=== PATIENT | female | born 1940 | race Caucasian/White ===

== ENCOUNTER 2018-10-25 12:57 | Outpatient (CLI) | payer MEDICARE, SELFPAY ==
--- NOTE | 2018-11-08 12:13 | HOLTER_ITS ---
DATE OF DICTATION: November 07, 2018 REFERRING PHYSICIAN: Yareli Santa M.D. INDICATION: Bradycardia. DATE OF RECORDING: October 25, 2018 DATE OF ANALYSIS: October 27, 2018 FINDINGS: 1. Baseline sinus rhythm, 47-94 bpm, average 62 bpm. 2. Rare PVC's, 0.9%, few couplets (42) and triplets (2), no VT. 3. Rare PAC, 0.9%, 9 SVT runs, maximally 7 beats, maximally 137 bpm, no atrial fibrillation. 4. No significant pauses, one brief episode of nocturnal bradycardia. Minimally 42 bpm. 5. Symptoms: dizziness x3 with sinus rhythm 52-69 bpm, one episode with single PVC.
== END 2018-10-25 13:17 ==
PROVIDERS: PCP Family Medicine; Visit Provider Internal Medicine
DX: R00.1 Bradycardia, unspecified (principal); I49.3 Ventricular premature depolarization; I47.1 Supraventricular tachycardia
CPT/HCPCS: 93225

== ENCOUNTER 2018-10-26 01:46 | Outpatient (CLI) | payer MEDICARE, SELFPAY ==
[2018-10-26 13:07] LABS: Abs Immature Grans 0.01 k/cumm (0.0-0.09); Absolute Basophil Count 0.03 k/cumm (0.0-0.2); Absolute Lymphocyte Count 1.22 k/cumm (1.2-3.4); Absolute Monocyte Count 0.49 k/cumm (0.11-0.7); Absolute Neutrophil Count 3.24 k/cumm (1.2-6.7); Basophils % 0.6; HCT 40.4 % (36.0-46.0); HGB 13.5 g/dL (12.0-15.5); Immature Grans % 0.2; Mean Corp. HGB Concentration 33.4 g/dL (32.0-36.0); Mean Corpuscular Hemoglobin 31.2 pg (27.0-33.0); Mean Corpuscular Volume 93.3 fL (80-95); Mean Platelet Volume 9.7 fL (8.0-11.0); Monocytes % 9.6; Neutrophils % 63.6; Platelet Count 194 x1000/uL (130-400); RBC 4.33 m/cumm (4.00-5.20); RBC Distribution Width 12.6 % (11.7-14.6); White Blood Cell Count 5.09 k/cumm (4.4-10.8)
[2018-10-26 13:14] LABS: ALT 23 U/L (12-78); AST 19 U/L (15-37); Alkaline Phosphatase 69 U/L (46-116); Anion Gap 9.8 mmol/L (3-11); BUN 24 mg/dL (7-18); Bilirubin, Total 0.6 mg/dL (0.2-1.0); CO2 29.2 mmol/L (21.0-32.0); CREATININE 0.84 mg/dL (0.55-1.02); Calcium 8.1 mg/dL (8.5-10.1); Chloride 101 mmol/L (98-107); Glucose 83 mg/dL (70-100); Potassium 4.3 mmol/L (3.5-5.1); Sodium 140 mmol/L (136-145); TSH (W/Ref FT4) 2.66 uIU/mL (0.358-3.74); Total Protein 6.8 g/dL (6.4-8.2)
[2018-10-26 14:26] LABS: Calculated LDL 106; Cholesterol 179 mg/dL (50-200); HDL Cholesterol 59 mg/dL (40-60); Triglyceride 73 mg/dL (30-150)
[2018-10-28 05:22] LABS: Vitamin D 25 Total 62.1 ng/ml (30-100)
== END 2018-10-26 02:06 ==
PROVIDERS: PCP Family Medicine; Visit Provider Internal Medicine
DX: R00.1 Bradycardia, unspecified (principal); R42 Dizziness and giddiness; E03.9 Hypothyroidism, unspecified; E83.51 Hypocalcemia
CPT/HCPCS: 36415; 80053; 80061; 82306; 83721; 84443; 85025

== ENCOUNTER 2018-10-27 00:53 | Outpatient (CLI) | payer MEDICARE, SELFPAY ==
--- NOTE | 2018-10-27 07:29 | DI.COMBO_ITS ---
SYMPTOMS/DIAGNOSIS: RIGHT BREAST LUMP, N63.10 MAMMOGRAM WITH ADDITIONAL MAMMOGRAPHIC VIEWS, RIGHT BREAST, AND RIGHT BREAST ULTRASOUND: Mammograms were interpreted according to the usual protocol including computer analysis with CAD system, tomosynthesis and C view imaging. Additional images are interpreted according to the usual protocol including tomosynthesis and 2D imaging. Today's mammogram is interpreted in conjunction with additional mammographic views of the right breast and right breast ultrasound. The breasts are of moderate density with fairly symmetrical distribution of fibroglandular tissue. Comparison with previous examinations including October 2015 shows a new, approximately 12-13 mm in diameter right breast mass in the lower outer quadrant/lateral portion of the breast in approximately the 8 o'clock position about 4 cm from the nipple. This has poorly defined borders. Additional compression views of this area confirm a mass with somewhat irregular borders, three or four nonspecific microcalcifications are present mammographically in the mass. No additional mass identified in either breast. Breast ultrasound shows a heterogeneous solid mass with mildly increased vascular flow and poorly defined posterior borders with mild posterior acoustic shadowing. The findings are suspicious for malignancy. Biopsy recommended, which may be accomplished as ultrasound-guided biopsy. CONCLUSION: Biopsy recommended for suspicious right breast mass. Category 4, breast density category B. MQSA ASSESSMENT OF FINDINGS: Suspicious. Biopsy should be considered. Category 4. Patient will receive a letter notifying them of these results. BI-RADS category B. There are scattered areas of fibroglandular density.
== END 2018-10-27 01:13 ==
PROVIDERS: PCP Family Medicine; Visit Provider Internal Medicine
DX: N63.13 Unspecified lump in the right breast, lower outer quadrant (principal); Z12.31 Encounter for screening mammogram for malignant neoplasm of breast; R92.8 Other abnormal and inconclusive findings on diagnostic imaging of breast; R00.1 Bradycardia, unspecified; I49.3 Ventricular premature depolarization; I47.1 Supraventricular tachycardia
CPT/HCPCS: 76642; 77062; 77066; 93226; G0279

== ENCOUNTER 2018-10-27 18:41 | Outpatient (CLI) | payer MEDICARE, SELFPAY | END 2018-10-27 19:01 | PROVIDERS: PCP Family Medicine; Visit Provider Family Medicine | DX: R00.1 Bradycardia, unspecified (principal); I49.3 Ventricular premature depolarization; I47.1 Supraventricular tachycardia | CPT/HCPCS: 93226 ==

== ENCOUNTER 2018-11-05 09:52 | Emergency (ER) | payer MEDICARE, SELFPAY ==
[2018-11-05] VITALS (53 sets, daily range): BP systolic 119–160; BP diastolic 52–102; PULSE 48–54; RESP 8–30; O2SAT 94–99
--- NOTE | 2018-11-05 10:05 | ED.GENADUL_ITS ---
Discharge Plan Disposition Patient Disposition: [facility] Discharge Details Chief Complaint: Dizzy/Sync Clinical Impression: Symptomatic bradycardia Primary Care Provider: Maine Trinidad ED Provider: Bryce Glaser Home Meds and New Rx's Prescriptions: No Action levothyroxine 75 mcg tablet 75 mcg PO DAILY Qty: 90 RF: 3 PreserVision AREDS-2 [id number] rk-bfvz-og-mg capsule 2 tab PO ONCE RF: 0 aspirin [Aspirin Low-Strength] 81 MG tablet,chewable 81 mg PO DAILY RF: 0 CENTRUM SILVER TABLET 1 EACH tablet 1 tab PO DAILY RF: 0 calcium carbonate-vitamin D3 [Caltrate with Vitamin D3] 600 mg(1,500mg) -800 unit tablet 2 tab PO DAILY RF: 0 meclizine 25 mg tablet 25 mg PO TID PRN (Reason: dizziness) Qty: 20 RF: 0 Discharge Data Discharge Date/Time-TO BE ENTERED AT DEPARTURE: 11/05/18 14:10 Medical Decision Making 10:10 --78-year-old female with history of hypothyroidism, on levothyroxine, here with symptomatic bradycardia. Patient is having intermittent episodes with heart rate in the 30s to 40s and becomes quite symptomatic with feelings of presyncope, nausea and diaphoresis during episodes. Patient is not on beta-nadine or calcium channel nadine. Consider hypothyroidism versus more likely sick sinus syndrome. Plan to obtain screening electrolytes and will check TSH and free T4. Pacer pads have been placed on the patient. Initial ECG reviewed and interpreted by me: Sinus bradycardia 53 bpm, right bundle branch block with left axis deviation, no STEMI, nondiagnostic. ECG monitor was reviewed and interpreted by me during episode of presyncope and patient notably had bradycardia in the 30s with no definitive P waves. Episode was brief lasting a few minutes and she returned to sinus bradycardia. 11:05 -- Labs reviewed and nondiagnostic. [place] [facility] [place] Awaiting physician callback. 11:15 -- I spoke with Dr. Rodriguez -I discussed ED presentation and course. Dr. Peck to accept transfer, awaiting bed call. HPI General Mode of arrival: ambulatory . Date/Time Provider Initiated Documentation: 11/05/18 10:06 . Limitations to Documentation: no limitations . Information obtained by: patient . History of Present Illness Quality is described as sharp, HPI Narrative: 78-year-old female here with chief complaint of dizziness. Patient notes she is had intermittent dizziness occurring every 1 to 2 days for the past 2 weeks. This morning she notes that she stood up out of a chair to answer the phone and felt dizzy and like she was going to pass out. Symptoms were severe. She has associated nausea and diaphoresis. No modifiers. No associated chest pain or SOB. EMS arrived at home and found the patient asymptomatic with a heart rate in the 70s to 80s. En route to [facility], EMS note that she had intermittent episodes of bradycardia to the 30s and 40s with recurrent symptoms. Of note, patient recently had a Holter monitor that was returned. Related Data Home Medications Medication Instructions Recorded Confirmed Centrum Silver Tablet 1 tab PO DAILY 09/16/12 11/10/18 aspirin [Aspirin Low-Strength] 81 mg PO DAILY tab-cap 09/16/12 11/10/18 vit C 250 mg-E 200 unit-zinc 40 2 tab PO ONCE cap 07/27/18 11/10/18 mg-copper 1 my-klpxvj-qaewqc capsule calcium carbonate-vitamin D3 600 2 tab PO DAILY tab 10/25/18 11/10/18 mg (1,500 mg)-800 unit tablet levothyroxine 75 mcg tablet 75 mcg PO DAILY #90 tab-cap 10/25/18 11/10/18 meclizine 25 mg PO TID PRN #20 tab 11/10/18 Previous Rx's Medication Instructions Recorded levothyroxine 75 mcg tablet 75 mcg PO DAILY #90 tab-cap 10/25/18 meclizine 25 mg PO TID PRN #20 tab 11/10/18 Allergies Allergy/AdvReac Type Severity Reaction Status Date / Time No Known Allergies Allergy Unverified 11/10/18 10:59 General Stated Complaint: Dizzy/Sync HAKEEM: 2 Review of Systems Review of Systems All systems reviewed & are unremarkable except as noted in HPI and below Cardiovascular Denies chest pain, Reports lightheadedness and Denies dyspnea Respiratory Denies dyspnea PFSH Surgical History Colonoscopy - MAC (03/25/16) Vaginal hysterectomy Family History Father Skin cancer Heart disease Mother Dementia Sister Dementia Heart disease Brother No problems noted. Maternal Grandfather No problems noted. Paternal Grandfather Cancer Maternal Grandmother No problems noted. Paternal Grandmother No problems noted. Daughter Diabetes S/P vascular surgery Daughter No problems noted. Social History Smoking/Tobacco Use Status: Former Tobacco Use Quit Date: 03/04/98 Second Hand Exposure: Yes Alcohol Intake: never Drug use: Never Substance use type: does not use Caregiver/Support person: No Household members: spouse Housing: house Do you need help understanding health information?: Never Pets and animals: No Sexually active: No Do you think of yourself as: straight/heterosexual Current gender identity: female What is your relationship status?: How often do you talk on the phone with friends or family?: three or more times per week How often do you get together with friends or relatives?: once per week How often do you attend pentecostal or temple services?: 4 or more times per year Do you belong to any clubs or organized social groups?: no Panel score (0-1 are the most socially isolated patients): 3 What type of physical activity do you participate in: walking Duration: 30-45 minutes/day Frequency: 1-2 times per week Cristela/Yarsani: Pentecostal Special cristela needs: No Seatbelt use: always Helmet use: No 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 Do you feel safe at home: Yes Do you feel safe in your relationship?: Yes Exam Const General: cooperative and no acute distress HENNJ Head: normocephalic Mouth: moist mucous membranes Eyes Conjunctivae: normal conjunctivae Sclera: normal sclerae Neck Neck: trachea midline and supple Thyroid: thyroid normal Resp Auscultation: clear to auscultation bilaterally, no rales, no rhonchi and no wheezes Cardio Jugular venous pressure: no JVD Rate: bradycardic Rhythm: regular rhythm GI Palpation: soft, not firm, no guarding, no masses, not rigid and nontender Skin General skin exam: no rashes or lesions noted Neuro General: alert, awake, oriented x3 and tone normal Extrem General: no calf tenderness bilaterally and no edema Psych Appearance: grossly normal Course Vital Signs Pulse 52 L 11/05/18 09:52 Respiratory Rate 14 11/05/18 09:52 Pulse 54 L 11/05/18 09:57 Respiratory Rate 14 11/05/18 09:57 Respiratory Effort Non-Labored 11/05/18 10:00 Blood Pressure 133/94 H 11/05/18 09:57 Blood Pressure Position Supine 11/05/18 09:52 Pulse Oximetry 98 11/05/18 09:57 Oxygen Delivery Method Room Air 11/05/18 09:57 Oxygen Flow Rate 0 11/05/18 09:57
[2018-11-05 10:17] LABS: Abs Immature Grans 0.01 k/cumm (0.0-0.09); Absolute Basophil Count 0.03 k/cumm (0.0-0.2); Absolute Eosinophil Count 0.04 k/cumm (0.0-0.7); Absolute Lymphocyte Count 0.81 k/cumm (1.2-3.4); Absolute Monocyte Count 0.31 k/cumm (0.11-0.7); Absolute Neutrophil Count 3.85 k/cumm (1.2-6.7); Basophils % 0.6; Eosinophils % 0.8; HGB 13.5 g/dL (12.0-15.5); Immature Grans % 0.2; Mean Corp. HGB Concentration 34.6 g/dL (32.0-36.0); Mean Corpuscular Hemoglobin 31.9 pg (27.0-33.0); Mean Corpuscular Volume 92.2 fL (80-95); Mean Platelet Volume 9.6 fL (8.0-11.0); Monocytes % 6.1; Neutrophils % 76.3; Platelet Count 175 x1000/uL (130-400); RBC 4.23 m/cumm (4.00-5.20); RBC Distribution Width 12.6 % (11.7-14.6); White Blood Cell Count 5.05 k/cumm (4.4-10.8)
[2018-11-05 10:39] LABS: ALT 19 U/L (12-78); AST 15 U/L (15-37); Albumin 3.7 g/dL (3.4-5.0); Alkaline Phosphatase 62 U/L (46-116); Anion Gap 9.1 mmol/L (3-11); BUN 27 mg/dL (7-18); Bilirubin, Total 0.7 mg/dL (0.2-1.0); CO2 25.9 mmol/L (21.0-32.0); CREATININE 0.88 mg/dL (0.55-1.02); Calcium 9.3 mg/dL (8.5-10.1); Chloride 104 mmol/L (98-107); Glucose 107 mg/dL (70-100); Magnesium 1.8 mg/dL (1.8-2.4); Potassium 4.2 mmol/L (3.5-5.1); Sodium 139 mmol/L (136-145); TSH (W/Ref FT4) 7.71 uIU/mL (0.358-3.74); Total Protein 6.9 g/dL (6.4-8.2)
[2018-11-05 10:41] LABS: Troponin I < 0.05 ng/mL (0.00-0.06)
[2018-11-05 10:58] LABS: FREE T4 1.31 ng/dL (0.76-1.46)
--- NOTE | 2018-11-05 12:06 | NUR.NOTE ---
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
--- NOTE | 2018-11-05 12:52 | NUR.NOTE ---
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
== END 2018-11-05 14:10 | disposition short-term general hospital (02) ==
PROVIDERS: Emergency Provider Student in an Organized Health Care Education/Training Program; PCP Family Medicine
DX: R00.1 Bradycardia, unspecified (principal); I45.10 Unspecified right bundle-branch block
CPT/HCPCS: 36415; 80053; 93005; 99285; 83735; 84439; 84443; 84484; 85025; 93010; 99284

== ENCOUNTER 2018-11-07 00:38 | Outpatient (CLI) | payer MEDICARE, SELFPAY | END 2018-11-07 00:58 | PROVIDERS: PCP Family Medicine; Referring Provider Family Medicine; Visit Provider Internal Medicine Cardiovascular Disease | DX: R00.1 Bradycardia, unspecified (principal); I49.3 Ventricular premature depolarization; I47.1 Supraventricular tachycardia | CPT/HCPCS: 93227 ==

== ENCOUNTER 2018-11-10 10:51 | Emergency (ER) | payer MEDICARE, SELFPAY ==
[2018-11-10] VITALS (14 sets, daily range): BP systolic 118–166; BP diastolic 65–86; PULSE 58–85; RESP 9–24; TEMP 36.4–36.9; O2SAT 94–100
[2018-11-10 11:18] LABS: Abs Immature Grans 0.01 k/cumm (0.0-0.09); Absolute Basophil Count 0.02 k/cumm (0.0-0.2); Absolute Lymphocyte Count 0.97 k/cumm (1.2-3.4); Absolute Monocyte Count 0.44 k/cumm (0.11-0.7); Absolute Neutrophil Count 4.49 k/cumm (1.2-6.7); Basophils % 0.3; Eosinophils % 1.7; HCT 43.3 % (36.0-46.0); HGB 15.3 g/dL (12.0-15.5); Immature Grans % 0.2; Lymphocytes % 16.1; Mean Corp. HGB Concentration 35.3 g/dL (32.0-36.0); Mean Corpuscular Hemoglobin 32.1 pg (27.0-33.0); Mean Corpuscular Volume 90.8 fL (80-95); Mean Platelet Volume 9.5 fL (8.0-11.0); Monocytes % 7.3; Neutrophils % 74.4; Platelet Count 174 x1000/uL (130-400); RBC 4.77 m/cumm (4.00-5.20); RBC Distribution Width 12.6 % (11.7-14.6); White Blood Cell Count 6.03 k/cumm (4.4-10.8)
--- NOTE | 2018-11-10 11:18 | ED.GENADUL_ITS ---
Discharge Plan Disposition Patient Disposition: HOME Condition: Stable Discharge Details Chief Complaint: Dizzy/Sync Clinical Impression: Dizziness Primary Care Provider: Maine Trinidad ED Provider: Parminder Buckley Home Meds and New Rx's Prescriptions: New meclizine 25 mg tablet 25 mg PO TID PRN (Reason: dizziness) Qty: 20 RF: 0 Continued levothyroxine 75 mcg tablet 75 mcg PO DAILY Qty: 90 RF: 3 PreserVision AREDS-2 [id number] fe-xspl-sh-mg capsule 2 tab PO ONCE RF: 0 aspirin [Aspirin Low-Strength] 81 MG tablet,chewable 81 mg PO DAILY RF: 0 CENTRUM SILVER TABLET 1 EACH tablet 1 tab PO DAILY RF: 0 calcium carbonate-vitamin D3 [Caltrate with Vitamin D3] 600 mg(1,500mg) -800 unit tablet 2 tab PO DAILY RF: 0 Discharge Instructions Instructions: Dizziness (ED) Additional Instructions: you have an appointment with your primary care provider on 11/22, please keep this appointment if you feel more ill, have new symptoms such as chest pain/pressure or difficulty breathing return to the emergency department Medical Decision Making 78 yo female who [place] pac[place] [facility] [place]/c'd yesterday comes in with feeling lightheaded since this AM. Denies loc and no chest pain, sob, fevers. Has a mild headache, no neck pain. Has no warmth or redness around the incision site of the pacemaker. She has an NIH of 0 so doubt cva and has no reported speech problems, vision changes or weakness to suggest tia. No chest pain or sob and no evidence of dvt so doubt acs or PE. She did become emotional during my exam about a lost close person in her life and states this is making her anxious. Unclear if this is the cause of her symptoms or possible dehydration, will check for anemia and electrolyte abnormalities and given mild headache will obtain ct head and cxr to evaluate pacer leads. Tele is normal with these symptoms so doubt pacer failure or arrythmia pts labs and imaging shows no acute findings and remains stable. She is feeling better and ambulating under her own gait with continued normal neuro exam. Will d/c and have her f/u with her pcp, return precautions given Differential Diagnosis anemia, dehydration, pna, vertigo Medical Records Medical records reviewed: Yes I reviewed the patient's medical records. Imaging Data Radiologic Study: Attestation: I personally reviewed and interpreted this imaging study as follows: Imaging: CT Scan Radiologist's impression: no acute pathology per Dr. Vinson Radiologic Study #2: Attestation: I personally reviewed and interpreted this imaging study as follows: Imaging: X-Ray My impression: no acute findings Lab Data Lab results reviewed: Yes I reviewed the patient's lab results. ECG Data Attestation: I personally reviewed and interpreted this ECG (s) as follows: Prior ECG tracings: not available for review Interpretation: paced rhythm, qtc 295, no acute st t wave ischemic findings HPI General Mode of arrival: EMS . Date/Time Provider Initiated Documentation: 11/10/18 10:51 . Limitations to Documentation: no limitations . Information obtained by: patient . History of Present Illness 78 year old F presents to the emergency department with the chief complaint of dizzy, described as moderate, Patient reports no radiation. Patient started experiencing this hour(s) (4) and it has been constant. No relieving factors improve symptom(s), No exacerbating factors reported . Patient did receive the following treatments prior to arrival, none Related Data Home Medications Medication Instructions Recorded Confirmed Centrum Silver Tablet 1 tab PO DAILY 09/16/12 11/10/18 aspirin [Aspirin Low-Strength] 81 mg PO DAILY tab-cap 09/16/12 11/10/18 vit C 250 mg-E 200 unit-zinc 40 2 tab PO ONCE cap 07/27/18 11/10/18 mg-copper 1 gs-veaaqr-qwfliw capsule calcium carbonate-vitamin D3 600 2 tab PO DAILY tab 10/25/18 11/10/18 mg (1,500 mg)-800 unit tablet levothyroxine 75 mcg tablet 75 mcg PO DAILY #90 tab-cap 10/25/18 11/10/18 meclizine 25 mg PO TID PRN #20 tab 11/10/18 Previous Rx's Medication Instructions Recorded levothyroxine 75 mcg tablet 75 mcg PO DAILY #90 tab-cap 10/25/18 meclizine 25 mg PO TID PRN #20 tab 11/10/18 Allergies Allergy/AdvReac Type Severity Reaction Status Date / Time No Known Allergies Allergy Unverified 11/10/18 10:59 General Stated Complaint: Dizzy/Sync HAKEEM: 3 Review of Systems Review of Systems All systems reviewed & are unremarkable except as noted in HPI and below Constitutional Denies chills, Denies fever(s) and Denies weakness Cardiovascular Denies chest pain and Denies dyspnea Respiratory Denies cough and Denies dyspnea Gastrointestinal Denies abdominal pain, Denies nausea and Denies vomiting Musculoskeletal Denies joint swelling Neurologic Denies weakness [facility] Social History Smoking/Tobacco Use Status: Former Tobacco Use Quit Date: 03/04/98 Second Hand Exposure: Yes Alcohol Intake: never Drug use: Never Substance use type: does not use Caregiver/Support person: No Household members: spouse Housing: house Do you need help understanding health information?: Never Pets and animals: No Sexually active: No Do you think of yourself as: straight/heterosexual Current gender identity: female What is your relationship status?: How often do you talk on the phone with friends or family?: three or more times per week How often do you get together with friends or relatives?: once per week How often do you attend synagogue or pentecostalism services?: 4 or more times per year Do you belong to any clubs or organized social groups?: no Panel score (0-1 are the most socially isolated patients): 3 What type of physical activity do you participate in: walking Duration: 30-45 minutes/day Frequency: 1-2 times per week Cristela/Catholic: Temple Special cristela needs: No Seatbelt use: always Helmet use: No Drive intox or ride w/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 Do you feel safe at home: Yes Do you feel safe in your relationship?: Yes Exam Const General: no acute distress Orientation: alert HENMT Head: normal to inspection Ears: external ears normal General nose exam: external nose normal Mouth: moist mucous membranes Eyes General: appearance normal, both eyes and all related structures Neck Neck: normal visual inspection Resp Effort & Inspection: normal respiratory effort and able to speak in complete sentences Cardio Rate: regular rate Skin General skin exam: no rashes or lesions noted Neuro General: alert and oriented x3 Extrem General: normal to inspection Psych Mental Status: mental status grossly normal Course Vital Signs Temperature 36.9 C 11/10/18 10:57 Pulse 69 11/10/18 10:57 Respiratory Rate 20 11/10/18 10:57 Blood Pressure 148/70 H 11/10/18 10:57 Pulse Oximetry 99 11/10/18 10:57 Temperature 36.9 C 11/10/18 10:57 Temperature Source Temporal Artery Scan 11/10/18 10:57 Pulse 69 11/10/18 10:57 Respiratory Rate 20 11/10/18 11:00 Respiratory Effort Non-Labored 11/10/18 11:00 Respiratory Depth Normal 11/10/18 11:00 Respiratory Pattern Normal 11/10/18 11:00 Blood Pressure 148/70 H 11/10/18 10:57 Blood Pressure Position Sitting 11/10/18 10:57 Pulse Oximetry 99 11/10/18 10:57 Oxygen Delivery Method Room Air 11/10/18 10:57 Oxygen Flow Rate 0 11/10/18 10:57 Pain Level 0 11/10/18 10:57
[2018-11-10 11:32] LABS: PTT Activated 24.4 sec (21.0-31.4); Prothrombin Time 9.8 sec (9.3-11.0)
[2018-11-10] MEDS: Normal Saline 1,000 ML 1000 ML IV (11:32)
[2018-11-10] MEDS: Normal Saline Flush 10 ML SYR IVP (11:33)
[2018-11-10 11:35] LABS: Bilirubin Negative (Negative); Blood Negative (Negative); Clarity Clear (Clear); Glucose Negative (Negative); Ketones Negative (Negative); Leukocyte Esterase Negative (Negative); Nitrite Negative (Negative); Specific Gravity 1.015 (1.005-1.025); Urobilinogen 0.2 EU/dL (Up TO 0.2); pH 8.5 (5-8)
[2018-11-10 11:43] LABS: NT-proBNP 138 pg/mL
[2018-11-10 11:48] LABS: ALT 22 U/L (12-78); AST 16 U/L (15-37); Albumin 4.1 g/dL (3.4-5.0); Alkaline Phosphatase 70 U/L (46-116); Anion Gap 10.3 mmol/L (3-11); BUN 20 mg/dL (7-18); Bilirubin, Total 0.8 mg/dL (0.2-1.0); CO2 24.7 mmol/L (21.0-32.0); CREATININE 0.92 mg/dL (0.55-1.02); Calcium 9.9 mg/dL (8.5-10.1); Chloride 105 mmol/L (98-107); Estimated GFR 59.04 (mL/min/1.73m2); Glucose 97 mg/dL (70-100); Magnesium 1.9 mg/dL (1.8-2.4); Sodium 140 mmol/L (136-145); Total Protein 7.5 g/dL (6.4-8.2)
--- NOTE | 2018-11-10 11:51 | DI.CT_ITS ---
SYMPTOMS/DIAGNOSIS: VERTIGO CRANIAL CT: Noncontrast cranial CT was performed. There is mild generalized cerebral atrophy. 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 No evidence of acute intracranial hemorrhage, mass effect or midline shift. The orbital and temporal bone structures appear intact. Paranasal sinuses appear well aerated as visualized. CONCLUSION: No evidence of acute intracranial process.
[2018-11-10 11:54] LABS: Troponin I < 0.05 ng/mL (0.00-0.06)
--- NOTE | 2018-11-10 12:02 | DI.RAD_ITS ---
SYMPTOMS/DIAGNOSIS: RECENT PACEMAKER PLACEMENT, PAIN AP AND LATERAL CHEST: There is a transvenous cardiac pacemaker in position. Cardiac size is within normal limits. Mild scarring noted at the lung bases. No focal consolidation seen. No pleural effusion seen. CONCLUSION: No evidence of acute disease.
[2018-11-10] MEDS: Meclizine 25 MG TAB PO (12:03)
--- NOTE | 2018-11-10 12:38 | NUR.NOTE ---
pt states that she is not dizzy now, she ambulated out to the turpin and back. she has voided on the commode . she did admit to some discomfort at the pace maker site . tylenol given Nursing Note:
== END 2018-11-10 12:57 | disposition home or self-care (01) ==
LOC: ER 13:02
PROVIDERS: Emergency Provider Emergency Medicine; PCP Family Medicine
DX: R42 Dizziness and giddiness (principal); R51 Headache; Z95.0 Presence of cardiac pacemaker
CPT/HCPCS: 36415; 36416; 80053; 82962; 93005; 96360; 99285; 70450; 71046; 81003; 83735; 83880; 84484; 85025; 85610; 85730; 93010

== ENCOUNTER 2019-02-28 09:40 | Outpatient (CLI) | payer MEDICARE, SELFPAY ==
[2019-02-28 10:57] LABS: Abs Immature Grans 0.01 k/cumm (0.0-0.09); Absolute Basophil Count 0.04 k/cumm (0.0-0.2); Absolute Eosinophil Count 0.09 k/cumm (0.0-0.7); Absolute Lymphocyte Count 0.79 k/cumm (1.2-3.4); Absolute Monocyte Count 0.67 k/cumm (0.11-0.7); Absolute Neutrophil Count 4.92 k/cumm (1.2-6.7); Basophils % 0.6; Eosinophils % 1.4; HGB 13.1 g/dL (12.0-15.5); Immature Grans % 0.2; Lymphocytes % 12.1; Mean Corp. HGB Concentration 33.6 g/dL (32.0-36.0); Mean Corpuscular Hemoglobin 31.3 pg (27.0-33.0); Mean Corpuscular Volume 93.1 fL (80-95); Mean Platelet Volume 9.4 fL (8.0-11.0); Monocytes % 10.3; Neutrophils % 75.4; Platelet Count 203 x1000/uL (130-400); RBC 4.19 m/cumm (4.00-5.20); RBC Distribution Width 12.1 % (11.7-14.6); White Blood Cell Count 6.52 k/cumm (4.4-10.8)
[2019-02-28 11:25] LABS: ALT 46 U/L (14-59); AST 28 U/L (15-37); Albumin 3.7 g/dL (3.4-5.0); Alkaline Phosphatase 108 U/L (46-116); Anion Gap 5.4 mmol/L (3-11); BUN 20 mg/dL (7-18); Bilirubin, Total 0.7 mg/dL (0.2-1.0); CO2 30.6 mmol/L (21.0-32.0); CREATININE 0.78 mg/dL (0.55-1.02); Calcium 9.5 mg/dL (8.5-10.1); Chloride 103 mmol/L (98-107); Glucose 90 mg/dL (70-100); Potassium 4.3 mmol/L (3.5-5.1); Sodium 139 mmol/L (136-145); TSH (W/Ref FT4) 1.49 uIU/mL (0.36-3.74); Total Protein 6.8 g/dL (6.4-8.2)
[2019-02-28 11:38] LABS: Vitamin D 25 Total 46.1 ng/ml (30-100)
== END 2019-02-28 10:00 ==
PROVIDERS: PCP Family Medicine; Visit Provider Internal Medicine
DX: E83.51 Hypocalcemia (principal); R50.9 Fever, unspecified; E03.9 Hypothyroidism, unspecified; C50.919 Malignant neoplasm of unspecified site of unspecified female breast
CPT/HCPCS: 36415; 80053; 82306; 84443; 85025

== ENCOUNTER → 2019-11-16 10:22 | Outpatient (BNVA) | payer MEDICARE, SELFPAY | PROVIDERS: PCP Nurse Practitioner; Referring Provider Internal Medicine; Visit Provider Physician Assistant | DX: R00.1 Bradycardia, unspecified (principal); Z45.018 Encounter for adjustment and management of other part of cardiac pacemaker | CPT/HCPCS: 93280; 99211 ==

== ENCOUNTER 2020-01-06 12:46 | Outpatient (REF) | payer MEDICARE, SELFPAY ==
[2020-01-06 13:40] LABS: TSH 0.85 uIU/mL (0.36-3.74)
== END 2020-01-06 13:06 ==
LOC: LBN 12:46
PROVIDERS: PCP Nurse Practitioner; Visit Provider Nurse Practitioner
DX: E03.9 Hypothyroidism, unspecified (principal)
CPT/HCPCS: 84443

== ENCOUNTER 2020-03-28 15:45 | Outpatient (REF) | payer MEDICARE, SELFPAY ==
[2020-03-30 11:05] LABS: Campylobacter PCR Negative (Negative); Salmonella PCR Negative (Negative); Shiga Toxin PCR Negative (Negative); Shigella/Enteroinvasive Ecoli Negative (Negative)
== END 2020-03-28 16:05 ==
LOC: LBN 15:45
PROVIDERS: PCP Nurse Practitioner; Visit Provider Nurse Practitioner Family
DX: R19.7 Diarrhea, unspecified (principal)
CPT/HCPCS: 87505; 87177

== ENCOUNTER → 2020-04-02 10:01 | Outpatient (BNVA) | payer MEDICARE, SELFPAY | PROVIDERS: PCP Nurse Practitioner; Referring Provider Nurse Practitioner; Visit Provider Nurse Practitioner Adult Health | DX: G56.02 Carpal tunnel syndrome, left upper limb (principal); G56.22 Lesion of ulnar nerve, left upper limb | CPT/HCPCS: 95908; 99203; 99214 ==

== ENCOUNTER 2020-04-03 02:05 | Outpatient (CLI) | payer MEDICARE, SELFPAY ==
[2020-04-05 17:33] LABS: Patient Race White; SARS-CoV-2 RNA Undetected (Undetected); SARS-CoV-2 Specimen Source Nasal
== END 2020-04-03 02:25 ==
PROVIDERS: PCP Nurse Practitioner; Visit Provider Nurse Practitioner
DX: Z11.59 Encounter for screening for other viral diseases (principal)
CPT/HCPCS: U0003

== ENCOUNTER → 2020-07-12 09:55 | Outpatient (BNVA) | payer MEDICARE, SELFPAY | PROVIDERS: PCP Nurse Practitioner; Referring Provider Nurse Practitioner; Visit Provider Physical Therapy Assistant | DX: R19.7 Diarrhea, unspecified (principal); Z86.010 Personal history of colon polyps; R63.4 Abnormal weight loss | CPT/HCPCS: 99213 ==

== ENCOUNTER → 2020-07-18 13:24 | Outpatient (BNVA) | payer MEDICARE, SELFPAY | PROVIDERS: PCP Nurse Practitioner; Referring Provider Nurse Practitioner; Visit Provider Physician Assistant | DX: I49.5 Sick sinus syndrome (principal); Z45.018 Encounter for adjustment and management of other part of cardiac pacemaker | CPT/HCPCS: 93280 ==

== ENCOUNTER 2020-07-20 03:09 | Outpatient (CLI) | payer MEDICARE, SELFPAY ==
[2020-07-20 11:18] LABS: Source Nasal/Nares
[2020-07-20 17:06] LABS: COVID-19 PCR Negative (Negative)
== END 2020-07-20 03:10 | disposition home or self-care (01) ==
LOC: LBO 03:09
PROVIDERS: PCP Nurse Practitioner; Visit Provider Surgery
DX: Z20.822 Contact with and (suspected) exposure to COVID-19 (principal); Z01.818 Encounter for other preprocedural examination
CPT/HCPCS: 87635

== ENCOUNTER 2020-07-22 21:17 | Observation (INO) | payer MEDICARE, SELFPAY ==
[2020-07-22] VITALS (18 sets, daily range): BP systolic 109–128; BP diastolic 60–94; PULSE 60–86; RESP 13–32; TEMP 36.8; O2SAT 96–100
--- NOTE | 2020-07-22 21:00 | RT.EKG_ITS ---
APPROVED REPORT Exam: Resting ECG Patient Location: E HR:70 bpm ECG Measurements Heart Rate 70 AXIS IA 171 P [id number] QRSd 106 QRS -76 QT 470 T 41 QTc 506 Conclusion Atrial-paced complexes...other complexes also detected Inferior infarct, old...Q >35mS, II III aVF Prolonged QT interval...QTc >500mS
--- NOTE | 2020-07-22 21:11 | W.ED.GENAD ---
Discharge Plan Disposition Patient Disposition: [facility] INPATIENT Condition: Stable Discharge Details Clinical Impression: Nausea & vomiting, Headache, Flank pain, Hypokalemia, Hypomagnesemia, Elevated troponin Primary Care Provider: Katy Guevara ED Provider: Parminder Buckley Home Meds and New Rx's Prescriptions: No Action exemestane 25 mg tablet 25 mg PO DAILY RF: 0 artificial tears(hypromellose) 0.3 % drops 1 drp OP BID RF: 0 aspirin [Aspirin Low-Strength] 81 MG tablet,chewable 81 mg PO DAILY RF: 0 levothyroxine 100 mcg capsule 100 mcg PO DAILY Qty: 90 RF: 3 fluoxetine 20 mg capsule 20 mg PO DAILY Qty: 14 RF: 0 Medical Decision Making 79-year-old right-handed woman with a history of bradycardia status post pacemaker, hypothyroidism, memory impairment, breast cancer, who started polyethylene glycol and dulcolax for planned outpatient colonoscopy comes in tonight with ems with persistent n/v throughout the night. She denies chest pain, fevers, chills, dyspnea. She arrives hemodynamically stable speaking in full sentences. She has a mild headache and mild upper abdominal discomfort mainly when she does vomit. She has no focal neuro deficits on exam. She has mild tenderness to the mid abdomen without guarding or rebound and also notes she has had some left sided flank pain intermittently. Suspect medication side effect but given the persistent vomit and abdominal discomfort will image the head to evaluate for possible sdh, no severe pain or thunderclap etiology on description so doubt sah, and will also obtain renal colic ct to evaluate for possible kidney stone. She has no chest pain/pressure or dyspnea so doubt acs as a cause of her symptoms and no tearing back pain to suggest dissection labs show sodium of 129, magnesium 1.6, K of 3.1 and troponin of over 0.4. She continues to deny chest pain and states she feels better but still has mild general fatigue. She states her symptoms started a few hours after taking her colonoscopy prep meds so suspect n/v secondary to medication side effects and likely cause type 2 ND. Will discuss with hospitalist for admission for observation Differential Diagnosis Differential Diagnosis: medication side effects, pancreatitis, sbo, sdh Medical Records Medical records reviewed: Yes I reviewed the patient's medical records. Imaging Data Radiologic Study: Attestation: I personally reviewed and interpreted this imaging study as follows: Imaging: CT Scan Radiologist's impression: no acute findings renal colic ct Radiologic Study #2: Attestation: I personally reviewed and interpreted this imaging study as follows: Imaging: CT Scan Radiologist's impression: IMPRESSION: No acute intracranial abnormality. Radiologic Study #3: Attestation: I personally reviewed and interpreted this imaging study as follows: Imaging: X-Ray Radiologist's impression: no acute findings on cxr Lab Data Lab results reviewed: Yes I reviewed the patient's lab results. ECG Data Attestation: I personally reviewed and interpreted this ECG (s) as follows: Prior ECG tracings: not available for review Interpretation: atrial paced, heart rate of 70, pr 171, qtc 506 2nd ekg atrial paced rhythm, rate of 64, qtc 492 no acute changes from first ekg HPI General Mode of arrival: EMS. Date/Time Provider Initiated Documentation: 07/22/20 21:22. Limitations to Documentation: no limitations. Information obtained by: patient. History of Present Illness 79 year old F presents to the emergency department with the chief complaint of n/v, described as moderate, and it has been constant. No relieving factors improve symptom(s), No exacerbating factors reported . Patient did receive the following treatments prior to arrival, none Related Data Home Medications Medication Instructions Recorded Confirmed aspirin [Aspirin Low-Strength] 81 mg PO DAILY tab-cap 09/16/12 07/22/20 levothyroxine 100 mcg capsule 100 mcg PO DAILY #90 cap 10/18/19 07/22/20 artificial tears(hypromellose) 0.3 1 drp OP BID ml 01/06/20 07/22/20 % eye drops exemestane 25 mg tablet 25 mg PO DAILY 01/06/20 07/22/20 fluoxetine 20 mg capsule 20 mg PO DAILY #14 cap 07/17/20 07/22/20 Previous Rx's Medication Instructions Recorded levothyroxine 100 mcg capsule 100 mcg PO DAILY #90 cap 10/18/19 fluoxetine 20 mg capsule 20 mg PO DAILY #14 cap 07/17/20 Allergies Allergy/AdvReac Type Severity Reaction Status Date / Time No Known Allergies Allergy Verified 07/22/20 21:30 General HAKEEM: 3 Review of Systems All systems reviewed & are unremarkable except as noted in HPI and below Constitutional Constitutional: Denies chills, Denies fever(s) and Denies weakness Cardiovascular Cardiovascular: Denies chest pain and Denies dyspnea Respiratory Respiratory: Denies cough and Denies dyspnea Musculoskeletal Musculoskeletal: Denies joint swelling Neurologic Neurologic: Denies weakness Psychiatric Psychiatric: Denies depression [facility] Medical History Cubital tunnel syndrome on left Left carpal tunnel syndrome Mass of breast, right Awaiting biopsy result. Skin lesion of neck Sent photo to Dr. Terrell. He said benign seborrheic keratosis. No treatment. Will let her know later. Surgical History Colonoscopy - MAC (03/25/16) Vaginal hysterectomy Family History Father , 84 Skin cancer Heart disease Mother , 94 Dementia Sister , 81 Dementia Heart disease Brother No problems noted. Maternal Grandfather , 79 No problems noted. Paternal Grandfather , 59 Cancer Maternal Grandmother , 58 No problems noted. Paternal Grandmother , 86 No problems noted. Daughter Diabetes S/P vascular surgery Daughter No problems noted. Social History Smoking/Tobacco Use Status: Former Tobacco Use Quit Date: 03/04/98 Second Hand Exposure: Yes Smoking risk assessment performed?: Yes Alcohol Intake: never Drug use: Never Substance use type: does not use Caregiver/Support person: No Household members: spouse Housing: house Do you need help understanding health information?: Never Pets and animals: No Sexually active: No Do you think of yourself as: straight/heterosexual Current gender identity: female What is your relationship status?: How often do you talk on the phone with friends or family?: three or more times per week How often do you get together with friends or relatives?: once per week How often do you attend alevism or restorationist services?: 4 or more times per year Do you belong to any clubs or organized social groups?: no Panel score (0-1 are the most socially isolated patients): 3 What type of physical activity do you participate in: walking Duration: 30-45 minutes/day Frequency: 1-2 times per week Cristela/Episcopalian: Mu-Ism Special cristela needs: No Seatbelt use: always Helmet use: No Drive intox or ride w/intox driver trainee: No Do you feel safe at home: Yes Do you feel safe in your relationship?: Yes Exam Const General: no acute distress Orientation: alert HENMT Head: normal to inspection Ears: external ears normal General nose exam: external nose normal Mouth: moist mucous membranes Eyes General: appearance normal, both eyes and all related structures Neck Neck: normal visual inspection Resp Effort & Inspection: normal respiratory effort and able to speak in complete sentences Cardio Rate: regular rate GI Palpation: soft, not firm, no guarding and tender Skin General skin exam: no rashes or lesions noted Neuro General: patient alert and patient oriented x3 Extrem General: normal to inspection Psych Mental Status: mental status grossly normal
--- NOTE | 2020-07-22 21:27 | NUR.NOTE ---
Nursing Note: Pt reports supposed to have colonoscopy tomorrow. Reports hx breast cancer.
--- NOTE | 2020-07-22 21:30 | DI.CT_ITS ---
EXAM: CT HEAD WO CLINICAL HISTORY: n/v headache. TECHNIQUE: Imaging Protocol: Axial computed tomography images with coronal and sagittal reformatted images were created and reviewed COMPARISON: CT CT HEAD WO from 11/10/2018 FINDINGS: There are no skull fractures nor fluid in the visualized paranasal sinuses. There is no evidence of intracranial hemorrhage, mass effect, or shift of midline structures. There are no extra-axial fluid collections. The ventricles are not enlarged or shifted and there is no blo od within the ventricular system nor within the basal cisterns. Nonhemorrhagic cysts lacunar infarct noted in the lateral left basal ganglia, unchanged. Another non hemorrhagic lacunar infarct is again noted adjacent to the frontal horn of the right lateral ventricl e in the anterior limb of the right internal capsule, also previously present. No evidence of new te rritorial infarctions. IMPRESSION: Bilateral lacunar infarcts, previously present on CT scan 11/10/2018. No evidence of a new territorial infarction. No evidence of intracranial hemorrhage. RADIATION DOSE DELIVERED: 771.86mGy.cm Total DLP DATA REPOSITORY: All CT scans at this facility are submitted to the National Radiology Data Registry (NRDR) Dose Index Registry (DIR) with the [employer] (ACR). RADIATION OPTIMIZATION: All CT scans at this facility use at least one of these dose optimization te chniques: automated exposure control; mA and/or kV adjustment per patient size (includes targeted exa ms where dose is matched to clinical indication); or iterative reconstruction.
--- NOTE | 2020-07-22 21:30 | DI.CT_ITS ---
EXAM: CT RENAL COLIC WO CLINICAL HISTORY: n/v, flank pain. TECHNIQUE: Imaging Protocol: Axial computed tomography images with coronal and sagittal reformatted images were created and reviewed CONTRAST MATERIAL: Intravenous: none Oral: None COMPARISON: No exams were available for comparison FINDINGS: VISUALIZED LUNG BASES: No nodules nor pleural effusions evident. ABDOMEN: There is no ascites. LIVER: There are no obvious focal hepatic lesions evident of this noninfused study. GALLBLADDER/BILIARY: No obvious gallbladder pathology. CBD is not dilated. PANCREAS: No evidence of pancreatic mass nor dilatation of the pancreatic duct. SPLEEN: Spleen is not enlarged. No obvious intrasplenic lesions. ADRENALS: There are no significant adrenal masses. KIDNEYS:No cysts evident. No solid renal masses. No calculi nor hydronephrosis. . ABDOMINAL AORTA: Peripherally calcified. Maximum external diameter 2.4 cm. LYMPH NODES: There is no retroperitoneal nor paraaortic adenopathy. ABDOMINAL WALL/GI: No evidence of significant anterior abdominal wall hernia. No bowel obstruction. PELVIS: LYMPH NODES: There is no intrapelvic nor inguinal adenopathy. GI: No evidence of appendicitis.No evidence of sigmoid diverticulitis. URINARY BLADDER: No calculi nor obvious masses evident REPRODUCTIVE: Uterus is surgically absent. There are no abnormal adnexal masses. OSSEOUS: No significant osseous lesions. IMPRESSION: 1. No acute findings in the abdomen pelvis on this noninfused study. 2. No renal calculi nor hydronephrosis. 3. Uterus is surgically absent. There are no abnormal adnexal masses. RADIATION DOSE DELIVERED: 633.74mGy.cm Total DLP DATA REPOSITORY: All CT scans at this facility are submitted to the National Radiology Data Registry (NRDR) Dose Index Registry (DIR) with the [employer] (ACR). RADIATION OPTIMIZATION: All CT scans at this facility use at least one of these dose optimization te chniques: automated exposure control; mA and/or kV adjustment per patient size (includes targeted exa ms where dose is matched to clinical indication); or iterative reconstruction.
[2020-07-22] MEDS: Ondansetron 4 MG/2 ML VIAL IVP (21:43)
[2020-07-22 21:54] LABS: Bilirubin Negative (Negative); Blood Trace-intact (Negative); Clarity Clear (Clear); Glucose Negative (Negative); Ketones 40 mg/dL (Negative); Leukocyte Esterase Negative (Negative); Nitrite Negative (Negative); Urobilinogen 0.2 EU/dL (Up TO 0.2)
[2020-07-22 21:54] LABS: Abs Immature Grans 0.03 10^3/uL (0.0-0.06); Absolute Basophil Count 0.02 10^3/uL (0.0-0.2); Absolute Eosinophil Count 0.02 10^3/uL (0.0-0.7); Absolute Lymphocyte Count 0.42 10^3/uL (1.2-3.4); Absolute Monocyte Count 0.47 10^3/uL (0.1-0.8); Absolute Neutrophil Count 7.93 10^3/uL (1.2-6.7); Basophils % 0.2; Eosinophils % 0.2; HCT 39.8 % (36.0-46.0); HGB 14.1 g/dL (11.2-15.7); Immature Grans % 0.3; Lymphocytes % 4.7; MCH 32.9 pg (27.0-33.0); MCHC 35.4 % (32.0-36.0); MCV 92.8 fL (80-95); MPV 9.2 fL (8.0-11.0); Monocytes % 5.3; Neutrophils % 89.3; Nucleated RBC 0 %; Platelet Count 199 10^3/uL (130-400); RBC 4.29 10^6/uL (3.93-5.22); RDW 12.7 % (11.7-14.6); RDW-SD 43.5 fL; WBC 8.89 10^3/uL (4.4-10.8)
[2020-07-22] MEDS: Normal Saline 1,000 ML 1000 ML IV (22:10)
[2020-07-22 22:13] LABS: Troponin I 0.42 ng/mL (<0.06)
[2020-07-22 22:14] LABS: Bacteria Negative HPF (Negative); C & S Indicated? No; Casts Negative LPF (Negative); Crystals Negative HPF (Negative); Epithelial Cells Negative HPF (Negative); Mucus Negative (Negative); Other Cells Negative (Negative); RBC 0-2 HPF (0-2); WBC 0-2 HPF (0-5)
--- NOTE | 2020-07-22 22:15 | DI.RAD_ITS ---
EXAM: XR PORTABLE CHEST AP CLINICAL HISTORY: n/v, elevated troponin. TECHNIQUE: 2D digital imaging was performed. COMPARISON: Chest x-ray performed 11/10/2018 FINDINGS: Heart size is normal. Bipolar pacemaker again noted lead tips in are in RV, unchanged. The mediasti num is not widened. Lungs are clear. No infiltrates nor obvious pleural effusions. No pulmonary edema. IMPRESSION: No acute pulmonary findings on this single AP portable view of the chest.Cardiac pacemaker again note d. DATA REPOSITORY: RADIATION DOSE DELIVERED:
[2020-07-22 22:17] LABS: ALT 28 U/L (14-59); AST 21 U/L (15-37); Albumin 4.1 g/dL (3.4-5.0); Alkaline Phosphatase 76 U/L (46-116); Anion Gap 14.2 mmol/L (3-11); BUN 20 mg/dL (7-18); Bilirubin, Direct 0.5 mg/dL (0.0-0.2); Bilirubin, Total 1.7 mg/dL (0.2-1.0); CO2 23.8 mmol/L (21.0-32.0); CREATININE 0.9 mg/dL (0.55-1.02); Calcium 9.2 mg/dL (8.5-10.1); Chloride 91 mmol/L (98-107); Glucose 162 mg/dL (74-106); Lipase 100 U/L (73-393); Magnesium 1.6 mg/dL (1.8-2.4); Potassium 3.1 mmol/L (3.5-5.1); Sodium 129 mmol/L (136-145); Total Protein 7.2 g/dL (6.4-8.2)
--- NOTE | 2020-07-22 22:23 | DI.VRAD_ITS ---
PROCEDURE INFORMATION: Exam: CT Abdomen And Pelvis Without Contrast Exam date and time: 07/22/2020 10:02 PM Age: 79 years old Clinical indication: Nausea and vomiting TECHNIQUE: Imaging protocol: Computed tomography of the abdomen and pelvis without contrast. COMPARISON: No relevant prior studies available. FINDINGS: Liver: Normal. No mass. Gallbladder and bile ducts: Normal. No calcified stones. No ductal dilation. Pancreas: Normal. No ductal dilation. Spleen: Normal. No splenomegaly. Adrenal glands: Normal. No mass. Kidneys and ureters: Normal. No hydronephrosis. Stomach and bowel: Unremarkable. No obstruction. No mucosal thickening. Appendix: No evidence of appendicitis. Intraperitoneal space: Unremarkable. No free air. No significant fluid collection. Vasculature: Unremarkable. No abdominal aortic aneurysm. Lymph nodes: Unremarkable. No enlarged lymph nodes. Urinary bladder: Unremarkable as visualized. Reproductive: Correct status post hysterectomy. Bones/joints: Unremarkable. No acute fracture. Soft tissues: Unremarkable. IMPRESSION: No acute findings. Dictated and Authenticated by: Parminder Alvarado MD. Ordering:VALE Zurita MD
--- NOTE | 2020-07-22 22:26 | DI.VRAD_ITS ---
PROCEDURE INFORMATION: Exam: CT Head Without Contrast Exam date and time: 07/22/2020 9:31 PM Age: 79 years old Clinical indication: Other: Headache n/v TECHNIQUE: Imaging protocol: Computed tomography of the head without contrast. COMPARISON: CT HEAD WO 11/10/2018 11:45 AM FINDINGS: Brain: Normal. No hemorrhage. Unremarkable white matter. No mass effect. Cerebral ventricles: No ventriculomegaly. Bones/joints: Unremarkable. No acute fracture. Paranasal sinuses: Visualized sinuses are unremarkable. No fluid levels. Mastoid air cells: Visualized mastoid air cells are well aerated. Soft tissues: Unremarkable. IMPRESSION: No acute intracranial abnormality. Dictated and Authenticated by: Franklin Anguiano MD. Ordering:VALE Zurita MD
[2020-07-22] MEDS: POTASSIUM CHLORIDE 10 MEQ/100 ML BAG 100 MEQ IVPB (22:40)
[2020-07-22] MEDS: Aspirin 81 MG CHEW 324 MG CH (22:40)
--- NOTE | 2020-07-22 22:40 | DI.VRAD_ITS ---
PROCEDURE INFORMATION: Exam: XR Chest Exam date and time: 07/22/2020 10:34 PM Age: 79 years old Clinical indication: Abnormal findings; Prior surgery; Surgery date: 6+ months; Surgery type: Pacemaker in 2019; Patient HX: N/v, elevated troponin TECHNIQUE: Imaging protocol: XR of the chest Views: 1 view. COMPARISON: CR XR CHEST 2V PA LATERAL 11/10/2018 11:56 AM FINDINGS: Tubes, catheters and devices: Left chest wall pacing device. Lungs: Unremarkable. No consolidation. Pleural spaces: Unremarkable. No pleural effusion. No pneumothorax. Heart/Mediastinum: Unremarkable. No cardiomegaly. Bones/joints: Unremarkable. IMPRESSION: No acute finding. Dictated and Authenticated by: Parminder Alvarado MD. Ordering:VALE Zurita MD
--- NOTE | 2020-07-22 23:03 | NUR.NOTE ---
Nursing Note: Pt's phone Number [phone]
[2020-07-22 23:37] LABS: COVID-19 PCR Negative (Negative)
[2020-07-22] MEDS: MAGNESIUM SULFATE 2 GM/50 ML BAG IVPB (23:42)
[2020-07-23] VITALS (76 sets, daily range): BP systolic 99–130; BP diastolic 53–69; PULSE 59–79; RESP 12–37; TEMP 35.8–36.7; O2SAT 86–99
--- NOTE | 2020-07-23 | DI.US_ITS ---
APPROVED REPORT EXAM: Comprehensive 2D, Doppler, and color-flow Echocardiogram Patient Location: In-Patient Room/Bed: [id number] Custom Protection Officer: Yara Parker RDCS (AE) Indications: NSTEMI Other Information Study Quality: Adequate Conclusion Left Ventricle : The left ventricle is normal size. There is normal left ventricular wall thickness. Left ventricular systolic function is low normal. Regional wall motion is normal. The left ventricula r diastolic function is normal. There is no ventricular septal defect visualized. LVEF is 50%. Right Ventricle : The right ventricle is not well visualized. Right ventricular systolic function is grossly normal. The RVSP is 38.9mmHg. Pacemaker lead is present in the right ventricle. This struct ure is not well visualized and lead vegetation cannot be ruled out. Atria : The left atrium size is normal. The right atrium size is normal. Aortic Valve : The aortic valve is normal in structure. Aortic valve is trileaflet. No aortic regurgi tation is present. There is no aortic valvular stenosis. Tricuspid Valve : The tricuspid valve is normal in structure. Mild to moderate tricuspid regurgitatio n. There is no tricuspid valve stenosis. Great Vessels : The aortic root is normal in size. The ascending aorta is mildly dilated. Aortic arch is normal in caliber. The IVC collapses <50% with inspiration. There is no prior study available for comparison. Wall motion Left Ventricle The left ventricle is normal size. Left ventricular systolic function is low normal. There is normal left ventricular wall thickness. Regional wall motion is normal. The left ventricular diastolic funct ion is normal. There is no ventricular septal defect visualized. LVEF is 50%. Right Ventricle The right ventricle is not well visualized. Right ventricular systolic function is grossly normal. Th e RVSP is 38.9mmHg. Pacemaker lead is present in the right ventricle. This structure is not well visu alized and lead vegetation cannot be ruled out. Atria The left atrium size is normal. The right atrium size is normal. The interatrial septum is intact wit h no evidence for an atrial septal defect. Aortic Valve The aortic valve is normal in structure. Aortic valve is trileaflet. There is no aortic valvular sten osis. No aortic regurgitation is present. Mitral Valve The mitral valve is normal in structure. No evidence of mitral valve stenosis. Mild mitral regurgitat ion. Tricuspid Valve The tricuspid valve is normal in structure. There is no tricuspid valve stenosis. Mild to moderate tr icuspid regurgitation. Pulmonic Valve The pulmonary valve is normal in structure. There is no pulmonic valvular stenosis. Mild pulmonic reg urgitation. Great Vessels The aortic root is normal in size. The ascending aorta is mildly dilated. Aortic arch is normal in ca liber. The IVC collapses <50% with inspiration. Pericardium There is no pericardial effusion. 2D Dimensions IVSD d PLAX 0.96 cm F: 0.6-1.0 LV Vol A2C d MOD 107.6 mL LVPW d PLAX 0.96 cm F: 0.6 - 1.0 LV Vol A4C d MOD 89.7 mL LVID d PLAX 4.81 cm F: 3.8 - 5.2 LA vol/ BSA A2C s A-L 32.9 mL/m2 LVDs 3.55 cm F: 2.2 - 3.5 LA vol/ BSA A4C s A-L 32.5 mL/m2 Ao Root d 2.72 cm F: 2.7 - 3.3 LA Vol/ BSA Biplane s A-L 33.6 mL/m2 RA Area A4C 19.11 cm2 LA Area A4C s MOD 19.99 cm2 RA Vol/ BSA A4C s A-L 34.7 mL/m2 LA Area A2C s MOD 19.57 cm2 Ao Asc Diam d 3.24 cm F: 2.3 - 3.1 LV EF A4C MOD 49.2 % LV EF Teichholz 50.9 % LV EF A2C MOD 50.9 % LVEF (Joseph's) 50.10 % F: 54 - 74 LV EF Biplane MOD 50.1 % LV Volume 77.17 mL F: 46 - 106 SV 49.72 mL LV Volume Index 42.87 mL/m2 F: 29 - 61 SV Index 27.60 mL/m2 LV Vol Biplane MOD 99.2 mL FS 25.95 % LV Diastology MV E' medial 0.119 (>0.07 m/s) E/A Ratio 0.7 LV E/e MED 5.55 (<14) MV E Vmax 0.66 (0.4-1.3 m/s) MV E' lateral 0.095 (>0.1 m/s) MV A Vmax 0.90 (0.4-1.3 m/s) LV E/e LAT 7.00 (<14) MV E/A Ratio 0.70 MV E/E' medial 5.58 MV E/E' lateral 7.02 Aortic Valve LVOT Area 3.01 cm2 AoV Area Vmax 2.24 cm2 LVOT Vmax 1.06 m/s AoV Area/ BSA (Vmax) 1.24 cm2/m2 LVOT Mean Dany. 0.64 m/s LONDON Mean Dany. 1.88 cm2 LVOT Peak Grad 4.5 mmHg [place] Mean Dany. Index 1.04 cm2/m2 LVOT Mean Grad 2.0 mmHg LVOT VTI 0.271 m LVOT Diam s 1.95 cm AoV Vmax 1.43 m/s Velocity Ratio 0.74 AoV Mean Dany. 1.03 m/s AoV Peak Grad 8.2 mmHg LVOT SV 81.56 mL AoV Mean Grad 4.7 mmHg AoV VTI 0.342 m AoV Area VTI 2.39 cm2 AoV Area/ BSA (VTI) 1.32 cm/m2 Mitral Valve MV DT 216 (160-240 msec) MR Vmax 4.33 m/s MV PHT 63 msec MR VTI 1.676 m MV Area PHT 3.51 cm2 MR Peak Grad 75.2 mmHg MV VTI 0.347 m MR Mean Grad 58.7 mmHg MV VTI Annulus 0.343 m MR PISA Radius 0.38 cm MV Area VTI 2.32 (4.0-6.0 cm2) MR EROA 0.07 cm2 MR Aliasing Velocity 0.35 m/s MR PISA 0.89 cm2 Pulmonary Valve PV Vmax 0.87 (0.5-1.5 m/s) RVOT Peak Gr. 1.52 mmHg PV Peak Grad 3.0 mmHg RVOT Mean Gr. 0.85 mmHg PV Mean Grad 1.6 mmHg RVOT VTI 0.137 m PV VTI 0.193 m RVOT Vmax 0.62 m/s Tricuspid Valve TR Peak Grad 30.9 mmHg TR Vmax 2.78 m/s RA Pressure 8.00 mmHg RVSP (TR) 38.9 mmHg
--- NOTE | 2020-07-23 00:01 | HPE_ITS ---
Date of service: 07/23/20 Time of Service: 00:01 Assessment and Plan Assessment and plan (1) Nausea & vomiting: Status: Acute Assessment and plan: Probably reaction to bowel prep, but elevated trop raises possibility of coincidental NSTEMI, though I think demand ischemia probably more likely. Will continue fluid and electrolyte replacement, and trend out troponins. Absent more specific evidence NSTEMI I don't think we need to add DAPT or heparin at present. History of Present Illness History of Present Illness Chief Complaint: vomiting Narrative: 79 female with chronic diarrhea, colonoscopy planned for AM, started prep this afternoon, started feeling nauseous about four hours later. Multiple episodes vomiting (along with expected loosening of bowels). Has noted some chest discomfort during or after bouts of vomiting, none now. In ER w/u of note for Na 129, K 3.1, Mg 1.6 -- and troponin 0.42. EKG shows atrial pacing, no acute STTW changes. Has received ASA, Zofran, K and Mg with NS. Is admitted for further eval and management. States she feels fine at present other than a bit tired. Review of Systems All systems reviewed & are unremarkable except as noted in HPI and below PFSH Medical History Cubital tunnel syndrome on left Left carpal tunnel syndrome Mass of breast, right Awaiting biopsy result. Skin lesion of neck Sent photo to Dr. Terrell. He said benign seborrheic keratosis. No treatment. Will let her know later. Surgical History Colonoscopy - MAC (03/25/16) Vaginal hysterectomy Family History Father , 84 Skin cancer Heart disease Mother , 94 Dementia Sister , 81 Dementia Heart disease Brother No problems noted. Maternal Grandfather , 79 No problems noted. Paternal Grandfather , 59 Cancer Maternal Grandmother , 58 No problems noted. Paternal Grandmother , 86 No problems noted. Daughter Diabetes S/P vascular surgery Daughter No problems noted. Social History Smoking/Tobacco Use Status: Former Tobacco Use Quit Date: 03/04/98 Second Hand Exposure: Yes Smoking risk assessment performed?: Yes Alcohol Intake: never Drug use: Never Substance use type: does not use Caregiver/Support person: No Household members: spouse Housing: house Do you need help understanding health information?: Never Pets and animals: No Sexually active: No Do you think of yourself as: straight/heterosexual Current gender identity: female What is your relationship status?: How often do you talk on the phone with friends or family?: three or more times per week How often do you get together with friends or relatives?: once per week How often do you attend worship or yazidi services?: 4 or more times per year Do you belong to any clubs or organized social groups?: no Panel score (0-1 are the most socially isolated patients): 3 What type of physical activity do you participate in: walking Duration: 30-45 minutes/day Frequency: 1-2 times per week Cristela/Congregation: Rastafari Special cristela needs: No Seatbelt use: always Helmet use: No Drive intox or ride w/intox otr flatbed company truck driver: No Do you feel safe at home: Yes Do you feel safe in your relationship?: Yes Meds Home Medications and Allergies Allergies Allergy/AdvReac Type Severity Reaction Status Date / Time No Known Allergies Allergy Verified 07/22/20 21:30 Home Medications Medication Instructions Recorded Confirmed Type aspirin [Aspirin Low-Strength] 81 mg PO DAILY tab-cap 09/16/12 07/22/20 History levothyroxine 100 mcg capsule 100 mcg PO DAILY #90 cap 10/18/19 07/22/20 Rx artificial tears(hypromellose) 0.3 1 drp OP BID ml 01/06/20 07/22/20 History % eye drops exemestane 25 mg tablet 25 mg PO DAILY 01/06/20 07/22/20 History fluoxetine 20 mg capsule 20 mg PO DAILY #14 cap 07/17/20 07/22/20 Rx Exam Narrative Exam Narrative: 120/60, 60, 36.8, 19, 97% RA. HEENT atraumatic; neck supple; lungs clear; occ ectopic, otherwise RRR; abdomen soft and NT; extremities w/o edema; neuro Ox3, moves all 4s. Results Labs Result diagrams: 07/22/20 21:35 07/22/20 21:35 Labs: Laboratory Results - last 24 hr 07/22/20 07/22/2021 21:35 21:35 21:35 WBC 8.89 RBC 4.29 Hgb 14.1 Hct 39.8 MCV 92.8 MCH 32.9 MCHC 35.4 RDW 12.7 Plt Count 199 MPV 9.2 Immature Gran % 0.3 Neutrophils % 89.3 Lymphocytes % 4.7 Monocytes % 5.3 Eosinophils % 0.2 Basophils % 0.2 Nucleated RBC % 0 Absolute Neutrophils 7.93 H Absolute Lymphocytes 0.42 L Absolute Monocytes 0.47 Absolute Eosinophils 0.02 Absolute Basophils 0.02 Sodium 129 L Potassium 3.1 L Chloride 91 L Carbon Dioxide 23.8 Anion Gap 14.2 H BUN 20 H Creatinine 0.9 Estimated GFR/1.73 m2 >= 60.00 Glucose 162 H Calcium 9.2 Magnesium 1.6 L Total Bilirubin 1.7 H Conjugated Bilirubin 0.5 H AST 21 ALT 28 Alkaline Phosphatase 76 Troponin I 0.42 H* Total Protein 7.2 Albumin 4.1 Lipase 100 Urine Color Urine Clarity Urine pH Ur Specific [place] Urine Protein Urine Ketones Urine Blood Urine Nitrite Urine Bilirubin Urine Urobilinogen Ur Leukocyte Esterase Urine RBC Urine WBC Ur Epithelial Cells Urine Crystals Urine Bacteria Urine Casts Urine Mucus Urine Other Ur Culture Indicated? Urine Glucose COVID-19 Source SARS-CoV-2 (PCR) 07/22/20 07/22/20 21:40 22:40 WBC RBC Hgb Hct MCV MCH MCHC RDW Plt Count MPV Immature Gran % Neutrophils % Lymphocytes % Monocytes % Eosinophils % Basophils % Nucleated RBC % Absolute Neutrophils Absolute Lymphocytes Absolute Monocytes Absolute Eosinophils Absolute Basophils Sodium Potassium Chloride Carbon Dioxide Anion Gap BUN Creatinine Estimated GFR/1.73 m2 Glucose Calcium Magnesium Total Bilirubin Conjugated Bilirubin AST ALT Alkaline Phosphatase Troponin I Total Protein Albumin Lipase Urine Color Yellow Urine Clarity Clear Urine pH 7.0 Ur Specific [place] 1.020 Urine Protein Negative Urine Ketones 40 H Urine Blood Trace-intact H Urine Nitrite Negative Urine Bilirubin Negative Urine Urobilinogen 0.2 Ur Leukocyte Esterase Negative Urine RBC 0-2 Urine WBC 0-2 Ur Epithelial Cells Negative Urine Crystals Negative Urine Bacteria Negative Urine Casts Negative Urine Mucus Negative Urine Other Negative Ur Culture Indicated? No Urine Glucose Negative COVID-19 Source Nasopharyx SARS-CoV-2 (PCR) Negative Last Vital Signs Temp 36.8 C 07/22/20 21:17 Pulse 60 07/22/20 23:31 Resp 19 07/22/20 23:31 BP 126/60 07/22/20 23:31 Pulse Ox 97 07/22/20 23:31 COVID-19 Screening Have you, or household traveled for leisure in last 14 days?: No Had IN PERSON contact w/suspected or confirmed C-19 person: No
[2020-07-23 00:31] LABS: Troponin I 1.03 ng/mL (<0.06)
--- NOTE | 2020-07-23 01:00 | RT.EKG_ITS ---
APPROVED REPORT Exam: Resting ECG Patient Location: E HR:64 bpm ECG Measurements Heart Rate 64 AXIS VT 155 P [id number] QRSd 107 QRS -76 QT 475 T 10 QTc 492 Conclusion Atrial-paced rhythm Inferior infarct, old...Q >35mS, II III aVF
[2020-07-23] MEDS: Clopidogrel 300 MG TAB PO (01:29)
[2020-07-23] MEDS: Normal Saline Flush 10 ML SYR IVP ×2 (01:47→10:16)
[2020-07-23 02:18] LABS: PTT Activated 24.4 sec (21.0-27.5)
[2020-07-23] MEDS: POTASSIUM CHLORIDE/0.9% NACL 1,000 ML 100 MEQ IV ×2 (02:25→11:47)
[2020-07-23] MEDS: Levothyroxine 50 MCG TAB 100 MCG PO (05:24)
[2020-07-23 07:20] LABS: Anion Gap 9.3 mmol/L (3-11); BUN 15 mg/dL (7-18); CO2 24.7 mmol/L (21.0-32.0); CREATININE 0.6 mg/dL (0.55-1.02); Calcium 8.3 mg/dL (8.5-10.1); Chloride 97 mmol/L (98-107); Glucose 114 mg/dL (74-106); Magnesium 2.2 mg/dL (1.8-2.4); Potassium 3.6 mmol/L (3.5-5.1); Sodium 131 mmol/L (136-145)
[2020-07-23 07:24] LABS: Troponin I 1.04 ng/mL (<0.06)
--- NOTE | 2020-07-23 08:15 | RT.EKG_ITS ---
APPROVED REPORT Exam: Resting ECG Patient Location: I HR:64 bpm ECG Measurements Heart Rate 64 AXIS NE 219 P [id number] QRSd 105 QRS -75 QT 455 T -23 QTc 469 Conclusion Atrial-paced complexes...other complexes also detected Borderline prolonged NE interval...NE >212, V-rate 50- 90 Inferior infarct, old...Q >35mS, II III aVF TW flattening laterally
[2020-07-23 08:37] LABS: Abs Immature Grans 0.02 10^3/uL (0.0-0.06); Absolute Basophil Count 0.01 10^3/uL (0.0-0.2); Absolute Eosinophil Count 0.03 10^3/uL (0.0-0.7); Absolute Lymphocyte Count 0.76 10^3/uL (1.2-3.4); Absolute Monocyte Count 0.63 10^3/uL (0.1-0.8); Absolute Neutrophil Count 6.38 10^3/uL (1.2-6.7); Basophils % 0.1; Eosinophils % 0.4; HCT 36.8 % (36.0-46.0); Immature Grans % 0.3; Lymphocytes % 9.7; MCH 33.1 pg (27.0-33.0); MCHC 35.3 % (32.0-36.0); MCV 93.6 fL (80-95); MPV 9.3 fL (8.0-11.0); Neutrophils % 81.5; Nucleated RBC 0 %; Platelet Count 181 10^3/uL (130-400); RBC 3.93 10^6/uL (3.93-5.22); RDW 12.8 % (11.7-14.6); RDW-SD 44.2 fL; WBC 7.83 10^3/uL (4.4-10.8)
[2020-07-23 08:58] LABS: PTT Activated 62.2 sec (21.0-27.5)
[2020-07-23 09:29] LABS: D-Dimer 576 ng/mlFEU (<500)
[2020-07-23 09:39] LABS: NT-proBNP 1022 pg/mL (<300)
[2020-07-23] MEDS: Aspirin 81 MG CHEW PO (10:15)
[2020-07-23] MEDS: Pantoprazole 40 MG VIAL IVP (10:15)
[2020-07-23] MEDS: FLUoxetine 20 MG CAP PO (10:15)
[2020-07-23] MEDS: Potassium Chloride 20 MEQ TABCR 40 MEQ PO (10:23)
--- NOTE | 2020-07-23 10:49 | INITIAL_ITS ---
- If Service Date Differs Date of service: 07/23/20 Time of Service: 10:51 Care Management Initial Assess REASON FOR HOSPITALIZATION:: Vomiting, Elevated Triponin PAST MEDICAL HISTORY/PAST SURGICAL HISTORY:: Medical History. Cubital tunnel syndrome on left. Left carpal tunnel syndrome. Mass of breast, right. Awaiting biopsy result. Skin lesion of neck. Sent photo to Dr. Terrell. He said benign seborrheic keratosis. No treatment. Will let her know later. Surgical History. Colonoscopy - MAC (03/25/16). Vaginal hysterectomy PREVIOUS FUNCTIONAL STATUS/SOCIAL/FAMILY SUPPORTS:: Melvina lives in [place] with her , Toni. They have a supportive daughter, Concha, who lives in [place]. Melvina is independent at baseline. CURRENT FUNCTIONAL STATUS:: Melvina was lying in bed when CM met with her. She reported that she had just talked to the MD about being transferred to [facility], which she is agreeable to. The MD was on the phone with her , updating him. Melvina did not have further questions or concerns at this time. ADVANCE DIRECTIVES:: On file, Toni () listed as agent. Concha (daughter) listed as alternate agent. Has patient been provided with info about the portal/API?: Yes Did the patient sign up for the portal?: No CODE STATUS:: Full Code INSURANCE COVERAGE / FINANCIAL ISSUES:: [facility]/ [employer] CURRENT HOME/COMMUNITY SERVICES/EQUIPMENT:: No current services or equipment known. PRIMARY CARE PHYSICIAN:: Katy Guevara POTENTIAL DISCHARGE NEEDS:: Melvina requires a higher level of care, therefore she will be transferred to [facility] pending bed availability. PATIENT/FAMILY EDUCATION NEEDS:: Review discharge instructions and expectations for transfer to tertiary care. ANTICIPATED BARRIERS TO DISCHARGE:: Pending bed availability at [facility] TRANSPORTATION:: ambulance transport, [place] PLAN:: Melvina will be transferred to [facility] for a higher level of care, once a bed becomes available. She will be transported via ambulance. She will follow up with her PCP and discharge plan of care. Her husbad was informed, and she is agreeable to transfer.
--- NOTE | 2020-07-23 11:29 | W.PM.DS.N ---
Date of service: 07/23/20 Time of Service: 11:30 DS: Diagnosis Discharge Diagnosis (1) NSTEMI (non-ST elevated myocardial infarction): Status: Acute (2) Nausea & vomiting: Status: Ruled-out (3) Hypokalemia: Status: Acute (4) Hypomagnesemia: Status: Resolved (5) Breast cancer: Status: Chronic (6) COVID-19 ruled out by laboratory testing: Status: Ruled-out Discharge Plan Disposition Patient Disposition: [facility] Condition: Serious Discharge Details Reason For Visit: VOMITING, ELEVATED TROPONIN Admit Date/Time: 07/23/20 00:13 Admit Provider: Pauline Barrera Attending Provider: Pauline Barrera [facility] Hospital Course: MS Nolasco is a 78 year old female with PMHx of breast cancer s/p XRT on exemestane, as well as h/o pacemaker placement, hypothyroidism, chronic diarrhea, and likely mild dementia, who presented to [facility] ED on 07/22/20 and was admitted to [facility] hospitalist service on 07/23/20 with an NSTEMI. The patient was undergoing a bowel prep at home in anticipation of a routine colonoscopy (originally planned for today) for chronic diarrhea when she had developed nausea, vomiting, epigastric pain and flank pain, bringing her to the ED. The patient never had chest pain. Here, her original troponin was 0.42, believed to be due to strain. However, it went up to 1.03 with lateral T wave flattening on EKG. She was admitted with aspirin and plavix loads and was initiated on heparin gtt. She did get transferred to the ICU for closer monitoring. She has remained hemodynamically stable. Her pacemaker appears to be functioning properly. The patient will benefit from a transfer to a tertiary care facility for an evaluation for a cardiac catheterization, unavailable at our facility. The patient is agreeable with the transfer, and her is also in agreement. Dr Damico is the accepting licensed massage therapist. Total Critical Care Time spent on care for patient, transfer plan, and documentation is 90 minutes. Please, look for MAR for current list of inpatient medications. The list below reflects the patient's outpatient medications. Home Meds and New Rx's Prescriptions: No Action exemestane 25 mg tablet 25 mg PO DAILY RF: 0 artificial tears(hypromellose) 0.3 % drops 1 drp OP BID RF: 0 aspirin [Aspirin Low-Strength] 81 MG tablet,chewable 81 mg PO DAILY RF: 0 levothyroxine 100 mcg capsule 100 mcg PO DAILY Qty: 90 RF: 3 fluoxetine 20 mg capsule 20 mg PO DAILY Qty: 14 RF: 0 Discharge Instructions Activity:: bedrest with BRP Equipment/Supplies:: cardiac monitoring Diet:: NPO Discharge Orders Discharge Orders: Discharge Order (Routine); Ordered 07/23/20 Ordered By: Pauline Barrera DS: Summary Time Spent with Patient providing and/or coordinating discharge services: Greater than 30 minutes Status at Discharge Functional status at discharge: independent ambulation Overall status at discharge: patient is not back to baseline Mental Status: mental status grossly normal Speech and Movement: speech and movement normal Mood: congruent mood Affect: normal affect Exam Narrative Exam Narrative: General: Pleasant elderly female, hard of hearing, does not look ill, A&Ox3 HEENT: EOMI, MMM Heart: RRR, no m/r/g Lungs:CTAB Abdomen: soft, nontender, nondistended Extremities: no edema BLEs Psych Mental Status: mental status grossly normal Speech and Movement: speech and movement normal Mood: congruent mood Affect: normal affect DS: Data Vitals/I&O Vitals and I&O: Vital Signs Temperature 36.7 C 07/23/20 09:00 Temperature Source Temporal Artery Scan 07/23/20 09:00 Pulse 59 L 07/23/20 10:01 Pulse 67 07/23/20 10:01 Respiratory Rate 19 07/23/20 10:01 Respiratory Effort Non-Labored 07/23/20 09:00 Respiratory Depth Normal 07/23/20 09:00 Respiratory Pattern Normal 07/23/20 09:00 Blood Pressure 102/69 07/23/20 10:01 Blood Pressure Mean 73 07/23/20 10:01 Blood Pressure Position Supine 07/23/20 01:50 Pulse Oximetry 97 07/23/20 10:01 Oxygen Delivery Method Room Air 07/23/20 09:00 Oxygen Flow Rate 0 07/23/20 09:00 Pain Level 0 07/23/20 09:00 Intake & Output 07/22/20 07/22/20 07/23/20 11:59 23:59 11:59 Intake Total 100 / 100 1396.267 / 1396.267 Output Total 725 / 725 Balance 100 / 100 671.267 / 671.267 Weight 71.214 kg 66.6 kg Intake: IV 100 / 100 1126.267 / 1126.267 Oral 270 / 270 Output: Urine 725 / 725 Other: Urine Color Yellow Urine Appearance Clear Urine Odor Normal Comment No void at this time. Voiding Methods Bedside Commode Data Completed and Pending Completed studies during hospitalization [Text1]: CT head: Bilateral lacunar infarcts, previously present on CT scan 11/10/2018. No evidence of a new territorial infarction. No evidence of intracranial hemorrhage. CT abdomen/pelvis: 1. No acute findings in the abdomen pelvis on this noninfused study. 2. No renal calculi nor hydronephrosis. 3. Uterus is surgically absent. There are no abnormal adnexal masses. CXR: No acute pulmonary findings on this single AP portable view of the chest.Cardiac pacemaker again noted. Echo: read pending. Labs on day of discharge: Labs from last 24 hours 07/23/20 07/23/20 07/23/20 12:00 08:20 08:20 WBC RBC Hgb Hct MCV MCH MCHC RDW Plt Count MPV Immature Gran % Neutrophils % Lymphocytes % Monocytes % Eosinophils % Basophils % Nucleated RBC % Absolute Neutrophils Absolute Lymphocytes Absolute Monocytes Absolute Eosinophils Absolute Basophils APTT 62.2 H D D-Dimer 576 H Sodium Potassium Chloride Carbon Dioxide Anion Gap BUN Creatinine Estimated GFR/1.73 m2 Glucose Calcium Magnesium Total Bilirubin Conjugated Bilirubin AST ALT Alkaline Phosphatase Troponin I Pending NT-Pro-B Natriuret Pep Total Protein Albumin Lipase Urine Color Urine Clarity Urine pH Ur Specific [place] Urine Protein Urine Ketones Urine Blood Urine Nitrite Urine Bilirubin Urine Urobilinogen Ur Leukocyte Esterase Urine RBC Urine WBC Ur Epithelial Cells Urine Crystals Urine Bacteria Urine Casts Urine Mucus Urine Other Ur Culture Indicated? Urine Glucose COVID-19 Source SARS-CoV-2 (PCR) 07/23/20 07/23/20 07/23/20 06:30 06:30 03:15 WBC 7.83 RBC 3.93 Hgb 13.0 Hct 36.8 MCV 93.6 MCH 33.1 H MCHC 35.3 RDW 12.8 Plt Count 181 MPV 9.3 Immature Gran % 0.3 Neutrophils % 81.5 Lymphocytes % 9.7 Monocytes % 8.0 Eosinophils % 0.4 Basophils % 0.1 Nucleated RBC % 0 Absolute Neutrophils 6.38 Absolute Lymphocytes 0.76 L Absolute Monocytes 0.63 Absolute Eosinophils 0.03 Absolute Basophils 0.01 APTT D-Dimer Sodium 131 L Potassium 3.6 Chloride 97 L Carbon Dioxide 24.7 Anion Gap 9.3 BUN 15 Creatinine 0.6 D Estimated GFR/1.73 m2 >= 60.00 Glucose 114 H Calcium 8.3 L Magnesium 2.2 Total Bilirubin Conjugated Bilirubin AST ALT Alkaline Phosphatase Troponin I 1.04 H* Cancelled NT-Pro-B Natriuret Pep 1022 H Total Protein Albumin Lipase Urine Color Urine Clarity Urine pH Ur Specific [place] Urine Protein Urine Ketones Urine Blood Urine Nitrite Urine Bilirubin Urine Urobilinogen Ur Leukocyte Esterase Urine RBC Urine WBC Ur Epithelial Cells Urine Crystals Urine Bacteria Urine Casts Urine Mucus Urine Other Ur Culture Indicated? Urine Glucose COVID-19 Source SARS-CoV-2 (PCR) 07/23/20 07/23/20 07/22/20 01:51 00:02 22:40 WBC RBC Hgb Hct MCV MCH MCHC RDW Plt Count MPV Immature Gran % Neutrophils % Lymphocytes % Monocytes % Eosinophils % Basophils % Nucleated RBC % Absolute Neutrophils Absolute Lymphocytes Absolute Monocytes Absolute Eosinophils Absolute Basophils APTT 24.4 D-Dimer Sodium Potassium Chloride Carbon Dioxide Anion Gap BUN Creatinine Estimated GFR/1.73 m2 Glucose Calcium Magnesium Total Bilirubin Conjugated Bilirubin AST ALT Alkaline Phosphatase Troponin I 1.03 H* NT-Pro-B Natriuret Pep Total Protein Albumin Lipase Urine Color Urine Clarity Urine pH Ur Specific [place] Urine Protein Urine Ketones Urine Blood Urine Nitrite Urine Bilirubin Urine Urobilinogen Ur Leukocyte Esterase Urine RBC Urine WBC Ur Epithelial Cells Urine Crystals Urine Bacteria Urine Casts Urine Mucus Urine Other Ur Culture Indicated? Urine Glucose COVID-19 Source Nasopharyx SARS-CoV-2 (PCR) Negative 07/22/20 07/22/20 07/22/20 21:40 21:35 21:35 WBC 8.89 RBC 4.29 Hgb 14.1 Hct 39.8 MCV 92.8 MCH 32.9 MCHC 35.4 RDW 12.7 Plt Count 199 MPV 9.2 Immature Gran % 0.3 Neutrophils % 89.3 Lymphocytes % 4.7 Monocytes % 5.3 Eosinophils % 0.2 Basophils % 0.2 Nucleated RBC % 0 Absolute Neutrophils 7.93 H Absolute Lymphocytes 0.42 L Absolute Monocytes 0.47 Absolute Eosinophils 0.02 Absolute Basophils 0.02 APTT D-Dimer Sodium Potassium Chloride Carbon Dioxide Anion Gap BUN Creatinine Estimated GFR/1.73 m2 Glucose Calcium Magnesium Total Bilirubin Conjugated Bilirubin AST ALT Alkaline Phosphatase Troponin I 0.42 H* NT-Pro-B Natriuret Pep Total Protein Albumin Lipase Urine Color Yellow Urine Clarity Clear Urine pH 7.0 Ur Specific [place] 1.020 Urine Protein Negative Urine Ketones 40 H Urine Blood Trace-intact H Urine Nitrite Negative Urine Bilirubin Negative Urine Urobilinogen 0.2 Ur Leukocyte Esterase Negative Urine RBC 0-2 Urine WBC 0-2 Ur Epithelial Cells Negative Urine Crystals Negative Urine Bacteria Negative Urine Casts Negative Urine Mucus Negative Urine Other Negative Ur Culture Indicated? No Urine Glucose Negative COVID-19 Source SARS-CoV-2 (PCR) 07/22/20 21:35 WBC RBC Hgb Hct MCV MCH MCHC RDW Plt Count MPV Immature Gran % Neutrophils % Lymphocytes % Monocytes % Eosinophils % Basophils % Nucleated RBC % Absolute Neutrophils Absolute Lymphocytes Absolute Monocytes Absolute Eosinophils Absolute Basophils APTT D-Dimer Sodium 129 L Potassium 3.1 L Chloride 91 L Carbon Dioxide 23.8 Anion Gap 14.2 H BUN 20 H Creatinine 0.9 Estimated GFR/1.73 m2 >= 60.00 Glucose 162 H Calcium 9.2 Magnesium 1.6 L Total Bilirubin 1.7 H Conjugated Bilirubin 0.5 H AST 21 ALT 28 Alkaline Phosphatase 76 Troponin I NT-Pro-B Natriuret Pep Total Protein 7.2 Albumin 4.1 Lipase 100 Urine Color Urine Clarity Urine pH Ur Specific [place] Urine Protein Urine Ketones Urine Blood Urine Nitrite Urine Bilirubin Urine Urobilinogen Ur Leukocyte Esterase Urine RBC Urine WBC Ur Epithelial Cells Urine Crystals Urine Bacteria Urine Casts Urine Mucus Urine Other Ur Culture Indicated? Urine Glucose COVID-19 Source SARS-CoV-2 (PCR) [facility] Medical History Breast cancer 2020: care [place] [facility], chemo not recommended, Armidex Cardiac pacemaker Dual lead Medtronic pacemaker [place] XT MRI [id number] 11/08/2018 Chronic diarrhea Cubital tunnel syndrome on left Hypothyroidism (01/25/14) Left carpal tunnel syndrome Memory changes She does not want investigation now. She may have early dementia. Her other problems are more pressing especially the breast mass. Skin lesion of neck Sent photo to Dr. Terrell. He said benign seborrheic keratosis. No treatment. Will let her know later. Surgical History (Updated 07/23/20 @ 11:32 by Pauline Barrera MD) Colonoscopy - MAC (03/25/16) S/P placement of cardiac pacemaker Vaginal hysterectomy Family History Father , 84 Skin cancer Heart disease Mother , 94 Dementia Sister , 81 Dementia Heart disease Brother No problems noted. Maternal Grandfather , 79 No problems noted. Paternal Grandfather , 59 Cancer Maternal Grandmother , 58 No problems noted. Paternal Grandmother , 86 No problems noted. Daughter Diabetes S/P vascular surgery Daughter No problems noted. Social History Smoking/Tobacco Use Status: Former Tobacco Use Quit Date: 03/04/98 Second Hand Exposure: Yes Smoking risk assessment performed?: Yes Alcohol Intake: never Drug use: Never Substance use type: does not use Caregiver/Support person: No Household members: spouse Housing: house Do you need help understanding health information?: Never Pets and animals: No Sexually active: No Do you think of yourself as: straight/heterosexual Current gender identity: female What is your relationship status?: How often do you talk on the phone with friends or family?: three or more times per week How often do you get together with friends or relatives?: once per week How often do you attend yazidi or latter-day services?: 4 or more times per year Do you belong to any clubs or organized social groups?: no Panel score (0-1 are the most socially isolated patients): 3 What type of physical activity do you participate in: walking Duration: 30-45 minutes/day Frequency: 1-2 times per week Cristela/Sikhism: Hinduism Special cristela needs: No Seatbelt use: always Helmet use: No 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
[2020-07-23 12:55] LABS: Troponin I 0.79 ng/mL (<0.06)
== END 2020-07-23 13:00 | disposition short-term general hospital (02) ==
LOC: ER 07-23 00:51 → ICU 07-23 01:40
PROVIDERS: General Practice; Admitting Provider Internal Medicine; Emergency Provider Emergency Medicine; PCP Nurse Practitioner; Visit Provider Internal Medicine
DX: I21.4 Non-ST elevation (NSTEMI) myocardial infarction (principal); E87.6 Hypokalemia; R11.2 Nausea with vomiting, unspecified; E83.42 Hypomagnesemia; Z20.822 Contact with and (suspected) exposure to COVID-19; Z95.0 Presence of cardiac pacemaker; E03.9 Hypothyroidism, unspecified; K52.9 Noninfective gastroenteritis and colitis, unspecified; N63.10 Unspecified lump in the right breast, unspecified quadrant
CPT/HCPCS: 36415; 80048; 80053; 83690; 87635; 93005; 93306; 96361; 96365; 96366; 96367; 96375; 99222; 99285; 99291; 70450; 71045; 74176; 81003; 81015; 82248; 83735; 83880; 84484; 85025; 85379; 85730; 93010; 99219; G0378; J2405; J3480

== ENCOUNTER 2020-07-26 11:06 | Observation (INO) | payer MEDICARE, SELFPAY ==
[2020-07-26] VITALS (52 sets, daily range): BP systolic 111–143; BP diastolic 61–89; PULSE 59–88; RESP 12–24; TEMP 36.3–36.4; O2SAT 94–100
--- NOTE | 2020-07-26 11:00 | RT.EKG_ITS ---
APPROVED REPORT Exam: Resting ECG Patient Location: E HR:72 bpm ECG Measurements Heart Rate 72 AXIS ND 142 P [id number] QRSd 91 QRS -82 QT 399 T -67 QTc 437 Conclusion Atrial-paced complexes...other complexes also detected Inferior infarct, age indeterminate...Q>35mS, T neg, II III aVF Nonspecific T abnormalities, lateral leads...T <-0.10mV, I aVL V5 V6 atrially paced rhythm at 72, left axis, nonspecific T wave changes inferiorly and low lateral leads, no STEMI, nondiagnostic EKG
--- NOTE | 2020-07-26 11:15 | DI.RAD_ITS ---
EXAM: XR PORTABLE CHEST AP CLINICAL HISTORY: chest pain. TECHNIQUE: 2D digital imaging was performed. COMPARISON: CR,XR XR PORTABLE CHEST AP from 07/22/2020 FINDINGS: Heart size is normal. 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 Mediastinum is not widened. Lungs remain clear. No infiltrates nor pleural effusions. No pulmonary edema. There is no pneumothorax. IMPRESSION: No acute pulmonary findings on this single AP portable view of the chest.Cardiac pacemaker again note d. No pulmonary edema. DATA REPOSITORY: RADIATION DOSE DELIVERED: All CT scans at this facility use at least one of these dose optimization techniques: automated exposure control; mA and/or kV adjustment per patient size (includes targeted e xams where dose is matched to clinical indication); or iterative reconstruction.
[2020-07-26 11:36] LABS: Abs Immature Grans 0.02 10^3/uL (0.0-0.06); Absolute Basophil Count 0.02 10^3/uL (0.0-0.2); Absolute Eosinophil Count 0.03 10^3/uL (0.0-0.7); Absolute Lymphocyte Count 0.65 10^3/uL (1.2-3.4); Absolute Monocyte Count 0.54 10^3/uL (0.1-0.8); Absolute Neutrophil Count 4.94 10^3/uL (1.2-6.7); Basophils % 0.3; Eosinophils % 0.5; HCT 45.4 % (36.0-46.0); HGB 16.5 g/dL (11.2-15.7); Immature Grans % 0.3; Lymphocytes % 10.5; MCHC 36.3 % (32.0-36.0); MCV 90.8 fL (80-95); MPV 9.2 fL (8.0-11.0); Monocytes % 8.7; Neutrophils % 79.7; Nucleated RBC 0 %; Platelet Count 225 10^3/uL (130-400); RDW 12.5 % (11.7-14.6); RDW-SD 41.7 fL
[2020-07-26 11:55] LABS: ALT 43 U/L (14-59); AST 39 U/L (15-37); Albumin 4.4 g/dL (3.4-5.0); Alkaline Phosphatase 86 U/L (46-116); Anion Gap 14.6 mmol/L (3-11); BUN 16 mg/dL (7-18); Bilirubin, Total 1.8 mg/dL (0.2-1.0); CO2 23.4 mmol/L (21.0-32.0); Calcium 10.3 mg/dL (8.5-10.1); Chloride 97 mmol/L (98-107); Estimated GFR 53.35 (mL/min/1.73m2); Glucose 84 mg/dL (74-106); Magnesium 1.9 mg/dL (1.8-2.4); NT-proBNP 1762 pg/mL (<300); Potassium 3.4 mmol/L (3.5-5.1); Sodium 135 mmol/L (136-145); Troponin I 0.05 ng/mL (<0.06)
--- NOTE | 2020-07-26 12:01 | NUR.NOTE ---
Nursing Note: Juaquin and friend Gosia [phone] in car in parking lot.
[2020-07-26 12:09] LABS: D-Dimer 729 ng/mlFEU (<500)
--- NOTE | 2020-07-26 13:45 | DI.US_ITS ---
EXAM: US EXTREMITY VENOUS BI CLINICAL HISTORY: elevated d-dimer/CP, SOB TECHNIQUE: Grayscale, color, and doppler imaging of the deep venous system of both lower extremities was performed. COMPARISON: US US ECHOCARDIOGRAM from 07/23/2020 FINDINGS: There is no evidence of intraluminal thrombus and there is normal compression and augmentation demons trated within the common femoral veins, femoral veins, and popliteal veins of both lower extremities. In the calves the interrogated veins also exhibit normal compression/ augmentation properties. The greater saphenous veins also appear patent as do the saphenofemoral junctions bilaterally.. There are dilated varicose veins noted in both calves but these demonstrate normal compression augmen tation. IMPRESSION: 1. No ultrasound evidence of DVT in either lower extremity. 2. Varicose veins but no evidence of superficial thrombophlebitis. DATA REPOSITORY:
--- NOTE | 2020-07-26 13:45 | DI.US_ITS ---
EXAM: US UPPER EXTREMITY VENOUS RT CLINICAL HISTORY: CP/SOB, cardiac cath right arm yesterday TECHNIQUE: GRAYSCALE, COLOR, DOPPLER IMAGING OF THE VENOUS SYSTEM OF THE UPPER EXTREMITY-BILATERAL COMPARISON: US US EXTREMITY VENOUS BI from 07/26/2020 FINDINGS: Basilic vein: Patent. Normal color-flow and normal compression and augmentation properties. Brachial vein(s):Patent. Normal color flow. Normal compression and augmentation properties. Cephalic vein:Patent. Normal color flow. Normal compression and augmentation properties. Axillary vein: Patent. Normal color flow. Normal compression and augmentation properties. Visualized subclavian vein: Patent. No obvious intraluminal thrombus. IMPRESSION: 1. No evidence of venous thrombosis in the right upper extremity. DATA REPOSITORY:
--- NOTE | 2020-07-26 14:12 | ED.GENADUL_ITS ---
Discharge Plan Disposition Condition: Good Discharge Details Chief Complaint: Chest Pain Admit Date/Time: 07/26/20 17:32 Admit Provider: Tye Oseguera Attending Provider: Tye Oseguera Primary Care Provider: Katy Guevara ED Provider: Bryce Glaser Discharge Instructions Activity:: Activity as Tolerated Equipment/Supplies:: cardiac event recorder Diet:: heart healthy Discharge Orders Discharge Orders: Discharge Order (Routine); Ordered 07/27/20 Ordered By: Pauline Barrera Discharge Data Discharge Date/Time-TO BE ENTERED AT DEPARTURE: 07/26/20 18:27 Medical Decision Making <Caro Glaser MD - Last Filed: 07/26/20 20:20> Melvina Nolasco is an 80 y/o woman who presented to the emergency department with chest pain and SOB this am, resolved after BM, currently asymptomatic. On exam Pt is somewhat frail appearing but non-toxic. Benign cardiopulmonary and abdominal exam. Neurologically non-focal. Concern for ACS, pulmonary embolism, PNA/COVID, lyte derangement, other. Exam/hx at this time not c/w acute emergent intra-abdominal process, acute aortic pathology, sepsis. EKG with non-specific TW changes. Plan for CXR, screening labs, telemetry. CXR neg. Trop negative. D-dimer elevated but negative when age-adjusted. Pt with posterior calf TTP that she states is chronic and attributes pain to varicose veins. I discussed Pt with Dr. Tolentino of radiology re: concern for dye load of CT PE study in setting of recent cardiac cath; he states concern for kidney injury is significant, recommends DVT studies including RUE given radial catheterization. Pt signed out to Dr. Glaser at time of shift change with trial ambulation, RUE DVT study pending. LE DVT studies neg per radiology. Medical Records Medical records reviewed: Yes I reviewed the patient's medical records. Imaging Data Radiologic Study: Attestation: I personally reviewed and interpreted this imaging study as follows: Radiologist's impression: EXAM: XR PORTABLE CHEST AP CLINICAL HISTORY: chest pain. TECHNIQUE: 2D digital imaging was performed. COMPARISON: CR,XR XR PORTABLE CHEST AP from 07/22/2020 FINDINGS: Heart size is normal. 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 Mediastinum is not widened. Lungs remain clear. No infiltrates nor pleural effusions. No pulmonary edema. There is no pneumothorax. IMPRESSION: No acute pulmonary findings on this single AP portable view of the chest.Cardiac pacemaker again noted. No pulmonary edema. Lab Data Lab results reviewed: Yes I reviewed the patient's lab results. Labs: Laboratory Tests Range/Units 07/26/20 07/26/20 07/26/20 11:14 11:14 11:14 WBC (4.4-10.8) 10^3/uL 6.20 RBC (3.93-5.22) 10^6/uL 5.00 Hgb (11.2-15.7) g/dL 16.5 H Hct (36.0-46.0) % 45.4 MCV (80-95) fL 90.8 MCH (27.0-33.0) pg 33.0 MCHC (32.0-36.0) % 36.3 H RDW (11.7-14.6) % 12.5 Plt Count (130-400) 10^3/uL 225 MPV (8.0-11.0) fL 9.2 Immature Gran % 0.3 Neutrophils % 79.7 Lymphocytes % 10.5 Monocytes % 8.7 Eosinophils % 0.5 Basophils % 0.3 Nucleated RBC % % 0 Absolute Neutrophils (1.2-6.7) 10^3/uL 4.94 Absolute Lymphocytes (1.2-3.4) 10^3/uL 0.65 L Absolute Monocytes (0.1-0.8) 10^3/uL 0.54 Absolute Eosinophils (0.0-0.7) 10^3/uL 0.03 Absolute Basophils (0.0-0.2) 10^3/uL 0.02 D-Dimer (<500) ng/mlFEU 729 H Sodium (136-145) mmol/L 135 L Potassium (3.5-5.1) mmol/L 3.4 L Chloride (98-107) mmol/L 97 L Carbon Dioxide (21.0-32.0) mmol/L 23.4 Anion Gap (3-11) mmol/L 14.6 H BUN (7-18) mg/dL 16 Creatinine (0.55-1.02) mg/dL 1.0 Estimated GFR/1.73 m2 (mL/min/1.73m2) 53.35 Glucose (74-106) mg/dL 84 Calcium (8.5-10.1) mg/dL 10.3 H Magnesium (1.8-2.4) mg/dL 1.9 Total Bilirubin (0.2-1.0) mg/dL 1.8 H AST (15-37) U/L 39 H ALT (14-59) U/L 43 Alkaline Phosphatase (46-116) U/L 86 Troponin I (<0.06) ng/mL 0.05 NT-Pro-B Natriuret Pep (<300) pg/mL 1762 H Total Protein (6.4-8.2) g/dL 8.0 Albumin (3.4-5.0) g/dL 4.4 TSH (0.36-3.74) uIU/mL Range/Units 07/26/20 14:20 WBC (4.4-10.8) 10^3/uL RBC (3.93-5.22) 10^6/uL Hgb (11.2-15.7) g/dL Hct (36.0-46.0) % MCV (80-95) fL MCH (27.0-33.0) pg MCHC (32.0-36.0) % RDW (11.7-14.6) % Plt Count (130-400) 10^3/uL MPV (8.0-11.0) fL Immature Gran % Neutrophils % Lymphocytes % Monocytes % Eosinophils % Basophils % Nucleated RBC % % Absolute Neutrophils (1.2-6.7) 10^3/uL Absolute Lymphocytes (1.2-3.4) 10^3/uL Absolute Monocytes (0.1-0.8) 10^3/uL Absolute Eosinophils (0.0-0.7) 10^3/uL Absolute Basophils (0.0-0.2) 10^3/uL D-Dimer (<500) ng/mlFEU Sodium (136-145) mmol/L Potassium (3.5-5.1) mmol/L Chloride (98-107) mmol/L Carbon Dioxide (21.0-32.0) mmol/L Anion Gap (3-11) mmol/L BUN (7-18) mg/dL Creatinine (0.55-1.02) mg/dL Estimated GFR/1.73 m2 (mL/min/1.73m2) Glucose (74-106) mg/dL Calcium (8.5-10.1) mg/dL Magnesium (1.8-2.4) mg/dL Total Bilirubin (0.2-1.0) mg/dL AST (15-37) U/L ALT (14-59) U/L Alkaline Phosphatase (46-116) U/L Troponin I (<0.06) ng/mL 0.06 NT-Pro-B Natriuret Pep (<300) pg/mL Total Protein (6.4-8.2) g/dL Albumin (3.4-5.0) g/dL TSH (0.36-3.74) uIU/mL 2.48 ECG Data Attestation: I personally reviewed and interpreted this ECG (s) as follows: Interpretation: EKG shows atrially paced rhythm at 72, left axis, nonspecific T wave changes inferiorly and low lateral leads, no STEMI, nondiagnostic EKG <Bryce Glaser MD - Last Filed: 08/10/20 17:03> 1919 -- Care was signed out by Dr. Caro Glaser with plan to follow-up on ultrasound as well as assess patient for ambulatory dysfunction. Ultrasound of the upper extremity and bilateral lower extremities negative per radiology. Attempted to ambulate the patient and she had significant difficulty, she felt unsteady on her feet dizzy and could not walk more than a few feet with nursing assistance. Patient will require admission for ambulatory dysfunction, plan to continue hydration and cardiac monitoring. HPI <Caro Glaser MD - Last Filed: 07/26/20 20:20> General Mode of arrival: EMS . Date/Time Provider Initiated Documentation: 07/26/20 11:21 . Limitations to Documentation: no limitations . Information obtained by: patient, family, RN notes reviewed and old records reviewed . HPI Narrative: Melvina Nolasco is an 80 y/o woman with h/o CAD presenting to the emergency department with episode of epigastric pain, SOB, lightheadedness this am. History provided by Pt and also her who I spoke to separately 2/2 COVID visitor policy. Pt reports that she has had diarrhea for 4 months. Was supposed to have colonoscopy, but during prep she developed n/v and presented to the emergency department. Pt was found to have NSTEMI, and underwent cardiac catheterization at [facility], no stents placed. Pt found to have non-stentable disease, <30% stenosis multiple vessels per record review. Pt was discharged from [facility] yesterday. Pt reports that this morning she developed anterior chest pain, SOB, and lightheadedness. Pt reports that she felt very anxious during this episode. She then had a bowel movement and began to feel gradually better, but had already called EMS at that time. Pt reports that she currently has no chest pain or any other pain, SOB has resolved. Pt states that she currently feels at baseline. Pt's reports that she has had multiple similar episodes over the past few months that he associates with her diarrhea. He also states that she has been very generally weak over the past few months, and has had weight loss that he attributes to lack of appetite and decreased PO intake. Pt denies any current pain, SOB, fever, vomiting, numbness, focal weakness. Related Data Home Medications Medication Instructions Recorded Confirmed aspirin [Aspirin Low-Strength] 81 mg PO DAILY tab-cap 09/16/12 08/02/20 levothyroxine 100 mcg capsule 100 mcg PO DAILY #90 cap 10/18/19 08/02/20 artificial tears(hypromellose) 0.3 1 drp OP BID ml 01/06/20 08/02/20 % eye drops exemestane 25 mg tablet 25 mg PO DAILY 01/06/20 08/02/20 fluoxetine 20 mg capsule 20 mg PO DAILY #14 cap 07/17/20 08/02/20 atorvastatin 40 mg PO QPM 07/26/20 08/02/20 clopidogrel 75 mg PO DAILY 07/26/20 08/02/20 metoprolol succinate 50 mg PO DAILY 07/26/20 08/02/20 nitroglycerin 0.4 mg SUBLINGUAL PRN PRN 07/26/20 08/02/20 loperamide 2 mg PO DAILY #30 cap 07/27/20 loperamide 2 mg PO QID PRN #30 cap 07/27/20 Previous Rx's Medication Instructions Recorded levothyroxine 100 mcg capsule 100 mcg PO DAILY #90 cap 10/18/19 fluoxetine 20 mg capsule 20 mg PO DAILY #14 cap 07/17/20 loperamide 2 mg PO DAILY #30 cap 07/27/20 loperamide 2 mg PO QID PRN #30 cap 07/27/20 Allergies Allergy/AdvReac Type Severity Reaction Status Date / Time No Known Allergies Allergy Verified 08/02/20 13:50 General Stated Complaint: Chest Pain HAKEEM: 2 Review of Systems <Caro Glaser MD - Last Filed: 07/26/20 20:20> Narrative: Constitutional: denies fevers Eyes: denies eye pain ENT: denies ear pain, dental pain, sore throat Cardiovascular: denies edema, reports hest pain as per HPI Respiratory: denies cough, reports SOB as per HPI GI: denies abdominal pain, vomiting, reports chronic diarrhea : denies flank pain MSK: denies back pain, neck pain, arthralgias, reports chronic myalgias b/l LEs Skin: denies rash Neuro: denies headaches, numbness, weakness PFSH <Caro Glaser MD - Last Filed: 07/26/20 20:20> Medical History (Updated 08/02/20 @ 13:45 by Katy Guevara NP) Breast cancer 2020: care at [facility]- radiation completed, chemo not recommended, Armidex Cardiac pacemaker Dual lead Medtronic pacemaker Yesika XT DR MRI [id number] 11/08/2018 Chronic diarrhea COVID-19 ruled out by laboratory testing Cubital tunnel syndrome on left Hypothyroidism (01/25/14) Left carpal tunnel syndrome Memory changes She does not want investigation now. She may have early dementia. Her other problems are more pressing especially the breast mass. Skin lesion of neck Sent photo to Dr. Terrlel. He said benign seborrheic keratosis. No treatment. Will let her know later. Surgical History Colonoscopy - MAC (03/25/16) S/P placement of cardiac pacemaker Vaginal hysterectomy Family History Father , 84 Skin cancer Heart disease Mother , 94 Dementia Sister , 81 Dementia Heart disease Brother No problems noted. Maternal Grandfather , 79 No problems noted. Paternal Grandfather , 59 Cancer Maternal Grandmother , 58 No problems noted. Paternal Grandmother , 86 No problems noted. Daughter Diabetes S/P vascular surgery Daughter No problems noted. Social History Smoking/Tobacco Use Status: Former Tobacco Use Quit Date: 03/04/98 Second Hand Exposure: Yes Smoking risk assessment performed?: Yes Alcohol Intake: never Drug use: Never Substance use type: does not use Caregiver/Support person: No Household members: spouse Housing: house Do you need help understanding health information?: Never Pets and animals: No Sexually active: No Do you think of yourself as: straight/heterosexual Current gender identity: female What is your relationship status?: How often do you talk on the phone with friends or family?: three or more times per week How often do you get together with friends or relatives?: once per week How often do you attend jew or nondenominational services?: 4 or more times per year Do you belong to any clubs or organized social groups?: no Panel score (0-1 are the most socially isolated patients): 3 What type of physical activity do you participate in: walking Duration: 30-45 minutes/day Frequency: 1-2 times per week Cristela/Congregational: Mu-Ism Special cristela needs: No Seatbelt use: always Helmet use: No Drive intox or ride w/intox special needs bus driver: No Do you feel safe at home: Yes Do you feel safe in your relationship?: Yes Exam <Caro Glaser MD - Last Filed: 07/26/20 20:20> Narrative Exam Narrative: Constitutional: somewhat frail, [id number], pleasant, conversing normally HENT: head atraumatic/normocephalic/normal inspection, mucous membranes moist Eyes: conjunctiva normal, sclera normal, pupils 3mm b/l Neck: no stridor, normal ROM, trachea midline Chest: normal inspection Resp: normal work of breathing, LCTAB Cardio: normal rate, normal rhythm, no murmur appreciated GI: abdomen soft, non-tender, non-distended Back: normal inspection, no rash Skin: warm, dry, normal color, no rash Neuro: alert, not altered, grossly non-focal, normal tone Ext: + varicose veins to b/l lower legs, + b/l posterior calf TTP, no overlying skin changes Psych: normal mood, normal affect, normal behavior Course <Caro Glaser MD - Last Filed: 07/26/20 20:20> Vital Signs Vital signs: Vital Signs Pulse Oximetry 100 07/26/20 11:09 Temperature 36.3 C L 07/26/20 11:10 Temperature Source Temporal Artery Scan 07/26/20 11:10 Pulse 59 L 07/26/20 13:15 Pulse Rhythm Regular 07/26/20 12:31 Pulse 64 07/26/20 13:20 Respiratory Rate 22 07/26/20 13:20 Respiratory Effort 07/26/20 12:31 Respiratory Depth Normal 07/26/20 12:31 Respiratory Pattern Normal 07/26/20 12:31 Blood Pressure 127/61 07/26/20 13:15 Blood Pressure Mean 76 07/26/20 13:15 Blood Pressure Position Supine 07/26/20 11:10 Pulse Oximetry 98 07/26/20 13:20 Oxygen Delivery Method Room Air 07/26/20 11:10 Oxygen Flow Rate 0 07/26/20 11:10 Pain Level 0 07/26/20 13:24 Lab/Test Results Lab/Test Results: Laboratory Tests Range/Units 07/26/20 07/26/20 07/26/20 11:14 11:14 11:14 WBC (4.4-10.8) 10^3/uL 6.20 RBC (3.93-5.22) 10^6/uL 5.00 Hgb (11.2-15.7) g/dL 16.5 H Hct (36.0-46.0) % 45.4 MCV (80-95) fL 90.8 MCH (27.0-33.0) pg 33.0 MCHC (32.0-36.0) % 36.3 H RDW (11.7-14.6) % 12.5 Plt Count (130-400) 10^3/uL 225 MPV (8.0-11.0) fL 9.2 Immature Gran % 0.3 Neutrophils % 79.7 Lymphocytes % 10.5 Monocytes % 8.7 Eosinophils % 0.5 Basophils % 0.3 Nucleated RBC % % 0 Absolute Neutrophils (1.2-6.7) 10^3/uL 4.94 Absolute Lymphocytes (1.2-3.4) 10^3/uL 0.65 L Absolute Monocytes (0.1-0.8) 10^3/uL 0.54 Absolute Eosinophils (0.0-0.7) 10^3/uL 0.03 Absolute Basophils (0.0-0.2) 10^3/uL 0.02 D-Dimer (<500) ng/mlFEU 729 H Sodium (136-145) mmol/L 135 L Potassium (3.5-5.1) mmol/L 3.4 L Chloride (98-107) mmol/L 97 L Carbon Dioxide (21.0-32.0) mmol/L 23.4 Anion Gap (3-11) mmol/L 14.6 H BUN (7-18) mg/dL 16 Creatinine (0.55-1.02) mg/dL 1.0 Estimated GFR/1.73 m2 (mL/min/1.73m2) 53.35 Glucose (74-106) mg/dL 84 Calcium (8.5-10.1) mg/dL 10.3 H Magnesium (1.8-2.4) mg/dL 1.9 Total Bilirubin (0.2-1.0) mg/dL 1.8 H AST (15-37) U/L 39 H ALT (14-59) U/L 43 Alkaline Phosphatase (46-116) U/L 86 Troponin I (<0.06) ng/mL 0.05 NT-Pro-B Natriuret Pep (<300) pg/mL 1762 H Total Protein (6.4-8.2) g/dL 8.0 Albumin (3.4-5.0) g/dL 4.4 Sign Out <Caro Glaser MD - Last Filed: 07/26/20 20:20> Sign Out Data: Sign Out Comment: Patient signed out to Dr. Glaser at time of discharge with right arm ultrasound, trial ambulation pending. Last updated by Caro Glaser MD at 07/26/20 16:08
[2020-07-26 14:46] LABS: Troponin I 0.06 ng/mL (<0.06)
--- NOTE | 2020-07-26 17:18 | NUR.NOTE ---
Nursing Note: Juaquin [phone]
[2020-07-26 17:44] LABS: Source Nasal/Nares
[2020-07-26 19:17] LABS: TSH 2.48 uIU/mL (0.36-3.74)
--- NOTE | 2020-07-26 19:35 | HPE_ITS ---
Date of service: 07/26/20 Time of Service: 19:36 Assessment and Plan Assessment and plan (1) Hypothyroidism: Status: Acute Assessment and plan: Cont replacement tx. TSH ordered. Qualifiers: Hypothyroidism type: acquired Qualified Code(s): E03.9 - Hypothyroidism, unspecified (2) NSTEMI (non-ST elevated myocardial infarction): Status: Acute Assessment and plan: Recent transfer from [facility] (07/23/2020) to [facility] for further eval and interventions. Cardiac catheterization performed; no disease to intervene on with any procedures. Cont ASA, Plavix, Metoprolol, Atorvastatin 3rd troponin pending. (3) Hypokalemia: Status: Acute Assessment and plan: Mild with a K+ of 3.4 oral replacement with 20meq K+. Monitor. Likely d/t subacute diarrhea. (4) Diarrhea: Status: Acute Assessment and plan: Has had w/u, including stool studies that were negative. Placed on fluoxetine for anxiety that may have been contributing. Now weaning off fluoxetine; was not helping. History of Present Illness History of Present Illness Chief Complaint: Chest pain, weakness Narrative: This is an 80 yo female with a h/o recent NSTEMI, pacemaker, memory changes, hypothyroidism, diarrhea and weight loss. She presented with c/o chest pressure, SOA and generalized weakness. She was admitted to [facility] on 07/23/20 and transferred on that day to [facility] after being dxd with an NSTEMI. Cardiac cath showed no disease that required intervention other than medical. She was discharged from [facility] the day prior to this admission. In the ED her EKG showed an atrially paced rhythm, no STEMI. BNBP 1762, Troponin 0.05 > 0.06, Mg 1.9, Creatinine 1.0, Na 135, K+ 3.4, WBC count 6.2, Hgb 16.5. CXR w/o acute findings. She also c/o pain in the RUE, s/p cardiac catheterization; Venous US was negative. She mentioned both her feet felt numb and were tingling like they we re falling asleep; Venous US of BLEs negative for thrombus. Admitted for further cardiac work-up. At the time of admission she had no c/o chest pain or SOA while lying in bed. + appetite. No F/C, cough/sputum, abd pain/N/V. No numbness/tingling of an extremity. Review of Systems All systems reviewed & are unremarkable except as noted in HPI and below PFSH Medical History Breast cancer 2020: care at [facility]- radiation completed, chemo not recommended, Armidex Cardiac pacemaker Dual lead Medtronic pacemaker Yesika XT DR MRI [id number] 11/08/2018 Chronic diarrhea Cubital tunnel syndrome on left Hypothyroidism (01/25/14) Left carpal tunnel syndrome Memory changes She does not want investigation now. She may have early dementia. Her other problems are more pressing especially the breast mass. Skin lesion of neck Sent photo to Dr. Terrell. He said benign seborrheic keratosis. No treatment. Will let her know later. Surgical History Colonoscopy - MAC (03/25/16) S/P placement of cardiac pacemaker Vaginal hysterectomy Family History Father , 84 Skin cancer Heart disease Mother , 94 Dementia Sister , 81 Dementia Heart disease Brother No problems noted. Maternal Grandfather , 79 No problems noted. Paternal Grandfather , 59 Cancer Maternal Grandmother , 58 No problems noted. Paternal Grandmother , 86 No problems noted. Daughter Diabetes S/P vascular surgery Daughter No problems noted. Social History Smoking/Tobacco Use Status: Former Tobacco Use Quit Date: 03/04/98 Second Hand Exposure: Yes Smoking risk assessment performed?: Yes Alcohol Intake: never Drug use: Never Substance use type: does not use Caregiver/Support person: No Household members: spouse Housing: house Do you need help understanding health information?: Never Pets and animals: No Sexually active: No Do you think of yourself as: straight/heterosexual Current gender identity: female What is your relationship status?: How often do you talk on the phone with friends or family?: three or more times per week How often do you get together with friends or relatives?: once per week How often do you attend restorationist or muslim services?: 4 or more times per year Do you belong to any clubs or organized social groups?: no Panel score (0-1 are the most socially isolated patients): 3 What type of physical activity do you participate in: walking Duration: 30-45 minutes/day Frequency: 1-2 times per week Cristela/Jewish: Pentecostal Special cristela needs: No Seatbelt use: always Helmet use: No Drive intox or ride w/intox mobile lounge driver: No Do you feel safe at home: Yes Do you feel safe in your relationship?: Yes Meds Home Medications and Allergies Allergies Allergy/AdvReac Type Severity Reaction Status Date / Time No Known Allergies Allergy Verified 07/26/20 11:18 Home Medications Medication Instructions Recorded Confirmed Type aspirin [Aspirin Low-Strength] 81 mg PO DAILY tab-cap 09/16/12 07/26/20 History levothyroxine 100 mcg capsule 100 mcg PO DAILY #90 cap 10/18/19 07/26/20 Rx artificial tears(hypromellose) 0.3 1 drp OP BID ml 01/06/20 07/26/20 History % eye drops exemestane 25 mg tablet 25 mg PO DAILY 01/06/20 07/26/20 History fluoxetine 20 mg capsule 20 mg PO DAILY #14 cap 07/17/20 07/26/20 Rx atorvastatin 40 mg PO QPM 07/26/20 07/26/20 History clopidogrel 75 mg PO DAILY 07/26/20 07/26/20 History metoprolol succinate 50 mg PO DAILY 07/26/20 07/26/20 History nitroglycerin 0.4 mg SUBLINGUAL PRN PRN 07/26/20 07/26/20 History Results Labs Result diagrams: 07/26/20 11:14 07/26/20 11:14 Labs: Laboratory Results - last 24 hr 07/26/20 07/26/20 07/26/20 11:14 11:14 11:14 WBC 6.20 RBC 5.00 Hgb 16.5 H Hct 45.4 MCV 90.8 MCH 33.0 MCHC 36.3 H RDW 12.5 Plt Count 225 MPV 9.2 Immature Gran % 0.3 Neutrophils % 79.7 Lymphocytes % 10.5 Monocytes % 8.7 Eosinophils % 0.5 Basophils % 0.3 Nucleated RBC % 0 Absolute Neutrophils 4.94 Absolute Lymphocytes 0.65 L Absolute Monocytes 0.54 Absolute Eosinophils 0.03 Absolute Basophils 0.02 D-Dimer 729 H Sodium 135 L Potassium 3.4 L Chloride 97 L Carbon Dioxide 23.4 Anion Gap 14.6 H BUN 16 Creatinine 1.0 Estimated GFR/1.73 m2 53.35 Glucose 84 Calcium 10.3 H Magnesium 1.9 Total Bilirubin 1.8 H AST 39 H ALT 43 Alkaline Phosphatase 86 Troponin I 0.05 NT-Pro-B Natriuret Pep 1762 H Total Protein 8.0 Albumin 4.4 TSH COVID-19 Source 07/26/20 07/26/20 14:20 17:35 WBC RBC Hgb Hct MCV MCH MCHC RDW Plt Count MPV Immature Gran % Neutrophils % Lymphocytes % Monocytes % Eosinophils % Basophils % Nucleated RBC % Absolute Neutrophils Absolute Lymphocytes Absolute Monocytes Absolute Eosinophils Absolute Basophils D-Dimer Sodium Potassium Chloride Carbon Dioxide Anion Gap BUN Creatinine Estimated GFR/1.73 m2 Glucose Calcium Magnesium Total Bilirubin AST ALT Alkaline Phosphatase Troponin I 0.06 NT-Pro-B Natriuret Pep Total Protein Albumin TSH 2.48 COVID-19 Source Nasal/nares Last Vital Signs Temp 36.4 C L 07/26/20 18:52 Pulse 62 07/26/20 19:12 Resp 18 07/26/20 18:52 BP 143/83 H 07/26/20 18:52 Pulse Ox 98 07/26/20 18:52 COVID-19 Screening Have you, or household traveled for leisure in last 14 days?: Yes Had IN PERSON contact w/suspected or confirmed C-19 person: No
[2020-07-26] MEDS: Refresh PLUS Eye Drops 0.4ml 1 EACH OP (19:50)
[2020-07-26] MEDS: Atorvastatin 40 MG TAB PO (19:50)
[2020-07-26] MEDS: Potassium Chloride 20 MEQ TABCR PO (19:55)
[2020-07-26 19:58] LABS: COVID-19 PCR Negative (Negative)
[2020-07-26 20:47] LABS: Troponin I 0.05 ng/mL (<0.06)
--- NOTE | 2020-07-27 | DI.US_ITS ---
EXAM: US ABDOMEN LIMITED CLINICAL HISTORY: hyperbilirubinemia TECHNIQUE: Ultrasound performed using standard protocol. COMPARISON: US US UPPER EXTREMITY VENOUS RT from 07/26/2020 FINDINGS: The visualized liver parenchyma is normal in appearance. There is no evidence of cholelithiasis. Th ere do appear to be multiple small gallbladder polyps largest measuring about 3 millimeters in diamet er. Gallbladder wall is otherwise unremarkable. Negative sonographic Cabral sign noted. There is no evidence of biliary dilatation. Right kidney is normal in appearance with no hydronephrosis or nephrolithiasis. Abdominal aorta nonvisualized. Pancreas grossly intact but not ideally seen. IVC of normal diameter . IMPRESSION: No evidence of cholelithiasis or biliary dilatation. Incidental gallbladder polyps noted. DATA REPOSITORY:
[2020-07-27] MEDS: Calcium Carbonate *TUMS* 500 MG CHEW PO (02:43)
[2020-07-27 03:55] VITALS: BP 119/79; PULSE 61; RESP 18; TEMP 36.2; O2SAT 96
[2020-07-27] MEDS: Levothyroxine 100 MCG TAB PO (05:46)
[2020-07-27 07:02] VITALS: PULSE 61
[2020-07-27 07:13] LABS: ALT 37 U/L (14-59); AST 26 U/L (15-37); Albumin 3.8 g/dL (3.4-5.0); Alkaline Phosphatase 76 U/L (46-116); Anion Gap 13.6 mmol/L (3-11); BUN 18 mg/dL (7-18); Bilirubin, Total 1.5 mg/dL (0.2-1.0); CO2 23.4 mmol/L (21.0-32.0); CREATININE 0.8 mg/dL (0.55-1.02); Calcium 10.1 mg/dL (8.5-10.1); Chloride 99 mmol/L (98-107); Glucose 81 mg/dL (74-106); Potassium 3.4 mmol/L (3.5-5.1); Sodium 136 mmol/L (136-145)
[2020-07-27 07:42] VITALS: BP 131/79; PULSE 64; RESP 18; TEMP 36.6; O2SAT 98
[2020-07-27] MEDS: Refresh PLUS Eye Drops 0.4ml 1 EACH OP (08:16)
[2020-07-27] MEDS: Clopidogrel 75 MG TAB PO (08:16)
[2020-07-27] MEDS: FLUoxetine 20 MG CAP PO (08:16)
[2020-07-27] MEDS: Aspirin 81 MG CHEW PO (08:16)
[2020-07-27] MEDS: Metoprolol CR 50 MG TABCR PO (08:16)
--- NOTE | 2020-07-27 08:39 | INITIAL_ITS ---
- If Service Date Differs Date of service: 07/27/20 Time of Service: 08:39 Care Management Initial Assess REASON FOR HOSPITALIZATION:: Hypothyroidism. CAD Weakness PAST MEDICAL HISTORY/PAST SURGICAL HISTORY:: Medical History . Breast cancer. 2020: care at [facility] [place] completed, chemo not recommended, Armidex. Cardiac pacemaker. Dual lead Medtronic pacemaker Yesika XT DR MRI [id number] 11/08/2018. Chronic diarrhea. Cubital tunnel syndrome on left. Hypothyroidism (01/25/14). Left carpal tunnel syndrome. Memory changes. She does not want investigation now. She may have early dementia. Her other problems are more pressing especially the breast mass. Skin lesion of neck. Sent photo to Dr. Terrell. He said benign seborrheic keratosis. No treatment. Will let her know later. Surgical History . Colonoscopy - MAC (03/25/16). S/P placement of cardiac pacemaker. Vaginal hysterectomy PREVIOUS FUNCTIONAL STATUS/SOCIAL/FAMILY SUPPORTS:: Melvina lives in [facility] with her Juaquin in a single family home. They have 2 daughters; one lives in [place] and the other daughter is in an [facility] home in [place].Melvina reports that both she and Juaquin have mild dementia and take care of each other. They currently receive no services, however Juaquin has a large family that live in [facility] and are supportive. CURRENT FUNCTIONAL STATUS:: Melvina was sitting up in a chair when CM met with her. She appeared pale and tired. She stated that it felt good to be up and sititng in a chair. Melvina described the course of her illness which began with diarrhea 4 months ago. She has been scheduled for a colonoscopy twice but cancelled once and got sick during the prep and was hospitalized the second leo e, so has never been diagnosed with a specific cause. Melvina had a PT consult this morning and ambulated well with a walker. She normally does not use an assistive device but in her weakened condition it is helpful at this time. ADVANCE DIRECTIVES:: On file. Toni HERNANDEZ Has patient been provided with info about the portal/API?: Yes Did the patient sign up for the portal?: No CODE STATUS:: Full Code INSURANCE COVERAGE / FINANCIAL ISSUES:: Medicare. AARP CURRENT HOME/COMMUNITY SERVICES/EQUIPMENT:: none PRIMARY CARE PHYSICIAN:: Katy Guevara POTENTIAL DISCHARGE NEEDS:: Follow up with PCP and discharge plan of care PATIENT/FAMILY EDUCATION NEEDS:: Discharge plan, limitations, follow up, Ask Me Three TRANSPORTATION:: via [employer] vehicle with family PLAN:: Melvina will be discharged home with new services for PT and PSYCHOLOGY CLINICIAN. She will follow up with her community providers and transport with family. Her and [id number] will provide transport.
[2020-07-27] MEDS: Potassium Chloride 20 MEQ TABCR 40 MEQ PO (10:19)
[2020-07-27] MEDS: Loperamide 2 MG CAP PO (10:19)
--- NOTE | 2020-07-27 10:56 | IN_ITS ---
Date of service: 07/27/20 Time of Service: 10:56 PT Notes Visit Reasons: CAD, GENERALIZED WEAKNESS Physical Therapy Inpatient Initial Evaluation Date: 07/26/2020 Referring Doctor: Caro Glaser MD PT Orders: PT CONSULT: Eval/.Treat. Precautions: Fall. Standard. Activity as tolerated. Patient Profile/Admitting Diagnosis: Melvina is an 80-year-old female who presented to the ED on 07/26/2020 with chest pain, shortness of breath, and generalized weakness. Patient is diagnosed with hypothyroidism, and NSTEMI, hypokalemia and diarrhea. PMHX: Medical History Breast cancer 2020: care at [facility] [place]- radiation completed, chemo not recommended, Armidex Cardiac pacemaker Dual lead Medtronic pacemaker Yesika XT DR BOYCE [id number] 11/08/2018 Chronic diarrhea Cubital tunnel syndrome on left Hypothyroidism (01/25/14) Left carpal tunnel syndrome Memory changes She does not want investigation now. She may have early dementia. Her other problems are more pressing especially the breast mass. Skin lesion of neck Sent photo to Dr. Terrell. He said benign seborrheic keratosis. No treatment. Will let her know later. Surgical History Colonoscopy - MAC (03/25/16) S/P placement of cardiac pacemaker Vaginal hysterectomy Social History/Home Situation: Lives with in a private home with 3 steps to enter without rails. She has a flight of steps down her basement where the laundry area is. has a beginning dementia. Equipment Owned/DME: None Subjective: Patient states that her has beginning dementia and is worried about how he is going to help her out when she comes back home. Wondering whether getting a third person into the house to help out with everything will help both of them at home. Expressed her concern about becoming dizzy again when she stands up. Was more confident about trying out walking when given the front wheeled walker. Objective: General Observation: Seated on chair. Mental Status: Alert. Step commands. Responses appropriate. Pain: None reported ROM: Right Upper Extremity: Shoulder Flexion WFL. Shoulder abduction WFL. Elbow flexion WFL. Wrist flexion WFL. Opening and closing of hand WFL. Left Upper Extremity: Shoulder Flexion WFL. Shoulder abduction WFL. Elbow flexion WFL. Wrist flexion WFL. Opening and closing of hand WFL. Right Lower Extremity: Hip flexion WFL. Hip abduction WFL. Knee flexion WFL. Ankle dorsiflexion WFL. Ankle plantarflexion WFL. Left Lower Extremity: Hip flexion WFL. Hip abduction WFL. Knee flexion WFL. Ankle dorsiflexion WFL. Ankle plantarflexion WFL. Strength: Right Upper Extremity: Shoulder flexors 4/5. Shoulder abductors 4/5. Elbow flexors 4/5. Elbow extensors 4/5. Supervisor Hanging And Trimming strong. Left Upper Extremity: Shoulder flexors 4/5. Shoulder abductors 4/5. Elbow flexors 4/5. Elbow extensors 4/5. Supervisor Hanging And Trimming strong. Right Lower Extremity: Hip flexors 4-/5. Hip abductors 4/5. Knee flexors 4/5. Knee extensors 4-/5. Ankle dorsiflexors 4-/5. Ankle plantarflexors 4-/5. Left Lower Extremity: Hip flexors 4-/5. Hip abductors 4/5. Knee flexors 4/5. Knee extensors 4-/5. Ankle dorsiflexors 4-/5. Ankle plantarflexors 4-/5. Sensation: Intact as to pain and pressure on bilateral lower extremities. Bed Mobility/Transfers: Rolling standby assist Supine to sit standby assist Sit to supine standby assist Sit to stand standby assist Stand to sit standby assist Bed to chair standby assist Chair to bed standby assist Gait: Level surface ambulation feet using front wheeled walker with full weightbearing requiring standby assist. Gait pattern unremarkable. Initially felt weak but did not need to sit down as she has the front wheeled walker. Balance: Static Sitting: Normal Dynamic Sitting: Normal Static Standing: Good Dynamic Standing: Fair Special Tests: Mobility Limitations Standardized Measure [facility] 6 clicks Basic Mobility Inpatient Short Form: Raw Score: 23 CMS Score: 11% deficit Informed Consent/Education: Patient instructed in purpose of PT consult and plan of care. Assessment: Patient demonstrates functional mobility decline requiring the use of a front wheeled walker to maximize independence and reduce fall risk due to report of dizziness and generalized weakness. Patient presents with clinical signs and symptoms consistent with current/admitting diagnoses that have resulted to mobility limitations, gait instability, generalized weakness, and impairment of motor control as demonstrated by the following impairment level findings: 1. Decreased strength to BUE/LE major muscle groups 2. Impaired sitting/standing balance 3. Impaired activity tolerance Impairments are contributing to the following functional limitations: 1. Dependent bed mobility skills 2. Increased dependence with transfers 3. Inability to safely ambulate without assistive device and physical assistance 4. Increase completion time for mobility ADL performance 5. Increased fall risk 6. Inability to negotiate steps alone safely Patient is assessed as a 08252 moderate complexity based on the following: History: 80-year-old female with impairment level findings, functional limitations, and past medical history as indicated above Examination: Demonstrable impairment in strength, balance, and mobility level with underlying impairments and functional limitations as documented above Presentation: Evolving Decision Makin moderate complexity Goals: Goals X1 week 1. Supine-Sit independent 2. Sit-Supine independent 3. Sit-Stand independent 4. Stand-Sit independent 5. Bed-Chair independent 6. Chair-Bed independent 7. Independent gait on level surface with use of least restrictive device for at least 300 feet without report of pain nor dyspnea 8. Independent stair negotiation while holding onto bilateral rails for at least 10 steps without report of pain nor dyspnea 9. Independent with home exercise program 10. Good static and dynamic standing balance/tolerance Plan of Care/Treatment Plan: 1-2x/day, 7 days/week x 1 week. Plan of care has been reviewed with the LATIN DANCE INSTRUCTOR providing the service under Physical Therapy direction. Initiate Physical Therapy intervention for strengthening, bed mobility, transfers, gait, stairs, balance training, use of assistive device. DISCHARGE RECOMMENDATIONS: Patient will benefit from home health PT services in order to progress mobility level using least restrictive assistive ambulatory device, assess home safety, identify additional equipment needs, and establish a functional maintenance program that will increase ability of patient to remain at home. May benefit from the use of a front wheel walker at home. TREATMENT CODE/TIME: 26834 x 25 minutes, 39092 50s x 13 minutes beginning at 10:56 AM. Thank you for the opportunity to participate in the care of this patient. Marylou Lewis PT, DPT, CLT [facility] [place], [place]
[2020-07-27 12:17] LABS: Bilirubin Small (Negative); Blood Negative (Negative); Clarity Clear (Clear); Glucose Negative (Negative); Ketones 15 mg/dL (Negative); Leukocyte Esterase Negative (Negative); Nitrite Negative (Negative); pH 6.5 (5-8)
[2020-07-27 13:07] LABS: C Diff PCR Negative (Negative)
[2020-07-27 15:00] VITALS: PULSE 65
--- NOTE | 2020-07-27 15:01 | PT.INTREAT ---
Date of service: 07/27/20 Time of Service: 13:00 PT Notes Visit Reasons: CAD, GENERALIZED WEAKNESS Inpatient Physical Therapy Treatment Note [facility] Date: 07/27/2020 PRECAUTIONS: Fall, Enteric SUBJECTIVE: Melvina is pleasant and agreeable to participating in PT. She reports that she occasionally gets dizzy when she stands, although indicates that she was without dizziness throughout session this afternoon. OBJECTIVE: PAIN: No c/o pain BED MOBILITY/TRANSFERS Sit-supine: I Sit-stand: S Stand-sit: S Bed-Chair: S Chair-bed: S GAIT Assistive Device: No AD Weight bearing: Full Assist: SBA-S Distance: 300' THEREX: Patient was instructed in a LE and UE strengthening program, completed in a seated position, as per flow sheet. STAIRS: Up/down 3x4 and 2x6 utilizing step over pattern with supervision ASSESSMENT: Patient tolerated a progression in gait distance without use of assistive device, as well as the addition of stair training without use of handrail support, well without LOB or complaint of dizziness. PLAN: Possible discharge to home later today, per MD TREATMENT CODE/TIME: 30 minutes; [id number] (13:00)
--- NOTE | 2020-07-27 15:20 | DSE_ITS ---
Date of service: 07/27/20 Time of Service: 15:30 DS: Diagnosis Discharge Diagnosis (1) Dizziness: Status: Acute (2) Hypokalemia: Status: Acute (3) Diarrhea: Status: Chronic (4) Hyperbilirubinemia: Status: Chronic (5) Gallbladder polyp: Status: Chronic (6) COVID-19 ruled out by laboratory testing: Status: Ruled-out Discharge Plan Disposition Patient Disposition: HOME W/HOME HEALTH SERVICE Condition: Good Discharge Details Reason For Visit: CAD, GENERALIZED WEAKNESS Admit Date/Time: 07/26/20 17:32 Admit Provider: Tye Oseguera Attending Provider: Tye Oseguera [facility] Hospital Course: Ms Nolasco is an 80 year old female with PMHx of nonobstructive ASCVD w/ NSTEMI s/ p cardiac [place] [facility] [place] w/o stent placement, pacemaker for symptomatic bradycardiac/Sinus node dysfunction, breast cancer s/p XRT, and dementia, who was discharged home from [facility] on 07/25/20 and represented to [facility] ED on 07/26/20 after an episode of dizziness, palpitations, shortness of breath +/- chest pain at home (the patient's story changed several times). The patient's had stated to the ED provider that he could not tow picker the patient off the floor, but denied a fall. The patient had an unremarkable evaluation in our ED, but hospitalist service was asked to admit the patient for further management as well as to determine appropriate disposition. The patient had no arrhythmic events on telemetry and ruled out for ACS by troponins. She did not have any recurrences of dizziness or chest pain. Unfortunately, we were not able to interrogate her pacemaker today, and an arrhythmic event does seem very likely, so we are sending her home with extended cardiac monitoring and a referral to our cardiology clinic for pacemaker interrogation. Her diarrhea is her chronic. She had stool studies as outpatient and we ruled out C. Diff on this admission. Celiac panel was ordered and should be followed up by PCP. While the patient will need a colonoscopy in the future, it is felt that now is not the right time for this as she had just had her cardiac event and will need to be re-attempted again as outpatient. As the patient has diarrhea daily, we think it would be a good idea for her to take loperamide every morning as well as prn. As far as her ability to ambulate, the patient was able to ambulate with physical therapy without an assistive device, but is felt to benefit form home health PT. Finally, we think it would be helpful to have home health MOTORCYCLE REPAIR SHOP SUPERVISOR. The patient is medically stable for discharge home today with home health PT, MOTORCYCLE REPAIR SHOP SUPERVISOR, and with follow up with PCP in 1-2 weeks, cardiology in 1-2 weeks. She should also follow up with general surgery to reschedule her colonoscopy and to follow up on her incidentally found gallbladder polyps (seen on US obtained for hyperbilirubinemia). BMP in 1 week to assess potassium - results to PCP. Home Meds and New Rx's Prescriptions: New loperamide 2 mg capsule 2 mg PO DAILY Qty: 30 RF: 0 loperamide 2 mg capsule 2 mg PO QID PRNQty: 30 RF: 0 Continued exemestane 25 mg tablet 25 mg PO DAILY RF: 0 artificial tears(hypromellose) 0.3 % drops 1 drp OP BID RF: 0 aspirin [Aspirin Low-Strength] 81 MG tablet,chewable 81 mg PO DAILY RF: 0 levothyroxine 100 mcg capsule 100 mcg PO DAILY Qty: 90 RF: 3 fluoxetine 20 mg capsule 20 mg PO DAILY Qty: 14 RF: 0 atorvastatin 40 mg tablet 40 mg PO QPM RF: 0 metoprolol succinate 50 mg tablet extended release 24 hr 50 mg PO DAILY RF: 0 clopidogrel 75 mg tablet 75 mg PO DAILY RF: 0 nitroglycerin 0.4 mg tablet, sublingual 0.4 mg sublingual PRN PRNRF: 0 Discharge Instructions Instructions: Loperamide (By mouth), Dizziness (ED) Additional Instructions: Return to the hospital with any dizziness, chest pain, shortness of breath, or bleeding. Follow up with your PCP in 1-2 weeks. Follow up with Cardiology in 1-2 weeks. Follow up with general surgery to reschedule your colonoscopy in 3-4 weeks. Bloodwork on 08/02/20 - results to your PCP. Care Plan Goals: Home with home health PT, MOTORCYCLE REPAIR SHOP SUPERVISOR. Stand Alone Forms: Nursing Discharge Form Referrals: Katy Guevara NP [Primary Care Provider] - Aydin Howard MD [ CONSULTING PHYSICIAN] - Stephanie Eason DO [OSTEOPATHIC DOCTOR] - Activity:: Activity as Tolerated Equipment/Supplies:: cardiac event recorder Diet:: heart healthy Discharge Orders Discharge Orders: Discharge Order (Routine); Ordered 07/27/20 Ordered By: Pauline Barrera Other Ambulatory Orders: Basic Metabolic Panel (Routine) Timeframe: [id number] Facility: [facility] - Location: Laboratory Outpatient Ordered By: Pauline Barrera Cardiac Event Recorder (Routine) Timeframe: 1 Day Facility: [facility] - Location: Respiratory Therapy Ordered By: Pauline Barrera DS: Summary Time Spent with Patient providing and/or coordinating discharge services: Greater than 30 minutes Status at Discharge Functional status at discharge: independent ambulation Overall status at discharge: patient is progressing back to baseline Mental Status: mental status grossly normal Speech and Movement: speech and movement normal Mood: congruent mood Affect: normal affect Exam Narrative Exam Narrative: General: pleasant elderly female who does not remember me, A&Ox2, forgetful HEENT: EOMI, MMM Heart: RRR, no m/r/g Lungs: CTAB Abdomen: soft, nontender, nondistended Extremities: no edema BLE's Psych Mental Status: mental status grossly normal Speech and Movement: speech and movement normal Mood: congruent mood Affect: normal affect DS: Data Vitals/I&O Vitals and I&O: Vital Signs Temperature 36.6 C 07/27/20 07:42 Temperature Source Tympanic 07/27/20 07:42 Pulse 64 07/27/20 07:42 Pulse Rhythm Regular 07/27/20 08:15 Pulse 64 07/26/20 15:00 Respiratory Rate 18 07/27/20 07:42 Respiratory Effort Non-Labored 07/27/20 08:15 Respiratory Depth Normal 07/27/20 08:15 Respiratory Pattern Normal 07/27/20 08:15 Blood Pressure 131/79 07/27/20 07:42 Blood Pressure Mean 74 07/26/20 15:00 Blood Pressure Position Supine 07/26/20 11:10 Pulse Oximetry 98 07/27/20 07:42 Oxygen Delivery Method Room Air 07/27/20 07:42 Oxygen Flow Rate 0 07/27/20 07:42 Pain Level 0 07/27/20 07:42 Intake & Output 07/26/20 07/27/20 07/27/20 23:59 11:59 23:59 Intake Total 240 / 240 Output Total 525 / 525 Balance -285 / -285 Weight 65.9 kg 66.5 kg Intake: Oral 240 / 240 Output: Urine 525 / 525 Other: Urine Color Yellow Straw Urine Appearance Clear Clear Urine Odor Strong Comment Urine mixed with bm Stool Size Moderate Moderate Small Stool Characteristics Soft Soft Soft Liquid Voiding Methods Bedside Commode Toilet # Bowel Movements 1 Data Completed and Pending Completed studies during hospitalization [Text1]: CXR: No acute pulmonary findings on this single AP portable view of the chest.Cardiac pacemaker again noted. No pulmonary edema. US venous RUE: 1. No evidence of venous thrombosis in the right upper extremity. US venous BLE's: 1. No ultrasound evidence of DVT in either lower extremity. 2. Varicose veins but no evidence of superficial thrombophlebitis. US RUQ: No evidence of cholelithiasis or biliary dilatation. Incidental gallbladder polyps noted. Labs on day of discharge: Labs from last 24 hours 07/27/20 07/27/20 07/27/20 12:05 12:00 06:15 Sodium Potassium Chloride Carbon Dioxide Anion Gap BUN Creatinine Estimated GFR/1.73 m2 Glucose Calcium Total Bilirubin AST ALT Alkaline Phosphatase Troponin I Total Protein Albumin TSH Urine Color Yellow Urine Clarity Clear Urine pH 6.5 Ur Specific [place] 1.020 Urine Protein Negative Urine Ketones 15 H Urine Blood Negative Urine Nitrite Negative Urine Bilirubin Small H Urine Urobilinogen 1.0 H Ur Leukocyte Esterase Negative Urine Glucose Negative Stl C.difficile Tox PCR Negative Tiss Transglutamin IgG Pending Tiss Transglutamin IgA Pending COVID-19 Source SARS-CoV-2 (PCR) 07/27/20 07/26/20 07/26/20 06:15 19:43 17:35 Sodium 136 Potassium 3.4 L Chloride 99 Carbon Dioxide 23.4 Anion Gap 13.6 H BUN 18 Creatinine 0.8 Estimated GFR/1.73 m2 >= 60.00 Glucose 81 Calcium 10.1 Total Bilirubin 1.5 H AST 26 ALT 37 Alkaline Phosphatase 76 Troponin I 0.05 Total Protein 7.0 Albumin 3.8 TSH Urine Color Urine Clarity Urine pH Ur Specific [place] Urine Protein Urine Ketones Urine Blood Urine Nitrite Urine Bilirubin Urine Urobilinogen Ur Leukocyte Esterase Urine Glucose Stl C.difficile Tox PCR Tiss Transglutamin IgG Tiss Transglutamin IgA COVID-19 Source Nasal/nares SARS-CoV-2 (PCR) Negative 07/26/20 14:20 Sodium Potassium Chloride Carbon Dioxide Anion Gap BUN Creatinine Estimated GFR/1.73 m2 Glucose Calcium Total Bilirubin AST ALT Alkaline Phosphatase Troponin I 0.06 Total Protein Albumin TSH 2.48 Urine Color Urine Clarity Urine pH Ur Specific [place] Urine Protein Urine Ketones Urine Blood Urine Nitrite Urine Bilirubin Urine Urobilinogen Ur Leukocyte Esterase Urine Glucose Stl C.difficile Tox PCR Tiss Transglutamin IgG Tiss Transglutamin IgA COVID-19 Source SARS-CoV-2 (PCR) [facility] Medical History Breast cancer 2020: care at [facility] radiation completed, chemo not recommended, Armidex Cardiac pacemaker Dual lead Medtronic pacemaker Leal XT DR BOYCE [id number] 11/08/2018 Chronic diarrhea Cubital tunnel syndrome on left Hypothyroidism (01/25/14) Left carpal tunnel syndrome Memory changes She does not want investigation now. She may have early dementia. Her other problems are more pressing especially the breast mass. Skin lesion of neck Sent photo to Dr. Terrell. He said benign seborrheic keratosis. No treatment. Will let her know later. Surgical History Colonoscopy - MAC (03/25/16) S/P placement of cardiac pacemaker Vaginal hysterectomy Family History Father , 84 Skin cancer Heart disease Mother , 94 Dementia Sister , 81 Dementia Heart disease Brother No problems noted. Maternal Grandfather , 79 No problems noted. Paternal Grandfather , 59 Cancer Maternal Grandmother , 58 No problems noted. Paternal Grandmother , 86 No problems noted. Daughter Diabetes S/P vascular surgery Daughter No problems noted. Social History Smoking/Tobacco Use Status: Former Tobacco Use Quit Date: 03/04/98 Second Hand Exposure: Yes Smoking risk assessment performed?: Yes Alcohol Intake: never Drug use: Never Substance use type: does not use Caregiver/Support person: No Household members: spouse Housing: house Do you need help understanding health information?: Never Pets and animals: No Sexually active: No Do you think of yourself as: straight/heterosexual Current gender identity: female What is your relationship status?: How often do you talk on the phone with friends or family?: three or more times per week How often do you get together with friends or relatives?: once per week How often do you attend temple or hindu services?: 4 or more times per year Do you belong to any clubs or organized social groups?: no Panel score (0-1 are the most socially isolated patients): 3 What type of physical activity do you participate in: walking Duration: 30-45 minutes/day Frequency: 1-2 times per week Cristela/Christianity: Worship Special cristela needs: No Seatbelt use: always Helmet use: No 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
[2020-07-27 15:27] VITALS: BP 117/72; PULSE 63; RESP 18; TEMP 36.6; O2SAT 96
--- NOTE | 2020-07-27 15:29 | PDOC.HHF2F_ITS ---
Home Health Certification Home Health Certification: 1. Encounter Date and Reason I certify that KIRT HOLBROOK was seen by Pauline Barrera on 07/27/20 and that I had a [id number] encounter with this patient that meets the physician face to face encounter requirements. 2. Clinical Findings Supporting Skilled Need and Homebound Status I certify that home health services are medically necessary, include either intermittent shelter and/or physical/speech therapy, and that this patient is homebound in that absences from the home require considerable and taxing effort and are infrequent or of short duration, or are attributable to the need to receive medical care. [X] (a) Attached documentation from encounter provides clinical findings supporting skilled need and homebound status (including what assistance patient requires to leave the home). The encounter with the patient was in whole, or in part, for the following medical condition, which is the primary reason for home health care: CAD, GENERALIZED WEAKNESS Physical Therapy: eval and treat MUSIC SOUND LIGHT TECHNICIAN: assess for resources in the community Homebound: unable to leave home without assistance 3. Certification and Authentication I certify that I composed the above information based on my clinical judgement relating to this patient's medical condition and, if applicable, clinical findings communicated to me by the NPP or inpatient physician who performed the Home Health Referral. All further orders will be obtained through _Katy_Paola (Community Based Physician - PCP)
--- NOTE | 2020-07-27 17:31 | RESPIRATORY ---
RT spoke with patient concerning cellular service at her home in concerns to a Cardiac Event Recorder. Patient stated the service is very unreliable and she feels this device will not be dependable to keep track of her symptoms. Dr notified and was contacted to see if this was the case at home. confirmed there is some cellular service but nothing dependable in order to download symptoms. Dr agreed to not do device and patient is able to be D/C home.
--- NOTE | 2020-07-27 19:10 | INDS_ITS ---
Date of service: 08/01/20 Time of Service: 10:56 PT Notes Visit Reasons: CAD, GENERALIZED WEAKNESS Physical Therapy Inpatient Discharge Summary Date: 07/27/2020 Dates of service: 07/27/2020 only This is a clinical summary of care provided on the duration of dates listed above. No charge was made in the completion of this documentation. Referring Doctor: Caro Glaser MD PT Orders: PT CONSULT: Eval/.Treat. Precautions: Fall. Standard. Activity as tolerated. Patient Profile/Admitting Diagnosis: Melvina is an 80-year-old female who presented to the ED on 07/26/2020 with chest pain, shortness of breath, and generalized weakness. Patient is diagnosed with hypothyroidism, and NSTEMI, hypokalemia and diarrhea. PMHX: Medical History Breast cancer 2020: care at [facility] [place]- radiation completed, chemo not recommended, Armidex Cardiac pacemaker Dual lead Medtronic pacemaker [place] XT DR MRI [id number] 11/08/2018 Chronic diarrhea Cubital tunnel syndrome on left Hypothyroidism (01/25/14) Left carpal tunnel syndrome Memory changes She does not want investigation now. She may have early dementia. Her other problems are more pressing especially the breast mass. Skin lesion of neck Sent photo to Dr. Terrell. He said benign seborrheic keratosis. No treatment. Will let her know later. Surgical History Colonoscopy - MAC (03/25/16) S/P placement of cardiac pacemaker Vaginal hysterectomy Social History/Home Situation: Lives with in a private home with 3 steps to enter without rails. She has a flight of steps down her basement where the laundry area is. has a beginning dementia. Equipment Owned/DME: None Subjective: NT. See most recent PLUMBER HELPER notes. Objective: General Observation: NT. See most recent PLUMBER HELPER notes. Mental Status: NT. See most recent PLUMBER HELPER notes. Pain: NT. See most recent PLUMBER HELPER notes. ROM: Right Upper Extremity: Shoulder Flexion WFL. Shoulder abduction WFL. Elbow flexion WFL. Wrist flexion WFL. Opening and closing of hand WFL. Left Upper Extremity: Shoulder Flexion WFL. Shoulder abduction WFL. Elbow flexion WFL. Wrist flexion WFL. Opening and closing of hand WFL. Right Lower Extremity: Hip flexion WFL. Hip abduction WFL. Knee flexion WFL. Ankle dorsiflexion WFL. Ankle plantarflexion WFL. Left Lower Extremity: Hip flexion WFL. Hip abduction WFL. Knee flexion WFL. Ankle dorsiflexion WFL. Ankle plantarflexion WFL. Strength: Right Upper Extremity: Shoulder flexors 4/5. Shoulder abductors 4/5. Elbow flexors 4/5. Elbow extensors 4/5. Billiard Table Repairer strong. Left Upper Extremity: Shoulder flexors 4/5. Shoulder abductors 4/5. Elbow flexors 4/5. Elbow extensors 4/5. Billiard Table Repairer strong. Right Lower Extremity: Hip flexors 4-/5. Hip abductors 4/5. Knee flexors 4/5. Knee extensors 4-/5. Ankle dorsiflexors 4-/5. Ankle plantarflexors 4-/5. Left Lower Extremity: Hip flexors 4-/5. Hip abductors 4/5. Knee flexors 4/5. Knee extensors 4-/5. Ankle dorsiflexors 4-/5. Ankle plantarflexors 4-/5. Sensation: Intact as to pain and pressure on bilateral lower extremities. Bed Mobility/Transfers: Rolling independent Supine to sit independent Sit to supine independent Sit to stand supervision Stand to sit supervision Bed to chair supervision Chair to bed supervision Gait: Level surface ambulation 300feet using no assisted assistive device with full weight bearing requiring supervision. Gait pattern unremarkable. Initially felt weak but did not need to sit down as she has the front wheeled walker. Stairs: Down three 4 inch steps and two 6 inch steps without holding onto rails using step over step pattern requiring supervision. Balance: Static Sitting: Normal Dynamic Sitting: Normal Static Standing: Good Dynamic Standing: Fair Assessment: Patient will benefit from home health PT services in order to progress mobility level using least restrictive assistive ambulatory device, assess home safety, identify additional equipment needs, and establish a functional maintenance program that will increase ability of patient to remain at home. Patient continues to present with clinical signs and symptoms consistent with current/admitting diagnoses that have resulted to mobility limitations, gait instability, generalized weakness, and impairment of motor control as demonstrated by the following impairment level findings: 1. Decreased strength to BUE/LE major muscle groups 2. Impaired sitting/standing balance 3. Impaired activity tolerance Impairments are continuing to contribute to the following functional limitations: 1. Increased dependence with transfers 2. Inability to safely ambulate without assistive device and physical assistance 3. Increase completion time for mobility ADL performance 4. Increased fall risk 5. Inability to negotiate steps alone safely Goals: Goals X1 week 1. Supine-Sit independent MET 2. Sit-Supine independent MET 3. Sit-Stand independent NOT MET 4. Stand-Sit independent NOT MET 5. Bed-Chair independent NOT MET 6. Chair-Bed independent NOT MET 7. Independent gait on level surface with use of least restrictive device for at least 300 feet without report of pain nor dyspnea NOT MET 8. Independent stair negotiation while holding onto bilateral rails for at least 10 steps without report of pain nor dyspnea NOT MET 9. Independent with home exercise program NOT MET 10. Good static and dynamic standing balance/tolerance NOT MET DISCHARGE RECOMMENDATIONS: Patient will benefit from home health PT services in order to progress mobility level using least restrictive assistive ambulatory device, assess home safety, identify additional equipment needs, and establish a functional maintenance program that will increase ability of patient to remain at home. May benefit from the use of a front wheel walker at home. TREATMENT CODE/TIME: WA Thank you for the opportunity to participate in the care of this patient. Marylou Lewis PT, DPT, CLT [facility] [place], [place]
[2020-07-30 13:25] LABS: Tissue Transglutaminase Ab IgA <1.2 U/mL; Tissue Transglutaminase Ab IgG 1.8 U/mL
== END 2020-07-27 17:48 | disposition home health service (06) ==
LOC: ER 16:43 → MS 18:31
PROVIDERS: Internal Medicine; Student in an Organized Health Care Education/Training Program; Admitting Provider Family Medicine; Emergency Provider Student in an Organized Health Care Education/Training Program; PCP Nurse Practitioner; Visit Provider Family Medicine
DX: R42 Dizziness and giddiness (principal); I21.4 Non-ST elevation (NSTEMI) myocardial infarction; R53.1 Weakness; E87.6 Hypokalemia; K52.9 Noninfective gastroenteritis and colitis, unspecified; Z20.822 Contact with and (suspected) exposure to COVID-19; I25.10 Atherosclerotic heart disease of native coronary artery without angina pectoris; E80.6 Other disorders of bilirubin metabolism; Z95.5 Presence of coronary angioplasty implant and graft; Z95.0 Presence of cardiac pacemaker; Z85.3 Personal history of malignant neoplasm of breast; F03.90 Unspecified dementia, unspecified severity, without behavioral disturbance, psychotic disturbance, mood disturbance, and anxiety; K82.4 Cholesterolosis of gallbladder
CPT/HCPCS: 36415; 80053; 87493; 87635; 93005; 94618; 97110; 97162; 97530; 99217; 99219; 99285; 71045; 76705; 81003; 83516; 83735; 83880; 84443; 84484; 85025; 85379; 93010; 93970; 93971; G0378

== ENCOUNTER → 2020-08-20 09:49 | Outpatient (BNVA) | payer MEDICARE, SELFPAY | PROVIDERS: PCP Nurse Practitioner; Referring Provider Nurse Practitioner; Visit Provider Student in an Organized Health Care Education/Training Program | DX: G56.22 Lesion of ulnar nerve, left upper limb (principal); G56.02 Carpal tunnel syndrome, left upper limb | CPT/HCPCS: 99213; 99214 ==

== ENCOUNTER → 2020-08-20 12:26 | Outpatient (BNVA) | payer MEDICARE, SELFPAY | PROVIDERS: PCP Nurse Practitioner; Referring Provider Nurse Practitioner; Visit Provider Internal Medicine Cardiovascular Disease | DX: I21.4 Non-ST elevation (NSTEMI) myocardial infarction (principal); Z95.0 Presence of cardiac pacemaker; R63.4 Abnormal weight loss; R19.7 Diarrhea, unspecified | CPT/HCPCS: 99203; 99214 ==

== ENCOUNTER 2020-10-14 13:44 | Emergency (ER) | payer MEDICARE, SELFPAY ==
[2020-10-14 13:51] VITALS: BP 121/59; PULSE 80; RESP 18; TEMP 36.3; O2SAT 100
--- NOTE | 2020-10-14 14:03 | W.ED.GENAD ---
Discharge Plan Disposition Patient Disposition: HOME Condition: Good Discharge Details Clinical Impression: Abrasion Primary Care Provider: Katy Guevara ED Provider: Gabby De La Torre Home Meds and New Rx's Prescriptions: Continued exemestane 25 mg tablet 25 mg PO DAILY RF: 0 artificial tears(hypromellose) 0.3 % drops 1 drp OP BID RF: 0 aspirin [Aspirin Low-Strength] 81 MG tablet,chewable 81 mg PO DAILY RF: 0 levothyroxine 100 mcg capsule 100 mcg PO DAILY Qty: 90 RF: 3 atorvastatin 40 mg tablet 40 mg PO QPM RF: 0 metoprolol succinate 50 mg tablet extended release 24 hr 50 mg PO DAILY RF: 0 clopidogrel 75 mg tablet 75 mg PO DAILY RF: 0 nitroglycerin 0.4 mg tablet, sublingual 0.4 mg sublingual PRN PRNRF: 0 loperamide 2 mg capsule 2 mg PO QID PRNQty: 30 RF: 0 Discharge Instructions Instructions: Abrasion (ED) Additional Instructions: Wound today appears to be a small abrasion needed from a bug bite or small trauma. The thing brought in does not look like a tick. May cover the area with a Neosporin or bacitracin. Please monitor for signs infection including redness, warmth, drainage, increased pain, fever/chills. If you develop these or other new/worsening symptoms please seek care urgently once again. Please follow-up with primary care as needed Referrals: Katy Guevara, AIRPLANE GAS TANK LINER ASSEMBLER [Primary Care Provider] - Discharge Data Discharge Date/Time-TO BE ENTERED AT DEPARTURE: 10/14/20 14:18 Medical Decision Making Jose Cruz is a pleasant 80 year old female presenting today with c/c of tick bite to E. She sates that her removed the tick prior tot coming in and has it in a napkin. No fevers/chills. Rerpots sh eis feeling otherwise well. Patient does not go outside, unclear how long this has been on. Object in napkin appears more consistent with scab, no tick identified. This is what was removed by . Antibiotic prophylaxis not warranted. She has other small bug bites, likely this is a scratched bug bite. No evidence of infection, healing well. return precautions discussed. She will f/u with PCP. All quesitons and concerns were addressed, she is ken greement with this plan. HPI General Mode of arrival: ambulatory. Date/Time Provider Initiated Documentation: 10/14/20 13:57. Limitations to Documentation: no limitations. Information obtained by: patient and RN notes reviewed. History of Present Illness 80 year old F presents to the emergency department with the chief complaint of tick bite right anterior lower extremity, described as mild, Quality is described as other (denies pain at htis time), and is localized to the right and lower extremity. Patient reports no radiation. Patient started experiencing this minute(s) and it has been now resolved. No relieving factors improve symptom(s), No exacerbating factors reported . Patient notes no other symptoms.. Patient did receive the following treatments prior to arrival, none Related Data Home Medications Medication Instructions Recorded Confirmed aspirin [Aspirin Low-Strength] 81 mg PO DAILY tab-cap 09/16/12 10/14/20 levothyroxine 100 mcg capsule 100 mcg PO DAILY #90 cap 10/18/19 10/14/20 artificial tears(hypromellose) 0.3 1 drp OP BID ml 01/06/20 10/14/20 % eye drops exemestane 25 mg tablet 25 mg PO DAILY 01/06/20 10/14/20 atorvastatin 40 mg PO QPM 07/26/20 10/14/20 clopidogrel 75 mg PO DAILY 07/26/20 10/14/20 metoprolol succinate 50 mg PO DAILY 07/26/20 10/14/20 nitroglycerin 0.4 mg SUBLINGUAL PRN PRN 07/26/20 10/14/20 loperamide 2 mg PO QID PRN #30 cap 07/27/20 10/14/20 Previous Rx's Medication Instructions Recorded levothyroxine 100 mcg capsule 100 mcg PO DAILY #90 cap 10/18/19 loperamide 2 mg PO QID PRN #30 cap 07/27/20 Allergies Allergy/AdvReac Type Severity Reaction Status Date / Time No Known Allergies Allergy Verified 10/14/20 13:53 General Stated Complaint: Cellulitis HAKEEM: 4 Review of Systems Constitutional Constitutional: Reports as per HPI, Denies chills and Denies fever(s) Musculoskeletal Musculoskeletal: Reports as per HPI Integumentary/Breasts Skin/Breast: Reports as per HPI Neurologic Neurologic: Reports as per HPI, Denies sensory deficit and Denies paresthesias [facility] Medical History Breast cancer 2020: care at [facility]- radiation completed, chemo not recommended, Armidex Cardiac pacemaker Dual lead Medtronic pacemaker [place] XT DR BOYCE [id number] 11/08/2018 Chronic diarrhea COVID-19 ruled out by laboratory testing Cubital tunnel syndrome on left Hypothyroidism (01/25/14) Left carpal tunnel syndrome Memory changes She does not want investigation now. She may have early dementia. Her other problems are more pressing especially the breast mass. Skin lesion of neck Sent photo to Dr. Terrell. He said benign seborrheic keratosis. No treatment. Will let her know later. Surgical History Colonoscopy - MAC (03/25/16) S/P placement of cardiac pacemaker Vaginal hysterectomy Family History Father , 84 Skin cancer Heart disease Mother , 94 Dementia Sister , 81 Dementia Heart disease Brother No problems noted. Maternal Grandfather , 79 No problems noted. Paternal Grandfather , 59 Cancer Maternal Grandmother , 58 No problems noted. Paternal Grandmother , 86 No problems noted. Daughter Diabetes S/P vascular surgery Daughter No problems noted. Social History Smoking/Tobacco Use Status: Former Tobacco Use Quit Date: 03/04/98 Second Hand Exposure: Yes Smoking risk assessment performed?: Yes Alcohol Intake: never Drug use: Never Substance use type: does not use Caregiver/Support person: No Household members: spouse Housing: house Do you need help understanding health information?: Never Pets and animals: No Sexually active: No Do you think of yourself as: straight/heterosexual Current gender identity: female What is your relationship status?: How often do you talk on the phone with friends or family?: three or more times per week How often do you get together with friends or relatives?: once per week How often do you attend oriental orthodox or taoist services?: 4 or more times per year Do you belong to any clubs or organized social groups?: no Panel score (0-1 are the most socially isolated patients): 3 What type of physical activity do you participate in: walking Duration: 30-45 minutes/day Frequency: 1-2 times per week Cristela/Evangelical: Scientology Special cristela needs: No Seatbelt use: always Helmet use: No Drive intox or ride w/intox train driver: No Do you feel safe at home: Yes Do you feel safe in your relationship?: Yes Exam Const General: cooperative, healthy appearing, comfortable, no acute distress and well developed Nutritional Appearance: average body habitus and well nourished Orientation: alert and awake Resp Effort & Inspection: normal respiratory effort, able to speak in complete sentences and no respiratory distress Cardio Rate: regular rate Rhythm: regular rhythm Skin Trauma: abrasion (small break in the skin, no surrounding erythema, warmth, pain) Neuro General: patient alert and patient awake Cognition: normal cognition Speech: speech normal Gait: normal gait Sensory Exam: no sensory deficits noted Extrem Upper/lower leg/hip images: 1. Very small opening in the skin that is scabbed over. No surrounding erythema, warmth, drainage. No pain with palpation. No active bleeding. Calf is soft and nontender. Paitent has diffuse varicose veins comparable to contralateral side Psych Appearance: grossly normal and well kempt Mental Status: mental status grossly normal Speech and Movement: speech and movement normal Course Vital Signs Vital signs: Vital Signs Temperature 36.3 C L 10/14/20 13:51 Pulse 80 10/14/20 13:51 Respiratory Rate 18 10/14/20 13:51 Blood Pressure 121/59 L 10/14/20 13:51 Pulse Oximetry 100 10/14/20 13:51 Temperature 36.3 C L 10/14/20 13:51 Temperature Source Skin 10/14/20 13:51 Pulse 80 10/14/20 13:51 Respiratory Rate 18 10/14/20 13:51 Respiratory Effort Non-Labored 10/14/20 13:56 Blood Pressure 121/59 L 10/14/20 13:51 Blood Pressure Position Sitting 10/14/20 13:51 Pulse Oximetry 100 10/14/20 13:51 Oxygen Delivery Method Room Air 10/14/20 13:51 Oxygen Flow Rate 0 10/14/20 13:51
== END 2020-10-14 14:18 | disposition home or self-care (01) ==
PROVIDERS: Emergency Provider Physician Assistant; PCP Nurse Practitioner
DX: S80.811A Abrasion, right lower leg, initial encounter (principal); X58.XXXA Exposure to other specified factors, initial encounter
CPT/HCPCS: 99281

== ENCOUNTER → 2020-11-19 10:26 | Outpatient (BNVA) | payer MEDICARE, SELFPAY | PROVIDERS: PCP Nurse Practitioner; Referring Provider Nurse Practitioner; Visit Provider Internal Medicine Cardiovascular Disease | DX: I25.2 Old myocardial infarction (principal); Z95.0 Presence of cardiac pacemaker | CPT/HCPCS: 99213 ==

== ENCOUNTER → 2021-01-16 10:36 | Outpatient (BNVA) | payer MEDICARE, SELFPAY | PROVIDERS: PCP Nurse Practitioner; Referring Provider Nurse Practitioner; Visit Provider Physician Assistant | DX: I49.5 Sick sinus syndrome (principal); Z45.018 Encounter for adjustment and management of other part of cardiac pacemaker | CPT/HCPCS: 93280; 99211 ==

== ENCOUNTER → 2021-02-21 08:38 | Outpatient (BNVA) | payer MEDICARE, SELFPAY | PROVIDERS: PCP Nurse Practitioner; Referring Provider Nurse Practitioner; Visit Provider Student in an Organized Health Care Education/Training Program | DX: G56.22 Lesion of ulnar nerve, left upper limb (principal); G56.02 Carpal tunnel syndrome, left upper limb | CPT/HCPCS: 99213 ==

== ENCOUNTER 2021-04-01 02:10 | Outpatient (CLI) | payer MEDICARE, SELFPAY ==
[2021-04-01 11:01] LABS: Source Nasal/Nares
[2021-04-01 14:01] LABS: COVID-19 PCR Negative (Negative)
== END 2021-04-01 02:11 | disposition home or self-care (01) ==
LOC: LBO 02:11
PROVIDERS: PCP Nurse Practitioner; Visit Provider Student in an Organized Health Care Education/Training Program
DX: Z20.822 Contact with and (suspected) exposure to COVID-19 (principal)
CPT/HCPCS: 87635

== ENCOUNTER 2021-04-02 12:17 | Day surgery (SDC) | payer MEDICARE, SELFPAY ==
[2021-04-02 12:30] VITALS: BP 122/69; PULSE 89; RESP 17; TEMP 36.2; O2SAT 100
--- NOTE | 2021-04-02 12:50 | W.PM.DSUDISC ---
Discharge Plan Disposition Patient Disposition: HOME Condition: Good Discharge Details Reason For Visit: L ECTR Attending Provider: Garfield Celestin Primary Care Provider: Katy Guevara Home Meds and New Rx's Prescriptions: New acetaminophen 500 mg tablet 1,000 mg PO TID Qty: 90 RF: 0 ibuprofen 600 mg tablet 600 mg PO TID PRN (Reason: pain) Qty: 90 RF: 0 Continued Ensure Liquid See Rx Instructions PO DAILY RF: 0 exemestane 25 mg tablet 25 mg PO DAILY RF: 0 artificial tears(hypromellose) 0.3 % drops 1 drp OP BID RF: 0 aspirin [Aspirin Low-Strength] 81 MG tablet,chewable 81 mg PO DAILY RF: 0 levothyroxine 100 mcg capsule 100 mcg PO DAILY Qty: 90 RF: 3 atorvastatin 40 mg tablet 40 mg PO QPM RF: 0 metoprolol succinate 50 mg tablet extended release 24 hr 50 mg PO DAILY RF: 0 clopidogrel 75 mg tablet 75 mg PO DAILY RF: 0 nitroglycerin 0.4 mg tablet, sublingual 0.4 mg sublingual PRN PRNRF: 0 betamethasone, augmented 0.05 % Cream 1 applic TOPICAL DAILY RF: 0 Discharge Instructions Stand Alone Forms: Sabi Bourne Tunnel Release Referrals: Garfield Celestin MD [ [facility] STAFF PHYSICIAN] - Activity:: Activity as Tolerated Remove Dressings/Wound Care:: 48 hours Shower/Bathe:: 48 hours Diet:: As Tolerated Discharge Orders Discharge Orders: Discharge Order (Routine); Ordered 04/02/21 Ordered By: Duke Manzano DS: Diagnosis Discharge Diagnosis (1) Left carpal tunnel syndrome: Status: Acute
--- NOTE | 2021-04-02 12:51 | W.ANESPRE ---
General Info Date of Service Date Performed: 04/02/21 Height: 5 ft 8 in Weight: 71.7 kg Body Mass Index (BMI): 24.0 Surgical Procedure: Operation Date: 04/02/21 15:40 Proposed Procedures Side Surgeon p Wrist ECTR Left Garfield Celestin MD Meds Allergies and Home Medications Allergies Allergy/AdvReac Type Severity Reaction Status Date / Time No Known Allergies Allergy Verified 04/02/21 12:41 Home Medication Medication Instructions Recorded aspirin [Aspirin Low-Strength] 81 mg PO DAILY tab-cap 09/16/12 artificial tears(hypromellose) 0.3 1 drp OP BID ml 01/06/20 % eye drops exemestane 25 mg tablet 25 mg PO DAILY 01/06/20 atorvastatin 40 mg PO QPM 07/26/20 clopidogrel 75 mg PO DAILY 07/26/20 metoprolol succinate 50 mg PO DAILY 07/26/20 nitroglycerin 0.4 mg SUBLINGUAL PRN PRN 07/26/20 levothyroxine 100 mcg capsule 100 mcg PO DAILY #90 cap 10/16/20 food supplemt, lactose-reduced See Rx Instructions PO DAILY ml 01/22/21 acetaminophen 1,000 mg PO TID #90 tab 04/02/21 betamethasone, augmented 1 applic TOPICAL DAILY 04/02/21 ibuprofen 600 mg PO TID PRN #90 tab 04/02/21 Current Visit Medications: Current Medications Generic Name Dose Route Start Last Admin Trade Name Freq PRN Reason Stop Dose Admin Acetaminophen 650 mg 04/02/21 12:48 Acetaminophen 325 Mg Tab PO Q4H PRN PRN Ringer's Solution 1,000 mls @ 80 mls/hr 04/02/21 06:00 IV 05/01/21 23:59 INFUSION AMELIA Cefazolin Sodium/Dextrose 2 gm in 50 mls @ 100 mls/hr 04/02/21 06:00 Ancef Duplex IVPB 05/01/21 23:59 PREOP AMELIA IV Miscellaneous Supplies 1 each 04/02/21 06:00 Iv Access IV 05/01/21 23:59 DIRECTED AMELIA Sodium Chloride 0 ml 04/02/21 06:00 Normal Saline Flush 10 Ml Syr IV 05/01/21 23:59 PRN PRN Sodium Chloride 0 ml 04/02/21 06:00 Normal Saline 10 Ml Vial IJ 05/01/21 23:59 DIRECTED PRN Sterile Water 0 ml 04/02/21 06:00 Water,Injection,Sterile 10 Ml Vial IJ 05/01/21 23:59 DIRECTED PRN PFSH Active Problems Active Problems: Problem Status Onset Code Ceruminosis H61.20 Hyperbilirubinemia E80.6 Breast cancer C50.919 Cardiac pacemaker Z95.0 Hypothyroidism 01/25/14 E03.9 NSTEMI (non-ST elevated myocardial infarction) I21.4 Weight loss R63.4 Cubital tunnel syndrome on left G56.22 Left carpal tunnel syndrome G56.02 Tubular adenoma of colon 03/25/16 D12.6 Medical History Active Problem List (Updated 04/02/21 @ 12:50 by CASA Mark) Ceruminosis (Acute) Hyperbilirubinemia (Chronic) Breast cancer (Chronic) Cardiac pacemaker (Acute) Hypothyroidism (Acute 01/25/14) NSTEMI (non-ST elevated myocardial infarction) (Acute) Weight loss (Acute) Cubital tunnel syndrome on left (Acute) Left carpal tunnel syndrome (Acute) Tubular adenoma of colon (Acute 03/25/16) Medical History (Updated 04/02/21 @ 12:50 by CASA Mark) Chronic diarrhea COVID-19 ruled out by laboratory testing Gallbladder polyp Skin lesion of neck Sent photo to Dr. Terrell. He said benign seborrheic keratosis. No treatment. Will let her know later. Surgical History Surgical History (Updated 04/02/21 @ 12:50 by CASA Mark) Colonoscopy - MAC (03/25/16) S/P placement of cardiac pacemaker Vaginal hysterectomy Tobacco Smoking/Tobacco Use Status: Former Tobacco Use Passive smoking exposure: Yes Second hand exposure: Yes Alcohol Alcohol Intake: never Substance Use Substance use: Never Substance use type: does not use Vital Signs and Lab Results Vital Signs Most Recent Vital Signs in EMR: Most Recent Vital Signs Temp Pulse Resp BP Pulse Ox 36.2 C L 89 17 122/69 100 04/02/21 12:30 04/02/21 12:30 04/02/21 12:30 04/02/21 12:30 04/02/21 12:30 Lab Results Blood Type / Crossmatch: No Data to Display Complete Blood Count: No Data to Display Complete Metabolic Panel: No Data to Display Liver Function Panel: No Data to Display Coagulation Panel: No Data to Display Cardiac Panel: No Data to Display Arterial Blood Gas: No Data to Display Venous Blood Gas: No Data to Display Pancreas Panel: No Data to Display Thyroid Panel: No Data to Display Infectious Disease: Coronavirus (COVID-19)(PCR) Negative (Negative) 04/01/21 09:22 04/01/21 Coronavirus 2019 Source Nasal/Nares 04/01/21 09:22 04/01/21 Blood Cultures: No Data to Display Toxicology Panel: No Data to Display Imaging and Studies Imaging and Studies EKG Summary: Conclusion Atrial-paced complexes...other complexes also detected Inferior infarct, age indeterminate...Q>35mS, T neg, II III aVF Nonspecific T abnormalities, lateral leads...T <-0.10mV, I aVL V5 V6 atrially paced rhythm at 72, left axis, nonspecific T wave changes inferiorly and low lateral leads, no STEMI, nondiagnostic EKG Echocardiogram Summary: Conclusion Left Ventricle : The left ventricle is normal size. There is normal left ventricular wall thickness. Left ventricular systolic function is low normal. Regional wall motion is normal. The left ventricular diastolic function is normal. There is no ventricular septal defect visualized. LVEF is 50%. Right Ventricle : The right ventricle is not well visualized. Right ventricular systolic function is grossly normal. The RVSP is 38.9mmHg. Pacemaker lead is present in the right ventricle. This structure is not well visualized and lead vegetation cannot be ruled out. Atria : The left atrium size is normal. The right atrium size is normal. Aortic Valve : The aortic valve is normal in structure. Aortic valve is trileaflet. No aortic regurgitation is present. There is no aortic valvular stenosis. Tricuspid Valve : The tricuspid valve is normal in structure. Mild to moderate tricuspid regurgitation. There is no tricuspid valve stenosis. Great Vessels : The aortic root is normal in size. The ascending aorta is mildly dilated. Aortic arch is normal in caliber. The IVC collapses <50% with inspiration. There is no prior study available for comparison. Anesthesia Assessment and Plan Anesthesia History Personal History: No History of Anesthesia Complications Family History: No Family History of Anesthesia Complications Exercise Tolerance Exercise Tolerance: Metabolic Equivalents>4 Pertinent Negatives Pertinent Negatives: No Symptoms of GERD, No Major Cardiovascular Symptoms or Complaints, No Major Pulmonary Symptoms or Complaints and No History of CVA/TIA Cardiac & Pulmonary Exam Cardiac Exam: Normal S1/S2 Heart Sounds Pulmonary Exam: Clear Bilateral Breath Sounds Implantable Cardiac Device Does patient have a Pacemaker or an ICD?: Yes Device Degreasing Wheel Operator:: Dual Lead Medtronic Yesika XT DR BOYCE Reason for Placement:: Bradycardia Date of Last Device Interrogation:: 01/16/21 Airway Exam Known Difficult Airway: No Mallampati Class: 2 Mouth Opening: Normal (> 3cm) Thyromental Distance: Greater than 3 cm Neck Range of Motion: Full ROM Neck Circumference: Normal Teeth Condition: Normal Dentition ASA Classification ASA Score: ASA 3 Emergency Case?: No NPO Status NPO Status: NPO Clears >2 hours, Solids >8 hours Anesthesia Plan Resuscitation Status: Full Code Anesthesia Technique: General Anesthesia Airway Planned: Natural Airway Monitors Used: Standard Monitors
[2021-04-02 13:35] VITALS: BMI 24.0
[2021-04-02] MEDS: Lactated Ringers 1,000 ML 80 ML IV (13:36)
--- NOTE | 2021-04-02 14:07 | W.PREOPHP ---
Documented by User: CASA Mark 04/02/21 14:11 Date of service: 04/02/21 Assessment and Plan Assessment and plan (1) Left carpal tunnel syndrome: Status: Acute Assessment and plan: Left ECTR. Details of surgery were discussed with patient as well as risks and pertinent anatomy. All questions were answered. History of Present Illness History of Present Illness Chief Complaint: Left hand numbness and tingling Narrative: Melvina is an 80-year-old female who comes in today for a left ECTR for numbness and tingling that she has been experiencing for a number of months. She has had some success treating her symptoms with conservative treatment previously, however she recently has had persistent numbness and tingling despite conservative measures. She is here for a left ECTR. Review of Systems Constitutional Constitutional: Denies fever(s) ENT Ears, Nose, Mouth, and Throat: Denies dizziness and Denies sore throat Cardiovascular Cardiovascular: Denies chest pain, Denies palpitations and Denies dyspnea Respiratory Respiratory: Denies cough and Denies dyspnea Gastrointestinal Gastrointestinal: Denies abdominal pain, Denies melena, Denies hematochezia, Denies diarrhea, Denies nausea and Denies vomiting Genitourinary Genitourinary: Denies hematuria and Denies dysuria Neurologic Neurologic: Denies dizziness Endocrine Endocrine: Denies palpitations [facility] Active Problem List (Updated 04/02/21 @ 12:50 by CASA Mark) Ceruminosis (Acute) Hyperbilirubinemia (Chronic) Breast cancer (Chronic) Cardiac pacemaker (Acute) Hypothyroidism (Acute 01/25/14) NSTEMI (non-ST elevated myocardial infarction) (Acute) Weight loss (Acute) Cubital tunnel syndrome on left (Acute) Left carpal tunnel syndrome (Acute) Tubular adenoma of colon (Acute 03/25/16) Medical History (Updated 04/02/21 @ 12:50 by CASA Mark) Chronic diarrhea COVID-19 ruled out by laboratory testing Gallbladder polyp Skin lesion of neck Sent photo to Dr. Terrell. He said benign seborrheic keratosis. No treatment. Will let her know later. Surgical History (Updated 04/02/21 @ 12:50 by CASA Mark) Colonoscopy - MAC (03/25/16) S/P placement of cardiac pacemaker Vaginal hysterectomy Family History Father , 84 Skin cancer Heart disease Mother , 94 Dementia Sister , 81 Dementia Heart disease Brother No problems noted. Maternal Grandfather , 79 No problems noted. Paternal Grandfather , 59 Cancer Maternal Grandmother , 58 No problems noted. Paternal Grandmother , 86 No problems noted. Daughter Diabetes S/P vascular surgery Daughter No problems noted. Social History (Updated 01/22/21 @ 19:45 by Annemarie Feldman) Smoking/Tobacco Use Status: Former Tobacco Use Quit Date: 03/04/98 Second Hand Exposure: Yes Smoking risk assessment performed?: Yes Alcohol Intake: never Drug use: Never Substance use type: does not use Caregiver/Support person: No Household members: spouse Housing: house Communication Needs: Hard of Hearing Do you need help understanding health information?: Rarely Pets and animals: No Sexually active: No Do you think of yourself as: straight/heterosexual Current gender identity: female What is your relationship status?: How often do you talk on the phone with friends or family?: three or more times per week Do you belong to any clubs or organized social groups?: no Panel score (0-1 are the most socially isolated patients): 2 What type of physical activity do you participate in: walking Duration: 45-60 minutes/day Frequency: 3-4 times per week Special karyn needs: No Seatbelt use: always Helmet use: No Drive intox or ride w/intox 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 Do you feel safe at home: Yes Do you feel safe in your relationship?: Yes Meds Allergies and Home Medications Allergies Allergy/AdvReac Type Severity Reaction Status Date / Time No Known Allergies Allergy Verified 04/02/21 12:41 Home Medications Medication Instructions Recorded Confirmed Type aspirin [Aspirin Low-Strength] 81 mg PO DAILY tab-cap 09/16/12 04/02/21 History artificial tears(hypromellose) 0.3 1 drp OP BID ml 01/06/20 04/02/21 History % eye drops exemestane 25 mg tablet 25 mg PO DAILY 01/06/20 04/02/21 History atorvastatin 40 mg PO QPM 07/26/20 04/02/21 History clopidogrel 75 mg PO DAILY 07/26/20 04/02/21 History metoprolol succinate 50 mg PO DAILY 07/26/20 04/02/21 History nitroglycerin 0.4 mg SUBLINGUAL PRN PRN 07/26/20 04/02/21 History levothyroxine 100 mcg capsule 100 mcg PO DAILY #90 cap 10/16/20 04/02/21 Rx food supplemt, lactose-reduced See Rx Instructions PO DAILY ml 01/22/21 04/02/21 History acetaminophen 1,000 mg PO TID #90 tab 04/02/21 Rx betamethasone, augmented 1 applic TOPICAL DAILY 04/02/21 04/02/21 History ibuprofen 600 mg PO TID PRN #90 tab 04/02/21 Rx Exam Const General: cooperative and no acute distress Orientation: alert and awake HENMT Head: normocephalic and atraumatic Resp Effort & Inspection: normal respiratory effort Auscultation: clear to auscultation bilaterally and no wheezes Cardio Rate: regular rate Rhythm: regular rhythm Heart Sounds: S1 normal, S2 normal and no murmurs Results Last Vital Signs Temp 97.2 F L 04/02/21 12:30 Pulse 89 04/02/21 12:30 Resp 17 04/02/21 12:30 BP 122/69 04/02/21 12:30 Pulse Ox 100 04/02/21 12:30 Documented by User: Garfield Celestin MD 04/02/21 14:14 Assessment and Plan Assessment and plan (1) Left carpal tunnel syndrome: Status: Acute Assessment and plan: I interviewed and examined the patient with Duke Manzano PA-C. I agree with the documentation as above. The assessment and plan were formulated with my direct involvement. Once again, I discussed the technical details of carpal tunnel release and that I perform an endoscopic release, but would make a larger, open, incision if necessary for visualization. I discussed the risks of the procedure to include, but not limited to, bleeding, infection, palmar pain, stiffness, damage to nerves, damage to vessels, damage to tendons, weakness, recurrence, and incomplete release. Given these risks, Melvina desires to proceed. Garfield Celestin MD FAAOS FAAHKS [facility] Active Problem List (Updated 04/02/21 @ 12:50 by CASA Mark) Ceruminosis (Acute) Hyperbilirubinemia (Chronic) Breast cancer (Chronic) Cardiac pacemaker (Acute) Hypothyroidism (Acute 01/25/14) NSTEMI (non-ST elevated myocardial infarction) (Acute) Weight loss (Acute) Cubital tunnel syndrome on left (Acute) Left carpal tunnel syndrome (Acute) Tubular adenoma of colon (Acute 03/25/16) Medical History (Updated 04/02/21 @ 12:50 by CASA Mark) Chronic diarrhea COVID-19 ruled out by laboratory testing Gallbladder polyp Skin lesion of neck Sent photo to Dr. Terrell. He said benign seborrheic keratosis. No treatment. Will let her know later. Surgical History (Updated 04/02/21 @ 12:50 by CASA Mark) Colonoscopy - MAC (03/25/16) S/P placement of cardiac pacemaker Vaginal hysterectomy Family History Father , 84 Skin cancer Heart disease Mother , 94 Dementia Sister , 81 Dementia Heart disease Brother No problems noted. Maternal Grandfather , 79 No problems noted. Paternal Grandfather , 59 Cancer Maternal Grandmother , 58 No problems noted. Paternal Grandmother , 86 No problems noted. Daughter Diabetes S/P vascular surgery Daughter No problems noted. Social History (Updated 01/22/21 @ 19:45 by Annemarie Feldman) Smoking/Tobacco Use Status: Former Tobacco Use Quit Date: 03/04/98 Second Hand Exposure: Yes Smoking risk assessment performed?: Yes Alcohol Intake: never Drug use: Never Substance use type: does not use Caregiver/Support person: No Household members: spouse Housing: house Communication Needs: Hard of Hearing Do you need help understanding health information?: Rarely Pets and animals: No Sexually active: No Do you think of yourself as: straight/heterosexual Current gender identity: female What is your relationship status?: How often do you talk on the phone with friends or family?: three or more times per week Do you belong to any clubs or organized social groups?: no Panel score (0-1 are the most socially isolated patients): 2 What type of physical activity do you participate in: walking Duration: 45-60 minutes/day Frequency: 3-4 times per week Special karyn needs: No Seatbelt use: always Helmet use: No Drive intox or ride w/intox 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 Do you feel safe at home: Yes Do you feel safe in your relationship?: Yes Meds Allergies and Home Medications Allergies Allergy/AdvReac Type Severity Reaction Status Date / Time No Known Allergies Allergy Verified 04/02/21 12:41 Home Medications Medication Instructions Recorded Confirmed Type aspirin [Aspirin Low-Strength] 81 mg PO DAILY tab-cap 09/16/12 04/02/21 History artificial tears(hypromellose) 0.3 1 drp OP BID ml 01/06/20 04/02/21 History % eye drops exemestane 25 mg tablet 25 mg PO DAILY 01/06/20 04/02/21 History atorvastatin 40 mg PO QPM 07/26/20 04/02/21 History clopidogrel 75 mg PO DAILY 07/26/20 04/02/21 History metoprolol succinate 50 mg PO DAILY 07/26/20 04/02/21 History nitroglycerin 0.4 mg SUBLINGUAL PRN PRN 07/26/20 04/02/21 History levothyroxine 100 mcg capsule 100 mcg PO DAILY #90 cap 10/16/20 04/02/21 Rx food supplemt, lactose-reduced See Rx Instructions PO DAILY ml 01/22/21 04/02/21 History acetaminophen 1,000 mg PO TID #90 tab 04/02/21 Rx betamethasone, augmented 1 applic TOPICAL DAILY 04/02/21 04/02/21 History ibuprofen 600 mg PO TID PRN #90 tab 04/02/21 Rx
[2021-04-02 14:23] VITALS: BP 120/55; PULSE 62; RESP 16; TEMP 36.6; O2SAT 97
[2021-04-02] MEDS: ceFAZolin 2 GM/50 ML BAG IVPB (14:24)
[2021-04-02] MEDS: Sodium Bicarbonate 50 MEQ/50 ML VIAL (14:26)
[2021-04-02 15:08] VITALS: BP 134/63; PULSE 62; RESP 16; TEMP 36.4; O2SAT 99
--- NOTE | 2021-04-02 15:29 | W.ANESPOSTOP ---
Postoperative Evaluation Date, Time and Location Date Performed: 04/02/21 Time Performed: 15:30 Patient Location: Day Surgery Unit Vital Signs Most Recent Imported Vital Signs: Most Recent Vital Signs Temp Pulse Resp BP Pulse Ox 36.4 C L 62 16 134/63 99 04/02/21 15:08 04/02/21 15:08 04/02/21 15:08 04/02/21 15:08 04/02/21 15:08 Pain Score Most Recent Pain Score: Most Recent Pain Score Pain Level 0 04/02/21 15:08 Assessment Mental Status: Awake (Alert & Oriented to Patient Baseline) Airway and Respiratory Function: Patent airway with normal (patient baseline) respiratory exam Cardiovascular Function: Hemodynamically Stable Hydration Status: Adequately Hydrated Nausea & Vomiting: No Nausea or Vomiting Pain: Pt. Denies Any Pain Peripheral Nerve Block: Patient did not receive a nerve block
--- NOTE | 2021-04-02 16:37 | NUR.NOTE ---
Nursing Note: Pt could not get her wedding band off operative hand. Aydin Velez CRNA and Dr. Celestin both attempted to get her ring off. Pt requested to have ring removed by means of cutting it off. FRANCESCO Lawson from the ER brought the ring cutter and removed the ring and it was placed in a bag and given to the Pt to take home.HE
--- NOTE | 2021-04-02 19:41 | W.PM.OP ---
Date of service: 04/02/21 Time of Service: 14:13 Operative Note Operative Note DATE OF PROCEDURE: 04/02/21 PRE-OP DIAGNOSIS: Left Carpal Tunnel Syndrome POST-OP DIAGNOSIS: same PROCEDURE: Left Endoscopic Carpal Tunnel Release SURGEON: Garfield Celestin ANESTHESIA TYPE: General:No Airway Refer to Anesthesia Record ESTIMATED BLOOD LOSS: 0 PATHOLOGY: none sent TOURNIQUET TIME: 6 COMPLICATIONS: None Patient was transported to: same day Patient's condition: stable Indications: I have seen Melvina in clinic for symptoms of carpal tunnel syndrome. The numbness, tingling, and pain limited function. Clinical exam findings confirmed the diagnosis of carpal tunnel syndrome. Nonoperative measures such as bracing, time, activity modifications had been tried but disability and pain persisted. I discussed carpal tunnel release with the patient. I reviewed the risks of the procedure to include, but not limited to, bleeding, infection, pain, stiffness, incomplete release, damage to nerves or vessels, persistent numbness, recurrence. Despite these risks, the patient elected to proceed. Findings: There was tightened carpal tunnel. This was dilated and released successfully with the endoscopic with increased space within the tunnel. The antebrachial fascia was released proximally freeing the median nerve at the wrist. Procedure Description: Melvina was greeted in the preoperative holding area where the correct side was identified and marked. The consent was reviewed with the patient and signed. The history and physical was updated. All questions were answered. She was taken back to the operating room. The patient was placed into the supine position on the operating room table with the left arm on an arm board. A nonsterile tourniquet was placed high onto the arm. All bony prominences were well padded. Prophylactic antibiotics in the form of Cefazolin were administered. The left arm was then prepped with Chloraprep and draped in a standard fashion with stockinette and extremity drape. A timeout to confirm correct identity, side and site, procedure, allergies, anesthesia, and medical concerns was performed. The surgical site was marked in the volar wrist creases in line with the radial border of the fourth ray. This area was anesthetized with approximately 6cc of 1% Lidocaine. The limb was then exsanguinated with an Esmarch. The skin was incised with a 15 blade, approximately 1cm. The skin only was cut and the deeper tissue was dissected bluntly with a tenotomy scissor, avoiding passing nerve and venous structures. The fascia was penetrated and opened bluntly. A two-prong skin hook was placed under this proximal fascial edge. A series of hamate finders were used to identify and dilate the carpal tunnel. Synovial elevator was used to free synovial attachments to the underside of the transverse carpal ligament. My thumb was kept in the palm to todd the distal extent of the carpal tunnel and correctly position the hand. The [employer]aire endoscope was inserted without difficulty and without resistance. Excellent visualization showed horizontally running fibers of the transverse carpal ligament (TCL). The distal extent of the TCL was visualized and the end of the scope palpated with the thumb. The blade was elevated and withdrawn from distal to proximal. The TCL was split into two flaps. The endoscope was reinserted to confirm complete release and any remnant ligament was incised. The scope was withdrawn and the proximal aspect of the carpal tunnel was grossly inspected and appeared release with the median nerve visible. The antebrachial fascia at the level of the wrist was then freed from the overlying skin and then the underlying median nerve with blunt dissection. This was transected longitudinally for about 3cm proximal to the wrist incision. The wound was then irrigated with easy flow of irrigant distally and proximally. The incision was closed with a single 4-0 Nylon suture. The wound was dressed with Xeroform, Gauze, Kerlix and Vernon. The tourniquet was deflated with the initial dressing and held with some pressure. Blood flow returned easily to all digits with capillary refill less than 2 seconds. The patient tolerated the procedure well and was returned to the Same Day Surgery area in a stable condition suffering no known complication.
== END 2021-04-02 15:50 | disposition home or self-care (01) ==
PROVIDERS: PCP Nurse Practitioner; Visit Provider Student in an Organized Health Care Education/Training Program
PROC: 01N54ZZ Release Median Nerve, Percutaneous Endoscopic Approach (ICD-10-PCS; CPT 29848; principal; 2021-04-02 15:30)
DX: G56.02 Carpal tunnel syndrome, left upper limb (principal); E03.9 Hypothyroidism, unspecified; I25.2 Old myocardial infarction; Z95.0 Presence of cardiac pacemaker
CPT/HCPCS: 29848; J0690

== ENCOUNTER → 2021-04-11 08:54 | Outpatient (BNVA) | payer MEDICARE, SELFPAY | PROVIDERS: PCP Nurse Practitioner; Referring Provider Nurse Practitioner; Visit Provider Student in an Organized Health Care Education/Training Program | DX: Z47.89 Encounter for other orthopedic aftercare (principal); M79.642 Pain in left hand ==

== ENCOUNTER → 2021-05-09 09:47 | Outpatient (BNVA) | payer MEDICARE, SELFPAY | PROVIDERS: PCP Nurse Practitioner; Visit Provider Internal Medicine Cardiovascular Disease | DX: I21.4 Non-ST elevation (NSTEMI) myocardial infarction (principal); Z95.0 Presence of cardiac pacemaker; I25.2 Old myocardial infarction | CPT/HCPCS: 99214; 99213 ==

== ENCOUNTER → 2021-07-17 10:56 | Outpatient (BNVA) | payer MEDICARE, SELFPAY | PROVIDERS: PCP Nurse Practitioner; Visit Provider Physician Assistant | DX: I49.5 Sick sinus syndrome (principal); Z95.0 Presence of cardiac pacemaker | CPT/HCPCS: 93280 ==

== ENCOUNTER 2021-07-22 14:47 | Outpatient (REF) | payer MEDICARE, SELFPAY ==
[2021-07-24 12:02] LABS: COVID-19 RT-PCR UVMMC Result Negative (Negative)
== END 2021-07-22 14:48 | disposition home or self-care (01) ==
LOC: NCHCN 14:47
PROVIDERS: PCP Nurse Practitioner; Visit Provider Physician Assistant Medical
DX: Z20.822 Contact with and (suspected) exposure to COVID-19 (principal)
CPT/HCPCS: U0003

== ENCOUNTER 2021-08-20 01:50 | Outpatient (CLI) | payer MEDICARE, SELFPAY | END 2021-08-20 01:51 | disposition home or self-care (01) | LOC: LBO 01:51 | PROVIDERS: PCP Nurse Practitioner; Visit Provider Nurse Practitioner ==

== ENCOUNTER 2021-08-26 04:52 | Outpatient (CLI) | payer MEDICARE, SELFPAY ==
[2021-08-26 12:43] LABS: Calculated LDL 46 mg/dL (<100); Cholesterol 119 mg/dL (<200); HDL Cholesterol 67 mg/dL (40-60); Triglyceride 31 mg/dL (<150)
== END 2021-08-26 04:53 | disposition home or self-care (01) ==
LOC: LOS 04:52
PROVIDERS: PCP Nurse Practitioner; Visit Provider Nurse Practitioner
DX: E03.9 Hypothyroidism, unspecified (principal)
CPT/HCPCS: 36415; 80061

== ENCOUNTER → 2021-09-04 12:20 | Outpatient (BNVA) | payer MEDICARE, SELFPAY | PROVIDERS: PCP Nurse Practitioner; Referring Provider Nurse Practitioner; Visit Provider Nurse Practitioner Adult Health | DX: R41.3 Other amnesia (principal); I25.2 Old myocardial infarction | CPT/HCPCS: 99204; 99214 ==

== ENCOUNTER 2021-09-05 03:46 | Outpatient (CLI) | payer MEDICARE, SELFPAY ==
[2021-09-05 13:20] LABS: Vitamin B12 851 pg/mL (193-986)
== END 2021-09-05 03:47 | disposition home or self-care (01) ==
LOC: LOS 03:49
PROVIDERS: PCP Nurse Practitioner; Visit Provider Nurse Practitioner Adult Health
DX: R41.3 Other amnesia (principal)
CPT/HCPCS: 36415; 82607

== ENCOUNTER → 2021-09-26 09:56 | Outpatient (BNVA) | payer MEDICARE, SELFPAY | PROVIDERS: PCP Nurse Practitioner; Referring Provider Nurse Practitioner; Visit Provider Nurse Practitioner Adult Health | DX: G30.9 Alzheimer's disease, unspecified (principal); F02.80 Dementia in other diseases classified elsewhere, unspecified severity, without behavioral disturbance, psychotic disturbance, mood disturbance, and anxiety | CPT/HCPCS: 99213; 99214 ==

== ENCOUNTER 2021-10-28 03:30 | Outpatient (CLI) | payer MEDICARE, SELFPAY ==
[2021-10-28 13:03] LABS: TSH 0.75 uIU/mL (0.36-3.74)
== END 2021-10-28 03:31 | disposition home or self-care (01) ==
LOC: LOS 03:30
PROVIDERS: PCP Nurse Practitioner; Visit Provider Nurse Practitioner
DX: E03.9 Hypothyroidism, unspecified (principal)
CPT/HCPCS: 36415; 84443

== ENCOUNTER → 2021-11-07 09:53 | Outpatient (BNVA) | payer MEDICARE, SELFPAY | PROVIDERS: PCP Nurse Practitioner; Referring Provider Nurse Practitioner; Visit Provider Nurse Practitioner Adult Health | DX: G30.9 Alzheimer's disease, unspecified (principal); F02.80 Dementia in other diseases classified elsewhere, unspecified severity, without behavioral disturbance, psychotic disturbance, mood disturbance, and anxiety | CPT/HCPCS: 99212; 99214 ==

== ENCOUNTER → 2021-12-19 08:51 | Outpatient (BNVA) | payer MEDICARE, SELFPAY | PROVIDERS: PCP Nurse Practitioner; Referring Provider Nurse Practitioner; Visit Provider Nurse Practitioner Adult Health | DX: G30.9 Alzheimer's disease, unspecified (principal); F02.80 Dementia in other diseases classified elsewhere, unspecified severity, without behavioral disturbance, psychotic disturbance, mood disturbance, and anxiety; R42 Dizziness and giddiness | CPT/HCPCS: 99213 ==

== ENCOUNTER → 2022-01-22 10:48 | Outpatient (BNVA) | payer MEDICARE, SELFPAY | PROVIDERS: PCP Nurse Practitioner; Visit Provider Physician Assistant | DX: I45.9 Conduction disorder, unspecified (principal); Z95.0 Presence of cardiac pacemaker | CPT/HCPCS: 93280; 99212 ==

== ENCOUNTER → 2022-01-27 09:16 | Outpatient (BNVA) | payer MEDICARE, SELFPAY | PROVIDERS: PCP Nurse Practitioner; Referring Provider Nurse Practitioner; Visit Provider Nurse Practitioner Adult Health | DX: G30.9 Alzheimer's disease, unspecified (principal); F02.80 Dementia in other diseases classified elsewhere, unspecified severity, without behavioral disturbance, psychotic disturbance, mood disturbance, and anxiety | CPT/HCPCS: 99213; 99214 ==

== ENCOUNTER 2022-03-10 11:05 | Day surgery (SDC) | payer MEDICARE, SELFPAY ==
--- NOTE | 2022-03-10 11:06 | W.ANESPRE ---
General Info Date of Service Date Performed: 03/10/22 Height: 5 ft 8 in Weight: 73.5 kg Body Mass Index (BMI): 24.6 Surgical Procedure: Operation Date: 03/10/22 14:40 Proposed Procedure Side Surgeon p Cataract Extraction with IOL Implant Right Tye Gama MD Meds Allergies and Home Medications Allergies Allergy/AdvReac Type Severity Reaction Status Date / Time No Known Allergies Allergy Verified 03/10/22 11:31 Home Medication Medication Instructions Recorded aspirin 81 mg chewable tablet 81 mg PO DAILY 09/16/12 (Aspirin Low-Strength) exemestane 25 mg tablet 25 mg PO DAILY 01/06/20 food supplemt, lactose-reduced See Rx Instructions PO DAILY 01/22/21 (Ensure oral liquid) atorvastatin 40 mg tablet 40 mg PO QPM #90 tabs 07/04/21 nitroglycerin 0.4 mg sublingual 0.4 mg sublingual PRN PRN chest 08/01/21 tablet pain #60 tabs metoprolol succinate 50 mg 50 mg PO DAILY #90 tabs 08/20/21 tablet,extended release 24 hr artificial tears(hypromellose) 0.3 1 drp ophthalmic (eye) QID 11/07/21 % eye drops donepezil 5 mg tablet 5 mg PO QHS #90 tabs 12/19/21 memantine 5 mg tablet 5 mg PO BID #180 tabs 01/08/22 levothyroxine 100 mcg capsule 100 mcg PO DAILY #90 caps 01/16/22 Current Visit Medications: Current Medications Generic Name Dose Route Start Last Admin Trade Name Freq PRN Reason Stop Dose Admin Acetaminophen 1,000 mg 03/10/22 06:00 Acetaminophen 500 Mg Tab PO Q4H PRN PRN Miscellaneous Medication 0 ml 03/10/22 06:00 Prednisolone 1%, Moxifloxacin 0.5%, Nepafenac 0.1% 5ml Btl OD DIRECTED [facility] Miscellaneous Medication 0 ml 03/10/22 06:00 Tropicam./Phenyleph. (1/2.5%) 5 Ml Btl OD DIRECTED [facility] Tetracaine HCl 0 ml 03/10/22 06:00 Tetracaine 0.5% 4 Ml Btl OD DIRECTED [facility] PFSH Active Problems Active Problems: Problem Status Onset Code Hypothyroidism 01/25/14 E03.9 Tubular adenoma of colon 03/25/16 D12.6 Cardiac pacemaker Z95.0 Breast cancer C50.919 Left carpal tunnel syndrome G56.02 Cubital tunnel syndrome on left G56.22 Weight loss R63.4 NSTEMI (non-ST elevated myocardial infarction) I21.4 Hyperbilirubinemia E80.6 Thin nails L60.3 Alzheimer's dementia without behavioral disturbance G30.9, F02.80 Dizziness R42 Nuclear sclerotic cataract of right eye H25.11 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 Terrell. He said benign seborrheic keratosis. No treatment. Will let her know later. Surgical History Surgical History Colonoscopy - MAC (03/25/16) S/P placement of cardiac pacemaker Vaginal hysterectomy Tobacco Smoking/Tobacco Use Status: Former Tobacco Use Passive smoking exposure: Yes Second hand exposure: Yes Alcohol Alcohol Intake: never Substance Use Substance use: Never Substance use type: does not use Vital Signs and Lab Results Lab Results Blood Type / Crossmatch: No Data to Display Complete Blood Count: No Data to Display Complete Metabolic Panel: No Data to Display Liver Function Panel: No Data to Display Coagulation Panel: No Data to Display Cardiac Panel: No Data to Display Arterial Blood Gas: No Data to Display Venous Blood Gas: No Data to Display Pancreas Panel: No Data to Display Thyroid Panel: No Data to Display Infectious Disease: No Data to Display Blood Cultures: No Data to Display Toxicology Panel: No Data to Display Imaging and Studies Imaging and Studies Study information below may be from another EMR and interpreted by another provider. Please see original notes in EMR for more complete details. EKG Summary: Conclusion Atrial-paced complexes...other complexes also detected Inferior infarct, age indeterminate...Q>35mS, T neg, II III aVF Nonspecific T abnormalities, lateral leads...T <-0.10mV, I aVL V5 V6 atrially paced rhythm at 72, left axis, nonspecific T wave changes inferiorly and low lateral leads, no STEMI, nondiagnostic EKG Echocardiogram Summary: Conclusion Left Ventricle : The left ventricle is normal size. There is normal left ventricular wall thickness. Left ventricular systolic function is low normal. Regional wall motion is normal. The left ventricular diastolic function is normal. There is no ventricular septal defect visualized. LVEF is 50%. Right Ventricle : The right ventricle is not well visualized. Right ventricular systolic function is grossly normal. The RVSP is 38.9mmHg. Pacemaker lead is present in the right ventricle. This structure is not well visualized and lead vegetation cannot be ruled out. Atria : The left atrium size is normal. The right atrium size is normal. Aortic Valve : The aortic valve is normal in structure. Aortic valve is trileaflet. No aortic regurgitation is present. There is no aortic valvular stenosis. Tricuspid Valve : The tricuspid valve is normal in structure. Mild to moderate tricuspid regurgitation. There is no tricuspid valve stenosis. Great Vessels : The aortic root is normal in size. The ascending aorta is mildly dilated. Aortic arch is normal in caliber. The IVC collapses <50% with inspiration. There is no prior study available for comparison. Anesthesia Assessment and Plan Anesthesia History Personal History: No History of Anesthesia Complications Family History: No Family History of Anesthesia Complications Exercise Tolerance Exercise Tolerance: Metabolic Equivalents>4 Pertinent Negatives Pertinent Negatives: No Symptoms of GERD Cardiac & Pulmonary Exam Cardiac Exam: Normal S1/S2 Heart Sounds Pulmonary Exam: Clear Bilateral Breath Sounds Implantable Cardiac Device Does patient have a Pacemaker or an ICD?: Yes Device Cracker And Cookie Machine Operator:: Dual lead Medtronic pacemaker Yesika XT DR BOYCE [id number] Reason for Placement:: sinus node dysfunction Date of Last Device Interrogation:: 01/22/2022 Airway Exam Known Difficult Airway: No Mallampati Class: 2 Mouth Opening: Normal (> 3cm) Thyromental Distance: Greater than 3 cm Neck Range of Motion: Full ROM Neck Circumference: Normal Teeth Condition: Normal Dentition ASA Classification ASA Score: ASA 3 Emergency Case?: No NPO Status NPO Status: NPO Clears >2 hours, Solids >8 hours Anesthesia Plan Resuscitation Status: Full Code Anesthesia Technique: MAC Anesthesia Airway Planned: Natural Airway Monitors Used: Standard Monitors
[2022-03-10 11:38] VITALS: BP 141/89; PULSE 87; RESP 16; TEMP 35.5; O2SAT 99
[2022-03-10] MEDS: Tropicam./Phenyleph. (1/2.5%) 5 ML BTL OD ×3 (11:39→11:57)
[2022-03-10 11:49] VITALS: BMI 24.6
[2022-03-10] MEDS: Lidocaine 2% Jelly 6 ML SYR (12:22)
[2022-03-10] MEDS: Tetracaine 0.5% 4 ML BTL OD (12:22)
[2022-03-10] MEDS: Balanced Salt Soln.-PLUS 500 ML BAG (12:29)
[2022-03-10] MEDS: Duovisc Viscoelastic System EACH 1 EACH (12:30)
[2022-03-10] MEDS: Povidone-Iodine Ophth 30 ML BTL (12:32)
[2022-03-10 12:46] VITALS: BP 117/100; PULSE 61; RESP 17; TEMP 36.2; O2SAT 100
--- NOTE | 2022-03-10 12:46 | W.PM.DSUDISC ---
Date of service: 03/10/22 Time of Service: 12:46 Discharge Plan Disposition Patient Disposition: HOME Condition: Good Discharge Details Attending Provider: Tye Gama Primary Care Provider: Sami Zambrano Home Meds and New Rx's Prescriptions: No Action Ensure Liquid See Rx Instructions PO DAILY Rx Instructions: 8 oz PO daily; nitroglycerin 0.4 mg tablet, sublingual 0.4 mg sublingual PRN PRN (Reason: chest pain) Qty: 60 0RF exemestane 25 mg tablet 25 mg PO DAILY Label Comments: 01/06/20- patient states that she will be starting this on 01/27/20 for her breast cancer. aj Rx Instructions: must administer after a meal artificial tears(hypromellose) 0.3 % drops 1 drp OP QID donepezil 5 mg tablet 5 mg PO QHS Qty: 90 3RF aspirin [Aspirin Low-Strength] 81 MG tablet,chewable 81 mg PO DAILY atorvastatin 40 mg tablet 40 mg PO QPM Qty: 90 3RF metoprolol succinate 50 mg tablet extended release 24 hr 50 mg PO DAILY Qty: 90 3RF memantine 5 mg tablet 5 mg PO BID Qty: 180 3RF levothyroxine 100 mcg capsule 100 mcg PO DAILY Qty: 90 1RF Discharge Instructions Instructions: Nitroglycerin (By mouth), Nitroglycerin, Rapid Release (By mouth) Stand Alone Forms: Post-op Topical Cataract, Maurice Fongey (DSU) Discharge Orders Discharge Orders: Discharge Order (Routine); Ordered 03/10/22 Ordered By: Tye Gama DS: Diagnosis Discharge Diagnosis (1) Cortical cataract of right eye: Status: Resolved (2) Nuclear sclerotic cataract of right eye: Status: Resolved
--- NOTE | 2022-03-10 12:47 | ROE_ITS ---
Date of service: 03/10/22 Time of Service: 12:47 Operative Note Operative Note DATE OF PROCEDURE: 03/10/22 PRE-OP DIAGNOSIS: Nuclear/cortical cataract, right eye POST-OP DIAGNOSIS: same PROCEDURE: Cataract extraction using phacoemulsification with intraocular lens implant, right eye SURGEON: Tye Gama ANESTHESIA TYPE: Local By Surgeon and MAC Refer to Anesthesia Record ESTIMATED BLOOD LOSS: 0 PATHOLOGY: none sent COMPLICATIONS: None Patient was transported to: same day Patient's condition: stable Implants: & /SENIA Tecnis [id number] Indications: Progressive visual loss due to cataract, right eye Procedure Description: CATARACT SURGERY OPERATIVE REPORT PREOPERATIVE DIAGNOSIS: 1. Nuclear/cortical cataract, right eye POSTOPERATIVE DIAGNOSIS: Same OPERATION: 1. Cataract extraction using phacoemulsification with posterior chamber intraocular lens implant, right eye. IOL: IOL Warehouse Laborer/Model: & / SENIA Tecnis [id number] IOL Power: + 18.5 diopters IOL Serial Number: [id number] Optic Diameter: 6.0mm Haptic/Overall Diameter: 13.0mm PHACO INFO: Gu[employer] Vision System with OZil and Active Fluidics Cumulative Dispersed Energy (CDE): 10.97 seconds SURGEON: Tye Gama MD, BEBETO ANESTHESIA: Monitored Anesthesia Care (MAC), with local sub-tenon's anesthetic infiltration COMPLICATIONS: None SPECIMENS: None INDICATIONS FOR PROCEDURE: Patient is an 81-year-old lady with history of diminished visual acuity in both eyes secondary to the development of bilateral nuclear/cortical cataract. The option of cataract surgery was offered to the patient and she felt she was symptomatic enough that she wished to proceed. PROCEDURE: The correct surgical eye was identified and marked as the right eye and the pupil was dilated in the preoperative area using mydriatics and cycl oplegics. The dilated pupil size was 7.0 mm.. The patient elected to proceed without oral sedation. The patient was brought to the operating room where cardiopulmonary monitoring was instituted and surgical time-out was performed, confirming the correct operative eye and IOL power. Topical anesthesia was administered and ophthalmic povidone-iodine 5% was instilled into the conjunctival fornices. Lidocaine gel was applied to the cornea and the taylor-ocular area was prepped with Betadine 10% solution and draped in the usual sterile fashion for intraocular surgery, including an aperture drape. A Tegaderm transparent film dressing was cut in half and used to cover the lashes and lid margins. Care was taken to sequester the lashes and lid margins under the Tegaderm dressing. A lid speculum was placed between the lids of the operative eye and the Guicho Lux[employer] Revalia operating microscope was maneuvered into position. Gabriela scissors were then used to make a conjunctival buttonhole approximately 6mm posterior to the limbus in the inferonasal quadrant. Blunt dissection was carried out to expose bare sclera, and a blunt-tipped sub-tenon?s anesthesia cannula was introduced and passed posteriorly along the globe where non- preserved plain lidocaine was injected into posterior sub-Tenon?s space. A sideport knife was used to make a paracentesis port inferotemporally. . The anterior chamber was filled with viscoelastic. A keratome knife was used to construct a 2-plane near-clear corneal tunnel extending 2.0mm into clear cornea superiortemporally. A flap was raised on the anterior capsule and capsulorhexis forceps were used to complete a continuous curvilinear capsulorhexis of 5.0 mm. Balanced salt solution was then used to perform cortical cleaving hydrodissection and nuclear hydrodelineation until the lens could be freely rotated within the capsular bag. The lens nucleus was then disassembled and removed within the capsular bag and iris plane using phacoemulsification. Residual cortical material was removed using the I/A handpiece. The posterior capsule was carefully polished to remove as much residual lens epithelial cells as safely possible. The capsular bag was then inflated and the anterior chamber deepened with viscoelastic. The lens implant described above was inserted into the capsular bag using the SENIA [place] Injector. A Kuglen hook was used to dial the IOL into position. Residual viscoelastic was then removed first from posterior to the IOL, then from the anterior chamber using the I/A handpiece. The lens implant was noted to center nicely within the capsular bag. The incisions were stromally hydrated, and the anterior chamber was reformed using BSS. Then 0.5cc of moxifloxacin 1.0mg/ml were injected into the capsular bag and anterior chamber. The incisions were checked with a Weck spear and found to be secure. Several drops of ophthalmic povidone-iodine 5% were then applied to the eye followed by two drops of Imprimis combination prednisolone/moxifloxacin/nepafenac solution. The drapes were removed and a clear plastic protective eye shield was placed over the eye. The patient was then returned to [facility] Day Surgery in stable condition.
--- NOTE | 2022-03-10 13:34 | W.ANESPOSTOP ---
Postoperative Evaluation Date, Time and Location Date Performed: 03/10/22 Time Performed: 13:31 Patient Location: Day Surgery Unit Vital Signs Most Recent Imported Vital Signs: Most Recent Vital Signs Temp Pulse Resp BP Pulse Ox 36.2 C L 61 17 117/100 H 100 03/10/22 12:46 03/10/22 12:46 03/10/22 12:46 03/10/22 12:46 03/10/22 12:46 Pain Score Most Recent Pain Score: Most Recent Pain Score Pain Level 0 03/10/22 12:46 Assessment Mental Status: Awake (Alert & Oriented to Patient Baseline) Airway and Respiratory Function: Patent airway with normal (patient baseline) respiratory exam Cardiovascular Function: Hemodynamically Stable Hydration Status: Adequately Hydrated Nausea & Vomiting: No Nausea or Vomiting Pain: Pt. Denies Any Pain Peripheral Nerve Block: Patient did not receive a nerve block
[2022-03-10 13:35] VITALS: BP 121/74; PULSE 70; O2SAT 97
== END 2022-03-10 13:40 | disposition home or self-care (01) ==
PROVIDERS: PCP Nurse Practitioner Family; Visit Provider Ophthalmology
PROC: (CPT 66984; principal; 2022-03-10 14:30)
DX: H25.11 Age-related nuclear cataract, right eye (principal)
CPT/HCPCS: 66984; V2632

== ENCOUNTER → 2022-04-16 13:14 | Outpatient (BNVA) | payer MEDICARE, SELFPAY | PROVIDERS: PCP Nurse Practitioner Family; Referring Provider Nurse Practitioner Family; Visit Provider Nurse Practitioner Adult Health | DX: G30.9 Alzheimer's disease, unspecified (principal); F02.80 Dementia in other diseases classified elsewhere, unspecified severity, without behavioral disturbance, psychotic disturbance, mood disturbance, and anxiety | CPT/HCPCS: 99213 ==

== ENCOUNTER → 2022-05-08 09:42 | Outpatient (BNVA) | payer MEDICARE, SELFPAY | PROVIDERS: PCP Nurse Practitioner Family; Visit Provider Internal Medicine Cardiovascular Disease | DX: Z95.0 Presence of cardiac pacemaker (principal); I25.10 Atherosclerotic heart disease of native coronary artery without angina pectoris; I25.2 Old myocardial infarction | CPT/HCPCS: 99214; 99213 ==

== ENCOUNTER → 2022-10-15 10:42 | Outpatient (BNVA) | payer MEDICARE, SELFPAY | PROVIDERS: PCP Nurse Practitioner Family; Referring Provider Nurse Practitioner Family; Visit Provider Nurse Practitioner Adult Health | DX: G30.9 Alzheimer's disease, unspecified (principal); F02.80 Dementia in other diseases classified elsewhere, unspecified severity, without behavioral disturbance, psychotic disturbance, mood disturbance, and anxiety; R42 Dizziness and giddiness | CPT/HCPCS: 99213 ==

== ENCOUNTER 2022-12-02 03:11 | Outpatient (CLI) | payer MEDICARE, SELFPAY ==
[2022-12-02 09:56] LABS: ALT 23 U/L (14-59); AST 22 U/L (15-37); Alkaline Phosphatase 70 U/L (46-116); Anion Gap 4.9 mmol/L (3-11); BUN 30 mg/dL (7-18); Bilirubin, Total 1.3 mg/dL (0.2-1.0); CO2 31.1 mmol/L (21.0-32.0); CREATININE 0.9 mg/dL (0.55-1.02); Calcium 9.5 mg/dL (8.5-10.1); Calculated LDL 51 mg/dL (<100); Chloride 105 mmol/L (98-107); Cholesterol 122 mg/dL (<200); Estimated GFR 63.83 (mL/min/1.73m2); Glucose 92 mg/dL (74-106); HDL Cholesterol 66 mg/dL (40-60); Sodium 141 mmol/L (136-145); TSH (W/Ref FT4) 0.59 uIU/mL (0.36-3.74); Total Protein 6.9 g/dL (6.4-8.2); Triglyceride 28 mg/dL (<150)
== END 2022-12-02 03:12 | disposition home or self-care (01) ==
LOC: LOS 03:13
PROVIDERS: PCP Nurse Practitioner Family; Visit Provider Nurse Practitioner Family
DX: I25.10 Atherosclerotic heart disease of native coronary artery without angina pectoris (principal); E03.9 Hypothyroidism, unspecified
CPT/HCPCS: 36415; 80053; 80061; 84443

== ENCOUNTER 2023-01-21 08:07 | Outpatient (CLI) | payer MEDICARE, SELFPAY ==
--- NOTE | 2023-01-21 08:00 | RT.EKG_ITS ---
APPROVED REPORT Exam: Resting ECG Reason for Exam: CAD Patient Location: O HR:72 bpm ECG Measurements Heart Rate 72 AXIS NM 153 P [id number] QRSd 96 QRS -65 QT 382 T -18 QTc 419 Conclusion Atrial-paced complexes...other complexes also detected LAFB
== END 2023-01-21 08:08 | disposition home or self-care (01) ==
LOC: DI.CARD 08:08
PROVIDERS: PCP Nurse Practitioner Family; Visit Provider Physician Assistant
DX: I25.10 Atherosclerotic heart disease of native coronary artery without angina pectoris (principal); Z95.0 Presence of cardiac pacemaker
CPT/HCPCS: 93010

== ENCOUNTER → 2023-01-21 08:52 | Outpatient (BNVA) | payer MEDICARE, SELFPAY | PROVIDERS: PCP Nurse Practitioner Family; Visit Provider Physician Assistant | DX: Z45.010 Encounter for checking and testing of cardiac pacemaker pulse generator [battery] (principal); I49.5 Sick sinus syndrome | CPT/HCPCS: 93005; 93280 ==

== ENCOUNTER → 2023-05-07 09:47 | Outpatient (BNVA) | payer MEDICARE, SELFPAY | PROVIDERS: PCP Nurse Practitioner Family; Referring Provider Nurse Practitioner Family; Visit Provider Internal Medicine Interventional Cardiology | DX: I25.10 Atherosclerotic heart disease of native coronary artery without angina pectoris (principal); Z95.0 Presence of cardiac pacemaker | CPT/HCPCS: 99213 ==

== ENCOUNTER → 2023-08-17 11:04 | Outpatient (BNVA) | payer MEDICARE, SELFPAY | PROVIDERS: PCP Nurse Practitioner Family; Referring Provider Nurse Practitioner Family; Visit Provider Psychiatry & Neurology Neurology | DX: G30.9 Alzheimer's disease, unspecified (principal); F02.80 Dementia in other diseases classified elsewhere, unspecified severity, without behavioral disturbance, psychotic disturbance, mood disturbance, and anxiety | CPT/HCPCS: 99214 ==

== ENCOUNTER → 2023-10-21 10:50 | Outpatient (BNVA) | payer MEDICARE, SELFPAY | PROVIDERS: PCP Nurse Practitioner Family; Referring Provider Nurse Practitioner Family; Visit Provider Nurse Practitioner Adult Health | DX: G30.9 Alzheimer's disease, unspecified (principal); F02.80 Dementia in other diseases classified elsewhere, unspecified severity, without behavioral disturbance, psychotic disturbance, mood disturbance, and anxiety | CPT/HCPCS: 99214 ==

== ENCOUNTER 2023-11-19 09:25 | Outpatient (REF) | payer MEDICARE, SELFPAY ==
[2023-11-19 12:39] LABS: ALT 23 U/L (14-59); AST 16 U/L (15-37); Alkaline Phosphatase 68 U/L (46-116); Anion Gap 6.2 mmol/L (3-11); BUN 24 mg/dL (7-18); Bilirubin, Total 0.86 mg/dL (0.2-1.0); CO2 30.8 mmol/L (21.0-32.0); CREATININE 1.1 mg/dL (0.55-1.02); Calcium 9.6 mg/dL (8.5-10.1); Calculated LDL 51 mg/dL (<100); Chloride 104 mmol/L (98-107); Cholesterol 122 mg/dL (<200); Estimated GFR 49.86 (mL/min/1.73m2); Glucose 83 mg/dL (74-106); HDL Cholesterol 64 mg/dL (40-60); Potassium 4.2 mmol/L (3.5-5.1); Sodium 141 mmol/L (136-145); TSH (W/Ref FT4) 1.21 uIU/mL (0.36-3.74); Total Protein 6.5 g/dL (6.4-8.2); Triglyceride 38 mg/dL (<150)
== END 2023-11-19 09:26 | disposition home or self-care (01) ==
LOC: LBN 09:25
PROVIDERS: PCP Nurse Practitioner Family; Visit Provider Nurse Practitioner Family
DX: E03.9 Hypothyroidism, unspecified (principal); I21.4 Non-ST elevation (NSTEMI) myocardial infarction; Z00.00 Encounter for general adult medical examination without abnormal findings
CPT/HCPCS: 80053; 80061; 84443

== ENCOUNTER → 2024-01-20 08:53 | Outpatient (BNVA) | payer MEDICARE, SELFPAY | PROVIDERS: PCP Nurse Practitioner Family; Referring Provider Nurse Practitioner Family; Visit Provider Student in an Organized Health Care Education/Training Program | DX: Z95.810 Presence of automatic (implantable) cardiac defibrillator (principal); I25.10 Atherosclerotic heart disease of native coronary artery without angina pectoris | CPT/HCPCS: 93280 ==

== ENCOUNTER → 2024-04-20 10:34 | Outpatient (BNVA) | payer MEDICARE, SELFPAY | PROVIDERS: PCP Nurse Practitioner Family; Referring Provider Nurse Practitioner Family; Visit Provider Nurse Practitioner Adult Health | DX: G30.9 Alzheimer's disease, unspecified (principal); F02.80 Dementia in other diseases classified elsewhere, unspecified severity, without behavioral disturbance, psychotic disturbance, mood disturbance, and anxiety | CPT/HCPCS: 99214 ==

== ENCOUNTER 2024-05-05 08:10 | Outpatient (CLI) | payer MEDICARE, SELFPAY ==
--- NOTE | 2024-05-05 08:00 | RT.EKG_ITS ---
APPROVED REPORT Exam: Resting ECG Reason for Exam: CAD Patient Location: O HR:72 bpm ECG Measurements Heart Rate 72 AXIS OK 151 P [id number] QRSd 141 QRS -69 QT 391 T -15 QTc 428 Conclusion Atrial-paced rhythm Right bundle branch block...QRSd>120, terminal axis(90,270)
== END 2024-05-05 08:11 | disposition home or self-care (01) ==
LOC: DI.CARD 08:11
PROVIDERS: PCP Nurse Practitioner Family; Visit Provider Internal Medicine Cardiovascular Disease
DX: I25.10 Atherosclerotic heart disease of native coronary artery without angina pectoris; Z95.0 Presence of cardiac pacemaker
CPT/HCPCS: 93010

== ENCOUNTER → 2024-05-05 09:52 | Outpatient (BNVA) | payer MEDICARE, SELFPAY | PROVIDERS: PCP Nurse Practitioner Family; Visit Provider Internal Medicine Cardiovascular Disease | DX: I45.10 Unspecified right bundle-branch block (principal); I25.2 Old myocardial infarction; I25.10 Atherosclerotic heart disease of native coronary artery without angina pectoris; Z95.0 Presence of cardiac pacemaker | CPT/HCPCS: 93005; 99213 ==

== ENCOUNTER 2024-05-20 14:14 | Outpatient (REF) | payer MEDICARE, SELFPAY ==
[2024-05-20 14:34] LABS: TSH (W/Ref FT4) 2.14 uIU/mL (0.36-3.74)
== END 2024-05-20 14:15 | disposition home or self-care (01) ==
LOC: LBN 14:14
PROVIDERS: PCP Nurse Practitioner Family; Visit Provider Nurse Practitioner Family
DX: E03.9 Hypothyroidism, unspecified (principal); R63.4 Abnormal weight loss
CPT/HCPCS: 84443

== ENCOUNTER → 2024-06-21 10:50 | Outpatient (BNVA) | payer MEDICARE, SELFPAY | PROVIDERS: PCP Nurse Practitioner Family; Visit Provider Nurse Practitioner Adult Health | DX: G30.9 Alzheimer's disease, unspecified (principal); F02.80 Dementia in other diseases classified elsewhere, unspecified severity, without behavioral disturbance, psychotic disturbance, mood disturbance, and anxiety | CPT/HCPCS: 99215 ==

== ENCOUNTER 2024-07-08 19:11 | Inpatient (IN) | payer MEDICARE, SELFPAY ==
[2024-07-08] VITALS (54 sets, daily range): BP systolic 68–152; BP diastolic 36–94; PULSE 52–102; RESP 13–36; TEMP 36.6; O2SAT 90–100
--- NOTE | 2024-07-08 19:00 | RT.EKG_ITS ---
APPROVED REPORT Exam: Resting ECG Reason for Exam: WEAKNESS Patient Location: E HR:61 bpm ECG Measurements Heart Rate 61 AXIS SD 186 P 44 QRSd 152 QRS -73 QT 423 T -6 QTc 427 Conclusion Atrial-paced complexes...other complexes also detected Right bundle branch block...QRSd>120, terminal axis(90,270) Probable inferior infarct, age indeterminate...Q>35mS, T neg, II III aVF Physician: No Stemi, unchanged from prior ekg
--- NOTE | 2024-07-08 19:15 | DI.RAD_ITS ---
Exam(s) XR PORTABLE CHEST AP EXAM: XR PORTABLE CHEST AP CLINICAL HISTORY: Chest pain. TECHNIQUE: 2D digital imaging was performed. COMPARISON: CR XR PORTABLE CHEST AP from 07/26/2020 FINDINGS: Single AP portable view. Bipolar left subclavian pacemaker again noted with lead tips in RA and RV. Heart size is upper normal. The mediastinum is not widened. No infiltrates nor pleural effusions. No pulmonary edema. IMPRESSION: No acute pulmonary findings on this single AP portable view of the chest. DATA REPOSITORY: RADIATION DOSE DELIVERED:
--- NOTE | 2024-07-08 19:16 | ED.GENADUL_ITS ---
Discharge Plan Disposition Patient Disposition: Admit to [facility] Condition: Stable Discharge Details Clinical Impression: Weakness, Near syncope Primary Care Provider: Sami Zambrano ED Provider: Giselle Chance Home Meds and New Rx's Prescriptions: No Action benzonatate 100 mg capsule 100 mg PO TID PRN (Reason: cough) Qty: 14 0RF doxycycline hyclate 100 mg capsule 100 mg PO BID Qty: 14 0RF artificial tears(hypromellose) 0.3 % drops 1 drp OP QID lutein 20 mg capsule 20 mg PO DAILY Rx Instructions: give with meal/snack cholecalciferol (vitamin D3) 50 mcg (2,000 unit) capsule 50 mcg PO DAILY aspirin [Aspirin Low-Strength] 81 MG tablet,chewable 81 mg PO DAILY levothyroxine 100 mcg capsule 100 mcg PO DAILY Qty: 90 4RF atorvastatin 40 mg tablet 40 mg PO QPM Qty: 90 3RF exemestane 25 mg tablet 25 mg PO DAILY Rx Instructions: must administer after a meal metoprolol succinate 50 mg tablet extended release 24 hr 50 mg PO DAILY Qty: 90 3RF nitroglycerin 0.4 mg tablet, sublingual 0.4 mg sublingual PRN PRN (Reason: chest pain) Qty: 60 0RF donepezil 5 mg tablet 5 mg PO QHS Qty: 90 3RF memantine 10 mg tablet 10 mg PO BID Qty: 180 3RF HPI General Mode of arrival: EMS . Date/Time Provider Initiated Documentation: 07/08/24 19:14 . Limitations to Documentation: altered mental status . Information obtained by: patient, RN notes reviewed and old records reviewed . HPI Narrative: 83-year-old female presents to the ER with chief complaint of increased weakness. Altered mental status, Rales and cough noted. She did have a blood pressure of 80/50 per EMS prior to arrival. She denies any pain. She is satting 97% on room air. Reports increased weakness unable to get off the toilet. She does have a past medical history of high cholesterol, hypothyroidism, hypertension, Alzheimer's dementia, breast cancer, NSTEMI she does have a cardiac pacemaker history of hysterectomy. Related Data Home Medications ?Medication ?Instructions ?Recorded ?Confirmed aspirin 81 mg chewable tablet 81 mg PO DAILY 09/16/12 07/08/24 (Aspirin Low-Strength) artificial tears(hypromellose) 0.3 1 drp ophthalmic (eye) QID 11/07/21 07/08/24 % eye drops lutein 20 mg capsule 20 mg PO DAILY 10/24/22 07/08/24 levothyroxine 100 mcg capsule 100 mcg PO DAILY #90 caps 11/19/23 07/08/24 atorvastatin 40 mg tablet 40 mg PO QPM #90 tabs 11/23/23 07/08/24 exemestane 25 mg tablet 25 mg PO DAILY 12/08/23 07/08/24 metoprolol succinate 50 mg 50 mg PO DAILY #90 tabs 12/08/23 07/08/24 tablet,extended release 24 hr nitroglycerin 0.4 mg sublingual 0.4 mg sublingual PRN PRN chest 12/08/23 07/08/24 tablet pain #60 tabs donepezil 5 mg tablet 5 mg PO QHS #90 tabs 12/09/23 07/08/24 memantine 10 mg tablet 10 mg PO BID #180 tabs 12/09/23 07/08/24 cholecalciferol (vitamin D3) 50 50 mcg PO DAILY 02/23/24 07/08/24 mcg (2,000 unit) capsule benzonatate 100 mg capsule 100 mg PO TID PRN cough #14 caps 06/29/24 07/08/24 doxycycline hyclate 100 mg capsule 100 mg PO BID #14 caps 06/29/24 07/08/24 Previous Rx's ?Medication ?Instructions ?Recorded levothyroxine 100 mcg capsule 100 mcg PO DAILY #90 caps 11/19/23 atorvastatin 40 mg tablet 40 mg PO QPM #90 tabs 11/23/23 metoprolol succinate 50 mg 50 mg PO DAILY #90 tabs 12/08/23 tablet,extended release 24 hr nitroglycerin 0.4 mg sublingual 0.4 mg sublingual PRN PRN chest 12/08/23 tablet pain #60 tabs donepezil 5 mg tablet 5 mg PO QHS #90 tabs 12/09/23 memantine 10 mg tablet 10 mg PO BID #180 tabs 12/09/23 benzonatate 100 mg capsule 100 mg PO TID PRN cough #14 caps 06/29/24 doxycycline hyclate 100 mg capsule 100 mg PO BID #14 caps 06/29/24 Allergies Allergy/AdvReac Type Severity Reaction Status Date / Time No Known Allergies Allergy Verified 07/08/24 19:16 General Stated Complaint: RespSymp HAKEEM: 3 Review of Systems All systems reviewed & are unremarkable except as noted in HPI and below Constitutional Constitutional: Reports as per HPI, Reports fatigue, Reports fever(s), Reports poor appetite and Reports weakness Respiratory Respiratory: Reports chest congestion and Reports cough Neurologic Neurologic: Reports weakness Endocrine Endocrine: Reports fatigue Exam Narrative Exam Narrative: Constitutional: Alert and oriented x2. Appears stated age. Normal body habitus. Does not appear acutely ill, shivering. Head: Normocephalic, no trauma. Eyes: Pupils PERRL, Red reflex noted, EOM's intact. Eyelids symmetrical without lesions, discharge, or swelling. ENT: Bilateral TM's WNL, External ear normal to inspection, no mastoid TTP, swelling, or erythema, Nasal turbinates WNL, no nasal discharge. Normal dentition, Posterior pharynx WNL, no exudate. Chest: RRR, Normal S1, S2, distal pulses intact. Resp: Lungs bilateral Rales, diminished in the bases. Abdomen: Soft, non-distended, Normoactive bowel sounds all 4 quads. Musculoskeletal: Normal gait, Moves all 4 extremities without difficulty. Skin: No suspicious rashes or lesions. Capillary refill less than 2 sec. Neurologic: Cranial nerves II-XII intact. Alert and oriented x 3. Motor: No deficits noted. Sensory: Intact bilaterally all 4 extremities. Bilateral lower extremity weakness. Unable to raise legs off the bed. Watch Supervisor equal bilaterally in the upper extremities. No facial droop. Hematologic/Lymphatic: No ecchymosis, no lymphadenopathy. Course Vital Signs Vital signs: Vital Signs Temperature 36.6 C 07/08/24 19:07 Pulse 81 07/08/24 19:07 Respiratory Rate 29 H 07/08/24 19:07 Blood Pressure 127/79 07/08/24 19:07 Pulse Oximetry 98 07/08/24 19:07 Temperature 36.6 C 07/08/24 19:07 Temperature Source Oral 07/08/24 19:07 Pulse 81 07/08/24 19:07 Respiratory Rate 29 H 07/08/24 19:07 Blood Pressure 127/79 07/08/24 19:07 Pulse Oximetry 98 07/08/24 19:07 Oxygen Delivery Method Room Air 07/08/24 19:07 Oxygen Flow Rate 0 07/08/24 19:07 Lab/Test Results Lab/Test Results: 07/08/24 19:14 Blood Blood Culture - Pending 07/08/24 19:14 Blood Blood Culture - Pending Medical Decision Making 83-year-old female presents to the ER with chief complaint of increased weakness. Altered mental status, Rales and cough noted. She did have a blood pressure of 80/50 per EMS prior to arrival. She denies any pain. She is satting 97% on room air. Reports increased weakness unable to get off the toilet. She does have a past medical history of high cholesterol, hypothyroidism, hypertension, Alzheimer's dementia, breast cancer, NSTEMI she does have a cardiac pacemaker history of hysterectomy. Workup ordered including CBC CMP serial troponins, EKG VBG chest x-ray urinalysis proBNP and Fluvid swab. EKG was reviewed by myself and Dr. Glover ER attending, old EKG available for review. No significant change noted. Vital signs at this time as blood pressure 107/81 pulse 61 O2 sat 96% on room air respirate 23. Blood pressure is 89/42 LR 500 cc ordered. Blood pressure on repeat is 138/65 on her right arm. Patient is complaining of being cold and is shivering. Her is at bedside who reports that he believes that she finished the antibiotics. He reports that she has been feeling bad since the and has not been eating a lot lately. Today she was unable to get off the toilet. She is unable to raise her legs up off the bed. Informed by staff antisubmarine officer that they are unable to ambulate patient at this time. I did take 2 persons to sit her up on the side of the bed. She is going to CT for head imaging at this time. I do anticipate admission for increased weakness increased confusion and possible dehydration. She does have soft blood pressure., it ranges from 90 SBP/ 45 to 114/45. Spoke with Dr. Martin Hollins regarding patient case in details he agrees to accept patient for admission. At this time awaiting bed placement. Blood pressure is 108/55 heart rate 61. Discussed plan of care with patient and family verbalized understanding and are in agreement with the plan. This text was generated using [employer] system, please disregard any oddities of phrase or misspellings. Medical Records Medical records reviewed: Yes I reviewed the patient's medical records. Medical records narrative: On record review patient was seen by her PCP 4 days ago and was given a home health referral for medication management. She was recently diagnosed on 29 June with pneumonia and was given doxycycline and Augmentin. She is followed by neurology and palliative care for her dementia and Alzheimer's. Imaging Data Radiologic Study: Imaging: X-Ray Radiologist's impression: Exam: XR Chest Exam date and time: 07/08/2024 8:24 PM Age: 83 years old Clinical indication: Other: Chest pain TECHNIQUE: Imaging protocol: Radiologic exam of the chest. Views: 1 view. COMPARISON: CR XR PORTABLE CHEST AP 07/26/2020 11:50 AM FINDINGS: Tubes, catheters and devices: Dual lead pacemaker in the expected position. Lungs: Mild hyperinflation without airspace consolidation. Pleural spaces: No pleural effusion. No pneumothorax. Heart/Mediastinum: No cardiomegaly. Bones/joints: No acute fracture. IMPRESSION: Mild hyperinflation without airspace consolidation. Thank you for allowing us to participate in the care of your patient. Dictated and Authenticated by: Kristi You MD Radiologic Study #2: Imaging: CT Scan Radiologist's impression: COMPARISON: CT HEAD WO 07/22/2020 9:40 PM FINDINGS: Brain: Atrophy and chronic appearing white matter changes. Tiny chronic appearing left deep andrews matter lacunar infarct, similar to prior. Cerebral ventricles: Ex vacuo dilation of the ventricular system. Paranasal sinuses: Minor mucosal thickening in paranasal sinuses. Scattered air-fluid levels. Mastoid air cells: No mastoid effusion. Orb ital cavities: Right cataract repair. Bones: No acute fracture. Soft tissues: No suspicious lesions. IMPRESSION: 1. No acute intracranial findings. 2. Sinus disease Lab Data Lab results reviewed: Yes I reviewed the patient's lab results. Labs: 07/08/24 20:05 Blood Blood Culture - Pending 07/08/24 19:19 Blood Blood Culture - Pending Laboratory Tests Range/Units 07/08/24 07/08/24 07/08/24 19:19 20:19 22:14 WBC (4.4-10.8) 10^3/uL 9.78 RBC (3.93-5.22) 10^6/uL 4.65 Hgb (11.2-15.7) g/dL 15.0 Hct (36.0-46.0) % 43.9 MCV (80-95) fL 94 MCH (27.0-33.0) pg 32.3 MCHC (32.0-36.0) % 34.2 RDW (11.7-14.6) % 12.6 Plt Count (130-400) 10^3/uL 187 MPV (8.0-11.0) fL 9.9 Immature Gran % % 0.6 Neutrophils % % 77.0 Lymphocytes % % 10.0 Monocytes % % 11.3 Eosinophils % % 0.8 Basophils % % 0.3 Nucleated RBC % (0.0-0.3) % 0.0 Absolute Neutrophils (1.2-6.7) 10^3/uL 7.52 H Absolute Lymphocytes (1.2-3.4) 10^3/uL 0.98 L Absolute Monocytes (0.1-0.8) 10^3/uL 1.11 H Absolute Eosinophils (0.0-0.7) 10^3/uL 0.08 Absolute Basophils (0.0-0.2) 10^3/uL 0.03 VBG pH (7.31-7.41) 7.50 H VBG pCO2 (41-51) mmHg 40 L VBG pO2 mmHg 22 VBG HCO3 (23-28) mmol/L 31 H VBG Total CO2 (24-29) mmol/L 27 VBG O2 Saturation % 40 VBG Base Excess (-2-3) mmol/L 7 H VBG Lactate (<or=2.0) mmol/L 1.7 Sodium (136-145) mmol/L 142 Potassium (3.5-5.1) mmol/L 3.8 Chloride (98-107) mmol/L 104 Carbon Dioxide (21.0-32.0) mmol/L 30.5 Anion Gap (3-11) mmol/L 7.5 BUN (7-18) mg/dL 32 H Creatinine (0.55-1.02) mg/dL 0.9 Est GFR (CKD-EPI 2020) (mL/min/1.73m2) 63.43 Glucose (74-106) mg/dL 126 H Calcium (8.5-10.1) mg/dL 10.3 H Magnesium (1.8-2.4) mg/dL 1.9 Total Bilirubin (0.2-1.0) mg/dL 1.5 H AST (15-37) U/L 22 ALT (14-59) U/L 25 Alkaline Phosphatase (46-116) U/L 80 Troponin I (<or=51) ng/L 9 12 Cancelled NT-Pro-B Natriuret Pep (<300) pg/mL 461 H Total Protein (6.4-8.2) g/dL 6.8 Albumin (3.4-5.0) g/dL 3.2 L COVID-19 Source Nasopharynx SARS-CoV-2 (PCR) (Negative) Negative Influenza Type A (PCR) (Negative) Negative Influenza Type B (PCR) (Negative) Negative RSV (PCR) (Negative) Negative Quality:SDOH Health Related Social Needs: No Data to Display PFSH All Active Problems (Updated 07/08/24 @ 23:06 by Giselle Chance NP) Near syncope (Acute) Sinusitis, acute (Acute) Acute respiratory alkalosis (Acute) Hypotension (Acute) Weakness (Acute) Palliative care encounter (Acute) Advanced care planning/counseling discussion (Acute) History of breast cancer (Acute) 2020: care at [facility] [place]- radiation completed, chemo not recommended, Exemestane to be completed May 2024 Plantar wart (Acute) Coronary artery disease (Chronic) Dizziness (Acute) Alzheimer's dementia without behavioral disturbance (Chronic) Thin nails (Acute) Hyperbilirubinemia (Chronic) NSTEMI (non-ST elevated myocardial infarction) (Acute) 07/2019- will need colo at [facility] [place] due to this Weight loss (Acute) 01/2021- weight stable at 155 Cubital tunnel syndrome on left (Acute) Left carpal tunnel syndrome (Acute) S/P L ECTR: 04/02/2021 Cardiac pacemaker (Chronic) Dual lead [employer] pacemaker Yesika XT MRI [id number] 11/08/2018 Tubular adenoma of colon (Acute 03/25/16) Hypothyroidism (Chronic 01/25/14) Medical History Alzheimer's dementia Breast cancer 2020: care at [facility] [place]- radiation completed, chemo not recommended, Exemestane to be completed May 2024 Dementia Sinus node dysfunction Gallbladder polyp Chronic diarrhea Skin lesion of neck Sent photo to Dr. Terrell. He said benign seborrheic keratosis. No bel atment. Will let her know later. Surgical History S/P placement of cardiac pacemaker Vaginal hysterectomy Colonoscopy - MAC (03/25/16) Family History Father , 84 Skin cancer Heart disease Mother , 94 Dementia Sister , 81 Dementia Heart disease Brother No problems noted. Maternal Grandfather , 79 No problems noted. Paternal Grandfather , 59 Cancer Maternal Grandmother , 58 No problems noted. Paternal Grandmother , 86 No problems noted. Daughter Diabetes S/P vascular surgery Daughter No problems noted. Social History Smoking/Tobacco Use Status: Former Tobacco Use tobacco type: cigarettes Quit Date: 03/04/98 Second Hand Exposure: Yes Smoking risk assessment performed?: Yes Alcohol Intake: never Drug use: Never Substance use type: does not use Caregiver/Support person: No Household members: spouse Housing: house Communication Needs: Hard of Hearing Do you need help understanding health information?: Rarely Pets and animals: No Sexually active: No Do you think of yourself as: straight/heterosexual Current gender identity: female What is your relationship status?: How often do you talk on the phone with friends or family?: three or more times per week Do you belong to any clubs or organized social groups?: no Panel score (0-1 are the most socially isolated patients): 2 What type of physical activity do you participate in: walking Duration: 45-60 minutes/day Frequency: 3-4 times per week Special karyn needs: No Seatbelt use: always Helmet use: No Drive intox or ride w/intox services delivery driver: No Do you feel safe at home: Yes Do you feel safe in your relationship?: Yes
[2024-07-08 19:35] LABS: BE (Venous) 7 mmol/L (-2-3); HCO3 (Venous) 31 mmol/L (23-28); O2 Sat (Venous) 40 %; TCO2 (Venous) 27 mmol/L (24-29); pCO2 (Venous) 40 mmHg (41-51); pO2 (Venous) 22 mmHg
[2024-07-08] MEDS: Lactated Ringers 500 ML IV (19:35)
[2024-07-08 19:38] LABS: Abs Immature Grans 0.06 10^3/uL (0.0-0.06); Absolute Basophil Count 0.03 10^3/uL (0.0-0.2); Absolute Eosinophil Count 0.08 10^3/uL (0.0-0.7); Absolute Lymphocyte Count 0.98 10^3/uL (1.2-3.4); Absolute Monocyte Count 1.11 10^3/uL (0.1-0.8); Absolute Neutrophil Count 7.52 10^3/uL (1.2-6.7); Basophils % 0.3 %; Eosinophils % 0.8 %; HCT 43.9 % (36.0-46.0); Immature Grans % 0.6 %; Lactate 1.7 mmol/L (<or=2.0); MCH 32.3 pg (27.0-33.0); MCHC 34.2 % (32.0-36.0); MCV 94 fL (80-95); MPV 9.9 fL (8.0-11.0); Monocytes % 11.3 %; Platelet Count 187 10^3/uL (130-400); RBC 4.65 10^6/uL (3.93-5.22); RDW 12.6 % (11.7-14.6); RDW-SD 43.8 fL; WBC 9.78 10^3/uL (4.4-10.8)
[2024-07-08 20:11] LABS: ALT 25 U/L (14-59); AST 22 U/L (15-37); Albumin 3.2 g/dL (3.4-5.0); Alkaline Phosphatase 80 U/L (46-116); Anion Gap 7.5 mmol/L (3-11); BUN 32 mg/dL (7-18); Bilirubin, Total 1.5 mg/dL (0.2-1.0); CO2 30.5 mmol/L (21.0-32.0); CREATININE 0.9 mg/dL (0.55-1.02); Calcium 10.3 mg/dL (8.5-10.1); Chloride 104 mmol/L (98-107); Estimated GFR 63.43 (mL/min/1.73m2); Glucose 126 mg/dL (74-106); Magnesium 1.9 mg/dL (1.8-2.4); NT-proBNP 461 pg/mL (<300); Potassium 3.8 mmol/L (3.5-5.1); Sodium 142 mmol/L (136-145); Total Protein 6.8 g/dL (6.4-8.2); Troponin I 9 ng/L (<or=51)
[2024-07-08 20:13] LABS: COVID-19 PCR Negative (Negative); Influenza A PCR Negative (Negative); Influenza B PCR Negative (Negative); RSV PCR Negative (Negative)
[2024-07-08 20:18] LABS: Source Nasopharynx
[2024-07-08 20:45] LABS: Troponin I 12 ng/L (<or=51)
--- NOTE | 2024-07-08 20:59 | DI.VRAD_ITS ---
PROCEDURE INFORMATION: Exam: XR Chest Exam date and time: 07/08/2024 8:24 PM Age: 83 years old Clinical indication: Other: Chest pain TECHNIQUE: Imaging protocol: Radiologic exam of the chest. Views: 1 view. COMPARISON: CR XR PORTABLE CHEST AP 07/26/2020 11:50 AM FINDINGS: Tubes, catheters and devices: Dual lead pacemaker in the expected position. Lungs: Mild hyperinflation without airspace consolidation. Pleural spaces: No pleural effusion. No pneumothorax. Heart/Mediastinum: No cardiomegaly. Bones/joints: No acute fracture. IMPRESSION: Mild hyperinflation without airspace consolidation. Dictated and Authenticated by: Kristi You MD. Orderin Robson Desai MD
[2024-07-08 21:00] LABS: Bilirubin Negative (Negative); Blood Negative (Negative); Clarity Clear (Clear); Glucose Negative (Negative); Ketones Trace mg/dL (Negative); Leukocyte Esterase Negative (Negative); Nitrite Negative (Negative); pH 6.5 (5-8)
--- NOTE | 2024-07-08 21:00 | DI.CT_ITS ---
Exam(s) CT HEAD WO EXAM: CT HEAD WO CLINICAL HISTORY: Confusion, weakness. TECHNIQUE: Imaging Protocol: Axial computed tomography images with coronal and sagittal reformatted images were created and reviewed COMPARISON: CT CT HEAD WO from 07/22/2020 FINDINGS: There are no skull fractures. There is a fluid level noted in left maxillary sinus consistent with ac [place] sinusitis. There is also some fluid evident in the sphenoid sinuses. Mastoid air cells are bernard r, as are the ethmoidal air cells. Frontal sinuses are clear. There is no evidence of intracranial hemorrhage, mass effect, or shift of midline structures. There are no extra-axial fluid collections. The ventricles are not enlarged or shifted and there is no blo od within the ventricular system nor within the basal cisterns. Small lacunar infarcts noted in left basal ganglia. IMPRESSION: Small lacunar infarcts in the left basal ganglia, age indeterminate. No territorial infarct evident. No hemorrhage. RADIATION DOSE DELIVERED: 838.87mGy.cm Total DLP DATA REPOSITORY: All CT scans at this facility are submitted to the National Radiology Data Registry (NRDR) Dose Index Registry (DIR) with the [employer] (ACR). RADIATION OPTIMIZATION: All CT scans at this facility use at least one of these dose optimization te chniques: automated exposure control; mA and/or kV adjustment per patient size (includes targeted exa ms where dose is matched to clinical indication); or iterative reconstruction.
[2024-07-08 21:04] LABS: Bacteria Negative HPF (Negative); C & S Indicated? No; Casts Negative LPF (Negative); Crystals Negative HPF (Negative); Epithelial Cells Negative HPF (Negative); Mucus Negative (Negative); Other Cells Negative (Negative); RBC Negative HPF (0-2); WBC Negative HPF (0-5)
[2024-07-08 21:55] LABS: ESR 7 mm/hr (0-30)
--- NOTE | 2024-07-08 22:14 | DI.VRAD_ITS ---
PROCEDURE INFORMATION: Exam: CT Head Without Contrast Exam date and time: 07/08/2024 10:04 PM Age: 83 years old Clinical indication: Other: Confusion, weakness TECHNIQUE: Imaging protocol: Computed tomography of the head without contrast. COMPARISON: CT HEAD WO 07/22/2020 9:40 PM FINDINGS: Brain: Atrophy and chronic appearing white matter changes. Tiny chronic appearing left deep andrews matter lacunar infarct, similar to prior. Cerebral ventricles: Ex vacuo dilation of the ventricular system. Paranasal sinuses: Minor mucosal thickening in paranasal sinuses. Scattered air-fluid levels. Mastoid air cells: No mastoid effusion. Orbital cavities: Right cataract repair. Bones: No acute fracture. Soft tissues: No suspicious lesions. IMPRESSION: 1. No acute intracranial findings. 2. Sinus disease. Dictated and Authenticated by: Kristi You MD. Orderin Robson Desai MD
[2024-07-08] MEDS: Lactated Ringers 1,000 ML 100 ML IV (22:17)
[2024-07-08 22:19] LABS: Procalcitonin < 0.10 ng/mL
--- NOTE | 2024-07-08 22:45 | HPE_ITS ---
Date of service: 07/08/24 Time of Service: 22:45 Assessment and Plan Assessment and plan (1) Weakness: Start date: 07/08/24 Status: Acute Assessment and plan: This is an 83-year-old lady with onset of generalized weakness not having her to stand alone which is new for her. She has progressive Alzheimer's disease on dual therapy and she knows she is taking medicines for her memory. She does with her . She recently treated for possible pneumonia with no imaging at that time and presents with an elevated CRP, CT of the head which showed no acute processes except for his chronic sinus disease and chest x-ray negative for acute infiltrates. Her urine was also clear. She appears to be slightly sweaty on exam as if she is mounting a low-grade fever and this will be followed. She will be initiated on IV hydration he is slightly dehydrated with decreased intake over the last several days and continue on IV antibiotic therapy possible respiratory infection including occult pneumonia or sinusitis. Will be followed up clinically. He may be able to be converted to oral therapy if blood cultures are revealing or if she manifest source of infection. Viral screens were negative. She does expect to be returned home for her but may need increased services. She is a full code. (2) Hypotension: Start date: 07/08/24 Status: Acute Assessment and plan: Patient was slightly hypotensive on patient with probable decreased intake and on antihypertensives at home. She is responding to IV fluid resuscitation which will be continued with follow-up labs. PT evaluation will be performed to assess for safety at home. Her antihypertensive therapies will be held while hospitalized. (3) Acute respiratory alkalosis: Start date: 07/08/24 Status: Acute Assessment and plan: Patient appears to be hyperventilating by her VBG this may be associate with respiratory symptoms. Follow-up clinically. Follow-up chest x-ray PA and lateral in the morning. (4) Sinusitis, acute: Start date: 07/08/24 Status: Acute Assessment and plan: Patient may have chronic versus acute sinusitis by CT scan of her head and CRP was elevated. Augmentin was given as an outpatient for 7 days and patient will be continued on Rocephin with doxycycline to cover possible respiratory infection while hospitalized. She may have failed outpatient therapy. There is no obvious source of infection by imaging other than the sinuses having air- fluid levels and clinically with her cough. She is not hypoxic. (5) Cardiac pacemaker: Status: Chronic Assessment and plan: This appears to be working well. Follow-up cardiology as scheduled. (6) Alzheimer's dementia without behavioral disturbance: Status: Chronic Assessment and plan: Patient is having advanced disease and this may be contribute to her inability to take care of herself at home with her acute illness. She does live with her and may need more assistance at home. (7) Hypothyroidism: Status: Chronic Assessment and plan: TSH was elevated and free T4 pending. Compliance may be initiated. Follow-up clinically with PCP. History of Present Illness History of Present Illness Chief Complaint: Increased weakness with inability to stand after pneumonia treatment. Narrative: This is an 83-year-old female patient with a recent history of respiratory symptoms being seen by her PCP and started on doxycycline and Augmentin for a possible pneumonia. Her states that she has finished these antibiotics but reviewing outpatient medications these antibiotics were prescribed 06/29/2024 for 7 days and thinks that they were completed. She continues to have coarse cough but is very confused and unable to give accurate history. Her also seems to be confused about her medications. She was not able to stand up going to the bathroom and had to be assisted getting off the toilet seat. She was full assist in the ED and was found to have mild dehydration with an elevated CRP but negative urine and no elevation of WBC. She did feel slightly warm but did not have a fever. Imaging of her head because of her confusion did not reveal any acute processes but possible sinusitis which may be chronic the patient is not having symptoms of sinus or face pain. He also denies any nasal drainage. She is mildly dehydrated and with IV hydration her low blood pressure did somewhat improve. She does have a pacemaker for a bradycardic rhythm. She also has a history of breast cancer which is not recurrent and she is on oral medications for suppression. She is on medication for dementia and knows that she has loss of memory but cannot give details. At the time I saw the patient she was comfortable and unable to give further history or accurate history other than she had recently moved to a new home which was stressful for her and her . She was admitted for IV hydration and following up on labs as well as initiation of IV antibiotic therapy for possible respiratory infection including sinusitis with her elevated CRP and moist cough despite negative chest x-ray. Follow-up chest x-ray PA and lateral will be done in the morning. She is a full code. Review of Systems Narrative: 13 point review of systems otherwise unrevealing or unobtainable patient confused. [facility] All Active Problems (Updated 07/08/24 @ 23:06 by Giselle Chance NP) Near syncope (Acute) Sinusitis, acute (Acute) Acute respiratory alkalosis (Acute) Hypotension (Acute) Weakness (Acute) Palliative care encounter (Acute) Advanced care planning/counseling discussion (Acute) History of breast cancer (Acute) 2020: care at [facility]- radiation completed, chemo not recommended, Exemestane to be completed May 2024 Plantar wart (Acute) Coronary artery disease (Chronic) Dizziness (Acute) Alzheimer's dementia without behavioral disturbance (Chronic) Thin nails (Acute) Hyperbilirubinemia (Chronic) NSTEMI (non-ST elevated myocardial infarction) (Acute) 07/2019- will need colo at [facility] due to this Weight loss (Acute) 01/2021- weight stable at 155 Cubital tunnel syndrome on left (Acute) Left carpal tunnel syndrome (Acute) S/P L ECTR: 04/02/2021 Cardiac pacemaker (Chronic) Dual lead Medtronic pacemaker [place] XT DR BOYCE [id number] 11/08/2018 Tubular adenoma of colon (Acute 03/25/16) Hypothyroidism (Chronic 01/25/14) Medical History Alzheimer's dementia Breast cancer 2020: care at [facility]- radiation completed, chemo not recommended, Exemestane to be completed May 2024 Dementia Sinus node dysfunction Gallbladder polyp Chronic diarrhea Skin lesion of neck Sent photo to Dr. Terrell. He said benign seborrheic keratosis. No treatment. Will let her know later. Surgical History S/P placement of cardiac pacemaker Vaginal hysterectomy Colonoscopy - MAC (03/25/16) Family History Father , 84 Skin cancer Heart disease Mother , 94 Dementia Sister , 81 Dementia Heart disease Brother No problems noted. Maternal Grandfather , 79 No problems noted. Paternal Grandfather , 59 Cancer Maternal Grandmother , 58 No problems noted. Paternal Grandmother , 86 No problems noted. Daughter Diabetes S/P vascular surgery Daughter No problems noted. Social History Smoking/Tobacco Use Status: Former Tobacco Use tobacco type: cigarettes Quit Date: 03/04/98 Second Hand Exposure: Yes Smoking risk assessment performed?: Yes Alcohol Intake: never Drug use: Never Substance use type: does not use Caregiver/Support person: No Household members: spouse Housing: house Communication Needs: Hard of Hearing Do you need help understanding health information?: Rarely Pets and animals: No Sexually active: No Do you think of yourself as: straight/heterosexual Current gender identity: female What is your relationship status?: How often do you talk on the phone with friends or family?: three or more times per week Do you belong to any clubs or organized social groups?: no Panel score (0-1 are the most socially isolated patients): 2 What type of physical activity do you participate in: walking Duration: 45-60 minutes/day Frequency: 3-4 times per week Special karyn needs: No Seatbelt use: always Helmet use: No Drive 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 Do you feel safe at home: Yes Do you feel safe in your relationship?: Yes Meds Allergies and Home Medications Allergies Allergy/AdvReac Type Severity Reaction Status Date / Time No Known Allergies Allergy Verified 07/08/24 19:16 Home Medications ?Medication ?Instructions ?Recorded ?Confirmed ?Type aspirin 81 mg chewable tablet 81 mg PO DAILY 09/16/12 07/08/24 History (Aspirin Low-Strength) artificial tears(hypromellose) 0.3 1 drp ophthalmic (eye) QID 11/07/21 07/08/24 History % eye drops lutein 20 mg capsule 20 mg PO DAILY 10/24/22 07/08/24 History levothyroxine 100 mcg capsule 100 mcg PO DAILY #90 caps 11/19/23 07/08/24 Rx atorvastatin 40 mg tablet 40 mg PO QPM #90 tabs 11/23/23 07/08/24 Rx exemestane 25 mg tablet 25 mg PO DAILY 12/08/23 07/08/24 History metoprolol succinate 50 mg 50 mg PO DAILY #90 tabs 12/08/23 07/08/24 Rx tablet,extended release 24 hr nitroglycerin 0.4 mg sublingual 0.4 mg sublingual PRN PRN chest 12/08/23 07/08/24 Rx tablet pain #60 tabs donepezil 5 mg tablet 5 mg PO QHS #90 tabs 12/09/23 07/08/24 Rx memantine 10 mg tablet 10 mg PO BID #180 tabs 12/09/23 07/08/24 Rx cholecalciferol (vitamin D3) 50 50 mcg PO DAILY 02/23/24 07/08/24 History mcg (2,000 unit) capsule benzonatate 100 mg capsule 100 mg PO TID PRN cough #14 caps 06/29/24 07/08/24 Rx doxycycline hyclate 100 mg capsule 100 mg PO BID #14 caps 06/29/24 07/08/24 Rx Exam Narrative Exam Narrative: General: Patient is appropriate for age, obese and lying comfortably in bed with her head slightly elevated at 45 degrees. She is alert and oriented at least to person and place. She is in no acute distress. HEENT: Normocephalic, course and facial features, eyes with pupils equal and reactive light symmetrically, extraocular movement intact and sclera anicteric. Oropharynx with dry mucosa and fair dentition. Neck: Supple without JVD. Back: Kyphotic without CVA tenderness. Lungs: Bronchovesicular breath sound diffusely with no focalizing rales or rhonchi but coarse cough. Chest wall has a palpable subcutaneous pacemaker over the left upper chest. Breast: Exam deferred. Heart: Regular rate and rhythm with distant heart sounds no murmurs or gallops appreciated. Abdomen: Obese contour, soft and nontender to palpation with no palpable hepatosplenomegaly. Bowel sounds positive all quadrants. Genitalia/rectal: Exam deferred. Extremities: Without clubbing, cyanosis or grossly pitting edema the patient having obese lower extremities and nonpitting edema over ankles and feet. Fair capillary refill. Osteoarthritic changes of the large joints. Skin: Pale, warm and slightly moist there is over trunk. Not diaphoretic. Neuro: Cranial nerves II through XII gross intact, no focalizing motor deficits. No tremor. Psych: Flattened affect with depressed mood, slow monotonous tone to voice. No abnormal thought processes manifested. Remote memory intact with recent memory less intact. Results Imaging Imaging Studies: Exam: CT Head Without Contrast Exam date and time: 07/08/2024 10:04 PM Age: 83 years old Clinical indication: Other: Confusion, weakness TECHNIQUE: Imaging protocol: Computed tomography of the head without contrast. COMPARISON: CT HEAD WO 07/22/2020 9:40 PM FINDINGS: Brain: Atrophy and chronic appearing white matter changes. Tiny chronic appearing left deep andrews matter lacunar infarct, similar to prior. Cerebral ventricles: Ex vacuo dilation of the ventricular system. Paranasal sinuses: Minor mucosal thickening in paranasal sinuses. Scattered air-fluid levels. Mastoid air cells: No mastoid effusion. Orbital cavities: Right cataract repair. Bones: No acute fracture. Soft tissues: No suspicious lesions. IMPRESSION: 1. No acute intracranial findings. 2. Sinus disease. Exam: XR Chest Exam date and time: 07/08/2024 8:24 PM Age: 83 years old Clinical indication: Other: Chest pain TECHNIQUE: Imaging protocol: Radiologic exam of the chest. Views: 1 view. COMPARISON: CR XR PORTABLE CHEST AP 07/26/2020 11:50 AM FINDINGS: Tubes, catheters and devices: Dual lead pacemaker in the expected position. Lungs: Mild hyperinflation without airspace consolidation. Pleural spaces: No pleural effusion. No pneumothorax. Heart/Mediastinum: No cardiomegaly. Bones/joints: No acute fracture. IMPRESSION: Mild hyperinflation without airspace consolidation. Labs 07/08/24 19:19 07/08/24 19:19 Labs: Laboratory Results - last 24 hr 07/08/24 07/08/24 07/08/24 19:19 20:19 20:20 WBC 9.78 RBC 4.65 Hgb 15.0 Hct 43.9 MCV 94 MCH 32.3 MCHC 34.2 RDW 12.6 Plt Count 187 MPV 9.9 Immature Gran % 0.6 Neutrophils % 77.0 Lymphocytes % 10.0 Monocytes % 11.3 Eosinophils % 0.8 Basophils % 0.3 Nucleated RBC % 0.0 Absolute Neutrophils 7.52 H Absolute Lymphocytes 0.98 L Absolute Monocytes 1.11 H Absolute Eosinophils 0.08 Absolute Basophils 0.03 ESR 7 VBG pH 7.50 H VBG pCO2 40 L VBG pO2 22 VBG HCO3 31 H VBG Total CO2 27 VBG O2 Saturation 40 VBG Base Excess 7 H VBG Lactate 1.7 Sodium 142 Potassium 3.8 Chloride 104 Carbon Dioxide 30.5 Anion Gap 7.5 BUN 32 H Creatinine 0.9 Est GFR (CKD-EPI 2020) 63.43 Glucose 126 H Calcium 10.3 H Magnesium 1.9 Total Bilirubin 1.5 H AST 22 ALT 25 Alkaline Phosphatase 80 Troponin I 9 12 C-Reactive Protein 11.30 H NT-Pro-B Natriuret Pep 461 H Total Protein 6.8 Albumin 3.2 L Procalcitonin < 0.10 Urine Color Yellow Urine Clarity Clear Urine pH 6.5 Ur Specific [place] 1.020 Urine Protein 30 H Urine Ketones Trace H Urine Blood Negative Urine Nitrite Negative Urine Bilirubin Negative Urine Urobilinogen 1.0 H Ur Leukocyte Esterase Negative Urine RBC Negative Urine WBC Negative Ur Epithelial Cells Negative Urine Crystals Negative Urine Bacteria Negative Urine Casts Negative Urine Mucus Negative Urine Other Negative Ur Culture Indicated? No Urine Glucose Negative COVID-19 Source Nasopharynx SARS-CoV-2 (PCR) Negative Influenza Type A (PCR) Negative Influenza Type B (PCR) Negative RSV (PCR) Negative Add-On Test Request 07/08/24 07/08/24 21:10 22:14 WBC RBC Hgb Hct MCV MCH MCHC RDW Plt Count MPV Immature Gran % Neutrophils % Lymphocytes % Monocytes % Eosinophils % Basophils % Nucleated RBC % Absolute Neutrophils Absolute Lymphocytes Absolute Monocytes Absolute Eosinophils Absolute Basophils ESR VBG pH VBG pCO2 VBG pO2 VBG HCO3 VBG Total CO2 VBG O2 Saturation VBG Base Excess VBG Lactate Sodium Potassium Chloride Carbon Dioxide Anion Gap BUN Creatinine Est GFR (CKD-EPI 2020) Glucose Calcium Magnesium Total Bilirubin AST ALT Alkaline Phosphatase Troponin I Cancelled C-Reactive Protein NT-Pro-B Natriuret Pep Total Protein Albumin Procalcitonin Urine Color Urine Clarity Urine pH Ur Specific [place] Urine Protein Urine Ketones Urine Blood Urine Nitrite Urine Bilirubin Urine Urobilinogen Ur Leukocyte Esterase Urine RBC Urine WBC Ur Epithelial Cells Urine Crystals Urine Bacteria Urine Casts Urine Mucus Urine Other Ur Culture Indicated? Urine Glucose COVID-19 Source SARS-CoV-2 (PCR) Influenza Type A (PCR) Influenza Type B (PCR) RSV (PCR) Add-On Test Request Cancelled Last Vital Signs Temp 36.6 C 07/08/24 20:31 Pulse 60 07/08/24 22:16 Resp 30 H 07/08/24 22:16 BP 82/48 L 07/08/24 22:16 Pulse Ox 95 07/08/24 22:16 Time Spent Time spent with Patient: >75 minutes Time was spent: preparing to see the patient(eg.review tests), obtaining and/or reviewing separately otained hiistory, ordering medications,tests, procedures, indepentently interpreting results and care coordination
[2024-07-08 23:56] LABS: TSH (W/Ref FT4) 8.35 uIU/mL (0.36-3.74)
[2024-07-09] VITALS (172 sets, daily range): BP systolic 75–141; BP diastolic 29–95; PULSE 56–101; RESP 13–40; TEMP 36.3–37.4; O2SAT 87–100
--- NOTE | 2024-07-09 03:28 | NUR.NOTE ---
2 liters of oxygen applied for O2 sats 88-90. pt tolerated well, o2 sats increased
[2024-07-09] MEDS: DOXYCYCLINE 100 MG in Normal Saline 100 ML IVPB ×2 (04:43→16:30)
[2024-07-09] MEDS: cefTRIAXone 1 GM/50 ML BAG IVPB (05:06)
[2024-07-09 05:42] LABS: HCT 36.2 % (36.0-46.0); HGB 12.7 g/dL (11.2-15.7); MCH 33.2 pg (27.0-33.0); MCHC 35.1 % (32.0-36.0); MCV 95 fL (80-95); MPV 9.7 fL (8.0-11.0); Platelet Count 142 10^3/uL (130-400); RBC 3.83 10^6/uL (3.93-5.22); RDW 12.7 % (11.7-14.6); WBC 8.82 10^3/uL (4.4-10.8)
[2024-07-09 05:55] LABS: ALT 15 U/L (14-59); AST 19 U/L (15-37); Albumin 2.5 g/dL (3.4-5.0); Alkaline Phosphatase 65 U/L (46-116); Anion Gap 8.7 mmol/L (3-11); BUN 29 mg/dL (7-18); Bilirubin, Total 1.3 mg/dL (0.2-1.0); CO2 28.3 mmol/L (21.0-32.0); CREATININE 0.8 mg/dL (0.55-1.02); Calcium 8.8 mg/dL (8.5-10.1); Chloride 106 mmol/L (98-107); Estimated GFR 73.06 (mL/min/1.73m2); Glucose 106 mg/dL (74-106); Magnesium 1.7 mg/dL (1.8-2.4); Potassium 3.3 mmol/L (3.5-5.1); Sodium 143 mmol/L (136-145); Total Protein 5.4 g/dL (6.4-8.2)
[2024-07-09 06:03] LABS: TSH (W/Ref FT4) 7.16 uIU/mL (0.36-3.74)
[2024-07-09] MEDS: Levothyroxine 100 MCG TAB PO (06:07)
--- NOTE | 2024-07-09 08:14 | PDOC.CMIN ---
Date of service: 07/09/24 Time of Service: 08:15 Care Management Initial Assmt Initial Assessment Reason for Hospitalization: Weakness Functional Status/Living Situation Patient Presentation: Melvina was lying in bed, visiting with her JIMY Haydee when CM met with her. Prior to this she spent several hours in the ER, as an ED hold waiting for a bed to become available. She does not have her hearing aids and it makes conversation a bit challenging. Unfortunately, she thinks she may have lost them at home. Haydee provided reassurance that she will look for them when she leave. Melvina lives in a private mobile home park in [place] with her Toni. Their daughter Concha lives in [place], and will be in [place] tomorrow afternoon. Town [place] Residence: [place] Resides with: Spouse (Toni) Significant Other/Family: Out of area (Daughter/HCA is Concha Gonzales, lives in [place]) Caregiver/Guardian: Primary caregiver is her Toni Natural Supports: Family lives nearby and visits often Employment Status: Retired Instrumental Activities of Daily Living (ADLs): Independent Medications Medication Management: Issues/Barriers (Within the last 7 days PCP noted that her reports difficulty with Medication Management) Advance Directives Advance Directives: Do you have an Advance Directive: Y 11/26/20 11:13 AD On File at [facility]: Y 11/26/20 11:13 Date Asked 05/20/24 05/20/24 14:16 AD Date Reviewed 12/01/22 12/01/22 13:41 COLST On File at [facility] COLST Date Scanned Code Status Resuscitation Status Full Code Portal Pt does not currently have a portal and education provided: Yes Insurance Coverage/Financial Issues Insurance: AARP [facility] Supplemental Medicare Part A & B Care Team Visit Care Team Role Provider Type Sami Espinal NP Primary Care Provider NURSE PRACTITIONER InPatient Michi Eagle Other Providers OTHER Giselle Chance NP Emergency Provider NURSE PRACTITIONER Aydin Sears Admit Provider NON-[facility] STAFF PHYSICIAN Attending Provider Discharge Potential Discharge Needs: PT Evaluation Patient/Family Education Needs: Review discharge instructions, discuss Ask Me Three Transportation: Private vehicle Plan: PT recommends SNF for STR. Melvina wants to discuss with her Daughter Concha, before she makes a decision. CM will follow. Social Determinants of Health Screening Will the Patient Participate in the Screening?: Declined to provide PFSH All Active Problems (Updated 07/08/24 @ 23:06 by Giselle Chance NP) Near syncope (Acute) Sinusitis, acute (Acute) Acute respiratory alkalosis (Acute) Hypotension (Acute) Weakness (Acute) Palliative care encounter (Acute) Advanced care planning/counseling discussion (Acute) History of breast cancer (Acute) 2020: care at [facility]- radiation completed, chemo not recommended, Exemestane to be completed May 2024 Plantar wart (Acute) Coronary artery disease (Chronic) Dizziness (Acute) Alzheimer's dementia without behavioral disturbance (Chronic) Thin nails (Acute) Hyperbilirubinemia (Chronic) NSTEMI (non-ST elevated myocardial infarction) (Acute) 07/2019- will need colo at [facility] due to this Weight loss (Acute) 01/2021- weight stable at 155 Cubital tunnel syndrome on left (Acute) Left carpal tunnel syndrome (Acute) S/P L ECTR: 04/02/2021 Cardiac pacemaker (Chronic) Dual lead [employer]tr[employer] pacemaker [place] XT DR BOYCE [id number] 11/08/2018 Tubular adenoma of colon (Acute 03/25/16) Hypothyroidism (Chronic 01/25/14) Medical History Alzheimer's dementia Breast cancer 2020: care at [facility]- radiation completed, chemo not recommended, Exemestane to be completed May 2024 Dementia Sinus node dysfunction Gallbladder polyp Chronic diarrhea Skin lesion of neck Sent photo to Dr. Terrell. He said benign seborrheic keratosis. No treatment. Will let her know later. Surgical History S/P placement of cardiac pacemaker Vaginal hysterectomy Colonoscopy - MAC (03/25/16) Family History Father , 84 Skin cancer Heart disease Mother , 94 Dementia Sister , 81 Dementia Heart disease Brother No problems noted. Maternal Grandfather , 79 No problems noted. Paternal Grandfather , 59 Cancer Maternal Grandmother , 58 No problems noted. Paternal Grandmother , 86 No problems noted. Daughter Diabetes S/P vascular surgery Daughter No problems noted. Social History Smoking/Tobacco Use Status: Former Tobacco Use tobacco type: cigarettes Quit Date: 03/04/98 Second Hand Exposure: Yes Smoking risk assessment performed?: Yes Alcohol Intake: never Drug use: Never Substance use type: does not use Caregiver/Support person: No Household members: spouse Housing: house Communication Needs: Hard of Hearing Do you need help understanding health information?: Rarely Pets and animals: No Sexually active: No Do you think of yourself as: straight/heterosexual Current gender identity: female What is your relationship status?: How often do you talk on the phone with friends or family?: three or more times per week Do you belong to any clubs or organized social groups?: no Panel score (0-1 are the most socially isolated patients): 2 What type of physical activity do you participate in: walking Duration: 45-60 minutes/day Frequency: 3-4 times per week Special karyn needs: No Seatbelt use: always Helmet use: No Drive intox 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
[2024-07-09] MEDS: Enoxaparin 40 MG/0.4 ML SYR SC (08:56)
[2024-07-09] MEDS: Aspirin 81 MG CHEW PO (08:57)
[2024-07-09] MEDS: Cholecalciferol (Vitamin D3) 1,000 UNIT TAB 2000 UNITS PO (08:57)
[2024-07-09] MEDS: Potassium Chloride 20 MEQ TABCR PO ×2 (08:57→19:52)
[2024-07-09] MEDS: Memantine 5 MG TAB 10 MG PO ×2 (09:11→19:53)
[2024-07-09] MEDS: Refresh PLUS Eye Drops 0.4ml 1 EACH OP ×2 (09:11→19:53)
--- NOTE | 2024-07-09 10:28 | IN_ITS ---
PT Notes Visit Reasons: Weakness, Hypotension, Respiratory alkalosis,... Inpatient Physical Therapy Evaluation Date: 07/09/24 Referring Doctor: Aydin Sears PT Orders: PT CONSULT: d/c non-PT dependent Precautions: fall, standard Patient Profile/Admitting Diagnosis: Patient is an 83-year-old female seen as acute care patient on overflow in the ED, where she's being managed for generalized weakness following recent pneumonia. She has progressive Alzheimer's disease on dual therapy. Presented to ED last night with weakness, and admitted for medical management. Social History/Home Situation: Melvina is seen with her present. They are unable to provide substantial history, providing tangental responses to questions regarding home and baseline mobility. It sounds as though they reside in a private home. Melvina uses a walker at baseline, although she and her disagree about what type of walker this might be. Unclear if Melvina requires mobility support at baseline. Equipment Owned/DME: walker (FWW vs 4WW- patient and her unsure) Subjective: Melvina states that she is beginning to feel better. States that her legs are very sore and painful, referencing anterior knee. She is agreeable to PT consult. Objective: General Observation: Resting in bed, with IV in LUE, telemetry in place, BP cuff to RUE and pulse oximetry. Mental Status: Alert throughout. Understands that she's in the hospital. Pain: bilat knees Vital Signs: monitored throughout ROM: Right Upper Extremity: Shoulder flexion 100*. Elbow and wrist WFL. Left Upper Extremity: Shoulder flexion 100*. Elbow and wrist WFL. Right Lower Extremity: Hip flexion 90* or greater. Knees 0- 90* functionally, although pain with all PROM to knees. Left Lower Extremity: Hip flexion 90* or greater. Knees 0- 90* functionally, although pain with all PROM to knees. Strength: Right Upper Extremity: Shoulder flexion 3-/5. Biceps 3+/5. Triceps 3+/5. Left Upper Extremity:Shoulder flexion 3-/5. Biceps 3+/5. Triceps 3+/5. Right Lower Extremity: quads 3-/5, DF 3+/5 Left Lower Extremity: quads 3-/5, DF 3+/5 Sensation: intact distally Bed Mobility/Transfers: supine - sit: min A x 1 sit-stand: mod A x 2 static standing with FWW, CGA x 2, calling out in pain stand-sit: min A x 2 scooting up in bed: min A x 2, max cues, head of bed depressed Gait: unable. Attempts single step, calling out in pain and relying heavily on UE support to FWW Balance: Static Sitting: fair Dynamic Sitting: poor Static Standing: fair Dynamic Standing: poor Special Tests: Mobility Limitations Standardized Measure [facility] AM-PAC 6 clicks Basic Mobility Inpatient Short Form: Raw Score: 11 Standardized Score: 33.85 CMS Score: 73% impairment Informed Consent/Education: Patient instructed in purpose of PT consult and plan of care. Initial Evaluation (79616) Assessment: Patient is an 83 year old female referred to physical therapy services with the diagnosis of weakness. Patient presents with clinical signs and symptoms consistent with diagnosis, and was unable to ambulate with assist of 2 today due to pain and LE weakness. Unclear if knee pain is a new finding or exacerbation of baseline pain. Complicating factors include underlying dementia and unclear baseline level of function. Her AM-PAC scores currently support placement to SNF for rehab, however, will continue monitoring progress as she improves medically. She currently demonstrates the following impairment level findings: 1. bilat LE weakness 2. decreased ROM bilat knees 3. unable to ambulate 4. pain with WBing Impairments are contributing to the following functional limitations: 1. unable to ambulate 2. unable to independently perform bed mobility or transfers Patient is assessed as Moderate [id number] complexity based on the following: History: 83 year old female presenting with severe weakness, with recent pneumonia, underlying dementia, and unclear baseline level of function. Examination: functional limitations as noted above Presentation: evolving due to acute medical status Decision Making: moderate Goals: Goals X1 week 1. Supine-Sit : supervision 2. Sit-Supine : supervision 3. Sit-Stand : supervision 4. Stand-Sit : supervision 5. Bed-Chair : supervision with FWW 6. Chair-Bed : supervision with FWW 7. Gait : supervision with FWW x 25' 8. Stairs : : supervision with bilat rails, 2 steps Plan of Care/Treatment Plan: 1-2x/day, 7 days/week x 1 week. Plan of care has been reviewed with the POLICY CANCELLATION CLERK providing the service under Physical Therapy direction. Initiate Physical Therapy intervention for strengthening, bed mobility, transfers, gait, stairs, balance training, use of assistive device. DISCHARGE RECOMMENDATIONS: SNF for continued rehabilitation vs Home with HHPT, based on progress as patient improves medically TREATMENT CODE/TIME: 9540-6641 ([id number]) Anjelica Corbett, PT, DPT [facility] All Active Problems (Updated 07/08/24 @ 23:06 by Giselle Chance NP) Near syncope (Acute) Sinusitis, acute (Acute) Acute respiratory alkalosis (Acute) Hypotension (Acute) Weakness (Acute) Palliative care encounter (Acute) Advanced care planning/counseling discussion (Acute) History of breast cancer (Acute) [place] [facility] [place], chemo not recommended, Exemestane to be completed May 2024 Plantar wart (Acute) Coronary artery disease (Chronic) Dizziness (Acute) Alzheimer's dementia without behavioral disturbance (Chronic) Thin nails (Acute) Hyperbilirubinemia (Chronic) NSTEMI (non-ST elevated myocardial infarction) (Acute) 07/2019- [place] [facility] [place] Weight loss (Acute) 01/2021- weight stable at 155 Cubital tunnel syndrome on left (Acute) Left carpal tunnel syndrome (Acute) S/P L ECTR: 04/02/2021 Cardiac pacemaker (Chronic) Dual lead [employer] pacemaker [place] XT DR MRI [id number] 11/08/2018 Tubular adenoma of colon (Acute 03/25/16) Hypothyroidism (Chronic 01/25/14) Medical History Alzheimer's dementia Breast cancer 2020: [place] [facility] [place], chemo not recommended, Exemestane to be completed May 2024 Dementia Sinus node dysfunction Gallbladder polyp Chronic diarrhea Skin lesion of neck Sent photo to Dr. Terrell. He said benign seborrheic keratosis. No treatment. Will let her know later. Surgical History S/P placement of cardiac pacemaker Vaginal hysterectomy Colonoscopy - MAC (03/25/16)
--- NOTE | 2024-07-09 11:17 | PHACLINREV_ITS ---
Pharmacy Admission Review Admission Clinical Review Admission Pharmacy Review: Near syncope (Acute) Sinusitis, acute (Acute) Acute respiratory alkalosis (Acute) Hypotension (Acute) Weakness (Acute) No Known Allergies Allergy (Verified 07/08/24 19:16) Resuscitation Status Full Code Height 5 ft 4 in Weight 64.3 kg Pharmacy Admission Review Renal Dosing Renal Dosing: BUN 29 mg/dL (7-18) H 07/09/24 05:32 Creatinine 0.8 mg/dL (0.55-1.02) 07/09/24 05:32 Medications needing adjustments: Reviewed (CrCl 43.27 mL/min, BUN decreased from 32) List of meds needing interventions: Current medications are okay Anticoagulation Anticoagulation: Hgb 12.7 g/dL (11.2-15.7) D 07/09/24 05:32 Hct 36.2 % (36.0-46.0) 07/09/24 05:32 Plt Count 142 10^3/uL (130-400) 07/09/24 05:32 Creatinine 0.8 mg/dL (0.55-1.02) 07/09/24 05:32 DVT Prophylaxis: Reviewed Medications: Enoxaparin (40mg daily) Relevant Labs Relevant Labs: ESR 7 mm/hr (0-30) 07/08/24 19:19 Sodium 143 mmol/L (136-145) 07/09/24 05:32 Potassium 3.3 mmol/L (3.5-5.1) L 07/09/24 05:32 Chloride 106 mmol/L (98-107) 07/09/24 05:32 Magnesium 1.7 mg/dL (1.8-2.4) L 07/09/24 05:32 C-Reactive Protein 11.30 mg/dL (<or=0.5) H 07/08/24 19:19 Electrolytes, C-Reactive P, ESR: Reviewed (K 3.3 - has order for PO 20mEq BID, Mg 1.7 - has order for PO 64mg CR BID) Cardiac Review Cardiac Review: Troponin I Cancelled 07/08/24 22:14 NT-Pro-B Natriuret Pep 461 pg/mL (<300) H 07/08/24 19:19 Blood Pressure 116/51 1015 Blood Pressure 116/45 1000 Blood Pressure 108/37 0946 Blood Pressure 110/45 0931 Blood Pressure 107/47 0916 Blood Pressure 122/46 0905 Blood Pressure 110/51 0856 Blood Pressure 84/61 0847 Blood Pressure 96/50 0831 Blood Pressure 112/29 0818 Blood Pressure 106/84 0802 BP, HR, EF%: Reviewed (HR WNL) QTc Review QTc: Reviewed (427 from 07/08/24) IV to PO Switch IV Medications: Reviewed (ceftriaxone, doxycycline and ondansetron) Home Meds Home Med List reviewed: Intervened Relevent Home Meds Not ordered & why?: metoprolol (on hold per H+P) Changed 2 orders to patients own meds (non-formulary) - exemestane and lutein. Called nurse to see if these could be brought in. Per nurse patients will bring in tomorrow. Current Meds Current Medication Order Review: Intervened Comments: Added 2nd PRN to albuterol, benzonatate and ondansetron orders per pharmacy protocol Pharmacy Antibiotic Review Relevant Labs: Relevant Labs 07/08/24 19:19 C-Reactive Protein 11.30 H Procalcitonin < 0.10 WBC 8.82 10^3/uL (4.4-10.8) 07/09/24 05:32 Procalcitonin < 0.10 ng/mL 07/08/24 19:19 Temperature 36.3 C Pharmacy Antibiotic Activity: C/S review and Reviewed, no change Comments: Patient is on ceftriaxone and doxycycline, day 1, for possible re spiratory infection. Blood cultures pending.
--- NOTE | 2024-07-09 14:50 | PGE_ITS ---
Date of Service Date of service: 07/09/24 Time of Service: 14:50 Assessment and Plan Assessment and plan (1) Weakness: Start date: 07/08/24 Status: Acute Assessment and plan: This is an 83-year-old lady with onset of generalized weakness not having her to stand alone which is new for her. She has progressive Alzheimer's disease on dual therapy and she knows she is taking medicines for her memory. She does with her . She recently treated for possible pneumonia with no imaging at that time and presents with an elevated CRP, CT of the head which showed no acute processes except for his chronic sinus disease and chest x-ray negative for acute infiltrates. Her urine was also clear. She appears to be slightly sweaty on exam as if she is mounting a low-grade fever and this will be followed. She will be initiated on IV hydration he is slightly dehydrated with decreased intake over the last several days and continue on IV antibiotic therapy possible respiratory infection including occult pneumonia or sinusitis. Will be followed up clinically. He may be able to be converted to oral therapy if blood cultures are revealing or if she manifest source of infection. Viral screens were negative. She does expect to be returned home for her but may need increased services. She is a full code. (2) Hypotension: Start date: 07/08/24 Status: Acute Assessment and plan: Patient was slightly hypotensive on patient with probable decreased intake and on antihypertensives at home. She is responding to IV fluid resuscitation which will be continued with follow-up labs. PT evaluation will be performed to assess for safety at home. Her antihypertensive therapies will be held while hospitalized. (3) Acute respiratory alkalosis: Start date: 07/08/24 Status: Acute Assessment and plan: Patient appears to be hyperventilating by her VBG this may be associate with respiratory symptoms. Follow-up clinically. Follow-up chest x-ray PA and lateral in the morning. (4) Sinusitis, acute: Start date: 07/08/24 Status: Acute Assessment and plan: Patient may have chronic versus acute sinusitis by CT scan of her head and CRP was elevated. Augmentin was given as an outpatient for 7 days and patient will be continued on Rocephin with doxycycline to cover possible respiratory infection while hospitalized. She may have failed outpatient therapy. There is no obvious source of infection by imaging other than the sinuses having air- fluid levels and clinically with her cough. She is not hypoxic. (5) Cardiac pacemaker: Status: Chronic Assessment and plan: This appears to be working well. Follow-up cardiology as scheduled. (6) Alzheimer's dementia without behavioral disturbance: Status: Chronic Assessment and plan: Patient is having advanced disease and this may be contribute to her inability to take care of herself at home with her acute illness. She does live with her and may need more assistance at home. (7) Hypothyroidism: Status: Chronic Assessment and plan: TSH was elevated and free T4 pending. Compliance may be initiated. Follow-up clinically with PCP. Subjective Subjective Interval history since last seen: PT seen and examined in the ED this am. POC d/w pt and and will d/w daughter (Concha) by phone. Pt was oriented to person, could tell time on an analog clock, could do abstract reasoning. Exam Narrative Exam Narrative: General: Patient is appropriate for age, obese and lying comfortably in bed with her head slightly elevated at 45 degrees. She is alert and oriented at least to person and place. She is in no acute distress. HEENT: Normocephalic, course and facial features, eyes with pupils equal and reactive light symmetrically, extraocular movement intact and sclera anicteric. Oropharynx with dry mucosa and fair dentition. Neck: Supple without JVD. Back: Kyphotic without CVA tenderness. Lungs: Bronchovesicular breath sound diffusely with no focalizing rales or rhon chi but coarse cough. Chest wall has a palpable subcutaneous pacemaker over the left upper chest. Breast: Exam deferred. Heart: Regular rate and rhythm with distant heart sounds no murmurs or gallops appreciated. Abdomen: Obese contour, soft and nontender to palpation with no palpable hepatosplenomegaly. Bowel sounds positive all quadrants. Genitalia/rectal: Exam deferred. Extremities: Without clubbing, cyanosis or grossly pitting edema the patient having obese lower extremities and nonpitting edema over ankles and feet. Fair capillary refill. Osteoarthritic changes of the large joints. Skin: Pale, warm and slightly moist there is over trunk. Not diaphoretic. Neuro: Cranial nerves II through XII gross intact, no focalizing motor deficits. No tremor. Psych: Flattened affect with depressed mood, slow monotonous tone to voice. No abnormal thought processes manifested. Remote memory intact with recent memory less intact. Objective Last Vital Signs Temp 36.3 C L 07/09/24 08:12 Pulse 63 07/09/24 13:45 Resp 17 07/09/24 14:00 BP 119/45 L 07/09/24 13:45 Pulse Ox 97 07/09/24 12:20 Laboratory Results - last 24 hr 07/08/24 07/08/24 07/08/24 19:19 20:19 20:20 WBC 9.78 RBC 4.65 Hgb 15.0 Hct 43.9 MCV 94 MCH 32.3 MCHC 34.2 RDW 12.6 Plt Count 187 MPV 9.9 Immature Gran % 0.6 Neutrophils % 77.0 Lymphocytes % 10.0 Monocytes % 11.3 Eosinophils % 0.8 Basophils % 0.3 Nucleated RBC % 0.0 Absolute Neutrophils 7.52 H Absolute Lymphocytes 0.98 L Absolute Monocytes 1.11 H Absolute Eosinophils 0.08 Absolute Basophils 0.03 ESR 7 VBG pH 7.50 H VBG pCO2 40 L VBG pO2 22 VBG HCO3 31 H VBG Total CO2 27 VBG O2 Saturation 40 VBG Base Excess 7 H VBG Lactate 1.7 Sodium 142 Potassium 3.8 Chloride 104 Carbon Dioxide 30.5 Anion Gap 7.5 BUN 32 H Creatinine 0.9 Est GFR (CKD-EPI 2020) 63.43 Glucose 126 H Calcium 10.3 H Magnesium 1.9 Total Bilirubin 1.5 H AST 22 ALT 25 Alkaline Phosphatase 80 Troponin I 9 12 C-Reactive Protein 11.30 H NT-Pro-B Natriuret Pep 461 H Total Protein 6.8 Albumin 3.2 L Procalcitonin < 0.10 TSH 8.35 H Urine Color Yellow Urine Clarity Clear Urine pH 6.5 Ur Specific [place] 1.020 Urine Protein 30 H Urine Ketones Trace H Urine Blood Negative Urine Nitrite Negative Urine Bilirubin Negative Urine Urobilinogen 1.0 H Ur Leukocyte Esterase Negative Urine RBC Negative Urine WBC Negative Ur Epithelial Cells Negative Urine Crystals Negative Urine Bacteria Negative Urine Casts Negative Urine Mucus Negative Urine Other Negative Ur Culture Indicated? No Urine Glucose Negative COVID-19 Source Nasopharynx SARS-CoV-2 (PCR) Negative Influenza Type A (PCR) Negative Influenza Type B (PCR) Negative RSV (PCR) Negative Add-On Test Request 07/08/24 07/08/24 07/09/24 21:10 22:14 05:32 WBC 8.82 RBC 3.83 L Hgb 12.7 D Hct 36.2 MCV 95 MCH 33.2 H MCHC 35.1 RDW 12.7 Plt Count 142 MPV 9.7 Immature Gran % Neutrophils % Lymphocytes % Monocytes % Eosinophils % Basophils % Nucleated RBC % Absolute Neutrophils Absolute Lymphocytes Absolute Monocytes Absolute Eosinophils Absolute Basophils ESR VBG pH VBG pCO2 VBG pO2 VBG HCO3 VBG Total CO2 VBG O2 Saturation VBG Base Excess VBG Lactate Sodium 143 Potassium 3.3 L Chloride 106 Carbon Dioxide 28.3 Anion Gap 8.7 BUN 29 H Creatinine 0.8 Est GFR (CKD-EPI 2020) 73.06 Glucose 106 Calcium 8.8 Magnesium 1.7 L Total Bilirubin 1.3 H AST 19 ALT 15 Alkaline Phosphatase 65 Troponin I Cancelled C-Reactive Protein NT-Pro-B Natriuret Pep Total Protein 5.4 L Albumin 2.5 L Procalcitonin TSH 7.16 H Urine Color Urine Clarity Urine pH Ur Specific [place] Urine Protein Urine Ketones Urine Blood Urine Nitrite Urine Bilirubin Urine Urobilinogen Ur Leukocyte Esterase Urine RBC Urine WBC Ur Epithelial Cells Urine Crystals Urine Bacteria Urine Casts Urine Mucus Urine Other Ur Culture Indicated? Urine Glucose COVID-19 Source SARS-CoV-2 (PCR) Influenza Type A (PCR) Influenza Type B (PCR) RSV (PCR) Add-On Test Request Cancelled Time Spent with Patient Time Spent with Patient: 25-34 minutes Time was spent: preparing to see the patient(eg.review tests), obtaining and/or reviewing separately otained hiistory, ordering medications,tests, procedures, referring, communicating with other health career development consultant, indepentently interpreting results, counseling the patient and care coordination
[2024-07-09] MEDS: Atorvastatin 40 MG TAB PO (19:52)
[2024-07-09] MEDS: Donepezil 5 MG TAB PO (19:52)
[2024-07-09] MEDS: Acetaminophen 325 MG TAB 650 MG PO (19:52)
[2024-07-09] MEDS: Magnesium Chloride 64 MG TABCR PO (19:52)
[2024-07-09] MEDS: Docusate Sodium 100 MG CAP PO (19:52)
[2024-07-09] MEDS: Benzonatate 100 MG CAP PO (19:52)
[2024-07-09] MEDS: Polyethylene Glycol 3350 17 GM PACKET PO (19:53)
[2024-07-09 22:18] LABS: T4, Free 1.6 ng/dL (0.8-2.2)
[2024-07-10] MEDS: DOXYCYCLINE 100 MG in Normal Saline 100 ML IVPB ×2 (04:46→15:46)
[2024-07-10] MEDS: cefTRIAXone 1 GM/50 ML BAG IVPB (06:02)
[2024-07-10 06:59] LABS: Abs Immature Grans 0.06 10^3/uL (0.0-0.06); Absolute Basophil Count 0.04 10^3/uL (0.0-0.2); Absolute Eosinophil Count 0.16 10^3/uL (0.0-0.7); Absolute Lymphocyte Count 0.89 10^3/uL (1.2-3.4); Absolute Monocyte Count 0.94 10^3/uL (0.1-0.8); Absolute Neutrophil Count 6.48 10^3/uL (1.2-6.7); Basophils % 0.5 %; Eosinophils % 1.9 %; HGB 11.7 g/dL (11.2-15.7); Immature Grans % 0.7 %; Lymphocytes % 10.4 %; MCH 32.6 pg (27.0-33.0); MCHC 34.4 % (32.0-36.0); MCV 95 fL (80-95); Neutrophils % 75.5 %; Platelet Count 131 10^3/uL (130-400); RBC 3.59 10^6/uL (3.93-5.22); RDW 12.6 % (11.7-14.6); RDW-SD 44.4 fL; WBC 8.57 10^3/uL (4.4-10.8)
[2024-07-10 07:12] LABS: Magnesium 1.7 mg/dL (1.8-2.4)
[2024-07-10 07:16] LABS: ALT 28 U/L (14-59); AST 24 U/L (15-37); Albumin 2.2 g/dL (3.4-5.0); Alkaline Phosphatase 72 U/L (46-116); Anion Gap 5.5 mmol/L (3-11); BUN 25 mg/dL (7-18); Bilirubin, Total 0.9 mg/dL (0.2-1.0); CO2 28.5 mmol/L (21.0-32.0); CREATININE 0.6 mg/dL (0.55-1.02); Calcium 8.9 mg/dL (8.5-10.1); Chloride 107 mmol/L (98-107); Estimated GFR 89.01 (mL/min/1.73m2); Glucose 122 mg/dL (74-106); Potassium 3.6 mmol/L (3.5-5.1); Sodium 141 mmol/L (136-145); Total Protein 5.1 g/dL (6.4-8.2)
--- NOTE | 2024-07-10 07:23 | W.PC.ACHO ---
Registration Status: Primary Language: Preferred Language: ED Information & Data Chief Complaint RespSymp 07/08/24 19:17 Triage Note Patient presented by ems 07/08/24 19:07 with history of unable to get up off the tiolet. Coughing and perfound weakness, AMS. patient cannot report how long she has been feeling sick. Medical / Surgical History (Last Reviewed 07/08/24 @ 22:46 by Aydin Sears) Alzheimer's dementia Breast cancer Dementia Sinus node dysfunction Gallbladder polyp Chronic diarrhea Skin lesion of neck (Last Reviewed 07/08/24 @ 22:46 by Aydin Sears) S/P placement of cardiac pacemaker Vaginal hysterectomy Colonoscopy - MAC (03/25/16) Most Recent Vital Signs Temperature 36.5 C 07/09/24 23:53 Temperature Source Tympanic 07/09/24 23:53 Pulse 68 07/09/24 23:53 Pulse Rhythm Regular 07/09/24 17:13 Pulse 66 07/09/24 16:20 Respiratory Rate 18 07/09/24 23:53 Respiratory Effort Normal 07/09/24 17:13 Respiratory Depth Normal 07/09/24 08:12 Respiratory Pattern Normal 07/09/24 17:13 Blood Pressure 114/58 L 07/09/24 23:53 Blood Pressure Mean 70 07/09/24 16:16 Pulse Oximetry 93 07/09/24 23:53 Oxygen Delivery Method Room Air 07/09/24 23:53 Oxygen Flow Rate 0 07/09/24 23:53 Pain Level 0 07/09/24 23:53 Allergies No Known Allergies Allergy (Verified 07/08/24 19:16) Precautions Isolation PUI 07/08/24 19:15 Active Medications Generic Name Dose Route Start Last Admin Trade Name Freq PRN Reason Stop Dose Admin Acetaminophen 650 mg 07/09/24 04:25 07/09/24 19:52 Acetaminophen 325 Mg Tab PO 650 mg Q4H PRN PRN Administration Aspirin 81 mg 07/09/24 08:30 07/09/24 08:57 Aspirin 81 Mg Chew PO 81 mg DAILY AMELIA Administration Atorvastatin Calcium 40 mg 07/09/24 20:00 07/09/24 19:52 Atorvastatin 40 Mg Tab PO 40 mg QPM AMELIA Administration Benzonatate 100 mg 07/09/24 07:19 07/09/24 19:52 Benzonatate 100 Mg Cap PO 100 mg TID PRN PRN Administration cough Carboxymethylcellulose Sodium 1 each 07/09/24 08:30 07/09/24 20:03 Refresh Plus Eye Drops 0.4ml OP Not Given QID AMELIA Cholecalciferol 2,000 units 07/09/24 08:30 07/09/24 08:57 Cholecalciferol (Vitamin D3) 1,000 Unit Tab PO 2,000 units DAILY AMELIA Administration Docusate Sodium 100 mg 07/09/24 04:25 07/09/24 19:52 Docusate Sodium 100 Mg Cap PO 100 mg TID PRN PRN Administration Donepezil HCl 5 mg 07/09/24 20:00 07/09/24 19:52 Donepezil 5 Mg Tab PO 5 mg HS AMELIA Administration Enoxaparin Sodium 40 mg 07/09/24 08:30 07/09/24 08:56 Enoxaparin 40 Mg/0.4 Ml Syr SC 40 mg Q24H AMELIA Administration Ceftriaxone Sodium/Dextrose 1 gm in 50 mls @ 100 mls/hr 07/09/24 06:00 07/10/24 06:02 Rocephin IVPB 100 mls/hr Q24H AMELIA Administration Doxycycline Hyclate 100 mg/ 100 mls @ 100 mls/hr 07/09/24 16:00 07/10/24 05:56 Sodium Chloride IVPB Infused Q12H AMELIA Infusion Levothyroxine Sodium 100 mcg 07/09/24 06:00 07/10/24 06:18 Levothyroxine 100 Mcg Tab PO Not Given 0600 [facility] Magnesium Chloride 64 mg 07/09/24 08:30 07/09/24 20:01 Magnesium Chloride 64 Mg Tabcr PO Not Given BID AMELIA Memantine 10 mg 07/09/24 08:30 07/09/24 19:53 Memantine 5 Mg Tab PO 10 mg BID AMELIA Administration Pt's Own Exemestane 1 each 07/09/24 08:30 07/09/24 20:00 25 Mg Tablet PO Not Given DAILY AMELIA Pt's Own Lutein 20 1 each 07/09/24 08:30 07/09/24 20:00 Mg Capsule PO Not Given DAILY [facility] Polyethylene Glycol 17 gm 07/09/24 04:25 07/09/24 19:53 Polyethylene Glycol 3350 17 Gm Packet PO 17 gm DAILY PRN PRN Administration Constipation Potassium Chloride 20 meq 07/09/24 08:30 07/09/24 19:52 Potassium Chloride 20 Meq Tabcr PO 20 meq BID AMELIA Administration Sodium Chloride 0 ml 07/08/24 20:00 07/09/24 20:03 Normal Saline Flush 10 Ml Syr IVP Not Given BID AMELIA IV IV Catheter Type [Right Peripheral IV Forearm] IV Catheter Type [Right Hand] Peripheral IV IV Catheter Type [Left Wrist] Diffusics IV Catheter Type [Left Peripheral IV Antecubital] IV Catheter Gauge [Right 22 Forearm] IV Catheter Gauge [Right Hand] 22 IV Catheter Gauge [Left Wrist] 20 IV Catheter Gauge [Left 18 Antecubital] Diagnostics 07/10/24 07/10/24 Range/Units 06:40 05:35 WBC 8.57 (4.4-10.8) 10^3/uL RBC 3.59 L (3.93-5.22) 10^6/uL Hgb 11.7 (11.2-15.7) g/dL Hct 34.0 L (36.0-46.0) % MCV 95 (80-95) fL MCH 32.6 (27.0-33.0) pg MCHC 34.4 (32.0-36.0) % RDW 12.6 (11.7-14.6) % Plt Count 131 (130-400) 10^3/uL MPV 10.0 (8.0-11.0) fL Immature Gran % 0.7 % Neutrophils % 75.5 % Lymphocytes % 10.4 % Monocytes % 11.0 % Eosinophils % 1.9 % Basophils % 0.5 % Nucleated RBC % 0.0 (0.0-0.3) % Absolute Neutrophils 6.48 (1.2-6.7) 10^3/uL Absolute Lymphocytes 0.89 L (1.2-3.4) 10^3/uL Absolute Monocytes 0.94 H (0.1-0.8) 10^3/uL Absolute Eosinophils 0.16 (0.0-0.7) 10^3/uL Absolute Basophils 0.04 (0.0-0.2) 10^3/uL Sodium 141 (136-145) mmol/L Potassium 3.6 (3.5-5.1) mmol/L Chloride 107 (98-107) mmol/L Carbon Dioxide 28.5 (21.0-32.0) mmol/L Anion Gap 5.5 (3-11) mmol/L BUN 25 H (7-18) mg/dL Creatinine 0.6 (0.55-1.02) mg/dL Est GFR (CKD-EPI 2020) 89.01 (mL/min/1.73m2) Glucose 122 H (74-106) mg/dL Calcium 8.9 (8.5-10.1) mg/dL Magnesium 1.7 L (1.8-2.4) mg/dL Total Bilirubin 0.9 (0.2-1.0) mg/dL AST 24 (15-37) U/L ALT 28 (14-59) U/L Alkaline Phosphatase 72 (46-116) U/L Total Protein 5.1 L (6.4-8.2) g/dL Albumin 2.2 L (3.4-5.0) g/dL 07/08/24 20:05 Blood Culture - Preliminary Blood NO GROWTH 24 HOURS 07/08/24 19:19 Blood Culture - Preliminary Blood NO GROWTH 24 HOURS Intake and Output - 24 Hour Total 07/08/24 18:59 thru 07/10/24 05:56 Intake Total 1850 Output Total 400 Balance 1450 Weight 64.3 kg Intake: IV 1850 Output: Urine 400 Other: Urine Color Dark Margarita Brown Urine Odor Strong Comment used bedpan, strong odor. Falls Risk Assessment History of Falls No History 07/09/24 17:13 Contributing Factors Confusion 07/09/24 17:13 Ambulatory Aids Uses ambulatory device 07/09/24 17:13 Tubes/Lines W/no contributing factors 07/09/24 17:13 Gait Evaluation W/no contributing factors 07/09/24 17:13 Cognition Cognitive impairment 07/09/24 17:13 Fall Total Score 53 07/09/24 17:13 Level of Risk High Risk 07/09/24 17:13 Problems (Last Reviewed 07/08/24 @ 22:46 by Aydin Sears) Near syncope (Acute) Sinusitis, acute (Acute) Acute respiratory alkalosis (Acute) Hypotension (Acute) Weakness (Acute) Alzheimer's dementia without behavioral disturbance (Chronic) Cardiac pacemaker (Chronic) Hypothyroidism (Chronic 01/25/14) Notes 07/09/24 03:28 Nursing Notes by Feli Gomez 2 liters of oxygen applied for O2 sats 88-90. pt tolerated well, o2 sats increased Initialized on 07/09/24 03:28 - END OF NOTE v v v v v v v v v Sending and/or Receiving Nurses: Please use comment section below to note any information pertinent to the patient hand-off not included above. Information / Comments: Pt. received via stretcher from ED d/t profound weakness. C/o sharp right knee pain with range of motion. Negative of viral cultures. Report received from: Ivonne of ED @ 17:50 07/09/24pm
[2024-07-10 08:10] VITALS: BP 118/66; PULSE 60; RESP 16; TEMP 36.1; O2SAT 97
[2024-07-10] MEDS: Cholecalciferol (Vitamin D3) 1,000 UNIT TAB 2000 UNITS PO (08:18)
[2024-07-10] MEDS: Magnesium Chloride 64 MG TABCR PO ×2 (08:19→20:53)
[2024-07-10] MEDS: Aspirin 81 MG CHEW PO (08:19)
[2024-07-10] MEDS: Acetaminophen 325 MG TAB 650 MG PO ×3 (08:19→20:54)
[2024-07-10] MEDS: Potassium Chloride 20 MEQ TABCR PO (08:19)
[2024-07-10] MEDS: Memantine 5 MG TAB 10 MG PO ×2 (08:19→20:53)
[2024-07-10] MEDS: Refresh PLUS Eye Drops 0.4ml 1 EACH OP ×4 (08:20→20:53)
[2024-07-10] MEDS: Enoxaparin 40 MG/0.4 ML SYR SC (08:20)
[2024-07-10] MEDS: Normal Saline Flush 10 ML SYR IVP ×3 (08:41→15:47)
--- NOTE | 2024-07-10 10:42 | PTTR_ITS ---
PT Notes Visit Reasons: Weakness, Hypotension, Respiratory alkalosis,... Inpatient Physical Therapy Treatment Note [facility] Date: 07/10/24 PRECAUTIONS:fall, standard SUBJECTIVE: Bj states that she was able to stand and turn to sit in the chair with nursing this morning. Her right knee continues to bother her, and she states that that has been true for a long time. OBJECTIVE: ? PAIN: right knee VITALS: Restin/57, HR 63, SaO2 96% on room air After standing exercises: 129/67, HR 75, SaO2 97% ? Therapeutic Exercises (75314e5): Direct one-on-one instruction in therapeutic exercises to develop strength, endurance, range of motion and flexibility. ?BED MOBILITY/TRANSFERS? Sit-stand: CGA? and max cues? Stand-sit: CGA and max cues ? Bed-Chair: CGA with FWW ? Chair-bed: CGA with FWW? GAIT? Assistive Device: FWW? Weight bearing: WBAT Assist: CGA ? Distance:? 10' ? Deviation: slow, cautious gait with heavy reliance on UE support to FWW. Very apprehensive during ambulation, and requires encouragement throughout. ? Mild LONGORIA; patient requests to sit due to trouble breathing. SaO2 96% post- ambulation, breathing quickly recovered with sitting rest. ? Instructed in the following exercises: Ankle pumps 10x Quad sets 10x, max cues HR standing at FWW, CGA 10x standing march 10x? Provided skilled instruction in proper exercise performance Provided skilled manual cues to facilitate proper muscle recruitment and/or form ASSESSMENT:? Able to tolerate short distance ambulation with CGA and FWW only, but with significant apprehension and fatigue. PLAN: Continue strengthening efforts and progressive ambulation for improved activity tolerance. Will require SNF placement for continued strengthening and improvements in safety and activity tolerance. TREATMENT CODE/TIME: 3432-4925 ([id number]) DISCHARGE RECOMMENDATION: SNF
[2024-07-10 11:16] VITALS: BP 120/59; PULSE 62; RESP 20; TEMP 36.2; O2SAT 98
--- NOTE | 2024-07-10 12:41 | W.PM.PROGNOT ---
Date of Service Date of service: 07/10/24 Time of Service: 12:41 Assessment and Plan Assessment and plan (1) Weakness: Start date: 07/08/24 Status: Acute Assessment and plan: This is an 83-year-old lady with onset of generalized weakness not having her to stand alone which is new for her. She has progressive Alzheimer's disease on dual therapy and she knows she is taking medicines for her memory. She does with her . She recently treated for possible pneumonia with no imaging at that time and presents with an elevated CRP, CT of the head which showed no acute processes except for his chronic sinus disease and chest x-ray negative for acute infiltrates. Her urine was also clear. She appears to be slightly sweaty on exam as if she is mounting a low-grade fever and this will be followed. She will be initiated on IV hydration he is slightly dehydrated with decreased intake over the last several days and continue on IV antibiotic therapy possible respiratory infection including occult pneumonia or sinusitis. Will be followed up clinically. He may be able to be converted to oral therapy if blood cultures are revealing or if she manifest source of infection. Viral screens were negative. She does expect to be returned home for her but may need increased services. She is a full code. 07/10/24 Urine indices showed mild improvements. GFR improved from 73 to 89 over the last 24 hours. On LR at 80cc/hr (2) Hypotension: Start date: 07/08/24 Status: Acute Assessment and plan: Patient was slightly hypotensive on patient with probable decreased intake and on antihypertensives at home. She is responding to IV fluid resuscitation which will be continued with follow-up labs. PT evaluation will be performed to assess for safety at home. Her antihypertensive therapies will be held while hospitalized. 12/10/24 Pt's BP is currently 120/59. Pt does take metoprolol succinate ER 50 qday at home. (3) Acute respiratory alkalosis: Start date: 07/08/24 Status: Acute Assessment and plan: Patient appears to be hyperventilating by her VBG this may be associate with respiratory symptoms. Follow-up clinically. Follow-up chest x-ray PA and lateral in the morning. (4) Sinusitis, acute: Start date: 07/08/24 Status: Acute Assessment and plan: Patient may have chronic versus acute sinusitis by CT scan of her head and CRP was elevated. Augmentin was given as an outpatient for 7 days and patient will be continued on Rocephin with doxycycline to cover possible respiratory infection while hospitalized. She may have failed outpatient therapy. There is no obvious source of infection by imaging other than the sinuses having air-fluid levels and clinically with her cough. She is not hypoxic. 07/10/24 Pt is currently on rocephin and doxy after completing a course of abx in the outpatient setting (augmentin?). Blood cultures pending exam(s) XR PORTABLE CHEST AP EXAM: XR PORTABLE CHEST AP CLINICAL HISTORY: Chest pain. TECHNIQUE: 2D digital imaging was performed. COMPARISON: CR XR PORTABLE CHEST AP from 07/26/2020 FINDINGS: Single AP portable view. Bipolar left subclavian pacemaker again noted with lead tips in RA and RV. Heart size is upper normal. The mediastinum is not widened. No infiltrates nor pleural effusions. No pulmonary edema. IMPRESSION: No acute pulmonary findings on this single AP portable view of the chest. (5) Cardiac pacemaker: Status: Chronic Assessment and plan: This appears to be working well. Follow-up cardiology as scheduled. (6) Alzheimer's dementia without behavioral disturbance: Status: Chronic Assessment and plan: Patient is having advanced disease and this may be contribute to her inability to take care of herself at home with her acute illness. She does live with her and may need more assistance at home. (7) Hypothyroidism: Status: Chronic Assessment and plan: TSH was elevated and free T4 pending. Compliance may be initiated. Follow-up clinically with PCP. TSH was 7.16 awaiting FT4 Subjective Subjective Interval history since last seen: Pt seen and examined in her room this am. POC d/w pt as well as bed side nursing staff. Pt did suffer a fall and a call was placed to Dr Celestin as well. Exam Narrative Exam Narrative: HEENT-NCAT MMM EOMI PERRLA NECK-NO LAD NO JVD CV-RRR NO MRG PULM-CTAB NO AMU [id number]-[id number] Objective Last Vital Signs Temp 36.2 C L 07/10/24 11:16 Pulse 62 07/10/24 11:16 Resp 20 07/10/24 11:16 BP 120/59 L 07/10/24 11:16 Pulse Ox 98 07/10/24 11:16 Laboratory Results - last 24 hr 07/08/24 07/10/24 07/10/24 19:19 05:35 06:40 WBC 8.57 RBC 3.59 L Hgb 11.7 Hct 34.0 L MCV 95 MCH 32.6 MCHC 34.4 RDW 12.6 Plt Count 131 MPV 10.0 Immature Gran % 0.7 Neutrophils % 75.5 Lymphocytes % 10.4 Monocytes % 11.0 Eosinophils % 1.9 Basophils % 0.5 Nucleated RBC % 0.0 Absolute Neutrophils 6.48 Absolute Lymphocytes 0.89 L Absolute Monocytes 0.94 H Absolute Eosinophils 0.16 Absolute Basophils 0.04 Sodium 141 Potassium 3.6 Chloride 107 Carbon Dioxide 28.5 Anion Gap 5.5 BUN 25 H Creatinine 0.6 Est GFR (CKD-EPI 2020) 89.01 Glucose 122 H Calcium 8.9 Magnesium 1.7 L Total Bilirubin 0.9 AST 24 ALT 28 Alkaline Phosphatase 72 Total Protein 5.1 L Albumin 2.2 L Free T4 1.6 Time Spent with Patient Time Spent with Patient: 25-34 minutes Time was spent: preparing to see the patient(eg.review tests), obtaining and/or reviewing separately otained hiistory, ordering medications,tests, procedures, referring, communicating with other health health care coordinator, indepentently interpreting results, counseling the patient and care coordination
[2024-07-10] MEDS: Lactated Ringers 1,000 ML 80 ML IV (13:10)
--- NOTE | 2024-07-10 14:40 | PT.INTREAT ---
PT Notes Visit Reasons: Weakness, Hypotension, Respiratory alkalosis,... Inpatient Physical Therapy Treatment Note [facility] Date: 07/10/24 (pm session) PRECAUTIONS:fall, standard SUBJECTIVE: Bj states that she is feeling tired, but agreeable to some walking. OBJECTIVE: ? PAIN: right knee ? Therapeutic Exercises (07621n1): Direct one-on-one instruction in therapeutic exercises to develop strength, endurance, range of motion and flexibility. ?BED MOBILITY/TRANSFERS? Sit-stand: CGA? and max cues? Stand-sit: CGA and max cues ? Bed-Chair: CGA with FWW ? Chair-bed: CGA with FWW? GAIT? Assistive Device: FWW? Weight bearing: WBAT Assist: CGA ? Distance:? 30' ? Deviation: slow, cautious gait with heavy reliance on UE support to FWW. ? Instructed in the following exercises: Ankle pumps 10x seated march 10x LAQ 10x2 Provided skilled instruction in proper exercise performance Provided skilled manual cues to facilitate proper muscle recruitment and/or form ASSESSMENT:? Improved tolerance to ambulation in room, improving to 30' with FWW and CGA. PLAN: Continue strengthening efforts and progressive ambulation for improved activity tolerance. Will require SNF placement for continued strengthening and improvements in safety and activity tolerance. TREATMENT CODE/TIME: [id number](11211u4) DISCHARGE RECOMMENDATION: SNF
[2024-07-10 15:18] VITALS: BP 111/60; PULSE 69; RESP 16; TEMP 36.8; O2SAT 98
[2024-07-10 19:52] VITALS: BP 105/50; PULSE 66; RESP 18; TEMP 36.1; O2SAT 96
[2024-07-10] MEDS: Docusate Sodium 100 MG CAP PO (20:53)
[2024-07-10] MEDS: Potassium Chloride Liquid 20 MEQ PKT PO (20:53)
[2024-07-10] MEDS: Donepezil 5 MG TAB PO (20:54)
[2024-07-10] MEDS: Atorvastatin 40 MG TAB PO (20:54)
[2024-07-11] MEDS: DOXYCYCLINE 100 MG in Normal Saline 100 ML IVPB (03:16)
[2024-07-11] MEDS: Lactated Ringers 1,000 ML 80 ML IV (03:17)
[2024-07-11 04:42] VITALS: BP 140/66; PULSE 64; RESP 18; TEMP 36; O2SAT 96
[2024-07-11] MEDS: cefTRIAXone 1 GM/50 ML BAG IVPB (05:40)
[2024-07-11 06:42] VITALS: BP 121/64; PULSE 66; RESP 16; TEMP 36.5; O2SAT 99
[2024-07-11 07:01] LABS: Abs Immature Grans 0.04 10^3/uL (0.0-0.06); Absolute Basophil Count 0.04 10^3/uL (0.0-0.2); Absolute Eosinophil Count 0.38 10^3/uL (0.0-0.7); Absolute Lymphocyte Count 1.18 10^3/uL (1.2-3.4); Absolute Monocyte Count 0.62 10^3/uL (0.1-0.8); Absolute Neutrophil Count 4.49 10^3/uL (1.2-6.7); Basophils % 0.6 %; Eosinophils % 5.6 %; HCT 35.4 % (36.0-46.0); HGB 12.2 g/dL (11.2-15.7); Immature Grans % 0.6 %; Lymphocytes % 17.5 %; MCH 32.6 pg (27.0-33.0); MCHC 34.5 % (32.0-36.0); MCV 95 fL (80-95); MPV 10.1 fL (8.0-11.0); Monocytes % 9.2 %; Neutrophils % 66.5 %; Platelet Count 155 10^3/uL (130-400); RBC 3.74 10^6/uL (3.93-5.22); RDW 12.5 % (11.7-14.6); RDW-SD 43.7 fL; WBC 6.75 10^3/uL (4.4-10.8)
[2024-07-11 07:33] LABS: ALT 38 U/L (14-59); AST 32 U/L (15-37); Albumin 2.1 g/dL (3.4-5.0); Alkaline Phosphatase 83 U/L (46-116); Anion Gap 5.2 mmol/L (3-11); BUN 23 mg/dL (7-18); Bilirubin, Total 0.6 mg/dL (0.2-1.0); C-Reactive Protein 8.46 mg/dL (<or=0.5); CO2 28.8 mmol/L (21.0-32.0); CREATININE 0.7 mg/dL (0.55-1.02); Calcium 8.7 mg/dL (8.5-10.1); Chloride 108 mmol/L (98-107); Estimated GFR 85.76 (mL/min/1.73m2); Glucose 96 mg/dL (74-106); Potassium 3.6 mmol/L (3.5-5.1); Sodium 142 mmol/L (136-145); Total Protein 5.2 g/dL (6.4-8.2); Uric Acid 2.1 mg/dL (2.6-6.0)
[2024-07-11 07:39] LABS: Magnesium 1.8 mg/dL (1.8-2.4)
--- NOTE | 2024-07-11 08:30 | DI.RAD_ITS ---
Exam(s) XR KNEE RT 2V AP,LAT EXAM: XR KNEE RT 2V AP,LAT CLINICAL HISTORY: pain. TECHNIQUE: 2D digital imaging was performed of the right knee. Two views obtained. AP and lateral views were obtained. COMPARISON: CR RIGHT KNEE 3 VIEWS from 03/04/2013 FINDINGS: BONES: No acute fracture is present. No bony destructive lesion is seen. There is an enthesophyte at the superior patella. JOINTS: 3 compartment degenerative changes are seen characterized by varying degrees of joint space n arrowing and osteophytes. There is a moderate size joint effusion. There is chondrocalcinosis in th e femoral tibial joint. SOFT TISSUE: Vascular calcifications are present. There is edema seen in the soft tissues around the knee particularly laterally. No radiopaque foreign bodies are seen. IMPRESSION: Moderate degenerative changes in the right knee. Moderate joint effusion. DATA REPOSITORY: RADIATION DOSE DELIVERED:
[2024-07-11] MEDS: Memantine 5 MG TAB 10 MG PO (09:17)
[2024-07-11] MEDS: Aspirin 81 MG CHEW PO (09:17)
[2024-07-11] MEDS: Cholecalciferol (Vitamin D3) 1,000 UNIT TAB 2000 UNITS PO (09:18)
[2024-07-11] MEDS: Acetaminophen 325 MG TAB 650 MG PO (09:18)
[2024-07-11] MEDS: Magnesium Chloride 64 MG TABCR PO (09:18)
[2024-07-11] MEDS: Enoxaparin 40 MG/0.4 ML SYR SC (09:19)
[2024-07-11] MEDS: Normal Saline Flush 10 ML SYR IVP (09:20)
[2024-07-11] MEDS: Potassium Chloride Liquid 20 MEQ PKT PO (09:20)
[2024-07-11] MEDS: Refresh PLUS Eye Drops 0.4ml 1 EACH OP ×2 (09:20→13:03)
--- NOTE | 2024-07-11 10:55 | W.PM.PROGNOT ---
Date of Service Date of service: 07/11/24 Time of Service: 10:55 Assessment and Plan Assessment and plan (1) Weakness: Start date: 07/08/24 Status: Acute Assessment and plan: -unknown cause, though patient does have history of dementia -may be seondary to PNA and UTI (see below) -worked with PT who rec SNF, Care Management to discuss with patients daughter (2) CAP (community acquired pneumonia): Status: Acute Assessment and plan: -was recently treated as outpatient, though may have failed therapy -however, CXR without infiltrates, no leukocytosis and no oxygen requirement -was on CTX and doxy, now on cefpodoxime and PO doxy for an additional 3 days (3) Hypotension: Start date: 07/08/24 Status: Acute Assessment and plan: -Patient was slightly hypotensive in the ED, may have been seoncdary to poor PO intake and improve s/p IV fluids -home antihypertensives have been restarted and BPs have been stable (4) Sinusitis, acute: Start date: 07/08/24 Status: Acute Assessment and plan: -Patient may have chronic versus acute sinusitis by CT scan of her head and CRP was elevated. -Augmentin was given as an outpatient for 7 days and patient will be continued on Rocephin with doxycycline to cover possible respiratory infection while hospitalized. -She may have failed outpatient therapy. -There is no obvious source of infection by imaging other than the sinuses having air-fluid levels and clinically with her cough. -was on rocephin and doxy, now on PO doxy and cefpodoxime (5) Cardiac pacemaker: Status: Chronic Assessment and plan: This appears to be working well. Follow-up cardiology as scheduled. (6) Alzheimer's dementia without behavioral disturbance: Status: Chronic Assessment and plan: -Patient is having advanced disease and this may be contribute to her inability to take care of herself at home with her acute illness. (7) Hypothyroidism: Status: Chronic Assessment and plan: -TSH was elevated and free T4 WNL, may be compliance issue -rec f/u with PCP Subjective Subjective Interval history since last seen: Patient states that she is doing well today. She and her ask that her care and discharge plan be discuss with their daughter who will be in the hospital later this morning. Exam Narrative Exam Narrative: well appearing older female sitting up in the chair in no acute distress, awake, alert, oriented to person and place, heart RRR, lungs CTAB abdomen soft, non-tender, non-distended Objective Last Vital Signs Temp 97.7 F 07/11/24 06:42 Pulse 66 07/11/24 06:42 Resp 16 07/11/24 06:42 BP 121/64 07/11/24 06:42 Pulse Ox 99 07/11/24 06:42 Laboratory Results - last 24 hr 07/11/24 06:20 WBC 6.75 RBC 3.74 L Hgb 12.2 Hct 35.4 L MCV 95 MCH 32.6 MCHC 34.5 RDW 12.5 Plt Count 155 MPV 10.1 Immature Gran % 0.6 Neutrophils % 66.5 Lymphocytes % 17.5 Monocytes % 9.2 Eosinophils % 5.6 Basophils % 0.6 Nucleated RBC % 0.0 Absolute Neutrophils 4.49 Absolute Lymphocytes 1.18 L Absolute Monocytes 0.62 Absolute Eosinophils 0.38 Absolute Basophils 0.04 Sodium 142 Potassium 3.6 Chloride 108 H Carbon Dioxide 28.8 Anion Gap 5.2 BUN 23 H Creatinine 0.7 Est GFR (CKD-EPI 2020) 85.76 Glucose 96 Uric Acid 2.1 L Calcium 8.7 Magnesium 1.8 Total Bilirubin 0.6 AST 32 ALT 38 Alkaline Phosphatase 83 C-Reactive Protein 8.46 H Total Protein 5.2 L Albumin 2.1 L Time Spent with Patient Time Spent with Patient: >50 minutes Time was spent: preparing to see the patient(eg.review tests), obtaining and/or reviewing separately otained hiistory, ordering medications,tests, procedures, referring, communicating with other health career guidance counselor, indepentently interpreting results, counseling the patient and care coordination
--- NOTE | 2024-07-11 11:00 | PT.INTREAT ---
PT Notes Visit Reasons: Weakness, Hypotension, Respiratory alkalosis,Fever Inpatient Physical Therapy Treatment Note [facility] Date: 07/11/24 PRECAUTIONS:fall, standard SUBJECTIVE: Bj states that she is cold and tired , but agreeable to try moving. OBJECTIVE: (am) Pt presented in chair with IV Fluids infusing into RUE. Her visiting.? (pm) Pt alert IV infusing in RUE Her dtr Concha present. right knee xray results: FINDINGS: BONES: No acute fracture is present. No bony destructive lesion is seen. There is an enthesophyte at the superior patella. JOINTS: 3 compartment degenerative changes are seen characterized by varying degrees of joint space narrowing and osteophytes. There is a moderate size joint effusion. There is chondrocalcinosis in the femoral tibial joint. SOFT TISSUE: Vascular calcifications are present. There is edema seen in the soft tissues around the knee particularly laterally. No radiopaque foreign bodies are seen. IMPRESSION: Moderate degenerative changes in the right knee. Moderate joint effusion. ? PAIN: (am)right knee hurts alot . Pt unable to use numeric pain scale. ?( pm) pt reported it just aches now. ?BED MOBILITY/TRANSFERS? (am session) Sit-stand: CGA? and max cues? for hand placement ? Stand-sit: CGA and max cues for hand placement? Bed-Chair: CGA with FWW ?max cues for FWW management ? Chair-bed: CGA with FWW? GAIT? Assistive Device: FWW? Weight bearing: WBAT Assist: CGA ? Distance:? 10 feet ' x2? Deviation: slow, cautious gait with heavy reliance on UE support to FWW, tremulous UE difficulty advancing BLE. ? Instructed in the following exercises performed between distances of amb: Ankle pumps 10x seated march 10x LAQ 10x2 Provided skilled instruction in proper exercise performance Provided skilled manual cues to facilitate proper muscle recruitment and/or form (PM Session) Sit-stand: SBA and 1 cue? for hand placement ? Stand-sit: SBA ? chair- Chair: SBAwith FWW ? GAIT? Assistive Device: FWW? Weight bearing: WBAT Assist: CGA progressed to SBA ? Distance:? 100 feet ? Deviation: slow, cautious gait with reciprocal pattern ? ASSESSMENT: In AM session,?Pt with tremulous UE during transfers and during short distance ambulation this session. Pt's dtr present for PM session in which pt demonstrates significant improvement in functional mobility motor control. Pt with no tremors noted and did not have excessive WB through BUE. Pt able to carryover safe hand placement . Dtr reported the FWW they have at home was given to them by a friend . It is larger( wider) than the FWW she is using here and it does not fit into her bathroom. Pt will be issued FWW prior to discharge. Dtr participated in session providing SBA and cues as needed for hand placement. for safety. Dtr would like pt to discharge to home with HH services when medically appropriate vs going to SNF. Dtr is retired and will be staying with pt. Her dtr is requesting lift assist into the home. Pt would also benefit from home OT for selfcare management . At end of session pt agreed to elevation and ice to right lateral knee Nurse aware of ice applied for pain management. PLAN: Continue strengthening efforts and progressive ambulation for improved activity tolerance. Will require SNF placement for continued strengthening and improvements in safety and activity tolerance. TREATMENT CODE/TIME: 04108s 14 mins for 1 unit, [id number] mins for 1 unit / [id number] (pm Session) 49811 x 2 units/ [id number] DISCHARGE RECOMMENDATION: PT OT when medically appropriate
--- NOTE | 2024-07-11 12:14 | CMPROGNOTE_ITS ---
Date of service: 07/11/24 Time of Service: 12:14 Care Management Progress Note Progress Note Text Progress Note Text: Melvina worked well with PT and is able to discharge home with services when ready. Her daughter Concha is up from [place] and will be staying with her for a long period of time. CM reviewed this plan with Melvina and Concha and both are more than agreeable. Discharge Plan: PT recommends home with services. Resumption of [facility] RN/SALES REPRESENTATIVE [employer], add PT/OT. Will transport home via private vehicle with daughter and be met by a lift assist. CM will follow and support coordination. Social Determinants of Health Screening Social Determinants of Health last assessed: 07/11/24 Will the Patient Participate in the Screening?: Unable to obtain Do you worry about having a steady place to live?: no Problems where you live: no known problems In the past 12 months, have you had to go without electric, gas, oil or water in your home?: no Have you or anyone in your house had to go without enough food to eat?: no Has lack of transportation kept you from medical appointments or from doing things needed for daily living?: no Has anyone in your life made you feel unsafe or unsupported?: no How hard is it for you to pay for the very basics like food, housing, medical care, and heating? Would you say it is:: Not hard at all Do you want help finding or keeping work or a job?: I do not need or want help If for any reason you need help with day-to-day activities such as bathing, preparing meals, shopping, managing finances, etc., do you get the help you need?: I could use a little more help How often do you feel lonely or isolated from those around you?: Rarely Do you speak a language other than Syriac at home?: No Does the patient want assistance with any of the above?: Yes Health Related Social Needs Health related social needs: problems with daily activities (Z73.9) and feeling lonely/isolated (Z60.8)
[2024-07-11 12:39] VITALS: BP 102/59; PULSE 78; RESP 21; TEMP 36.9; O2SAT 98
[2024-07-11 15:38] VITALS: BP 103/53; PULSE 67; TEMP 36.8; O2SAT 98
--- NOTE | 2024-07-11 16:12 | DSE_ITS ---
Date of service: 07/11/24 Time of Service: 16:18 DS: Diagnosis Discharge Diagnosis (1) Weakness: Status: Acute (2) CAP (community acquired pneumonia): Status: Acute (3) Hypotension: Status: Acute (4) Sinusitis, acute: Status: Acute (5) Cardiac pacemaker: Status: Chronic (6) Alzheimer's dementia without behavioral disturbance: Status: Chronic (7) Hypothyroidism: Status: Chronic Discharge Plan Disposition Patient Disposition: Home W/Home Health Services Condition: Good Discharge Details Reason For Visit: Weakness, Hypotension, Respiratory alkalosis,Fever Admit Date/Time: 07/08/24 23:24 Admit Provider: Aydin Sears Attending Provider: Aydin Sears Primary Care Provider: Sami Zambrano Hospital Course Hospital Course: Patient initially presented with weakness that may have been secondary to worsening dementia. However, there was suspicion for community-acquired pneumonia and UTI despite negative x-ray, lack of leukocytosis and normal UA. Patient was on IV Rocephin and doxycycline as she did have recent community- acquired pneumonia, and this was transitioned to p.o. cefpodoxime and doxycycline which will be continued for an additional 3 days after discharge. Patient's weakness improved during hospitalization and she worked with physical therapy and determined to be stable for discharge home with continuation of home health services. Home Meds and New Rx's Prescriptions: New doxycycline hyclate 100 mg Capsule 100 mg PO BID 3 Days Qty: 6 0RF cefpodoxime 200 mg Tablet 200 mg PO BID Qty: 6 0RF Continued benzonatate 100 mg capsule 100 mg PO TID PRN (Reason: cough) Qty: 14 0RF artificial tears(hypromellose) 0.3 % drops 1 drp OP QID lutein 20 mg capsule 20 mg PO DAILY Rx Instructions: give with meal/snack cholecalciferol (vitamin D3) 50 mcg (2,000 unit) capsule 50 mcg PO DAILY aspirin [Aspirin Low-Strength] 81 MG tablet,chewable 81 mg PO DAILY levothyroxine 100 mcg capsule 100 mcg PO DAILY Qty: 90 4RF atorvastatin 40 mg tablet 40 mg PO QPM Qty: 90 3RF exemestane 25 mg tablet 25 mg PO DAILY Rx Instructions: must administer after a meal metoprolol succinate 50 mg tablet extended release 24 hr 50 mg PO DAILY Qty: 90 3RF nitroglycerin 0.4 mg tablet, sublingual 0.4 mg sublingual PRN PRN (Reason: chest pain) Qty: 60 0RF donepezil 5 mg tablet 5 mg PO QHS Qty: 90 3RF memantine 10 mg tablet 10 mg PO BID Qty: 180 3RF Discontinued doxycycline hyclate 100 mg capsule 100 mg PO BID Qty: 14 0RF Discharge Instructions Activity:: Activity as Tolerated Equipment/Supplies:: No Equipment Needed Diet:: As Tolerated Discharge Orders Discharge Orders: Discharge Order (Routine); Ordered 07/11/24 Ordered By: Damian Weber DS: Summary Time Spent with Patient providing and/or coordinating discharge services: Greater than 30 minutes Status at Discharge Functional status at discharge: independent ambulation Overall status at discharge: patient is back to baseline Mental Status: mental status grossly normal Speech and Movement: speech and movement normal Mood: congruent mood Affect: normal affect Quality:SDOH Health Related Social Needs: Health related social needs problems with daily activi ties (Z73.9), feeling lonely/isolated (Z60.8) Exam Narrative Exam Narrative: well appearing older female sitting up in the chair in no acute distress, awake, alert, oriented to person and place, heart RRR, lungs CTAB abdomen soft, non- tender, non-distended Psych Mental Status: mental status grossly normal Speech and Movement: speech and movement normal Mood: congruent mood Affect: normal affect DS: Data Vitals/I&O Vitals and I&O: Vital Signs Temperature 98.2 F 07/11/24 15:38 Temperature Source Temporal Artery Scan 07/11/24 15:38 Pulse 67 07/11/24 15:38 Pulse Rhythm Regular 07/09/24 17:13 Pulse 66 07/09/24 16:20 Respiratory Rate 21 07/11/24 12:39 Respiratory Effort Normal 07/09/24 17:13 Respiratory Depth Normal 07/09/24 08:12 Respiratory Pattern Normal 07/09/24 17:13 Blood Pressure 103/53 L 07/11/24 15:38 Blood Pressure Mean 70 07/09/24 16:16 Pulse Oximetry 98 07/11/24 15:38 Oxygen Delivery Method Room Air 07/11/24 06:42 Oxygen Flow Rate 0 07/11/24 06:42 Pain Level 6 07/11/24 09:43 Intake & Output 07/10/24 07/11/2425 17:59 05:59 17:59 Intake Total 150 / 150 1480 / 1630 230 / 230 Output Total 300 / 300 860 / 1160 525 / 525 Balance -150 / -150 620 / 470 -295 / -295 Weight 145 lb 1.027 oz Intake: IV 150 / 150 1100 / 1250 50 / 50 Oral 380 / 380 180 / 180 Output: Urine 300 / 300 860 / 1160 525 / 525 Other: Urine Color Dark Margarita Light Margarita Yellow Urine Appearance Clear Clear Clear Urine Odor Strong Strong Normal Comment Patient had 431 ml of retention. The nurse straight cath. the patient and drained her bladder. Stool Size Moderate Stool Characteristics Formed Soft Brown Black Data Completed and Pending Labs on day of discharge: Labs from last 24 hours 07/11/24 06:20 WBC 6.75 RBC 3.74 L Hgb 12.2 Hct 35.4 L MCV 95 MCH 32.6 MCHC 34.5 RDW 12.5 Plt Count 155 MPV 10.1 Immature Gran % 0.6 Neutrophils % 66.5 Lymphocytes % 17.5 Monocytes % 9.2 Eosinophils % 5.6 Basophils % 0.6 Nucleated RBC % 0.0 Absolute Neutrophils 4.49 Absolute Lymphocytes 1.18 L Absolute Monocytes 0.62 Absolute Eosinophils 0.38 Absolute Basophils 0.04 Sodium 142 Potassium 3.6 Chloride 108 H Carbon Dioxide 28.8 Anion Gap 5.2 BUN 23 H Creatinine 0.7 Est GFR (CKD-EPI 2020) 85.76 Glucose 96 Uric Acid 2.1 L Calcium 8.7 Magnesium 1.8 Total Bilirubin 0.6 AST 32 ALT 38 Alkaline Phosphatase 83 C-Reactive Protein 8.46 H Total Protein 5.2 L Albumin 2.1 L Prealbumin Pending Preliminary micro results at discharge 07/08/24 20:05 Blood Culture - Preliminary Blood NO GROWTH 48 HOURS 07/08/24 19:19 Blood Culture - Preliminary Blood NO GROWTH 48 HOURS PFSH All Active Problems (Updated 07/11/24 @ 11:02 by Damian Weber MD) CAP (community acquired pneumonia) (Acute) Near syncope (Acute) Sinusitis, acute (Acute) Acute respiratory alkalosis (Acute) Hypotension (Acute) Weakness (Acute) Palliative care encounter (Acute) Advanced care planning/counseling discussion (Acute) History of breast cancer (Acute) 2020: care at [facility] [place]- radiation completed, chemo not recommended, Exemestane to be completed May 2024 Plantar wart (Acute) Coronary artery disease (Chronic) Dizziness (Acute) Alzheimer's dementia without behavioral disturbance (Chronic) Thin nails (Acute) Hyperbilirubinemia (Chronic) NSTEMI (non-ST elevated myocardial infarction) (Acute) 07/2019- will need colo at [facility] due to this Weight loss (Acute) 01/2021- weight stable at 155 Cubital tunnel syndrome on left (Acute) Left carpal tunnel syndrome (Acute) S/P L ECTR: 04/02/2021 Cardiac pacemaker (Chronic) Dual lead Medtronic pacemaker [place] XT DR BOYCE [id number] 11/08/2018 Tubular adenoma of colon (Acute 03/25/16) Hypothyroidism (Chronic 01/25/14) Medical History Alzheimer's dementia Breast cancer 2020: care at [facility] [place]- radiation completed, chemo not recommended, Exemestane to be completed May 2024 Dementia Sinus node dysfunction Gallbladder polyp Chronic diarrhea Skin lesion of neck Sent photo to Dr. Terrell. He said benign seborrheic keratosis. No treat ment. Will let her know later. Surgical History S/P placement of cardiac pacemaker Vaginal hysterectomy Colonoscopy - MAC (03/25/16) Family History Father , 84 Skin cancer Heart disease Mother , 94 Dementia Sister , 81 Dementia Heart disease Brother No problems noted. Maternal Grandfather , 79 No problems noted. Paternal Grandfather , 59 Cancer Maternal Grandmother , 58 No problems noted. Paternal Grandmother , 86 No problems noted. Daughter Diabetes S/P vascular surgery Daughter No problems noted. Social History Smoking/Tobacco Use Status: Former Tobacco Use tobacco type: cigarettes Quit Date: 03/04/98 Second Hand Exposure: Yes Smoking risk assessment performed?: Yes Alcohol Intake: never Drug use: Never Substance use type: does not use Caregiver/Support person: No Household members: spouse Housing: house Communication Needs: Hard of Hearing Do you need help understanding health information?: Rarely Pets and animals: No Sexually active: No Do you think of yourself as: straight/heterosexual Current gender identity: female What is your relationship status?: How often do you talk on the phone with friends or family?: three or more times per week Do you belong to any clubs or organized social groups?: no Panel score (0-1 are the most socially isolated patients): 2 What type of physical activity do you participate in: walking Duration: 45-60 minutes/day Frequency: 3-4 times per week Special karyn needs: No Seatbelt use: always Helmet use: No Drive intox or ride w/intox electric train driver: No Do you feel safe at home: Yes Do you feel safe in your relationship?: Yes Time Spent with Patient Time Spent with Patient: <45 minutes Time was spent: preparing to see the patient(eg.review tests), obtaining and/or reviewing separately otained hiistory, ordering medications,tests, procedures, referring, communicating with other health pediatric acute care unit nurse, indepentently interpreting results, counseling the patient and care coordination
--- NOTE | 2024-07-11 16:12 | PDOC.CMDIS ---
Date of service: 07/11/24 Time of Service: 16:12 LACE Index Scoring Tool Questions: Length of Stay (in days): 3 Was the patient admitted via the E.D.?: Yes E.D. Visits: 1 Answers: Total Score: 7 Risk of Readmission: Low Risk Care Management Discharge Plan Reason for Hospitalization: Weakness, Hypotension Discharge Plan: Discharge home with resumption of [facility] RN/BRAKE REPAIR SUPERVISOR, add PT/OT. Will transport home via private vehicle with daughter and be met by a lift assist. Melvina will follow up with her PCP and discharge plan of care as directed. Patient/Family Education Needs: Review discharge instructions and plan to follow up after discharge. Discuss ask me three. Services Needed at Discharge: Home Health Care Services (Resumption of services, add [facility] PT/OT) SDOH Health Related Social Needs: Health related social needs problems with daily activities (Z73.9), feeling lonely/isolated (Z60.8)
--- NOTE | 2024-07-11 16:17 | PDOC.HHF2F_ITS ---
Home Health Referral Home Health Orders Clinical synopsis of why skilled professionals are needed: Dementia, weakness Registered Nurse: Check all that apply Instruct on new or changed medication(s)/assess compliance: Ordered Assess for exacerbation of medical condition, instruct patient/caregivers on signs and symptoms to report for early detection: Ordered Physical Therapist: Check all that apply Increase strength & endurance for safe mobility at home: Ordered To design/establish home maintenance program: Ordered Fall reduction therapy program for patient with history of frequent falls: Ordered Home safety evaluation and teaching/gait training including stair management (if applicable): Ordered Occupational Therapist: Evaluate and treat for patient unable to perform ADL/IADL/self-care: Ordered Upper extremity strengthening, range and motion: Ordered Envelope Machine Adjuster: Assist with community resources: Ordered Assist with terminal clerk care planning: Ordered Home Bound Status Patient has a condition such that leaving home is medically contraindicated (Describe): Alzheimer's dementia limiting ability to leave home for the above services Encounter Date and Reason: I certify that a FTF encounter for this patient was performed on July 11, 2024 and that such encounter was related to the primary reason the patient requires home health services. The encounter was conducted in the following manner: * By me as the certifying physician, SIGNAL TESTER, PA or * By an inpatient physician, SIGNAL TESTER or PA during an inpatient stay who communicated findings to me, Certification And Authentication I certify that I composed the above information based on my clinical judgment relating to this patient's medical condition and, if applicable, clinical findings communicated to me by the NPP or inpatient physician who performed the FTF encounter. Name of Provider that will be monitoring home health services: Sami Espinal
[2024-07-12 10:37] LABS: Prealbumin 7 mg/dL (20-40)
== END 2024-07-11 17:29 | disposition home health service (06) | DRG 194 ==
LOC: ER 23:41 → EDHOLD 23:59 → MS 07-09 16:49
PROVIDERS: Hospitalist; Admitting Provider Family Medicine; Emergency Provider Registered Nurse Emergency; PCP Nurse Practitioner Family; Responsible Provider Family Medicine; Visit Provider Family Medicine
DX: J18.9 Pneumonia, unspecified organism (principal); E87.3 Alkalosis; N39.0 Urinary tract infection, site not specified; I95.89 Other hypotension; J01.80 Other acute sinusitis; R53.1 Weakness; Z95.0 Presence of cardiac pacemaker; G30.9 Alzheimer's disease, unspecified; F02.80 Dementia in other diseases classified elsewhere, unspecified severity, without behavioral disturbance, psychotic disturbance, mood disturbance, and anxiety; E03.9 Hypothyroidism, unspecified; Z85.3 Personal history of malignant neoplasm of breast; I25.2 Old myocardial infarction; Z79.82 Long term (current) use of aspirin; I25.10 Atherosclerotic heart disease of native coronary artery without angina pectoris; E86.0 Dehydration; M17.11 Unilateral primary osteoarthritis, right knee
CPT/HCPCS: 00123; 36415; 80053; 82805; 84145; 85027; 85652; 87040; 87637; 93005; 96360; 96361; 97110; 97162; 97530; 99285; J1650; 70450; 71045; 73560; 81003; 81015; 83605; 83735; 83880; 84134; 84439; 84443; 84484; 84550; 85025; 86140; 93010; 99223; 99232; 99239; J0696

== ENCOUNTER 2024-07-19 09:15 | Observation (INO) | payer MEDICARE, SELFPAY ==
[2024-07-19] VITALS (32 sets, daily range): BP systolic 97–153; BP diastolic 58–83; PULSE 58–89; RESP 10–40; TEMP 36.4–36.9; O2SAT 93–99
--- NOTE | 2024-07-19 09:15 | RT.EKG_ITS ---
APPROVED REPORT Exam: Resting ECG Reason for Exam: weakness/dizzy/acid reflux Patient Location: E HR:71 bpm ECG Measurements Heart Rate 71 AXIS GA 78 P [id number] QRSd 123 QRS -86 QT 394 T 57 QTc 428 Conclusion Atrial-paced rhythm RBBB and LAFB...QRSd >120mS, axis(-40,240) Abnrm T, consider ischemia, anterolateral lds...T <-0.20mV, I aVL V2-V6 ST elevation, consider inferior injury...ST >0.08mV, II III aVF No STEMI
--- NOTE | 2024-07-19 09:15 | RT.EKG_ITS ---
APPROVED REPORT Exam: Resting ECG Reason for Exam: SOB Patient Location: E HR:62 bpm ECG Measurements Heart Rate 62 AXIS NJ 165 P [id number] QRSd 124 QRS -81 QT 379 T 26 QTc 384 Conclusion Atrial-paced rhythm RBBB and LAFB...QRSd >120mS, axis(-40,240) No STEMI
--- NOTE | 2024-07-19 09:20 | ED.GENADUL_ITS ---
Discharge Plan Discharge Details Chief Complaint: Nausea/Vomit/Diar Admit Date/Time: 07/19/24 12:24 Admit Provider: Nicolás Maria Attending Provider: Nicolás Maria Primary Care Provider: Sami Zambrano ED Provider: Nicolás Su Discharge Data Discharge Date/Time-TO BE ENTERED AT DEPARTURE: 07/19/24 12:23 HPI General Date/Time Provider Initiated Documentation: 07/19/24 09:19 . HPI Narrative: MDM This is an overall well-appearing normothermic and not tachycardic 83-year-old female with decreased appetite and persistent vomiting concerning for the possibility of SBO for which patient will undergo CT scan. In the setting of her nausea and vomiting I am also concerned about ACS though she has a nonischemic ECG so will send troponins. No pain out of proportion so I did not send lactate as my suspicion was low for mesenteric ischemia. No persistent dysuria nor frequency to suggest UTI. Patient has not been having diarrhea so my suspicion is low for C. difficile. No rash to abdomen to suggest zoster. No black nor bloody stools to suggest GI bleed. No right upper quadrant tenderness to suggest acute cholecystitis so I did not feel the patient required a right upper quadrant ultrasound. ECG showing atrial paced rhythm with no acute injury pattern. Patient does have new T wave inversions in V1 and V3 compared to prior ECG from last month. No trauma to chest to suggest pneumothorax. I considered sepsis however the patient has not had fevers and has reassuring vital saw I did not order broad-spectrum antibiotics nor check a lactate nor blood cultures. No cough nor abnormal lung sounds or hypoxia to suggest pneumonia. No flank pain to suggest ureterolithiasis. 11:25 PM Patient was found to have duodenitis which certainly explains her symptoms. Given that she is not taking much by mouth at home and that he is intermittently been vomiting I feel that overnight hospitalization will likely be of benefit. I ordered patient 500 cc crystalloid bolus and ondansetron for nausea. 07/20 Late charting due to patient care. I was in touch with Dr. Maria for the hospitalist team who graciously agreed to except the patient for hospitalization. HPI This is an 83-year-old female with a history of Alzheimer's dementia and recent hospitalization for pneumonia and urinary tract infection arrived emerged part via private vehicle with her daughter and in the setting of increasing abdominal pain and acid reflux. Patient began vomiting this morning at 3 of her medications. She has been burping and taking less by mouth for the past 6 days. She was discharged in the hospital 7 days ago. She has attempted treatment with Tums and pantoprazole. She denies any trauma to her chest. She is off her antibiotics. She denies any diarrhea. She cannot recall when her last bowel movement was. She denies chest pain shortness of breath fevers persistent dysuria. Surgical history significant for remote hysterectomy. Exam General: Elderly-appearing in no acute distress speaking in complete sentences. Head: Normocephalic, atraumatic. Eye: Extraocular eye movements intact. No conjunctival injection. No scleral icterus. Ear, nose, mouth, throat: Grossly normal inspection. Normal voice, handling secretions normally. Neck: Trachea midline. Cardiovascular: Well-perfused distal extremities. Regular rate and rhythm Respiratory: Nonlabored respiration. Clear lungs bilaterally. Gastrointestinal: Nondistended abdomen. Soft. Minimal tenderness bilateral lower quadrants. No rebound. No guarding. No CVA tenderness. Musculoskeletal: No edema. Moving all 4 extremities spontaneously. Skin: Normal for age and race, grossly normal temperature and turgor. No acute rash. Neurologic: Alert to person and place but not time. Related Data Home Medications ?Medication ?Instructions ?Recorded ?Confirmed aspirin 81 mg chewable tablet 81 mg PO DAILY 09/16/12 07/19/24 (Aspirin Low-Strength) artificial tears(hypromellose) 0.3 1 drp ophthalmic (eye) QID 11/07/21 07/19/24 % eye drops lutein 20 mg capsule 20 mg PO DAILY 10/24/22 07/19/24 levothyroxine 100 mcg capsule 100 mcg PO DAILY #90 caps 11/19/23 07/19/24 atorvastatin 40 mg tablet 40 mg PO QPM #90 tabs 11/23/23 07/19/24 exemestane 25 mg tablet 25 mg PO DAILY 12/08/23 07/19/24 metoprolol succinate 50 mg 50 mg PO DAILY #90 tabs 12/08/23 07/19/24 tablet,extended release 24 hr nitroglycerin 0.4 mg sublingual 0.4 mg sublingual PRN PRN chest 12/08/23 07/19/24 tablet pain #60 tabs donepezil 5 mg tablet 5 mg PO QHS #90 tabs 08/07/24 03/18/25 memantine 10 mg tablet 10 mg PO BID #180 tabs 12/09/23 07/19/24 cholecalciferol (vitamin D3) 50 50 mcg PO DAILY 02/23/24 07/19/24 mcg (2,000 unit) capsule benzonatate 100 mg capsule 100 mg PO TID PRN cough #14 caps 06/29/24 07/19/24 ondansetron 4 mg disintegrating 4 mg PO Q6H PRN nausea and 07/16/24 07/19/24 tablet vomiting #60 tabs cefpodoxime 200 mg tablet 200 mg PO BID 07/19/24 07/19/24 doxycycline hyclate 100 mg capsule 100 mg PO BID 07/19/24 07/19/24 Previous Rx's ?Medication ?Instructions ?Recorded levothyroxine 100 mcg capsule 100 mcg PO DAILY #90 caps 11/19/23 atorvastatin 40 mg tablet 40 mg PO QPM #90 tabs 11/23/23 metoprolol succinate 50 mg 50 mg PO DAILY #90 tabs 12/08/23 tablet,extended release 24 hr nitroglycerin 0.4 mg sublingual 0.4 mg sublingual PRN PRN chest 12/08/23 tablet pain #60 tabs donepezil 5 mg tablet 5 mg PO QHS #90 tabs 12/09/23 memantine 10 mg tablet 10 mg PO BID #180 tabs 12/09/23 benzonatate 100 mg capsule 100 mg PO TID PRN cough #14 caps 06/29/24 ondansetron 4 mg disintegrating 4 mg PO Q6H PRN nausea and 07/16/24 tablet vomiting #60 tabs Allergies Allergy/AdvReac Type Severity Reaction Status Date / Time No Known Allergies Allergy Verified 07/08/24 19:16 General HAKEEM: 3 Medical Decision Making Quality:SDOH Health Related Social Needs: Health related social needs problems with daily activi ties (Z73.9) PFSH All Active Problems (Updated 07/19/24 @ 13:22 by Eliza Gallardo APRN) Discharge planning issues (Acute) On deep vein thrombosis (DVT) prophylaxis (Acute) Duodenitis (Acute) Weakness (Acute) Palliative care encounter (Acute) Advanced care planning/counseling discussion (Acute) History of breast cancer (Acute) 2020: [place] [facility], chemo not recommended, Exemestane to be completed May 2024 Plantar wart (Acute) Coronary artery disease (Chronic) Dizziness (Acute) Alzheimer's dementia without behavioral disturbance (Chronic) Thin nails (Acute) Hyperbilirubinemia (Chronic) NSTEMI (non-ST elevated myocardial infarction) (Acute) 07/2019- will need colo [place] [facility] [place] Weight loss (Acute) 01/2021- weight stable at 155 Cubital tunnel syndrome on left (Acute) Left carpal tunnel syndrome (Acute) S/P L ECTR: 04/02/2021 Cardiac pacemaker (Chronic) Dual lead Medtronic pacemaker [place] XT DR MRI [id number] 11/08/2018 Tubular adenoma of colon (Acute 03/25/16) Hypothyroidism (Chronic 01/25/14) Medical History Alzheimer's dementia Breast cancer 2020: [place] [facility] radiation completed, chemo not recommended, Exemestane to be completed May 2024 Dementia Sinus node dysfunction Gallbladder polyp Chronic diarrhea Skin lesion of neck Sent photo to Dr. Terrell. He said benign seborrheic keratosis. No treatment. Will let her know later. Surgical History S/P placement of cardiac pacemaker Vaginal hysterectomy Colonoscopy - MAC (03/25/16) Family History Father , 84 Skin cancer Heart disease Mother , 94 Dementia Sister , 81 Dementia Heart disease Brother No problems noted. Maternal Grandfather , 79 No problems noted. Paternal Grandfather , 59 Cancer Maternal Grandmother , 58 No problems noted. Paternal Grandmother , 86 No problems noted. Daughter Diabetes S/P vascular surgery Daughter No problems noted. Social History Smoking/Tobacco Use Status: Former Tobacco Use tobacco type: cigarettes Quit Date: 03/04/98 Second Hand Exposure: Yes Smoking risk assessment performed?: Yes Alcohol Intake: never Drug use: Never Substance use type: does not use Caregiver/Support person: No Household members: spouse Housing: house Communication Needs: Hard of Hearing Do you need help understanding health information?: Rarely Pets and animals: No Sexually active: No Do you think of yourself as: straight/heterosexual Current gender identity: female What is your relationship status?: How often do you talk on the phone with friends or family?: three or more times per week Do you belong to any clubs or organized social groups?: no Panel score (0-1 are the most socially isolated patients): 2 What type of physical activity do you participate in: walking Duration: 45-60 minutes/day Frequency: 3-4 times per week Special karyn needs: No Seatbelt use: always Helmet use: No Drive intox or ride w/intox [employer] flatbed truck driver: No Do you feel safe at home: Yes Do you feel safe in your relationship?: Yes
--- NOTE | 2024-07-19 09:50 | DI.CT_ITS ---
Exam(s) CT ABDOMEN PELVIS W EXAM: CT ABDOMEN PELVIS W CLINICAL HISTORY: Abdominal pain vomiting. TECHNIQUE: Imaging Protocol: Axial computed tomography images with coronal and sagittal reformatted images were created and reviewed CONTRAST MATERIAL: Intravenous: Omnipaque 350 Contrast volume:75 ml Oral: no COMPARISON: CT CT RENAL COLIC WO from 07/22/2020 FINDINGS: ABDOMEN and PELVIS: The exam is somewhat limited by motion. Lung Bases: No acute findings. Liver: Normal density. No suspicious mass. Gallbladder and biliary tract: No radiodense calculus. No wall thickening or pericholecystic fluid. No biliary dilation. Pancreas: Normal density. No abnormal calcifications or inflammatory process. No evidence of mass. Spleen: Normal. Kidneys: Normal size, contour and axis. No radiodense stones. No obstructive uropathy. No suspicious masses seen. Adrenal glands: No masses seen. Vasculature: Abdominal aorta non-dilated. Soft tissues: Unremarkable. Bladder: No gross wall thickening. No calculi.No focal mass. Bowel: Wall thickening of the duodenum consistent with duodenitis. No obstruction. Appendix normal. Sigmoid diverticulosis. Peritoneal cavity: No ascites. No focal collection. No mesenteric inflammatory response. No free air . Bones: Unremarkable for age. Reproductive organs: Hysterectomy. Lymph nodes: No pathologically enlarged lymph nodes. IMPRESSION:: Abnormal wall thickening of the duodenum consistent with duodenitis. No visible focal ulcer or perforation. Findings called to Dr. Su of the emergency department. RADIATION DOSE DELIVERED: 291.19mGy.cm Total DLP DATA REPOSITORY: All CT scans at this facility are submitted to the National Radiology Data Registry (NRDR) Dose Index Registry (DIR) with the [employer] (ACR). RADIATION OPTIMIZATION: All CT scans at this facility use at least one of these dose optimization te chniques: automated exposure control; mA and/or kV adjustment per patient size (includes targeted exa ms where dose is matched to clinical indication); or iterative reconstruction.
[2024-07-19 10:22] LABS: Abs Immature Grans 0.03 10^3/uL (0.0-0.06); Absolute Basophil Count 0.05 10^3/uL (0.0-0.2); Absolute Eosinophil Count 0.09 10^3/uL (0.0-0.7); Absolute Monocyte Count 0.51 10^3/uL (0.1-0.8); Absolute Neutrophil Count 6.02 10^3/uL (1.2-6.7); Basophils % 0.7 %; Eosinophils % 1.2 %; HCT 42.3 % (36.0-46.0); HGB 14.5 g/dL (11.2-15.7); Immature Grans % 0.4 %; Lymphocytes % 10.7 %; MCH 32.5 pg (27.0-33.0); MCHC 34.3 % (32.0-36.0); MCV 95 fL (80-95); MPV 8.8 fL (8.0-11.0); Monocytes % 6.8 %; Neutrophils % 80.2 %; Platelet Count 255 10^3/uL (130-400); RBC 4.46 10^6/uL (3.93-5.22); RDW 13.4 % (11.7-14.6); RDW-SD 45.9 fL
[2024-07-19] MEDS: Normal Saline - Diluent 50 ML VIAL IJ (10:25)
[2024-07-19] MEDS: Omnipaque 350 MG/ML 100 ML BTL IJ (10:26)
[2024-07-19 10:42] LABS: ALT 27 U/L (14-59); AST 18 U/L (15-37); Albumin 3.3 g/dL (3.4-5.0); Alkaline Phosphatase 90 U/L (46-116); Anion Gap 11.3 mmol/L (3-11); BUN 20 mg/dL (7-18); Bilirubin, Total 1.3 mg/dL (0.2-1.0); CO2 27.7 mmol/L (21.0-32.0); CREATININE 0.9 mg/dL (0.55-1.02); Calcium 10.4 mg/dL (8.5-10.1); Chloride 104 mmol/L (98-107); Estimated GFR 63.43 (mL/min/1.73m2); Glucose 103 mg/dL (74-106); Lipase 31 U/L (<78); Potassium 3.4 mmol/L (3.5-5.1); Sodium 143 mmol/L (136-145); Total Protein 6.9 g/dL (6.4-8.2); Troponin I 11 ng/L (<or=51)
--- NOTE | 2024-07-19 11:36 | W.PM.HP.N ---
Date of service: 07/19/24 Time of Service: 11:36 Assessment and Plan Assessment and plan (1) Duodenitis: Start date: 07/19/24 Start time: 13:20 Status: Acute Assessment and plan: As per CT- should be confirmed by endoscopy and can be associated with gastritis but w/o S&S of acute bleeding and stable H&H ---> outpatient for now Consider Sx consult inpatient if increased acuity Pantoprozole Consider sucralfate NPO- reevaluate in AM PRN compazine LR IVF - last LVEF 50% in 2020 with RVSP 38 mmHg CMP in AM (2) Weakness: Start date: 07/19/24 Start time: 13:20 Status: Acute Assessment and plan: Physical therapy (3) Alzheimer's dementia without behavioral disturbance: Start date: 07/19/24 Start time: 13:21 Status: Chronic Assessment and plan: Continue home medicines (4) Coronary artery disease: Start date: 07/19/24 Start time: 13:21 Status: Chronic Assessment and plan: continue home meds (5) On deep vein thrombosis (DVT) prophylaxis: Start date: 07/19/24 Start time: 13:21 Status: Acute Assessment and plan: On LMWH (6) Discharge planning issues: Status: Acute Assessment and plan: D/c as per PT recommendation VS family decision when medically stable Had refused SNF last admit Will need to discuss with PCP: Sx consult outpatient for endoscopic procedure need History of Present Illness History of Present Illness Chief Complaint: Nausea vomiting Narrative: This 83 years old female patient with a PMHx of Alzheimer's dementia, hyperlipidemia, hypothyroidism, HTN, breast CA,NSTEMI with paceamker and recently hopitalized in 07/2024 for pneumonia and UTI presented to the ED at [facility] for evaluation of reduced oral intake over a couple of days with belching, nausea and emesis epidsoe this AM. Work up in the ED was significant for duodenitis findings as per CT. CBC and chemistry was unremarkable except for a BUN at 20, potassium at 3.4, Ca at 10.3 and total bili at 1.3. The patient was admitted to the medical surgical floor to the hospitalist service for evaluatiion and management of duodenitis, nausea, vomiting, and dehydration. DNR/DNI status confirmed. The patient reported chills w/o objective fevers,intermittent abdominal pain, nausea, emsesis; denied headache, change in vision,chest pain, hematemesis,melena, hematochezia or dysuria. Review of Systems All systems reviewed & are unremarkable except as noted in HPI and below PFSH All Active Problems (Updated 07/19/24 @ 13:22 by Eliza Gallardo APRN) Discharge planning issues (Acute) On deep vein thrombosis (DVT) prophylaxis (Acute) Duodenitis (Acute) Weakness (Acute) Palliative care encounter (Acute) Advanced care planning/counseling discussion (Acute) History of breast cancer (Acute) 2020: care at [facility]- radiation completed, chemo not recommended, Exemestane to be completed May 2024 Plantar wart (Acute) Coronary artery disease (Chronic) Dizziness (Acute) Alzheimer's dementia without behavioral disturbance (Chronic) Thin nails (Acute) Hyperbilirubinemia (Chronic) NSTEMI (non-ST elevated myocardial infarction) (Acute) 07/2019- will need colo at [facility] due to this Weight loss (Acute) 01/2021- weight stable at 155 Cubital tunnel syndrome on left (Acute) Left carpal tunnel syndrome (Acute) S/P L ECTR: 04/02/2021 Cardiac pacemaker (Chronic) Dual lead [employer] pacemaker Yesika XT MRI [id number] 11/08/2018 Tubular adenoma of colon (Acute 03/25/16) Hypothyroidism (Chronic 01/25/14) Medical History Alzheimer's dementia Breast cancer 2020: care at [facility]- radiation completed, chemo not recommended, Exemestane to be completed May 2024 Dementia Sinus node dysfunction Gallbladder polyp Chronic diarrhea Skin lesion of neck Sent photo to Dr. Terrell. He said benign seborrheic keratosis. No treatment. Will let her know later. Surgical History S/P placement of cardiac pacemaker Vaginal hysterectomy Colonoscopy - MAC (03/25/16) Family History Father , 84 Skin cancer Heart disease Mother , 94 Dementia Sister , 81 Dementia Heart disease Brother No problems noted. Maternal Grandfather , 79 No problems noted. Paternal Grandfather , 59 Cancer Maternal Grandmother , 58 No problems noted. Paternal Grandmother , 86 No problems noted. Daughter Diabetes S/P vascular surgery Daughter No problems noted. Social History Smoking/Tobacco Use Status: Former Tobacco Use tobacco type: cigarettes Quit Date: 03/04/98 Second Hand Exposure: Yes Smoking risk assessment performed?: Yes Alcohol Intake: never Drug use: Never Substance use type: does not use Caregiver/Support person: No Household members: spouse Housing: house Communication Needs: Hard of Hearing Do you need help understanding health information?: Rarely Pets and animals: No Sexually active: No Do you think of yourself as: straight/heterosexual Current gender identity: female What is your relationship status?: How often do you talk on the phone with friends or family?: three or more times per week Do you belong to any clubs or organized social groups?: no Panel score (0-1 are the most socially isolated patients): 2 What type of physical activity do you participate in: walking Duration: 45-60 minutes/day Frequency: 3-4 times per week Special karyn needs: No Seatbelt use: always Helmet use: No Drive intox or ride w/intox assembly line driver: No Do you feel safe at home: Yes Do you feel safe in your relationship?: Yes Meds Allergies and Home Medications Allergies Allergy/AdvReac Type Severity Reaction Status Date / Time No Known Allergies Allergy Verified 07/08/24 19:16 Home Medications ?Medication ?Instructions ?Recorded ?Confirmed ?Type aspirin 81 mg chewable tablet 81 mg PO DAILY 09/16/12 07/19/24 History (Aspirin Low-Strength) artificial tears(hypromellose) 0.3 1 drp ophthalmic (eye) QID 11/07/21 07/19/24 History % eye drops lutein 20 mg capsule 20 mg PO DAILY 10/24/22 07/19/24 History levothyroxine 100 mcg capsule 100 mcg PO DAILY #90 caps 11/19/23 07/19/24 Rx atorvastatin 40 mg tablet 40 mg PO QPM #90 tabs 11/23/23 07/19/24 Rx exemestane 25 mg tablet 25 mg PO DAILY 12/08/23 07/19/24 History metoprolol succinate 50 mg 50 mg PO DAILY #90 tabs 12/08/23 07/19/24 Rx tablet,extended release 24 hr nitroglycerin 0.4 mg sublingual 0.4 mg sublingual PRN PRN chest 12/08/23 07/19/24 Rx tablet pain #60 tabs donepezil 5 mg tablet 5 mg PO QHS #90 tabs 12/09/23 07/19/24 Rx memantine 10 mg tablet 10 mg PO BID #180 tabs 12/09/23 07/19/24 Rx cholecalciferol (vitamin D3) 50 50 mcg PO DAILY 02/23/24 07/19/24 History mcg (2,000 unit) capsule benzonatate 100 mg capsule 100 mg PO TID PRN cough #14 caps 06/29/24 07/19/24 Rx ondansetron 4 mg disintegrating 4 mg PO Q6H PRN nausea and 07/16/24 07/19/24 Rx tablet vomiting #60 tabs cefpodoxime 200 mg tablet 200 mg PO BID 07/19/24 07/19/24 History doxycycline hyclate 100 mg capsule 100 mg PO BID 07/19/24 07/19/24 History Exam Narrative Exam Narrative: Constitutional The patient on stretcher comfortable, cooperative, and duaghter at bedside The patient is without acute distress and has average body habitus HENMT: Head is atraumatic, normocephalic, no lymphadenopathy. Facial structures with normal appearance Eyes: Well aligned, intact ROM, non-icteric sclera Neck: No JVD Neuro:alert and oriented to self, person, place, and situation. No neurological focal deficit Chest:Chest is symmetrical and normal appearance Resp: Normal respiratory pattern, speaks in full sentences, unlabored breathing, clear lung bilaterally Cardio: regular rhythm, S1, S2, no murmur, capillary refill<3 sec., bilateral radial and dorsalis pedis pulses are positive, palpable GI: Abdomen is not distended, soft and non tender, bowel sounds are present : Negative Costovertebral angle tenderness, no bladder distension Back/spine/Pelvis: No back tenderness, normal alignment Integumentary: No skin lesions or rash Extremities: strength 5/5 to bilateral lower and upper extremities Psych: RASS 0, congruent mood and normal affect. Results Labs 07/19/24 10:14 07/19/24 10:14 Labs: Laboratory Results - last 24 hr 07/19/24 10:14 WBC 7.50 RBC 4.46 Hgb 14.5 Hct 42.3 MCV 95 MCH 32.5 MCHC 34.3 RDW 13.4 Plt Count 255 MPV 8.8 Immature Gran % 0.4 Neutrophils % 80.2 Lymphocytes % 10.7 Monocytes % 6.8 Eosinophils % 1.2 Basophils % 0.7 Nucleated RBC % 0.0 Absolute Neutrophils 6.02 Absolute Lymphocytes 0.80 L Absolute Monocytes 0.51 Absolute Eosinophils 0.09 Absolute Basophils 0.05 Sodium 143 Potassium 3.4 L Chloride 104 Carbon Dioxide 27.7 Anion Gap 11.3 H BUN 20 H Creatinine 0.9 Est GFR (CKD-EPI 2020) 63.43 Glucose 103 Calcium 10.4 H Total Bilirubin 1.3 H AST 18 ALT 27 Alkaline Phosphatase 90 Troponin I 11 Total Protein 6.9 Albumin 3.3 L Lipase 31 Last Vital Signs Temp 36.4 C 07/19/24 09:30 Pulse 58 L 07/19/24 10:20 Resp 17 07/19/24 10:20 BP 146/72 H 07/19/24 10:16 Pulse Ox 97 07/19/24 10:20 Time Spent Time spent with Patient: >75 minutes Time was spent: preparing to see the patient(eg.review tests), obtaining and/or reviewing separately otained hiistory, ordering medications,tests, procedures, referring, communicating with other health direct care professional, indepentently interpreting results, counseling the patient and care coordination
[2024-07-19 11:37] LABS: Troponin I 12 ng/L (<or=51)
[2024-07-19] MEDS: Ondansetron 4 MG/2 ML VIAL IVP (11:41)
[2024-07-19] MEDS: Normal Saline 500 ML 1000 ML IV (11:42)
--- NOTE | 2024-07-19 12:11 | W.PC.ACHO ---
Registration Status: Primary Language: Preferred Language: ED Information & Data Chief Complaint Nausea/Vomit/Diar 07/19/24 09:29 Chief Complaint Nausea/Vomit/Diar 07/19/24 09:20 Triage Note dc'd last week for pneumonia 07/19/24 09:20 , has had increased abd pain /acid reflux. PCP has been trialing different medications but none working per daughter. This AM began vomiting, threw up all AM medications. Lots of excess burping, dizzy and weak now s/t less PO intake since thursday. trying boost/ensure Medical / Surgical History (Last Reviewed 07/08/24 @ 22:46 by Aydin Sears) Alzheimer's dementia Breast cancer Dementia Sinus node dysfunction Gallbladder polyp Chronic diarrhea Skin lesion of neck (Last Reviewed 07/08/24 @ 22:46 by Aydin Sears) S/P placement of cardiac pacemaker Vaginal hysterectomy Colonoscopy - MAC (03/25/16) Most Recent Vital Signs Temperature 36.4 C 07/19/24 09:30 Temperature Source Oral 07/19/24 09:30 Pulse 58 L 07/19/24 10:20 Pulse 63 07/19/24 10:20 Respiratory Rate 17 07/19/24 10:20 Blood Pressure 146/72 H 07/19/24 10:16 Blood Pressure Mean 92 07/19/24 10:16 Blood Pressure Position Sitting 07/19/24 09:30 Pulse Oximetry 97 07/19/24 10:20 Oxygen Delivery Method Room Air 07/19/24 09:30 Oxygen Flow Rate 0 07/19/24 09:20 Pain Level 8 07/19/24 09:30 Comment GERD 07/19/24 09:30 Allergies No Known Allergies Allergy (Verified 07/08/24 19:16) Precautions Isolation Standard precaution 07/19/24 09:29 Active Medications Generic Name Dose Route Start Last Admin Trade Name Freq PRN Reason Stop Dose Admin Iohexol 100 ml 07/19/24 10:30 07/19/24 10:26 Omnipaque 350 Mg/Ml 100 Ml Btl IJ 08/18/24 23:59 100 ml DIRECTED AMELIA Administration Sodium Chloride 50 ml 07/19/24 10:30 07/19/24 10:25 Normal Saline - Diluent 50 Ml Vial IJ 50 ml .FOR DI USE AMELIA Administration IV IV Catheter Type [Left Saline Lock Antecubital] IV Catheter Gauge [Left 18 Antecubital] Diagnostics 07/19/24 07/19/24 07/19/24 Range/Units 12:50 11:13 10:14 WBC 7.50 (4.4-10.8) 10^3/uL RBC 4.46 (3.93-5.22) 10^6/uL Hgb 14.5 (11.2-15.7) g/dL Hct 42.3 (36.0-46.0) % MCV 95 (80-95) fL MCH 32.5 (27.0-33.0) pg MCHC 34.3 (32.0-36.0) % RDW 13.4 (11.7-14.6) % Plt Count 255 (130-400) 10^3/uL MPV 8.8 (8.0-11.0) fL Immature Gran % 0.4 % Neutrophils % 80.2 % Lymphocytes % 10.7 % Monocytes % 6.8 % Eosinophils % 1.2 % Basophils % 0.7 % Nucleated RBC % 0.0 (0.0-0.3) % Absolute Neutrophils 6.02 (1.2-6.7) 10^3/uL Absolute Lymphocytes 0.80 L (1.2-3.4) 10^3/uL Absolute Monocytes 0.51 (0.1-0.8) 10^3/uL Absolute Eosinophils 0.09 (0.0-0.7) 10^3/uL Absolute Basophils 0.05 (0.0-0.2) 10^3/uL Sodium 143 (136-145) mmol/L Potassium 3.4 L (3.5-5.1) mmol/L Chloride 104 (98-107) mmol/L Carbon Dioxide 27.7 (21.0-32.0) mmol/L Anion Gap 11.3 H (3-11) mmol/L BUN 20 H (7-18) mg/dL Creatinine 0.9 (0.55-1.02) mg/dL Est GFR (CKD-EPI 2020) 63.43 (mL/min/1.73m2) Glucose 103 (74-106) mg/dL Calcium 10.4 H (8.5-10.1) mg/dL Total Bilirubin 1.3 H (0.2-1.0) mg/dL AST 18 (15-37) U/L ALT 27 (14-59) U/L Alkaline Phosphatase 90 (46-116) U/L Troponin I Cancelled 12 11 (<or=51) ng/L Total Protein 6.9 (6.4-8.2) g/dL Albumin 3.3 L (3.4-5.0) g/dL Lipase 31 (<78) U/L Intake and Output - 24 Hour Total 07/19/24 09:15 thru 07/19/24 09:31 Weight 63.503 kg Other: Emesis Description Retching Falls Risk Assessment History of Falls Previous History 07/19/24 09:31 Contributing Factors Confusion,Unstable, 07/19/24 09:31 Impairments,Incontinence, Medications Ambulatory Aids Uses ambulatory device 07/19/24 09:31 Tubes/Lines None 07/19/24 09:31 Gait Evaluation W/no contributing factors 07/19/24 09:31 Cognition No cognitive impairment 07/19/24 09:31 Fall Total Score 55 07/19/24 09:31 Level of Risk High Risk 07/19/24 09:31 v v v v v v v v v Sending and/or Receiving Nurses: Please use comment section below to note any information pertinent to the patient hand-off not included above. Information / Comments: arrives to unit via [facility] Report received from: Serena Mo RN @12:08
[2024-07-19] MEDS: Lactated Ringers 1,000 ML 100 ML IV ×2 (12:41→21:54)
[2024-07-19] MEDS: Pantoprazole 40 MG VIAL IVP (12:58)
[2024-07-19] MEDS: Enoxaparin 40 MG/0.4 ML SYR SC (12:58)
[2024-07-19] MEDS: Memantine 5 MG TAB 10 MG PO (19:49)
[2024-07-19] MEDS: Atorvastatin 40 MG TAB PO (19:50)
[2024-07-19] MEDS: Donepezil 5 MG TAB PO (19:50)
[2024-07-19] MEDS: Normal Saline Flush 10 ML SYR IVP (19:50)
[2024-07-19] MEDS: POTASSIUM CHLORIDE 20 MEQ/100 ML BAG 50 MEQ IV_INF (19:51)
[2024-07-19] MEDS: Refresh PLUS Eye Drops 0.4ml OP (19:51)
[2024-07-20] MEDS: Levothyroxine 100 MCG TAB PO (06:06)
[2024-07-20 06:51] LABS: Abs Immature Grans 0.03 10^3/uL (0.0-0.06); Absolute Basophil Count 0.04 10^3/uL (0.0-0.2); Absolute Eosinophil Count 0.17 10^3/uL (0.0-0.7); Absolute Lymphocyte Count 1.06 10^3/uL (1.2-3.4); Absolute Monocyte Count 0.45 10^3/uL (0.1-0.8); Absolute Neutrophil Count 4.05 10^3/uL (1.2-6.7); Basophils % 0.7 %; Eosinophils % 2.9 %; HCT 36.3 % (36.0-46.0); HGB 12.3 g/dL (11.2-15.7); Immature Grans % 0.5 %; Lymphocytes % 18.3 %; MCH 32.6 pg (27.0-33.0); MCHC 33.9 % (32.0-36.0); MCV 96 fL (80-95); MPV 9.3 fL (8.0-11.0); Monocytes % 7.8 %; Neutrophils % 69.8 %; Platelet Count 241 10^3/uL (130-400); RBC 3.77 10^6/uL (3.93-5.22); RDW 13.6 % (11.7-14.6); RDW-SD 47.8 fL
[2024-07-20 07:15] LABS: ALT 21 U/L (14-59); AST 20 U/L (15-37); Albumin 2.9 g/dL (3.4-5.0); Alkaline Phosphatase 78 U/L (46-116); Anion Gap 8.7 mmol/L (3-11); BUN 22 mg/dL (7-18); Bilirubin, Total 1.5 mg/dL (0.2-1.0); CO2 28.3 mmol/L (21.0-32.0); CREATININE 0.9 mg/dL (0.55-1.02); Calcium 9.5 mg/dL (8.5-10.1); Chloride 107 mmol/L (98-107); Estimated GFR 63.43 (mL/min/1.73m2); Glucose 71 mg/dL (74-106); Potassium 3.5 mmol/L (3.5-5.1); Sodium 144 mmol/L (136-145)
[2024-07-20 07:32] VITALS: BP 124/63; PULSE 60; RESP 16; TEMP 36.2; O2SAT 93
[2024-07-20] MEDS: Pantoprazole 40 MG VIAL IVP (08:43)
[2024-07-20] MEDS: Normal Saline Flush 10 ML SYR IVP ×3 (08:44→20:10)
[2024-07-20] MEDS: Cholecalciferol (Vitamin D3) 1,000 UNIT TAB 2000 UNITS PO (08:54)
[2024-07-20] MEDS: Metoprolol CR 50 MG TABCR PO (08:55)
[2024-07-20] MEDS: Memantine 5 MG TAB 10 MG PO ×2 (08:56→19:51)
[2024-07-20] MEDS: Aspirin 81 MG CHEW PO (08:58)
[2024-07-20] MEDS: Enoxaparin 40 MG/0.4 ML SYR SC (09:02)
--- NOTE | 2024-07-20 09:06 | INITIAL_ITS ---
Date of service: 07/20/24 Time of Service: 09:06 Care Management Initial Assmt Initial Assessment Reason for Hospitalization: Duodenitis Functional Status/Living Situation Patient Presentation: Melvina is awake and sitting in a recliner when met with her. Her daughter Concha (lives in [place]) has been staying with Melvina since her last admission. Melvina had [facility] RN/PT/OT as anticipated and had been in contact with her PCP and things were going great until Thursday afternoon, when she started burping frequently. She had a difficult time sleeping, eating or drinking and started vomiting. This afternoon, her burping worsened after she started drinking water. She needs an outpatient scope, Concha would like it to be inpatient if possible. Per Concha, she will be staying with her parents until this issue is resolved and Melvina gets back on her feet at home. The goal is to keep her parents at home for as long as possible. She had a meeting with Concha at the [facility] and is in the process of getting additional supports into the home. Concha recommended she reach out to [facility] and talked to her about an assisted living facility in [place]. Town of Residence: [place] Resides with: Spouse (Toni) Significant Other/Family: Out of area (Daughter/HCA is Concha Gonzales, lives in [place]) Caregiver/Guardian: Primary caregiver is her Toni Natural Supports: Daughter Concha lives in [place] and is very supportive. Melvina also has family local family that visit frequently. Employment Status: Retired Instrumental Activities of Daily Living (ADLs): Requires support Medications Medication Management: No Issues/Barriers identified Physical Functioning/Mobility Assistive Device: Walker Advance Directives Advance Directives: Do you have an Advance Directive: Y 11/26/20 11:13 AD On File at [facility]: Y 11/26/20 11:13 Date Asked 05/20/24 05/20/24 14:16 AD Date Reviewed 07/19/24 07/19/24 09:21 COLST On File at [facility] COLST Date Scanned Code Status Resuscitation Status DNR/DNI Insurance Coverage/Financial Issues Insurance: AARP [facility] Supplemental Medicare Part A & B Financial Issues: None identified Care Team Visit Care Team Role Provider Type Sami Espinal NP Primary Care Provider NURSE PRACTITIONER Nicolás Su MD Emergency Provider [facility] STAFF PHYSICIAN Nicolás Maria Admit Provider [facility] STAFF PHYSICIAN Attending Provider Discharge Anticipated Barriers to Discharge: None Identified Patient/Family Education Needs: Review discharge instructions, discuss Ask Me Three Transportation: Private vehicle Plan: Anticipate, Melvina will discharge home when she is medically ready for discharge. She does not want to go to a [facility] at this time. Concha is staying with her and is agreeable to this plan. She is trying to hire caregivers. Concha will provide transportation, a lift assist may be needed. Will need a resumption of [facility] RN/ PT/OT/INSURANCE ACCOUNT MANAGER services. CM will follow and support coordination. Social Determinants of Health Screening Social Determinants of Health last assessed: 07/20/24 Will the Patient Participate in the Screening?: Yes Do you worry about having a steady place to live?: no Problems where you live: no known problems In the past 12 months, have you had to go without electric, gas, oil or water in your home?: no Have you or anyone in your house had to go without enough food to eat?: no Has lack of transportation kept you from medical appointments or from doing things needed for daily living?: no Has anyone in your life made you feel unsafe or unsupported?: no How hard is it for you to pay for the very basics like food, housing, medical care, and heating? Would you say it is:: Not hard at all Do you want help finding or keeping work or a job?: I do not need or want help If for any reason you need help with day-to-day activities such as bathing, preparing meals, shopping, managing finances, etc., do you get the help you need?: I could use a little more help How often do you feel lonely or isolated from those around you?: Never Do you speak a language other than [place] at home?: No Does the patient want assistance with any of the above?: No Health Related Social Needs Health related social needs: problems with daily activities (Z73.9) [facility] All Active Problems (Updated 07/19/24 @ 13:22 by Eliza Gallardo APRN) Discharge planning issues (Acute) On deep vein thrombosis (DVT) prophylaxis (Acute) Duodenitis (Acute) Weakness (Acute) Palliative care encounter (Acute) Advanced care planning/counseling discussion (Acute) History of breast cancer (Acute) 2020: care at [facility]- radiation completed, chemo not recommended, Exemestane to be completed May 2024 Plantar wart (Acute) Coronary artery disease (Chronic) Dizziness (Acute) Alzheimer's dementia without behavioral disturbance (Chronic) Thin nails (Acute) Hyperbilirubinemia (Chronic) NSTEMI (non-ST elevated myocardial infarction) (Acute) 07/2019- will need colo at [facility] due to this Weight loss (Acute) 01/2021- weight stable at 155 Cubital tunnel syndrome on left (Acute) Left carpal tunnel syndrome (Acute) S/P L ECTR: 04/02/2021 Cardiac pacemaker (Chronic) Dual lead Medtronic pacemaker Yesika XT DR BOYCE [id number] 11/08/2018 Tubular adenoma of colon (Acute 03/25/16) Hypothyroidism (Chronic 01/25/14) Medical History Alzheimer's dementia Breast cancer 2020: care at [facility]- radiation completed, chemo not recommended, Exemestane to be completed May 2024 Dementia Sinus node dysfunction Gallbladder polyp Chronic diarrhea Skin lesion of neck Sent photo to Dr. Terrell. He said benign seborrheic keratosis. No treatment. Will let her know later. Surgical History S/P placement of cardiac pacemaker Vaginal hysterectomy Colonoscopy - MAC (03/25/16) Family History Father , 84 Skin cancer Heart disease Mother , 94 Dementia Sister , 81 Dementia Heart disease Brother No problems noted. Maternal Grandfather , 79 No problems noted. Paternal Grandfather , 59 Cancer Maternal Grandmother , 58 No problems noted. Paternal Grandmother , 86 No problems noted. Daughter Diabetes S/P vascular surgery Daughter No problems noted. Social History Smoking/Tobacco Use Status: Former Tobacco Use tobacco type: cigarettes Quit Date: 03/04/98 Second Hand Exposure: Yes Smoking risk assessment performed?: Yes Alcohol Intake: never Drug use: Never Substance use type: does not use Caregiver/Support person: No Household members: spouse Housing: house Communication Needs: Hard of Hearing Do you need help understanding health information?: Rarely Pets and animals: No Sexually active: No Do you think of yourself as: straight/heterosexual Current gender identity: female What is your relationship status?: How often do you talk on the phone with friends or family?: three or more times per week Do you belong to any clubs or organized social groups?: no Panel score (0-1 are the most socially isolated patients): 2 What type of physical activity do you participate in: walking Duration: 45-60 minutes/day Frequency: 3-4 times per week Special karyn needs: No Seatbelt use: always Helmet use: No Drive intox or ride w/intox local city driver: No Do you feel safe at home: Yes Do you feel safe in your relationship?: Yes Readmission Within the Past 30 Days Yes or No: Yes Date of First Admission Date of 1st Admission: 07/08/24 Date of this Admission Date of Admission: 07/19/24 This admission was: Through ED Office Visit Since 1st Admission Have you seen your PCP in the office since discharge?: Yes Date of PCP Appointment: 07/16/2024 Had an appointment Been Scheduled?: Yes Date of Scheduled Appointment: 07/16/2024 Describe barriers for scheduling or getting an appointment: None I. Interview patient and/or Family Difficulty reaching your doctor or getting an office appt?: No Have you had trouble purchasing/ or taking medication?: No Have you had trouble with getting meals at home?: No Did you feel ready for discharge when you left the last time: Yes Were services received that you thought were set up on disch: Yes What services were received?: [facility] RN/PT/OT How do you think you became sick enough to come back?: Melvina had a difficult time eating and drinking after discharge and lost strength and momentum. Frequent burping also affected her ability to sleep. ED visits How many ED visits in the past 12 months: 2 Anticipated HH Services Anticipated HH Services at Discharge [facility] Resumption, INSURANCE ACCOUNT MANAGER, OT, PT and RN Anticipated Date of Discharge: 07/21/24. Following Provider: Sami Espinal.
--- NOTE | 2024-07-20 09:08 | W.PM.PROGNOT ---
Date of Service Date of service: 07/20/24 Time of Service: 09:08 Assessment and Plan Assessment and plan (1) Duodenitis: Start date: 07/19/24 Start time: 13:20 Status: Acute Assessment and plan: As per CT- should be confirmed by endoscopy and can be associated with gastritis but w/o S&S of acute bleeding and stable H&H ---> outpatient for now Consider Sx consult inpatient if increased acuity Continue Pantoprozole Start sucralfate Resume diet continue PRN compazine D/c IVF - if PO tolerated CMP in AM (2) Weakness: Start date: 07/19/24 Start time: 13:20 Status: Acute Assessment and plan: Physical therapy consult ongoing (3) Alzheimer's dementia without behavioral disturbance: Start date: 07/19/24 Start time: 13:21 Status: Chronic Assessment and plan: On home medicines (4) Coronary artery disease: Start date: 07/19/24 Start time: 13:21 Status: Chronic Assessment and plan: On home meds regimen (5) On deep vein thrombosis (DVT) prophylaxis: Start date: 07/19/24 Start time: 13:21 Status: Acute Assessment and plan: On TEDs (6) Discharge planning issues: Status: Acute Assessment and plan: Most likely to be dischrged in AM as per PT recommendation VS family decision if medically stable Had refused SNF last admit-- with resumption of services Sx consult outpatient for endoscopic procedure discussed with Dr. Nolasco -- H pylori ordered discussed with Dr. Maria Subjective Subjective Patient reports: feels better, tolerating liquids well, tolerating a regular diet, voiding w/o difficulty and bowel movement; denies diarrhea, vomiting, shortness of breath or fever Exam Narrative Exam Narrative: Constitutional The patient is without acute distress, plan discussed with daughter and patient HENMT: Facial structures with normal appearance Eyes: Well aligned, non-icteric sclera Neuro:alert and oriented X2 . Chest:Chest is symmetrical and normal appearance Resp: Unlabored breathing, clear lung bilaterally Cardio: regular rhythm, S1, S2, no murmur, capillary refill<3 sec. GI: Abdomen is not distended, soft and non tender, bowel sounds are present Integumentary: No skin lesions or rash, no jaundice Psych: RASS 0, congruent mood and normal affect. Objective Last Vital Signs Temp 36.2 C L 07/20/24 07:32 Pulse 60 07/20/24 07:32 Resp 16 07/20/24 07:32 BP 124/63 07/20/24 07:32 Pulse Ox 93 07/20/24 07:32 Laboratory Results - last 24 hr 07/19/24 07/19/24 07/19/24 10:14 11:13 12:50 WBC 7.50 RBC 4.46 Hgb 14.5 Hct 42.3 MCV 95 MCH 32.5 MCHC 34.3 RDW 13.4 Plt Count 255 MPV 8.8 Immature Gran % 0.4 Neutrophils % 80.2 Lymphocytes % 10.7 Monocytes % 6.8 Eosinophils % 1.2 Basophils % 0.7 Nucleated RBC % 0.0 Absolute Neutrophils 6.02 Absolute Lymphocytes 0.80 L Absolute Monocytes 0.51 Absolute Eosinophils 0.09 Absolute Basophils 0.05 Sodium 143 Potassium 3.4 L Chloride 104 Carbon Dioxide 27.7 Anion Gap 11.3 H BUN 20 H Creatinine 0.9 Est GFR (CKD-EPI 2020) 63.43 Glucose 103 Calcium 10.4 H Total Bilirubin 1.3 H AST 18 ALT 27 Alkaline Phosphatase 90 Troponin I 11 12 Cancelled Total Protein 6.9 Albumin 3.3 L Lipase 31 07/20/24 06:10 WBC 5.80 RBC 3.77 L Hgb 12.3 D Hct 36.3 MCV 96 H MCH 32.6 MCHC 33.9 RDW 13.6 Plt Count 241 MPV 9.3 Immature Gran % 0.5 Neutrophils % 69.8 Lymphocytes % 18.3 Monocytes % 7.8 Eosinophils % 2.9 Basophils % 0.7 Nucleated RBC % 0.0 Absolute Neutrophils 4.05 Absolute Lymphocytes 1.06 L Absolute Monocytes 0.45 Absolute Eosinophils 0.17 Absolute Basophils 0.04 Sodium 144 Potassium 3.5 Chloride 107 Carbon Dioxide 28.3 Anion Gap 8.7 BUN 22 H Creatinine 0.9 Est GFR (CKD-EPI 2020) 63.43 Glucose 71 L Calcium 9.5 Total Bilirubin 1.5 H AST 20 ALT 21 Alkaline Phosphatase 78 Troponin I Total Protein 6.0 L Albumin 2.9 L Lipase Time Spent with Patient Time Spent with Patient: >50 minutes Time was spent: preparing to see the patient(eg.review tests), obtaining and/or reviewing separately otained hiistory, ordering medications,tests, procedures, referring, communicating with other health manager critical care, indepentently interpreting results, counseling the patient and care coordination
[2024-07-20] MEDS: Refresh PLUS Eye Drops 0.4ml OP ×4 (09:10→19:51)
[2024-07-20] MEDS: Lactated Ringers 1,000 ML 100 ML IV (10:19)
[2024-07-20 11:40] VITALS: BP 113/73; PULSE 61; RESP 16; TEMP 36.1; O2SAT 99
[2024-07-20 12:31] LABS: Bilirubin, Direct 0.5 mg/dL (0.0-0.2)
[2024-07-20] MEDS: Sucralfate 1 GM TAB PO ×3 (12:35→20:57)
[2024-07-20 15:52] VITALS: BP 116/60; PULSE 65; RESP 18; TEMP 36.3; O2SAT 98
[2024-07-20 19:49] VITALS: BP 102/56; PULSE 60; RESP 18; TEMP 36.7; O2SAT 95
[2024-07-20] MEDS: Atorvastatin 40 MG TAB PO (19:51)
[2024-07-20] MEDS: Donepezil 5 MG TAB PO (19:51)
[2024-07-20] MEDS: Docusate Sodium 100 MG CAP PO (20:58)
[2024-07-20 22:59] VITALS: BP 127/62; PULSE 63; RESP 19; TEMP 36.3; O2SAT 97
[2024-07-21 03:10] VITALS: BP 140/68; PULSE 72; RESP 16; TEMP 36.6; O2SAT 97
[2024-07-21] MEDS: Levothyroxine 100 MCG TAB PO (06:33)
[2024-07-21 07:09] LABS: Abs Immature Grans 0.02 10^3/uL (0.0-0.06); Absolute Basophil Count 0.04 10^3/uL (0.0-0.2); Absolute Eosinophil Count 0.19 10^3/uL (0.0-0.7); Absolute Lymphocyte Count 0.79 10^3/uL (1.2-3.4); Absolute Monocyte Count 0.45 10^3/uL (0.1-0.8); Absolute Neutrophil Count 3.56 10^3/uL (1.2-6.7); Basophils % 0.8 %; Eosinophils % 3.8 %; HCT 33.2 % (36.0-46.0); HGB 11.4 g/dL (11.2-15.7); Immature Grans % 0.4 %; Lymphocytes % 15.6 %; MCH 32.8 pg (27.0-33.0); MCHC 34.3 % (32.0-36.0); MCV 95 fL (80-95); MPV 9.2 fL (8.0-11.0); Monocytes % 8.9 %; Neutrophils % 70.5 %; Platelet Count 174 10^3/uL (130-400); RBC 3.48 10^6/uL (3.93-5.22); RDW 13.1 % (11.7-14.6); RDW-SD 45.1 fL; WBC 5.05 10^3/uL (4.4-10.8)
[2024-07-21 07:29] VITALS: BP 138/75; PULSE 84; RESP 18; TEMP 36.5; O2SAT 96
[2024-07-21 07:31] LABS: ALT 15 U/L (14-59); AST 20 U/L (15-37); Albumin 2.6 g/dL (3.4-5.0); Alkaline Phosphatase 69 U/L (46-116); Anion Gap 5.9 mmol/L (3-11); BUN 20 mg/dL (7-18); CO2 27.1 mmol/L (21.0-32.0); CREATININE 0.8 mg/dL (0.55-1.02); Chloride 109 mmol/L (98-107); Estimated GFR 73.06 (mL/min/1.73m2); Glucose 89 mg/dL (74-106); Potassium 3.4 mmol/L (3.5-5.1); Sodium 142 mmol/L (136-145); Total Protein 5.2 g/dL (6.4-8.2)
[2024-07-21] MEDS: Cholecalciferol (Vitamin D3) 1,000 UNIT TAB 2000 UNITS PO (08:32)
[2024-07-21] MEDS: Pantoprazole 40 MG VIAL IVP (08:33)
[2024-07-21] MEDS: Docusate Sodium 100 MG CAP PO (08:34)
[2024-07-21] MEDS: Refresh PLUS Eye Drops 0.4ml OP ×2 (08:34→12:14)
[2024-07-21] MEDS: Aspirin 81 MG CHEW PO (08:34)
[2024-07-21] MEDS: Sucralfate 1 GM TAB PO ×2 (08:34→12:15)
[2024-07-21] MEDS: Memantine 5 MG TAB 10 MG PO (08:34)
[2024-07-21] MEDS: Metoprolol CR 50 MG TABCR PO (08:34)
[2024-07-21] MEDS: Normal Saline Flush 10 ML SYR IVP (08:35)
--- NOTE | 2024-07-21 09:32 | W.PM.DS.N ---
Date of service: 07/21/24 Time of Service: 09:33 DS: Diagnosis Discharge Diagnosis (1) Duodenitis: Status: Acute (2) Weakness: Status: Acute (3) Alzheimer's dementia without behavioral disturbance: Status: Chronic (4) Coronary artery disease: Status: Chronic (5) On deep vein thrombosis (DVT) prophylaxis: Status: Acute (6) Discharge planning issues: Status: Acute Discharge Plan Disposition Patient Disposition: Home W/Home Health Services Condition: Improving Discharge Details Reason For Visit: RespSymp Admit Date/Time: 07/19/24 12:24 Admit Provider: Nicolás Maria Attending Provider: Nicolás Maria Primary Care Provider: Sami Zambrano Hospital Course Hospital Course: This frail elderly female patient with medical history of pulm Alzheimer dementia, hyperlipidemia, hypogonadism, hypertension, breast cancer, non-STEMI with pacemaker recent hospitalization in July 2024 for pneumonia and UTI presented to the ED at [facility] for evaluation of reduced oral intake for few days, belching, nausea and emesis on 07/19/2024. Workup in the ED was significant for findings of atelectasis as per CT without bowel obstruction. CBC and chemistry were unremarkable except for BUN 20. The patient was admitted to the hospitalist service on the medical floor for further management of colitis, nausea, vomiting and dehydration. Patient was treated with IV fluid, and antiemetics and was able to resume oral intake. H&H were trended and remained stable in the setting of hemodilution. No acute bleeding or further emesis observed during the stay. H. pylori and occult blood in stool ordered and pending, if not obtained to be done outpatient. On the day of discharge the patient was hemodynamically stable, afebrile. The patient will need to follow-up with his primary care practitioner within 7 days of discharge as well as a follow-up with outpatient surgery for EGD need. The patient will be discharge with resumption of home health services on short course of Reglan, Protonix, and sucralfate. Avoid NSAIDs, please. Discussed with Dr. Freitas. Home Meds and New Rx's Prescriptions: New pantoprazole [Protonix] 40 mg tablet,delayed release (DR/EC) 40 mg PO DAILY Qty: 30 0RF sucralfate 1 gram tablet 1 g PO QACHS Qty: 20 0RF docusate sodium 100 mg capsule 100 mg PO DAILY Qty: 30 0RF metoclopramide HCl [Reglan] 5 mg tablet 5 mg PO QAC Qty: 15 0RF Rx Instructions: administer 30 minutes before meals Continued benzonatate 100 mg capsule 100 mg PO TID PRN (Reason: cough) Qty: 14 0RF ondansetron 4 mg tablet,disintegrating 4 mg PO Q6H PRN (Reason: nausea and vomiting) Qty: 60 0RF artificial tears(hypromellose) 0.3 % drops 1 drp OP QID lutein 20 mg capsule 20 mg PO DAILY Rx Instructions: give with meal/snack cholecalciferol (vitamin D3) 50 mcg (2,000 unit) capsule 50 mcg PO DAILY aspirin [Aspirin Low-Strength] 81 MG tablet,chewable 81 mg PO DAILY levothyroxine 100 mcg capsule 100 mcg PO DAILY Qty: 90 4RF atorvastatin 40 mg tablet 40 mg PO QPM Qty: 90 3RF exemestane 25 mg tablet 25 mg PO DAILY Rx Instructions: must administer after a meal metoprolol succinate 50 mg tablet extended release 24 hr 50 mg PO DAILY Qty: 90 3RF nitroglycerin 0.4 mg tablet, sublingual 0.4 mg sublingual PRN PRN (Reason: chest pain) Qty: 60 0RF donepezil 5 mg tablet 5 mg PO QHS Qty: 90 3RF memantine 10 mg tablet 10 mg PO BID Qty: 180 3RF Discontinued doxycycline hyclate 100 mg capsule 100 mg PO BID Patient Comments: TAKE ONE CAPSULE BY MOUTH TWICE A DAY FOR 3 DAYS cefpodoxime 200 mg tablet 200 mg PO BID Patient Comments: TAKE ONE TABLET BY MOUTH TWICE A DAY Discharge Instructions Referrals: [facility] [OTHER] - (Referral for duodenitis ? needs for EGD) Sami Zambrano [facility] [Primary Care Provider] - (Follow-up within 7 days of discharge) Activity:: Activity as Tolerated Equipment/Supplies:: Walker Diet:: heart healthy Discharge Orders Other Ambulatory Orders: Stool Occult Blood Guaiac(3sp) (Routine) Timeframe: 20240722 Facility: [facility] - Location: Laboratory Outpatient - [facility] Ordered By: Eliza Gallardo DS: Summary Time Spent with Patient providing and/or coordinating discharge services: Greater than 30 minutes Status at Discharge Functional status at discharge: uses cane/walker Overall status at discharge: patient is progressing back to baseline Mental Status: mental status grossly normal Speech and Movement: speech and movement normal Mood: congruent mood Affect: normal affect Quality:SDOH Health Related Social Needs: Health related social needs problems with daily activities (Z73.9) Exam Narrative Exam Narrative: Constitutional Frail elderly female patient looking older than stated age, without acute distress, plan discussed with daughter and patient HENMT: Facial structures with normal appearance Eyes: Well aligned, non-icteric sclera Neuro:alert and oriented X2 . Chest:Chest is symmetrical and normal appearance Resp: Unlabored breathing, clear lung bilaterally Cardio: regular rhythm, S1, S2, no murmur, capillary refill<3 sec. GI: Abdomen is not distended, soft and non tender, bowel sounds are present Psych: RASS 0, congruent mood and normal affect. Psych Mental Status: mental status grossly normal Speech and Movement: speech and movement normal Mood: congruent mood Affect: normal affect DS: Data Vitals/I&O Vitals and I&O: Vital Signs Temperature 36.5 C 07/21/24 07:29 Temperature Source Temporal Artery Scan 07/21/24 07:29 Pulse 84 07/21/24 07:29 Pulse Rhythm Regular 07/19/24 12:35 Pulse 67 07/19/24 12:10 Respiratory Rate 18 07/21/24 07:29 Respiratory Effort Normal 07/19/24 12:35 Respiratory Depth Normal 07/19/24 12:35 Respiratory Pattern Normal 07/19/24 12:35 Blood Pressure 138/75 07/21/24 07:29 Blood Pressure Mean 91 07/19/24 12:01 Blood Pressure Position Sitting 07/19/24 09:30 Pulse Oximetry 96 07/21/24 07:29 Oxygen Delivery Method Room Air 07/21/24 07:29 Oxygen Flow Rate 0 07/21/24 07:29 Pain Level 0 07/21/24 03:10 Comment vitals not done patient was asleep and did not want to be waken up. 07/20/24 05:05 Intake & Output 07/20/24 07/20/24 07/21/24 11:59 23:59 11:59 Intake Total 1360 / 2690 1330 / 2690 240 / 240 Output Total 100 / 550 450 / 550 1250 / 1250 Balance 1260 / 2140 880 / 2140 -1010 / -1010 Intake: IV 999 Oral 360 / 680 320 / 680 240 / 240 Output: Urine 100 / 550 450 / 550 1250 / 1250 Other: Urine Color Yellow Light Margarita Pale Urine Appearance Clear Clear Urine Odor Strong Comment unmeasured amount in the toilet Data Completed and Pending Labs on day of discharge: Labs from last 24 hours 07/21/24 07/20/24 06:25 06:10 WBC 5.05 RBC 3.48 L Hgb 11.4 Hct 33.2 L MCV 95 MCH 32.8 MCHC 34.3 RDW 13.1 Plt Count 174 MPV 9.2 Immature Gran % 0.4 Neutrophils % 70.5 Lymphocytes % 15.6 Monocytes % 8.9 Eosinophils % 3.8 Basophils % 0.8 Nucleated RBC % 0.0 Absolute Neutrophils 3.56 Absolute Lymphocytes 0.79 L Absolute Monocytes 0.45 Absolute Eosinophils 0.19 Absolute Basophils 0.04 Sodium 142 Potassium 3.4 L Chloride 109 H Carbon Dioxide 27.1 Anion Gap 5.9 BUN 20 H Creatinine 0.8 Est GFR (CKD-EPI 2020) 73.06 Glucose 89 Calcium 9.0 Total Bilirubin 1.0 Conjugated Bilirubin 0.5 H AST 20 ALT 15 Alkaline Phosphatase 69 Total Protein 5.2 L Albumin 2.6 L PFSH All Active Problems (Updated 07/19/24 @ 13:22 by Eliza Gallardo APRN) Discharge planning issues (Acute) On deep vein thrombosis (DVT) prophylaxis (Acute) Duodenitis (Acute) Weakness (Acute) Palliative care encounter (Acute) Advanced care planning/counseling discussion (Acute) History of breast cancer (Acute) 2020: [place] [facility], chemo not recommended, Exemestane to be completed May 2024 Plantar wart (Acute) Coronary artery disease (Chronic) Dizziness (Acute) Alzheimer's dementia without behavioral disturbance (Chronic) Thin nails (Acute) Hyperbilirubinemia (Chronic) NSTEMI (non-ST elevated myocardial infarction) (Acute) 07/2019- will need colo at [facility] due to this Weight loss (Acute) 01/2021- weight stable at 155 Cubital tunnel syndrome on left (Acute) Left carpal tunnel syndrome (Acute) S/P L ECTR: 04/02/2021 Cardiac pacemaker (Chronic) Dual lead Medtronic pacemaker Yesika XT DR BOYCE [id number] 11/08/2018 Tubular adenoma of colon (Acute 03/25/16) Hypothyroidism (Chronic 01/25/14) Medical History Alzheimer's dementia Breast cancer 2020: [place] [facility] completed, chemo not recommended, Exemestane to be completed May 2024 Dementia Sinus node dysfunction Gallbladder polyp Chronic diarrhea Skin lesion of neck Sent photo to Dr. Terrell. He said benign seborrheic keratosis. No treatment. Will let her know later. Surgical History S/P placement of cardiac pacemaker Vaginal hysterectomy Colonoscopy - MAC (03/25/16) Family History Father , 84 Skin cancer Heart disease Mother , 94 Dementia Sister , 81 Dementia Heart disease Brother No problems noted. Maternal Grandfather , 79 No problems noted. Paternal Grandfather , 59 Cancer Maternal Grandmother , 58 No problems noted. Paternal Grandmother , 86 No problems noted. Daughter Diabetes S/P vascular surgery Daughter No problems noted. Social History Smoking/Tobacco Use Status: Former Tobacco Use tobacco type: cigarettes Quit Date: 03/04/98 Second Hand Exposure: Yes Smoking risk assessment performed?: Yes Alcohol Intake: never Drug use: Never Substance use type: does not use Caregiver/Support person: No Household members: spouse Housing: house Communication Needs: Hard of Hearing Do you need help understanding health information?: Rarely Pets and animals: No Sexually active: No Do you think of yourself as: straight/heterosexual Current gender identity: female What is your relationship status?: How often do you talk on the phone with friends or family?: three or more times per week Do you belong to any clubs or organized social groups?: no Panel score (0-1 are the most socially isolated patients): 2 What type of physical activity do you participate in: walking Duration: 45-60 minutes/day Frequency: 3-4 times per week Special karyn needs: No Seatbelt use: always Helmet use: No Drive intox or ride w/intox horse and wagon driver: No Do you feel safe at home: Yes Do you feel safe in your relationship?: Yes Time Spent with Patient Time Spent with Patient: 70-84 minutes4 Time was spent: preparing to see the patient(eg.review tests), obtaining and/or reviewing separately otained hiistory, ordering medications,tests, procedures, referring, communicating with other health child care education coordinator, indepentently interpreting results, counseling the patient and care coordination
[2024-07-21] MEDS: Metoclopramide 10 MG TAB 5 MG PO (09:51)
[2024-07-21] MEDS: Bisacodyl 10 MG SUPP PR (09:51)
--- NOTE | 2024-07-21 10:12 | PDOC.CMDIS ---
Date of service: 07/21/24 Time of Service: 10:13 LACE Index Scoring Tool Questions: Length of Stay (in days): 2 Was the patient admitted via the E.D.?: Yes E.D. Visits: 2 Answers: Total Score: 7 Risk of Readmission: Low Risk Care Management Discharge Plan Reason for Hospitalization: Duodenitis Discharge Plan: Discharge home with resumption of H RN/DIP BRAZIER, add PT/OT and additional caregiver supports (arranged by roscoe). Will transport home via private vehicle with family. Melvina will follow up with her PCP, Outpatient Surgical and discharge plan of care as directed. Patient/Family Education Needs: Review discharge instructions and plan to follow up after discharge. Discuss ask me three. Services Needed at Discharge: Home Health Care Services (Resumption of [facility] services. RN/PT/OT/DIP BRAZIER) SDOH Health Related Social Needs: Health related social needs problems with daily activities (Z73.9)
--- NOTE | 2024-07-21 10:28 | PT.INIE ---
PT Notes Visit Reasons: RespSymp Inpatient Physical Therapy Evaluation Date: 07/21/2024 Referring Doctor: Eliza Gallardo PT Orders: PT CONSULT: Safety consult for discharge Precautions: Fall Risk, Standard, Patient Profile/Admitting Diagnosis: Pt is 83 yo female presented to ED with N/V and decreased po intake . work up (+) duodenitis per CT scan elevated BUN, K Calcium, billirubin. Pt admitted for medical management prior to discharge to home PMHX: On deep vein thrombosis (DVT) prophylaxis (Acute) Duodenitis (Acute) Weakness (Acute) Palliative care encounter (Acute) Advanced care planning/counseling discussion (Acute) History of breast cancer (Acute) 2020: care at [facility]- radiation completed, chemo not recommended, Exemestane to be completed May 2024Plantar wart (Acute) Coronary artery disease (Chronic) Dizziness (Acute) Alzheimer's dementia without behavioral disturbance (Chronic) Thin nails (Acute) Hyperbilirubinemia (Chronic) NSTEMI (non-ST elevated myocardial infarction) (Acute) 07/2019- will need colo at [facility] due to this Weight loss (Acute) 01/2021- weight stable at 155Cubital tunnel syndrome on left (Acute) Left carpal tunnel syndrome (Acute) S/P L ECTR: 04/02/2021ardiac pacemaker (Chronic) Dual lead [employer]tr[employer] pacemaker [place] XT DR BOYCE [id number] 11/08/2018Tubular adenoma of colon (Acute 03/25/16) Hypothyroidism (Chronic 01/25/14) Medical History Alzheimer's dementia Breast cancer 2020: care at [facility]- radiation completed, chemo not recommended, Exemestane to be completed May 2024Dementia Sinus node dysfunction Gallbladder polyp Chronic diarrhea Skin lesion of neck Sent photo to Dr. Terrell. He said benign seborrheic keratosis. No treatment. Will let her know later. Surgical History S/P placement of cardiac pacemaker Vaginal hysterectomy Colonoscopy - MAC (03/25/16) Social History/Home Situation: Lives with her in single family home with 4 XIOMY with B rails. Pt's dtr ( lives in [place]) is staying with the pt. Pt needs supervision for all mobility and supervision cueing for meals, medication and initiation of ADLs. Equipment Owned/DME: [employer] Subjective: Patient reports she is feeling better and is hoping to go home. Patient's daughter reports she is going home after this assessment. Objective: [] General Observation: Patient presents seated in chair with her and daughter visiting. Mental Status: Patient alert and oriented to person, cooperative, agreeable to participate in assessment. Patient able to follow instructions.. Pain: Denies Vital Signs: Monitored by nursing ROM: Right Upper Extremity: WFL Left Upper Extremity: WFL Right Lower Extremity: WFL Left Lower Extremity: WFL Strength: Right Upper Extremity: Able to move all joints against gravity fighting vehicle infantryman good Left Upper Extremity: Able to move all joints against gravity fighting vehicle infantryman good Right Lower Extremity: Grossly 4/5 Left Lower Extremity: Grossly 4/5 Sensation: Intact Bed Mobility/Transfers: [] Supine to sit independent Sit to supine independent Transfers with FWW supervision cues for hand placement to push up and to reach back during sit to and from stand Gait: Ambulates 300 feet with FWW supervision reciprocal pattern level surfaces including turns Stairs: 4 steps with 2 rails contact-guard assist step to pattern Balance: [] Static Sitting: Normal Dynamic Sitting: Good Static Standing: Good Dynamic Standing: Fair plus Special Tests: Mobility Limitations Standardized Measure [facility] 6 clicks Basic Mobility Inpatient Short Form: Raw Score: 21 Standardized Score: [] CMS Score: 28.97% Informed Consent/Education: Patient instructed in purpose of PT consult and plan of care. Assessment: Patient is a 83 year old female referred to physical therapy services with the diagnosis of duodenitis. Patient presents with clinical signs and symptoms consistent with admitting diagnosis, as demonstrated by the following impairment level findings: 1. Impaired standing functional activity tolerance 2. Impaired balance standing 3. Impaired strength BLE Impairments are contributing to the following functional limitations: 1. AMPAC score. 2. Difficulty ambulating without assistive device or assistance 3. Decline in ability to perform stairs without assistance 4. Increased time to complete ADL/mobility tasks Patient is assessed as a Low 89022 complexity based on the following: History: 83-year-old female presenting with past medical history as stated above Examination: Demonstrates decline in strength BLE impaired balance and decline in functional activity tolerance resulting in impaired ambulation stairs. Presentation: Stable Decision Making: low Goals: NA pt discharge to home Plan of Care/Treatment Plan: NA pt discharge to home DISCHARGE RECOMMENDATIONS: [] [] Home with no services [] [X] Home with services PT [] Home with outpatient PT [] [] SNF for continued rehabilitation [] [] Custodial Care [] [] SNF versus LTC based on ability to participate and progress [] TREATMENT CODE/TIME: 24243/ [id number]
[2024-07-22 13:44] LABS: Helicobacter pylori Ag, Feces Negative (Negative)
== END 2024-07-21 12:49 | disposition home health service (06) | DRG 392 ==
LOC: ER 12:17 → MS 12:51
PROVIDERS: Nurse Practitioner Acute Care; Admitting Provider Family Medicine; Emergency Provider Emergency Medicine; PCP Nurse Practitioner Family; Visit Provider Family Medicine
DX: K29.80 Duodenitis without bleeding (principal); I45.2 Bifascicular block; R53.1 Weakness; G30.9 Alzheimer's disease, unspecified; F02.80 Dementia in other diseases classified elsewhere, unspecified severity, without behavioral disturbance, psychotic disturbance, mood disturbance, and anxiety; I25.10 Atherosclerotic heart disease of native coronary artery without angina pectoris; E78.5 Hyperlipidemia, unspecified; E03.9 Hypothyroidism, unspecified; I10 Essential (primary) hypertension; R11.2 Nausea with vomiting, unspecified; Z66 Do not resuscitate; Z95.0 Presence of cardiac pacemaker; Z85.3 Personal history of malignant neoplasm of breast; I25.2 Old myocardial infarction; Z79.899 Other long term (current) drug therapy
CPT/HCPCS: 00123; 36415; 80053; 83690; 87338; 93005; 96361; 96372; 96374; 96375; 96376; 97161; 99285; J1650; 74177; 82248; 82270; 84484; 85025; 93010; 99223; 99233; 99239; G0378; J2405; J2470; J3480; J3490

== ENCOUNTER 2024-08-01 10:26 | Emergency (ER) | payer MEDICARE, SELFPAY ==
[2024-08-01] VITALS (8 sets, daily range): BP systolic 124–145; BP diastolic 54–74; PULSE 63–87; RESP 9–38; TEMP 36.9; O2SAT 98–100
--- NOTE | 2024-08-01 10:30 | RT.EKG_ITS ---
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
--- NOTE | 2024-08-01 11:26 | W.ED.GENAD ---
Discharge Plan Disposition Patient Disposition: Home Condition: Stable Discharge Details Clinical Impression: Chest pain Primary Care Provider: Sami Zambrano ED Provider: Bryce Glaser Home Meds and New Rx's Prescriptions: Continued benzonatate 100 mg capsule 100 mg PO TID PRN (Reason: cough) Qty: 14 0RF ondansetron 4 mg tablet,disintegrating 4 mg PO Q6H PRN (Reason: nausea and vomiting) Qty: 60 0RF artificial tears(hypromellose) 0.3 % drops 1 drp OP QID lutein 20 mg capsule 20 mg PO DAILY Rx Instructions: give with meal/snack cholecalciferol (vitamin D3) 50 mcg (2,000 unit) capsule 50 mcg PO DAILY donepezil 5 mg tablet 5 mg PO QHS Qty: 90 3RF olanzapine 2.5 mg tablet 2.5 mg PO DAILY Qty: 30 0RF aspirin [Aspirin Low-Strength] 81 MG tablet,chewable 81 mg PO DAILY levothyroxine 100 mcg capsule 100 mcg PO DAILY Qty: 90 4RF atorvastatin 40 mg tablet 40 mg PO QPM Qty: 90 3RF exemestane 25 mg tablet 25 mg PO DAILY Rx Instructions: must administer after a meal metoprolol succinate 50 mg tablet extended release 24 hr 50 mg PO DAILY Qty: 90 3RF nitroglycerin 0.4 mg tablet, sublingual 0.4 mg sublingual PRN PRN (Reason: chest pain) Qty: 60 0RF memantine 10 mg tablet 10 mg PO BID Qty: 180 3RF pantoprazole [Protonix] 40 mg tablet,delayed release (DR/EC) 40 mg PO DAILY Qty: 30 0RF sucralfate 1 gram tablet 1 g PO QACHS Qty: 20 0RF docusate sodium 100 mg capsule 100 mg PO DAILY Qty: 30 0RF metoclopramide HCl 5 mg tablet 5 mg PO .COMPLEX Patient Comments: TAKE 1 TABLET BY MOUTH 30 MINUTES BEFORE MEALS Rx Instructions: 5 mg orally AC; Discharge Instructions Instructions: Chest Pain, Adult ED Additional Instructions: Please follow-up with your primary care physician. Return to the Emergency Department at any time for further workup and treatment if you have new concerning symptoms. Referrals: Sami Zambrano, GUEST RELATIONS RECEPTIONIST [Primary Care Provider] - Discharge Data Discharge Date/Time-TO BE ENTERED AT DEPARTURE: 08/01/24 11:41 HPI General Mode of arrival: ambulatory. Date/Time Provider Initiated Documentation: 08/01/24 10:47. Information obtained by: patient and family. HPI Narrative: 84-year-old female here with her with concern for pain over her pacemaker site. This occurred just prior to arrival. Patient has no pain at this time. Pain completely resolved. Patient has no complaints at this time. Related Data Home Medications ?Medication ?Instructions ?Recorded ?Confirmed aspirin 81 mg chewable tablet 81 mg PO DAILY 09/16/12 08/01/24 (Aspirin Low-Strength) artificial tears(hypromellose) 0.3 1 drp ophthalmic (eye) QID 11/07/21 08/01/24 % eye drops lutein 20 mg capsule 20 mg PO DAILY 10/24/22 08/01/24 levothyroxine 100 mcg capsule 100 mcg PO DAILY #90 caps 11/19/23 08/01/24 atorvastatin 40 mg tablet 40 mg PO QPM #90 tabs 11/23/23 08/01/24 exemestane 25 mg tablet 25 mg PO DAILY 12/08/23 08/01/24 metoprolol succinate 50 mg 50 mg PO DAILY #90 tabs 12/08/23 08/01/24 tablet,extended release 24 hr nitroglycerin 0.4 mg sublingual 0.4 mg sublingual PRN PRN chest 12/08/23 08/01/24 tablet pain #60 tabs memantine 10 mg tablet 10 mg PO BID #180 tabs 12/09/23 08/01/24 cholecalciferol (vitamin D3) 50 50 mcg PO DAILY 02/23/24 08/01/24 mcg (2,000 unit) capsule benzonatate 100 mg capsule 100 mg PO TID PRN cough #14 caps 06/29/24 08/01/24 ondansetron 4 mg disintegrating 4 mg PO Q6H PRN nausea and 07/16/24 08/01/24 tablet vomiting #60 tabs pantoprazole 40 mg tablet,delayed 40 mg PO DAILY #30 tabs 07/20/24 08/01/24 release (Protonix) sucralfate 1 gram tablet 1 g PO QACHS #20 tabs 07/20/24 08/01/24 docusate sodium 100 mg capsule 100 mg PO DAILY #30 caps 07/21/24 08/01/24 olanzapine 2.5 mg tablet 2.5 mg PO DAILY #30 tabs 07/26/24 08/01/24 donepezil 5 mg tablet 5 mg PO QHS #90 tabs 07/30/24 08/01/24 metoclopramide HCl 5 mg tablet 5 mg PO .COMPLEX 08/01/24 08/01/24 Previous Rx's ?Medication ?Instructions ?Recorded levothyroxine 100 mcg capsule 100 mcg PO DAILY #90 caps 11/19/23 atorvastatin 40 mg tablet 40 mg PO QPM #90 tabs 11/23/23 metoprolol succinate 50 mg 50 mg PO DAILY #90 tabs 12/08/23 tablet,extended release 24 hr nitroglycerin 0.4 mg sublingual 0.4 mg sublingual PRN PRN chest 12/08/23 tablet pain #60 tabs memantine 10 mg tablet 10 mg PO BID #180 tabs 12/09/23 benzonatate 100 mg capsule 100 mg PO TID PRN cough #14 caps 06/29/24 ondansetron 4 mg disintegrating 4 mg PO Q6H PRN nausea and 07/16/24 tablet vomiting #60 tabs pantoprazole 40 mg tablet,delayed 40 mg PO DAILY #30 tabs 07/20/24 release (Protonix) sucralfate 1 gram tablet 1 g PO QACHS #20 tabs 07/20/24 docusate sodium 100 mg capsule 100 mg PO DAILY #30 caps 07/21/24 olanzapine 2.5 mg tablet 2.5 mg PO DAILY #30 tabs 07/26/24 donepezil 5 mg tablet 5 mg PO QHS #90 tabs 07/30/24 Allergies Allergy/AdvReac Type Severity Reaction Status Date / Time No Known Allergies Allergy Verified 08/01/24 10:49 General Stated Complaint: Chest Pain HAKEEM: 2 Review of Systems All systems reviewed & are unremarkable except as noted in HPI and below Exam Const General: cooperative HENMT Mouth: moist mucous membranes Eyes Conjunctivae: normal conjunctivae Sclera: normal sclerae EOM: EOM intact bilaterally Neck Neck: trachea midline and supple Chest Other: Pacemaker intact, well healed scar with no overlying inflammation Resp Auscultation: clear to auscultation bilaterally, no rales, no rhonchi and no wheezes Cardio Rate: regular rate and not tachycardic Rhythm: regular rhythm GI Palpation: soft, not firm, no guarding, no masses, not rigid and nontender Skin General skin exam: no rashes or lesions noted Neuro General: patient alert, patient awake and tone normal Extrem General: no edema Psych Affect: anxious affect Course Vital Signs Vital signs: Vital Signs Temperature 36.9 C 08/01/24 10:40 Pulse 84 08/01/24 10:40 Respiratory Rate 28 H 08/01/24 10:40 Blood Pressure 145/74 H 08/01/24 10:40 Pulse Oximetry 99 08/01/24 10:40 Temperature 36.9 C 08/01/24 10:40 Temperature Source Axillary 08/01/24 10:40 Pulse 84 08/01/24 10:40 Respiratory Rate 28 H 08/01/24 10:40 Blood Pressure 145/74 H 08/01/24 10:40 Blood Pressure Position Sitting 08/01/24 10:40 Pulse Oximetry 99 08/01/24 10:40 Oxygen Delivery Method Room Air 08/01/24 10:40 Oxygen Flow Rate 0 08/01/24 10:40 Pain Level 0 08/01/24 10:40 Medical Decision Making 84-year-old female with multiple medical problems including dementia, here with her with concern for pain around her pacemaker site that occurred earlier today and now since resolved. Patient is hemodynamically stable. Pacemaker in normal position with no overlying inflammation. Considered ACS. Screening EKG was reviewed interpreted by me: Paced rhythm, no STEMI, nondiagnostic. I spoke with the patient and her about goals of care and they would elect to not pursue additional diagnostics at this time. Patient requesting discharge. Patient and understands limitations of diagnostic workup at this point and provided informed refusal of further diagnostic workup including labs and imaging. I spoke with the patient's PCP who will follow up with the patient. After discharge, I spoke with the patient's daughter who called back and I relayed ED course and discharge plan with her. She was appreciative and in agreement with plan. Quality:SDOH Health Related Social Needs: Health related social needs problems with daily activities (Z73.9) PFSH All Active Problems Chest pain (Acute) Alzheimer's dementia (Acute) Duodenitis (Acute) Palliative care encounter (Acute) Advanced care planning/counseling discussion (Acute) History of breast cancer (Acute) 2020: care at [facility]- radiation completed, chemo not recommended, Exemestane to be completed May 2024 Plantar wart (Acute) Coronary artery disease (Chronic) Dizziness (Acute) Alzheimer's dementia without behavioral disturbance (Chronic) Thin nails (Acute) Hyperbilirubinemia (Chronic) NSTEMI (non-ST elevated myocardial infarction) (Acute) 07/2019- will need colo at [facility] due to this Weight loss (Acute) 01/2021- weight stable at 155 Cubital tunnel syndrome on left (Acute) Left carpal tunnel syndrome (Acute) S/P L ECTR: 04/02/2021 Cardiac pacemaker (Chronic) Dual lead Medtronic pacemaker [place] XT DR MRI [id number] 11/08/2018 Tubular adenoma of colon (Acute 03/25/16) Hypothyroidism (Chronic 01/25/14) Medical History Breast cancer 2020: care at [facility]- radiation completed, chemo not recommended, Exemestane to be completed May 2024 Dementia Sinus node dysfunction Gallbladder polyp Chronic diarrhea Skin lesion of neck Sent photo to Dr. Terrell. He said benign seborrheic keratosis. No treatment. Will let her know later. Surgical History S/P placement of cardiac pacemaker Vaginal hysterectomy Colonoscopy - MAC (03/25/16) Family History Father , 84 Skin cancer Heart disease Mother , 94 Dementia Sister , 81 Dementia Heart disease Brother No problems noted. Maternal Grandfather , 79 No problems noted. Paternal Grandfather , 59 Cancer Maternal Grandmother , 58 No problems noted. Paternal Grandmother , 86 No problems noted. Daughter Diabetes S/P vascular surgery Daughter No problems noted. Social History Smoking/Tobacco Use Status: Former Tobacco Use tobacco type: cigarettes Quit Date: 03/04/98 Second Hand Exposure: Yes Smoking risk assessment performed?: Yes Alcohol Intake: never Drug use: Never Substance use type: does not use Caregiver/Support person: No Household members: spouse Housing: house Communication Needs: Hard of Hearing Do you need help understanding health information?: Rarely Pets and animals: No Sexually active: No Do you think of yourself as: straight/heterosexual Current gender identity: female What is your relationship status?: How often do you talk on the phone with friends or family?: three or more times per week Do you belong to any clubs or organized social groups?: no Panel score (0-1 are the most socially isolated patients): 2 What type of physical activity do you participate in: walking Duration: 45-60 minutes/day Frequency: 3-4 times per week Special karyn needs: No Seatbelt use: always Helmet use: No Drive intox or ride w/intox charter driver: No Do you feel safe at home: Yes Do you feel safe in your relationship?: Yes
== END 2024-08-01 11:41 | disposition home or self-care (01) ==
PROVIDERS: Emergency Provider Student in an Organized Health Care Education/Training Program; PCP Nurse Practitioner Family
DX: R07.9 Chest pain, unspecified (principal); G30.9 Alzheimer's disease, unspecified; F02.80 Dementia in other diseases classified elsewhere, unspecified severity, without behavioral disturbance, psychotic disturbance, mood disturbance, and anxiety; I25.10 Atherosclerotic heart disease of native coronary artery without angina pectoris; I25.2 Old myocardial infarction; E03.9 Hypothyroidism, unspecified; Z79.82 Long term (current) use of aspirin; Z87.891 Personal history of nicotine dependence; Z95.0 Presence of cardiac pacemaker
CPT/HCPCS: 82962; 93005; 99284; 93010

== ENCOUNTER → 2024-08-16 14:11 | Outpatient (BNVA) | payer MEDICARE, SELFPAY | PROVIDERS: PCP Nurse Practitioner Family; Visit Provider Nurse Practitioner Adult Health | DX: G30.9 Alzheimer's disease, unspecified (principal); F02.80 Dementia in other diseases classified elsewhere, unspecified severity, without behavioral disturbance, psychotic disturbance, mood disturbance, and anxiety | CPT/HCPCS: 99213 ==

== ENCOUNTER 2024-10-11 01:36 | Outpatient (CLI) | payer MEDICARE, SELFPAY ==
--- NOTE | 2024-10-11 | DI.MAMMO_ITS ---
Exam(s) MG MAMMO SCREENING 60 MIN DUR EXAM: MG MAMMO SCREENING 60 MIN DUR CLINICAL HISTORY: Screening, Z12.31; h/o invasive ductal carcinoma of rt breast, C50.911. TECHNIQUE: Bilateral full field digital CC and MLO mammographic images were obtained with 3D tomosyn thesis and utilizing computer aided detection (CAD). COMPARISON: Prior mammograms were reviewed. Most recent mammogram in our PACS is 2015. Since that time she has been diagnosed with right breast malignancy and all further imaging has been performed elsewhere. FINDINGS: There are no new left breast findings. In the right breast there is a spiculated mass and architectural distortion towards the upper outer q uadrant located 7 cm in from the nipple. This is at site of clinical region of interest skin marker on the mammogram of October 2018. Without interval mammograms it is not possible to determine if this is scarring at the lumpectomy sit e or actual malignancy. There does appear to be some skin thickening but no retraction. IMPRESSION: 1. No radiographic evidence of malignancy in left breast. 2. Spiculated nodule architectural distortion in the upper-outer quadrant of the right breast. This was the site of clinical concern on the 2016 mammogram and there is most probably been interval surge ry/lumpectomy for malignancy. Is not possible to tell if this finding is just scar tissue at the lum pectomy site or malignancy. An addendum will follow when we receive the prior outside images for com parison purposes. You have not received an addendum report in 2 weeks and please contact me in the r adiology department. BI-RADS Category 0 - Incomplete: Need additional imaging evaluation, specifically comparison to prio r outside mammograms performed following 2016. These are being sent for. . Breast Density - Category B - There are scattered areas of fibroglandular density. Breast density Category C or D implies that the patient has dense breast tissue. Dense breast tissue can make it harder to find cancer on a mammogram. Dense breast tissue is also associated with an incr eased risk of breast cancer. This information about the result of the mammogram report was provided to the patient to raise their awareness. Use this report when you speak with the patient about their risks for breast cancer, which includes their family history. At that time, you may recommend additional screening tests (Ultrasoun d or MRI) as these tests may add significant information. A negative radiographic report should not delay biopsy if a dominant or clinically suspicious mass is present. Up to ten percent of cancers are not identified on mammography. A negative report may reinforce clinical impression. Adenosis and dense breasts may obscure an underlying neoplasm. False positive reports average 6 to 10%. Patient will receive a letter notifying them of these results.
== END 2024-10-11 01:56 ==
LOC: DI 01:37
PROVIDERS: PCP Nurse Practitioner Family; Visit Provider Internal Medicine
DX: Z12.31 Encounter for screening mammogram for malignant neoplasm of breast (principal); C50.911 Malignant neoplasm of unspecified site of right female breast; R92.323 Mammographic fibroglandular density, bilateral breasts
CPT/HCPCS: 77063; 77067